=== PATIENT | female | born 1975 ===

== ENCOUNTER 2020-07-22 14:41 | Emergency (ER) | payer MEDICARE, BC, SELFPAY ==
[2020-07-22 15:07] VITALS: BP 190/125; PULSE 107; RESP 18; TEMP 37; O2SAT 96; BMI 33.3
[2020-07-22 16:02] VITALS: BP 188/126; PULSE 108; RESP 16
--- NOTE | 2020-07-22 16:24 | ECG_ITS ---
Test Reason : HYPERTENTION Blood Pressure : / mmHG Vent. Rate : 092 BPM Atrial Rate : 092 BPM P-R Int : 160 ms QRS Dur : 070 ms QT Int : 386 ms P-R-T Axes : 046 054 064 degrees QTc Int : 477 ms Normal sinus rhythm Moderate voltage criteria for LVH, may be normal variant Nonspecific T wave abnormality Prolonged QT Abnormal ECG No previous ECGs available Referred By: eJferson Issa Electronically Signed By:ALAN DEVINE MD
[2020-07-22 16:38] VITALS: BP 189/121; PULSE 93; RESP 16; O2SAT 96
[2020-07-22 16:39] VITALS: BP 189/121; PULSE 99
[2020-07-22] MEDS: Labetalol HCL 100 MG/20 ML VIAL 20 MG IVPUSH (16:39)
[2020-07-22 16:42] LABS: MANUAL DIFF FLAG NO
[2020-07-22 16:47] LABS: Basophils Percent Auto 0.3 % (0-2); Hematocrit 39.3 % (37-47); Hemoglobin 13.1 g/dl (12.0-16.0); Imm Gran Abs Auto 0.01 X10*3/uL (0.00-0.03); Imm Gran Pct Auto 0.2 % (0.0-0.4); Lymphocytes Absolute Auto 1.7 X10*3/uL (1.2-4.9); Lymphocytes Percent Auto 27.3 % (20-40); Mean Corpuscular HGB Conc 33.3 g/dl (31.0-35.0); Mean Corpuscular Hemoglobin 29.2 pg (27.0-33.0); Mean Corpuscular Volume 87.5 fL (80-98); Mean Platelet Volume 9.8 fL (9.4-12.3); Monocytes Absolute Auto 0.7 X10*3/uL (0.1-1.2); Monocytes Percent Auto 10.7 % (2-11); Neutrophils Absolute Auto 3.7 X10*3/uL (2.0-8.3); Neutrophils Percent Auto 61.5 % (45-73); Platelet Count 267 X10*3/uL (160-400); Red Blood Count 4.49 X10*6/uL (4.20-5.50); Red Cell Distribution Width 12.8 % (11.0-16.0); White Blood Count 6.1 X10*3/uL (4.8-10.8)
[2020-07-22 17:08] LABS: Anion Gap 14 (12-20); Blood Urea Nitrogen 13 mg/dL (9-16); Calcium 8.5 mg/dL (8.4-10.2); Carbon Dioxide 24 mmol/L (22-29); Chloride 103 mmol/L (96-108); Creatinine Clr Calc Pharmacy 68.1; Estimated Glomerular Filt Rate > 60; Glucose Random 114 mg/dL (60-115); Sodium 137 mmol/L (135-145)
--- NOTE | 2020-07-22 17:13 | ED.GENADULT ---
HPI - General Adult General Chief complaint: General Medical Stated complaint: high blood pressure Time Seen by Provider: 07/22/20 16:23 Source: patient Mode of arrival: ambulatory Limitations: language barrier History of Present Illness HPI narrative: Patient has history of hypertension on losartan 50 mg daily usual blood pressure is 1 40s/80s since yesterday noticed blood pressure on the high side last night was 204/134 on arrival is 217/139 patient complaining of heaviness in the head no nausea no vomiting also patient complaining of chest pain which is going on for a long time almost a month. Patient denies any nausea vomiting diarrhea no abdominal pain no urinary complaints Related Data Allergies Allergy/AdvReac Type Severity Reaction Status Date / Time hydrocortisone Allergy Unknown UNKNOWN Unverified 05/06/20 18:52 [From CORTIZONE-10] Review of Systems Review of Systems: REVIEW OF SYSTEMS: Pertinent positives and negatives are stated above in the history. GEN: no fevers, chills, fatigue HEENT: no nasal congestion, sore throat, ear pain NEURO: ++headache, dizziness, focal weakness PULM: no cough, shortness of breath CV: no chest pain, palpitations, LE edema ABD: no abdominal pain, nausea, vomiting, diarrhea : no dysuria, urgency, frequency SKIN: no rash ROS otherwise negative x 10 [facility] Social History Social History Alcohol intake: never Smoked in Last 30 Days: No Use of substances other than those prescribed or required for medical reasons: No Advance Directives: No Advance Directives Information Provided: No Physical Exam Vital Signs: Vital Signs: Last Vital Signs Temp 98.6 F 07/22/20 15:07 Pulse 88 07/22/20 17:21 Resp 16 07/22/20 16:38 BP 150/97 H 07/22/20 17:21 Pulse Ox 96 07/22/20 16:38 Body Mass Index 33.3 Appearance: Alert. Oriented X3. No acute distress. Eyes: Pupils equal, round and reactive to light. ENT: Pharynx normal. Neck: Normal inspection. Neck supple. CVS: Normal heart rate and rhythm. Pulses normal. Respiratory: No respiratory distress. Breath sounds normal. Abdomen: Soft and nontender. No mass palpable bowel sounds are normal Skin: Skin warm and dry. Normal skin color. Normal skin turgor. Extremities: No lower extremity edema. Good range of movement Neuro: Oriented X 3. No motor deficit. No sensory deficit. Medical Decision Making MDM Narrative Medical decision making narrative: Patient with hypertension on losartan 50 mg uncontrolled lately responded to IV labetalol 20 mg now blood pressure is 150/90, patient feeling better now, labs were normal will increase the dose of losartan to 100 mg daily for control of BP Lab Data Lab results reviewed: Yes I reviewed the patient's lab results. Result diagrams: 07/22/20 16:36 07/22/20 16:36 Labs: Lab Results 07/22/20 07/22/20 07/22/20 Range/Units 16:36 16:36 16:36 WBC 6.1 (4.8-10.8) X10*3/uL RBC 4.49 (4.20-5.50) X10*6/uL Hgb 13.1 (12.0-16.0) g/dl Hct 39.3 (37-47) % MCV 87.5 (80-98) fL MCH 29.2 (27.0-33.0) pg MCHC 33.3 (31.0-35.0) g/dl RDW 12.8 (11.0-16.0) % Plt Count 267 (160-400) X10*3/uL MPV 9.8 (9.4-12.3) fL Immature Gran % (Auto) 0.2 (0.0-0.4) % Neut % (Auto) 61.5 (45-73) % Lymph % (Auto) 27.3 (20-40) % [place] % (Auto) 10.7 (2-11) % Eos % (Auto) 0.0 (0-4) % Baso % (Auto) 0.3 (0-2) % Lymph # (Auto) 1.7 (1.2-4.9) X10*3/uL [place] # (Auto) 0.7 (0.1-1.2) X10*3/uL Eos # (Auto) 0.0 (0.0-0.4) X10*3/uL Baso # (Auto) 0.0 (0.0-0.2) X10*3/uL Abs Immat Gran (auto) 0.01 (0.00-0.03) X10*3/uL Absolute Neuts (auto) 3.7 (2.0-8.3) X10*3/uL Absolute Nucleated RBC 0.000 (0.0-0.012) X10*3/uL Nucleated RBC % (auto) 0.0 (0.0-0.2) /100WBC Sodium 137 (135-145) mmol/L Potassium 4.0 (3.3-5.1) mmol/l Chloride 103 (96-108) mmol/L Carbon Dioxide 24 (22-29) mmol/L Anion Gap 14 (12-20) BUN 13 (9-16) mg/dL Creatinine 0.95 (0.5-1.4) mg/dL Estim Creat Clear Calc 68.1 Estimated GFR > 60 Random Glucose 114 (60-115) mg/dL Calcium 8.5 (8.4-10.2) mg/dL Troponin I High Sens 12.5 (<3.5-17.0) ng/L ECG Data Attestation: I personally reviewed and interpreted this ECG as follows: Interpretation: Normal sinus rhythm with ventricular rate of [address] T wave changes no acute ischemia Discharge Plan Discharge Clinical Impression: Hypertension Qualifiers: Hypertension type: essential hypertension Qualified Code(s): I10 - Essential (primary) hypertension Patient Disposition: Home, Self-Care Instructions: Hypertension (ED) Additional Instructions: Increased dose of losartan to 100 mg daily, check blood pressure daily before taking the medicine it should be less than 140/90 and follow up with PCP Interventions: ED Discharge Assessment Last Done: 07/22/20 19:45 Discharge Date/Time: 07/22/20 19:46 Print Language: Citizen Of [place]
[2020-07-22 17:15] LABS: Troponin-I High Sensitivity 12.5 ng/L (<3.5-17.0)
[2020-07-22 17:21] VITALS: BP 150/97; PULSE 88
== END 2020-07-22 19:46 | disposition home or self-care (01) ==
PROVIDERS: Emergency Provider Internal Medicine
DX: I10 Essential (primary) hypertension (principal); Z79.899 Other long term (current) drug therapy
CPT/HCPCS: 36415; 80048; 84484; 85025; 93005; 96374; 99284

== ENCOUNTER → 2020-07-27 11:09 | Outpatient (BNVA) | payer MEDICARE, BC, SELFPAY | PROVIDERS: PCP Internal Medicine; Visit Provider Urology | DX: Z76.89 Persons encountering health services in other specified circumstances (principal) | CPT/HCPCS: 99202 ==

== ENCOUNTER 2020-07-29 09:46 | Emergency (ER) | payer BC, MEDICARE, SELFPAY ==
[2020-07-29 10:01] VITALS: BP 156/96; PULSE 118; RESP 18; TEMP 36.7; O2SAT 95; BMI 34.3
--- NOTE | 2020-07-29 10:08 | ED.NAVMDI ---
HPI - Nausea/Vomiting/Diarrhea General Chief complaint: Nausea/Vomiting/Diarrhea Stated complaint: Nausea, vomiting Time Seen by Provider: 07/29/20 10:03 Source: patient Mode of arrival: ambulatory History of Present Illness HPI Narrative: 44-year-old female with a past medical history of hypertension c/o nausea, vomiting, fever T-max 100.2?, myalgias and mild chest tightness since . Also reports loss of taste/smell, recent travel to [place] and [place], and hematuria. Denies cough, shortness of breath, LE edema, history of clots, abdominal pain, dysuria MD elicited complaint: nausea, vomiting and abdominal pain Related Data Home Medications Medication Instructions Recorded Confirmed albuterol sulfate 90 mcg/actuation INHALATION 07/27/20 aerosol inhaler aspirin 81 mg chewable tablet 1 tab PO DAILY 07/27/20 losartan 100 mg tablet 100 mg PO DAILY 07/27/20 losartan 50 mg tablet 50 mg PO DAILY 07/27/20 omeprazole 20 mg capsule,delayed 20 mg PO DAILY 07/27/20 release pravastatin 40 mg tablet 40 mg PO DAILY 07/27/20 trazodone 100 mg tablet 100 mg PO BEDTIME 07/27/20 trazodone 50 mg tablet mg PO 07/27/20 Previous Rx's Medication Instructions Recorded albuterol sulfate 2 puff INHALATION Q4-6H PRN #6.7 g 07/29/20 azithromycin 250 mg PO DAILY 4 Days #4 tab 07/29/20 Allergies Allergy/AdvReac Type Severity Reaction Status Date / Time hydrocortisone Allergy Unknown UNKNOWN Verified 07/29/20 10:03 [From CORTIZONE-10] Review of Systems Review of Systems: Constitutional: No Weight loss, + Fever, No Chills, No Night Sweats, No Fatigue, + Malaise ENT/Mouth: No Hearing loss, No Ear Pain, No Nasal Congestion Cardiovascular: + Chest Pain, No SOB, No Dyspnea on Exertion, No Orthopnea, No Edema, No Palpitations Respiratory: No Cough, No Sputum Gastrointestinal: + Nausea, + Vomiting, No Diarrhea, No Constipation, No Abdominal pain Genitourinary: No Dysuria, No Urinary Frequency, + Hematuria Musculoskeletal: No joint pain, + Myalgias, No Joint Swelling Skin: No Skin Lesions, No rash Yes all other systems are reviewed and are negative PMFSH Past Medical History Attestation statement: The following information was validated with the patient. Social History Social History Alcohol intake: never Smoking Status: Never smoker Use of substances other than those prescribed or required for medical reasons: No Advance Directives: No Advance Directives Information Provided: Yes Physical Exam Vital Signs: Vital Signs: Last Vital Signs Temp 98.9 F 07/29/20 15:54 Pulse 93 07/29/20 15:54 Resp 18 07/29/20 15:54 BP 154/89 H 07/29/20 15:54 Pulse Ox 95 07/29/20 15:54 Body Mass Index 34.3 Const: General: cooperative and healthy appearing Orientation/consciousness: patient oriented x3 Limitations: no limitations HENMT: Head: Yes normal to inspection Ears: hearing grossly normal bilaterally General nose exam: Normal external nose present Face and sinus: Yes normal facial exam Eyes: General: appearance normal, both eyes and all related structures EOM: EOMs intact bilaterally Neck: Neck: Yes normal visual inspection and Yes no meningeal signs Resp: Effort & Inspection: normal respiratory effort Auscultation: clear to auscultation bilaterally, no rales, no rhonchi and no wheezes Cardio: Rate: regular rate Heart sounds: S1 normal heart sound present and S2 normal heart sound present GI: Inspection: Yes normal to inspection Palpation (GI): Soft to palpation, nontender, no guarding and not rigid Skin: Rashes: no rashes Wounds: no wounds Neuro: General: patient oriented x3 and no meningeal signs Gait exam (Neuro): Normal gait present Extrem: Other: No LE edema or calf tenderness General: Yes normal to inspection Course Course Course Narrative: -leukopenic 4.6, ferritin, LDH, CRP mildly elevated. AST/ALT mildly elevated -d-dimer negative -troponin elevated at 16.8> chronically elevated, will obtain 3hr repeat -COVID negative, CXR showing a few linear opacities of atelectasis in each lung, no evidence of pneumonia or CHF > will obtain chest CT -1635--repeat troponin equivocal, chest CT showing bilateral patchy regions of interstitial lung disease suspicious for COVID-19 > will give 1st doses of Azithro the ED and amblate pt with pusle ox prior to d/c -patient maintained saturations 95% or greater on room air with exercise test. Worrisome signs and symptoms and strict return precautions discussed with patient. She verbalized understanding feel safe for discharge home MDM - Nausea/Vomiting/Diarrhea MDM Narrative Medical decision making narrative: 44-year-old female with a PMHx of hypertension c/o nausea, vomiting, fever T-max 100.2?, myalgias and mild chest tightness since . Also reports loss of taste/smell, recent travel to [place] and [place], and hematuria. On exam tachycardic, sating 95% on RA, in no respiratory distress, lungs CTA, abdomen soft/nontender, no LE edema. Concern for viral syndrome/COVID-19 v gastroenteritis vs PE with travel/COVID risk factors vs dehydration. Low concern for ACS, appendicitis/diverticulitis. Rule UTI Plan: EKG, labs, UA, CXR, COVID19, IVF, Reassess Lab Data Result diagrams: 07/29/20 11:37 07/29/20 11:37 Labs: Lab Results 07/29/20 07/29/20 07/29/20 Range/Units 11:37 11:37 11:37 WBC 4.6 L (4.8-10.8) X10*3/uL RBC 4.69 (4.20-5.50) X10*6/uL Hgb 13.5 (12.0-16.0) g/dl Hct 40.4 (37-47) % MCV 86.1 (80-98) fL MCH 28.8 (27.0-33.0) pg MCHC 33.4 (31.0-35.0) g/dl RDW 12.8 (11.0-16.0) % Plt Count 227 (160-400) X10*3/uL MPV 10.2 (9.4-12.3) fL Immature Gran % (Auto) 0.2 (0.0-0.4) % Neut % (Auto) 64.9 (45-73) % Lymph % (Auto) 30.1 (20-40) % [place] % (Auto) 4.8 (2-11) % Eos % (Auto) 0.0 (0-4) % Baso % (Auto) 0.0 (0-2) % Lymph # (Auto) 1.4 (1.2-4.9) X10*3/uL [place] # (Auto) 0.2 (0.1-1.2) X10*3/uL Eos # (Auto) 0.0 (0.0-0.4) X10*3/uL Baso # (Auto) 0.0 (0.0-0.2) X10*3/uL Abs Immat Gran (auto) 0.01 (0.00-0.03) X10*3/uL Absolute Neuts (auto) 3.0 (2.0-8.3) X10*3/uL Absolute Nucleated RBC 0.000 (0.0-0.012) X10*3/uL Nucleated RBC % (auto) 0.0 (0.0-0.2) /100WBC PT 12.8 (10.8-13.0) SEC INR 1.1 (0.9-1.1) APTT 29.6 (24.1-38.0) SEC D-Dimer < 200 NG/ML Sodium (135-145) mmol/L Potassium (3.3-5.1) mmol/l Chloride (96-108) mmol/L Carbon Dioxide (22-29) mmol/L Anion Gap (12-20) BUN (9-16) mg/dL Creatinine (0.5-1.4) mg/dL Estim Creat Clear Calc Estimated GFR Random Glucose (60-115) mg/dL Calcium (8.4-10.2) mg/dL Magnesium (1.6-2.6) mg/dL Ferritin (10-250) ng/mL Total Bilirubin (0.0-1.0) mg/dL Direct Bilirubin (0.0-0.5) mg/dL AST (5-31) U/L ALT (0-31) U/L Alkaline Phosphatase (39-117) U/L Lactate Dehydrogenase (122-220) U/L Troponin I High Sens 16.8 (<3.5-17.0) ng/L C-Reactive Protein (< or = 0.50) mg/dL Total Protein (6.5-8.0) g/dL Albumin (3.5-5.0) g/dL Lipase (8-78) U/L Procalcitonin ng/mL Urine Color Urine Appearance Urine pH (5.0-8.0) Ur Specific [place] (1.005-1.025) Urine Protein (NEG-TRACE) MG/DL Urine Glucose (UA) (NEG) MG/DL Urine Ketones (NEG) MG/DL Urine Blood (NEG) Urine Nitrite (NEG) Ur Leukocyte Esterase (NEG) Urine RBC (0) /HPF Urine WBC (0-4) /HPF Ur Squamous Epith Cells /LPF Urine Bacteria /LPF COVID-19 (RADHA) (Negative) COVID-19 Clin Com 07/29/20 07/29/20 07/29/20 Range/Units 11:37 11:37 11:42 WBC (4.8-10.8) X10*3/uL RBC (4.20-5.50) X10*6/uL Hgb (12.0-16.0) g/dl Hct (37-47) % MCV (80-98) fL MCH (27.0-33.0) pg MCHC (31.0-35.0) g/dl RDW (11.0-16.0) % Plt Count (160-400) X10*3/uL MPV (9.4-12.3) fL Immature Gran % (Auto) (0.0-0.4) % Neut % (Auto) (45-73) % Lymph % (Auto) (20-40) % [place] % (Auto) (2-11) % Eos % (Auto) (0-4) % Baso % (Auto) (0-2) % Lymph # (Auto) (1.2-4.9) X10*3/uL [place] # (Auto) (0.1-1.2) X10*3/uL Eos # (Auto) (0.0-0.4) X10*3/uL Baso # (Auto) (0.0-0.2) X10*3/uL Abs Immat Gran (auto) (0.00-0.03) X10*3/uL Absolute Neuts (auto) (2.0-8.3) X10*3/uL Absolute Nucleated RBC (0.0-0.012) X10*3/uL Nucleated RBC % (auto) (0.0-0.2) /100WBC PT (10.8-13.0) SEC INR (0.9-1.1) APTT (24.1-38.0) SEC D-Dimer NG/ML Sodium 137 (135-145) mmol/L Potassium 3.8 (3.3-5.1) mmol/l Chloride 103 (96-108) mmol/L Carbon Dioxide 23 (22-29) mmol/L Anion Gap 15 (12-20) BUN 10 (9-16) mg/dL Creatinine 1.10 (0.5-1.4) mg/dL Estim Creat Clear Calc 57.2 Estimated GFR 53 Random Glucose 144 H (60-115) mg/dL Calcium 8.7 (8.4-10.2) mg/dL Magnesium 1.7 (1.6-2.6) mg/dL Ferritin 542 H (10-250) ng/mL Total Bilirubin 0.2 (0.0-1.0) mg/dL Direct Bilirubin 0.2 (0.0-0.5) mg/dL AST 41 H (5-31) U/L ALT 51 H (0-31) U/L Alkaline Phosphatase 76 (39-117) U/L Lactate Dehydrogenase 247 H (122-220) U/L Troponin I High Sens (<3.5-17.0) ng/L C-Reactive Protein 2.54 H (< or = 0.50) mg/dL Total Protein 7.4 (6.5-8.0) g/dL Albumin 3.9 (3.5-5.0) g/dL Lipase 30 (8-78) U/L Procalcitonin 0.10 ng/mL Urine Color Urine Appearance Urine pH (5.0-8.0) Ur Specific [place] (1.005-1.025) Urine Protein (NEG-TRACE) MG/DL Urine Glucose (UA) (NEG) MG/DL Urine Ketones (NEG) MG/DL Urine Blood (NEG) Urine Nitrite (NEG) Ur Leukocyte Esterase (NEG) Urine RBC (0) /HPF Urine WBC (0-4) /HPF Ur Squamous Epith Cells /LPF Urine Bacteria /LPF COVID-19 (RADHA) Negative (Negative) COVID-19 Clin Com See Note 07/29/20 07/29/20 Range/Units 14:24 14:27 WBC (4.8-10.8) X10*3/uL RBC (4.20-5.50) X10*6/uL Hgb (12.0-16.0) g/dl Hct (37-47) % MCV (80-98) fL MCH (27.0-33.0) pg MCHC (31.0-35.0) g/dl RDW (11.0-16.0) % Plt Count (160-400) X10*3/uL MPV (9.4-12.3) fL Immature Gran % (Auto) (0.0-0.4) % Neut % (Auto) (45-73) % Lymph % (Auto) (20-40) % [place] % (Auto) (2-11) % Eos % (Auto) (0-4) % Baso % (Auto) (0-2) % Lymph # (Auto) (1.2-4.9) X10*3/uL [place] # (Auto) (0.1-1.2) X10*3/uL Eos # (Auto) (0.0-0.4) X10*3/uL Baso # (Auto) (0.0-0.2) X10*3/uL Abs Immat Gran (auto) (0.00-0.03) X10*3/uL Absolute Neuts (auto) (2.0-8.3) X10*3/uL Absolute Nucleated RBC (0.0-0.012) X10*3/uL Nucleated RBC % (auto) (0.0-0.2) /100WBC PT (10.8-13.0) SEC INR (0.9-1.1) APTT (24.1-38.0) SEC D-Dimer NG/ML Sodium (135-145) mmol/L Potassium (3.3-5.1) mmol/l Chloride (96-108) mmol/L Carbon Dioxide (22-29) mmol/L Anion Gap (12-20) BUN (9-16) mg/dL Creatinine (0.5-1.4) mg/dL Estim Creat Clear Calc Estimated GFR Random Glucose (60-115) mg/dL Calcium (8.4-10.2) mg/dL Magnesium (1.6-2.6) mg/dL Ferritin (10-250) ng/mL Total Bilirubin (0.0-1.0) mg/dL Direct Bilirubin (0.0-0.5) mg/dL AST (5-31) U/L ALT (0-31) U/L Alkaline Phosphatase (39-117) U/L Lactate Dehydrogenase (122-220) U/L Troponin I High Sens 16.4 (<3.5-17.0) ng/L C-Reactive Protein (< or = 0.50) mg/dL Total Protein (6.5-8.0) g/dL Albumin (3.5-5.0) g/dL Lipase (8-78) U/L Procalcitonin ng/mL Urine Color YELLOW Urine Appearance CLEAR Urine pH 6.5 (5.0-8.0) Ur Specific [place] 1.015 (1.005-1.025) Urine Protein 2+ H (NEG-TRACE) MG/DL Urine Glucose (UA) NEG (NEG) MG/DL Urine Ketones NEG (NEG) MG/DL Urine Blood 3+ H (NEG) Urine Nitrite NEG (NEG) Ur Leukocyte Esterase NEG (NEG) Urine RBC 5-9 H (0) /HPF Urine WBC 0 (0-4) /HPF Ur Squamous Epith Cells 1+ /LPF Urine Bacteria 1+ /LPF COVID-19 (RADHA) (Negative) COVID-19 Clin Com Discharge Plan Discharge Clinical Impression: COVID-19, Viral pneumonia Patient Disposition: Home, Self-Care Instructions: COVID-19 (Coronavirus Disease 2019) (ED) Additional Instructions: Your blood work and CT scan are concerning for COVID-19. Azithromycin as antibiotic, take as prescribed. In addition use albuterol inhaler at home as needed for shortness of breath. Self isolate for 14 days. If symptoms persist or worsen, you develop constant chest pain, constant shortness of breath, or fever unresolved by Tylenol at home return to the ED At this time you will be okay for discharge. Please plan for self quarantine for up to 14 days. Do not expose yourself to others. You may not go to work. I Please continue to follow cold instructions and wash your hands frequently. You may take Tylenol as directed on the bottle for pain or fever. CDC Guidelines for home isolation: - Stay away from others - WEAR A MASK if you are sick AND STAY HOME - Cover your mouth and nose with a tissue when you cough or sneeze. Dispose of tissues in a lined trash can and wash your hands immediately with soap and water for at least 20 seconds. If soap and water are not available, clean hands with alcohol-based hand communications department chairperson that contains at least 60% alcohol. - Clean your hands often with soap and water for at least 20 seconds - Avoid touching your eyes, nose and mouth with unwashed hands - Do not share dishes, drinking glasses, cups, eating utensils, towels, or bedding with other people in your home. After using these items, wash them thoroughly with soap and water or put in the cardiovascular surgical tech. - Clean high-touch surfaces in your isolation area ( sick room and bathroom) every day; let a caregiver clean and disinfect high-touch surfaces in other areas of the home. Clean the area or item with soap and water or another detergent if it is dirty. Then, use a household disinfectant. - Limit contact with pets and animals: If you must care for a pet, wash your hands before and after interacting with them) Teran an?lisis de blessing y tomograf?a computarizada son preocupantes para COVID-19. Azitromicina arti antibi?josue, lam seg?n lo prescrito. Adem?s, use el inhalador de albuterol en casa seg?n sea necesario para la dificultad para respirar. Autoaislar genoveva 14 d?as. Si los s?ntomas persisten o empeoran, presenta dolor en el pecho ronaldo, dificultad para respirar ronaldo o fiebre que no se resuelve con Tylenol en casa, regrese al servicio de urgencias En asia momento estar? kishore para el debby. Planifique la auto cuarentena por hasta 14 d?as. No se exponga a los dem?s. Puede que no vaya a trabajar. yo Contin?e siguiendo las instrucciones en fr?o y l?vese las liliana con frecuencia. Puede lam Tylenol arti se indica en el frasco para el dolor o la fiebre. [place] de los CDC para el aislamiento en el hogar: - Mantente alejado de los dem?s - USE MARITZA M?SCARA si est? enfermo Y QUEDE EN CASA - C?brase la boca y la nariz con un pa?uelo cuando tosa o estornude. Deseche los pa?uelos desechables en un bote de basura forrado y l?vese las liliana inmediatamente con agua y jab?n genoveva al menos 20 segundos. Si no dispone de agua y jab?n, l?vese las liliana con un desinfectante para liliana a base de alcohol que contenga al menos un 60% de alcohol. - L?vese las liliana con frecuencia con agua y jab?n genoveva al menos 20 segundos - Evite tocarse los ojos, la nariz y la boca con las liliana sin jefe - No comparta platos, vasos, tazas, cubiertos, toallas o ropa de cama con otras personas en teran hogar. Despu?s de usar estos art?culos, l?velos kishore con agua y jab?n o p?ngalos en el [place]. - Limpie las superficies de alto contacto en teran ?trisha de aislamiento ( habitaci?n de enfermo y ba?o) todos los d?as; deje que un cuidador limpie y desinfecte las superficies de alto contacto en otras ?reas de la casa. Limpie el ?trisha o el art?culo con agua y jab?n u otro detergente si est? sucio. Luego, use un desinfectante dom?stico. - Limite el contacto con mascotas y animales: si debe cuidar a maritza mascota, l?vese las liliana antes y despu?s de interactuar con ellos) Prescriptions: New azithromycin 250 mg tablet 250 mg PO DAILY 4 Days Qty: 4 RF: 0 albuterol sulfate 90 mcg/actuation HFA aerosol inhaler 2 puff inhalation Q4-6H PRN (Reason: shortness of breath or wheezing) Qty: 6.7 RF: 0 No Action losartan 100 mg tablet 100 mg PO DAILY RF: 0 omeprazole 20 mg capsule,delayed release(DR/EC) 20 mg PO DAILY RF: 0 albuterol sulfate 90 mcg/actuation HFA aerosol inhaler inhalation RF: 0 pravastatin 40 mg tablet 40 mg PO DAILY RF: 0 losartan 50 mg tablet 50 mg PO DAILY RF: 0 trazodone 100 mg tablet 100 mg PO BEDTIME RF: 0 aspirin 81 mg tablet,chewable 1 tab PO DAILY RF: 0 trazodone 50 mg tablet PO RF: 0 Referrals: Physician,Unknown [Primary Care Provider] - 2 days (call) Print Language: [place]
--- NOTE | 2020-07-29 10:28 | XR_ITS ---
EXAMINATION: XR CHEST CLINICAL INFORMATION: Chest pain COMPARISON: None TECHNIQUE: Frontal view of the chest was obtained. FINDINGS: Lungs are well expanded. There are a few thin linear opacities of atelectasis in each lung. No evidence of pulmonary edema, consolidation or pleural effusion. No pneumothorax. Cardiomediastinal silhouette has normal size and contour. The visualized bones, and upper abdomen, are unremarkable. XR/XR chest 1V IMPRESSION: * There are a few linear opacities of atelectasis in each lung. * No radiographic evidence of pneumonia or congestive heart failure.
--- NOTE | 2020-07-29 10:35 | PC.NURSE ---
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 Pt moved to room 3 in ED
[2020-07-29 11:11] VITALS: BP 149/106; PULSE 105; RESP 18; O2SAT 96
[2020-07-29] MEDS: 0.9 % Sodium Chloride 1,000 ML 999 ML IVCONT (11:46)
[2020-07-29] MEDS: ondansetron HCL 4 MG/2 ML VIAL IVPUSH (11:47)
[2020-07-29 11:50] VITALS: PULSE 103
[2020-07-29 12:00] VITALS: BP 144/88; PULSE 99; RESP 16; TEMP 36.7; O2SAT 97
[2020-07-29 12:06] LABS: Hematocrit 40.4 % (37-47); Hemoglobin 13.5 g/dl (12.0-16.0); Imm Gran Abs Auto 0.01 X10*3/uL (0.00-0.03); Imm Gran Pct Auto 0.2 % (0.0-0.4); Lymphocytes Absolute Auto 1.4 X10*3/uL (1.2-4.9); Lymphocytes Percent Auto 30.1 % (20-40); MANUAL DIFF FLAG NO; Mean Corpuscular HGB Conc 33.4 g/dl (31.0-35.0); Mean Corpuscular Hemoglobin 28.8 pg (27.0-33.0); Mean Corpuscular Volume 86.1 fL (80-98); Mean Platelet Volume 10.2 fL (9.4-12.3); Monocytes Absolute Auto 0.2 X10*3/uL (0.1-1.2); Monocytes Percent Auto 4.8 % (2-11); Neutrophils Percent Auto 64.9 % (45-73); Platelet Count 227 X10*3/uL (160-400); Red Blood Count 4.69 X10*6/uL (4.20-5.50); Red Cell Distribution Width 12.8 % (11.0-16.0); White Blood Count 4.6 X10*3/uL (4.8-10.8)
[2020-07-29 12:09] LABS: INTERNATIONAL NORM RATIO 1.1 (0.9-1.1); Prothrombin Time 12.8 SEC (10.8-13.0)
[2020-07-29 12:12] LABS: Partial Thromboplastin Time 29.6 SEC (24.1-38.0)
[2020-07-29 12:16] LABS: D Dimer < 200 NG/ML
[2020-07-29 12:19] LABS: COVID-19 Test Negative (Negative); IDNOW Serial# 9DD0AD1C
[2020-07-29 12:36] LABS: Alanine Aminotransferase 51 U/L (0-31); Albumin Level 3.9 g/dL (3.5-5.0); Alkaline Phosphatase 76 U/L (39-117); Anion Gap 15 (12-20); Aspartate Amino Transferase 41 U/L (5-31); Bilirubin Direct 0.2 mg/dL (0.0-0.5); Bilirubin Total 0.2 mg/dL (0.0-1.0); Blood Urea Nitrogen 10 mg/dL (9-16); C Reactive Protein 2.54 mg/dL (< or = 0.50); Calcium 8.7 mg/dL (8.4-10.2); Carbon Dioxide 23 mmol/L (22-29); Chloride 103 mmol/L (96-108); Creatinine Clr Calc Pharmacy 57.2; Estimated Glomerular Filt Rate 53; Glucose Random 144 mg/dL (60-115); Lactate Dehydrogenase 247 U/L (122-220); Lipase 30 U/L (8-78); Magnesium 1.7 mg/dL (1.6-2.6); Potassium 3.8 mmol/l (3.3-5.1); Sodium 137 mmol/L (135-145); Total Protein 7.4 g/dL (6.5-8.0)
[2020-07-29 12:40] LABS: Troponin-I High Sensitivity 16.8 ng/L (<3.5-17.0)
[2020-07-29 13:16] VITALS: BP 149/95; PULSE 102; RESP 16; TEMP 37; O2SAT 96
[2020-07-29 13:35] LABS: Ferritin 542 ng/mL (10-250)
--- NOTE | 2020-07-29 14:04 | CT_ITS ---
EXAMINATION: CT CHEST WITHOUT CONTRAST CLINICAL INFORMATION: Atelectasis versus pneumonia versus Covid. COMPARISON: Chest x-ray of same day TECHNIQUE: Multidetector volumetric CT imaging of the chest was done. Axial MIP volume rendering provided. Sagittal and coronal reformatted images were obtained. This CT examination was performed using dose optimization techniques as appropriate, variously including the following: *Automated exposure control *Adjustment of mA and/or kV according to patient size (this includes techniques or standardized protocols for targeted exams where dose is matched to indication/reason for exam; i.e. extremities or head) *Use of iterative reconstruction technique DLP: 2-3 mGy-cm FINDINGS: LUNGS: Central airways are patent. Calcified granuloma seen within the left upper lobe. There is bronchial wall thickening seen bilaterally without evidence of bronchiectasis. No emphysematous changes appreciated. There is some dependent bibasilar parenchymal disease left greater than right which may be related to dependent atelectasis however pneumonia cannot be excluded. There are regions of patchy groundglass opacity seen scattered bilaterally some of which is in a peripheral pattern involving the right upper lobe, the right lower lobe, left upper lobe, lingula, and left lower lobe. There are regions of most confluent disease is seen within the lingula and left lower lobe. MEDIASTINUM: Heart normal size. No thoracic aortic aneurysm. No pericardial effusion. No mediastinal or hilar lymphadenopathy. PLEURA: No pleural effusion. AXILLA: No lymphadenopathy. UPPER ABDOMEN: There is fatty infiltration of the liver. Status post cholecystectomy. OSSEOUS STRUCTURES: Unremarkable. CT/CT chest wo con IMPRESSION: More confluent airspace disease seen within the lingula and left lower lobe consistent with pneumonitis. There are bilateral patchy regions of peripheral interstitial lung disease. Appearance is suspicious for Covid 19.
[2020-07-29 14:42] LABS: Glucose Urine UA NEG (NEG); Leukocyte Esterase Urine NEG (NEG); Nitrite Urine NEG (NEG); PH 6.5 (5.0-8.0); Specific Gravity - Urine 1.015 (1.005-1.025); Urine Blood 3+ (NEG); Urine Ketones NEG (NEG); Urine Protein 2+ MG/DL (NEG-TRACE)
[2020-07-29 14:57] LABS: Appearance Urine CLEAR; Color Urine YELLOW
[2020-07-29 15:12] LABS: Bacteria Urine 1+ /LPF; Squamous Epithelial Cell Urine 1+ /LPF; WBC Urine 0 /HPF (0-4)
[2020-07-29 15:23] LABS: Troponin-I High Sensitivity 16.4 ng/L (<3.5-17.0)
[2020-07-29] MEDS: Azithromycin 500 MG TABLET PO (15:53)
[2020-07-29 15:54] VITALS: BP 154/89; PULSE 93; RESP 18; TEMP 37.2; O2SAT 95
--- NOTE | 2020-07-29 16:03 | PC.NURSE ---
PT ABLE TO STAND AND AMBULATE ABOUT ROOM W/ PULSE OXIMETER ON, SPO2 REMAINS >95%, PT OFFERED NO COMPLAINTS, PROVIDER AWARE.
== END 2020-07-29 16:18 | disposition home or self-care (01) ==
PROVIDERS: Physician Assistant; Emergency Provider Emergency Medicine
DX: J18.9 Pneumonia, unspecified organism (principal); Z20.828 Contact with and (suspected) exposure to other viral communicable diseases; I10 Essential (primary) hypertension
CPT/HCPCS: 36415; 71045; 71250; 80048; 80076; 81001; 82728; 83615; 83690; 83735; 84145; 84484; 85025; 85379; 85610; 85730; 86140; 87635; 99284; J2405

== ENCOUNTER 2020-08-31 12:18 | Outpatient (REF) | payer BC, SELFPAY ==
--- NOTE | 2020-08-31 12:22 | US_ITS ---
EXAMINATION: US RETROPERITONEAL LIMITED (RENAL ONLY) CLINICAL INFORMATION: Renal stones. COMPARISON: KUB 10/03/2017 TECHNIQUE: Real-time imaging of the kidneys. FINDINGS: RIGHT KIDNEY: 12.7 x 4.9 x 4.9 cm (SAG x AP x TRV). The kidney is normal in size, contour, and echogenicity. Renal cortical thickness is normal. No focal parenchymal lesions or hydronephrosis. Right midpole renal stone measuring 0.4 cm. LEFT KIDNEY: 7.8 x 3.8 x 4.3 cm (SAG x AP x TRV). Asymmetric left renal atrophy. Renal cortical thinning. No calculi or focal parenchymal lesions. No hydronephrosis. US/US renal BI IMPRESSION: 1. Right midpole 0.4 cm renal stone. No right-sided hydronephrosis. 2. Asymmetric left renal atrophy and cortical thinning.
[2020-08-31 13:44] LABS: Urine Cytology See Pathology rpt
== END 2020-08-31 12:19 | disposition home or self-care (01) ==
LOC: HO.US 12:18
PROVIDERS: PCP Internal Medicine; Visit Provider Urology
DX: N20.0 Calculus of kidney (principal); R31.0 Gross hematuria
CPT/HCPCS: 76775; 88112

== ENCOUNTER → 2020-09-24 10:50 | Outpatient (BNVA) | payer BC, SELFPAY | PROVIDERS: Visit Provider Urology | DX: N39.0 Urinary tract infection, site not specified (principal); N20.0 Calculus of kidney; N26.1 Atrophy of kidney (terminal) | CPT/HCPCS: 99212 ==

== ENCOUNTER → 2021-02-04 09:27 | Outpatient (REF) | payer MEDICARE, SELFPAY ==
--- NOTE | 2021-02-04 09:30 | CA_ITS ---
Acquisition Time: 2021-02-04 09:38:12 Total Exercise Time: 00:02:15 Test Indications: chest pain Medications: Protocol: JILLIAN Max HR: 155 BPM 89% of Pred: 173 BPM Max BP: 156/090 mmHG Max Work Load: 4.6 METS Exercise stress test with exercise 2 min 15 sec of Jillian protocol, with 1/10 mid chest pressure at baseline which increased to 4/10 with exercise, with mild to moderate sob and request to stop exercise, with isolated PACs, with normotensive response to exercise, without EKG changes meeting criteria for ischemia. In recovery her chest discomfort and shortness of breath resolved. Test reviewed with Dr Banuelos. Call placed to Dr Nieves office and left message regarding results and recommendation for Pharmacological nuclear stress test to further evaluate for ischemia. Referred By: Michoacano Hilton Overread By: RAFA MCKINNEY
== END ==
LOC: HO.CARD 09:27
PROVIDERS: Visit Provider Internal Medicine
DX: R07.9 Chest pain, unspecified (principal)
CPT/HCPCS: 93017

== ENCOUNTER 2021-03-25 07:29 | Outpatient (REF) | payer MEDICARE, SELFPAY ==
--- NOTE | ~2021-03-25 | US_ITS ---
EXAMINATION: US RETROPERITONEAL LIMITED (RENAL ONLY) CLINICAL INFORMATION: Calculus of kidney. COMPARISON: Renal ultrasound 08/31/2020. KUB 10/03/2017 and 09/14/2016. TECHNIQUE: Real-time imaging of the kidneys. FINDINGS: RIGHT KIDNEY: 11.3 x 6.3 x 5.8 cm (SAG x AP x TRV). The kidney is normal in size, contour, and echogenicity. Renal cortical thickness is normal. There is a 6 x 5 x 8 mm stone in the midpole. No focal parenchymal lesions or hydronephrosis. LEFT KIDNEY: 7.7 x 4.7 x 4.2 cm (SAG x AP x TRV). The left kidney is difficult to visualize. The kidney is normal in size, contour, and echogenicity. Left kidney is smaller than the right. There is left renal cortical thinning. There is central cystic area in the upper pole questionable for hydronephrosis versus peripelvic cysts. US/US renal BI IMPRESSION: Right renal stone. Limited visualization of the left kidney. Small left kidney with left renal cortical thinning. Cystic area seen in the central upper pole of the left kidney questionable for calyceal dilatation versus peripelvic cysts.
== END 2021-03-25 07:30 | disposition home or self-care (01) ==
LOC: HO.US 07:29
PROVIDERS: Visit Provider Urology
DX: N20.0 Calculus of kidney (principal)
CPT/HCPCS: 76775

== ENCOUNTER → 2021-05-03 15:33 | Outpatient (BNVA) | payer MEDICARE, SELFPAY | PROVIDERS: PCP Internal Medicine; Visit Provider Urology | DX: N20.0 Calculus of kidney (principal); N26.1 Atrophy of kidney (terminal) | CPT/HCPCS: Q3014 ==

== ENCOUNTER 2021-07-06 06:14 | Day surgery (SDC) | payer MEDICARE, SELFPAY ==
[2021-06-15 15:46] VITALS: BMI 29.2
--- NOTE | 2021-07-05 12:02 | P.CONAN_ITS ---
Documented by User: Bere Willis NP 07/05/21 12:02 HPI - Anesthesia Eval Consult details Narrative: 45yo F for Right Lithotripsy ESW PMFSH Active Problems Active Problems: All Active Problems (Updated 06/15/21 @ 15:05 by Alise Macdonald RN) Gross hematuria (Acute) COVID-19 (Acute) Recurrent UTI (urinary tract infection) (Acute) Left renal atrophy (Acute) Nephrolithiasis (Acute) Diabetes mellitus (Acute) Past Medical History Medical History (Updated 06/15/21 @ 15:05 by Alise Macdonald, RN) Depression Diabetes Elevated cholesterol Fibromyalgia GERD (gastroesophageal reflux disease) HTN (hypertension) Kidney stones Medullary sponge kidney GREG (obstructive sleep apnea) Surgical History Surgical History (Updated 06/15/21 @ 15:01 by Alise Macdonald RN) History of lithotripsy Hx of cholecystectomy Hx of hysterectomy Social History Social History Are you a primary healthcare architect to a significant other at home: No Do you presently have visiting nurse or other home services: No Alcohol intake: never Patient Tobacco Use Status: Former Tobacco user Quit Date: > 20 yrs ago Tobacco use type: Cigarette Have you been hit, kicked, punched, or otherwise hurt by someone within the past year? If so, by whom?: No Are you DNR?: No Advance Directives: No Advance Directives Information Provided: No Advance Directives on File: No Recently lost weight without trying: No Eating poorly because of decreased appetite: No Nutrition Risks: No Nutritional Risk Patient : No FDLMP: Hysterectomy Meds Allergies Allergy/AdvReac Type Severity Reaction Status Date / Time hydrocortisone Allergy Unknown UNKNOWN Verified 05/03/21 15:35 [From CORTIZONE-10] Home Medications Medication Instructions Recorded Confirmed Last Taken Type aspirin 81 mg chewable tablet 1 tab PO DAILY 07/27/20 06/15/21 Unknown History losartan 100 mg tablet 100 mg PO DAILY 07/27/20 06/15/21 Unknown History omeprazole 20 mg capsule,delayed 20 mg PO DAILY 07/27/20 06/15/21 Unknown History release pravastatin 40 mg tablet 40 mg PO DAILY 07/27/20 06/15/21 Unknown History trazodone 100 mg tablet 100 mg PO BEDTIME 07/27/20 06/15/21 Unknown History clonazepam 0.5 mg tablet 0.5 mg PO TID PRN 05/03/21 06/15/21 Unknown History duloxetine 60 mg capsule,delayed 60 mg PO BID 05/03/21 06/15/21 Unknown History release empagliflozin 25 mg tablet 25 mg PO DAILY 05/03/21 06/15/21 Unknown History (Jardiance) haloperidol 5 mg tablet 2.5 mg PO TID 05/03/21 06/15/21 Unknown History metformin 500 mg tablet,extended 1 tab PO QPM 06/15/21 06/15/21 Unknown History release 24 hr Exam Exam Date and Time: July 05, 2021 1202 Height,Weight and Vital Signs: Height 5 ft 2 in Weight 72.575 kg Narrative Narrative: Exercise stress 01/2021 Exercise stress test with exercise 2 min 15 sec of Devyn protocol, with 1/10 mid ?chest pressure at baseline which increased to 4/10 with exercise, with mild to ?moderate sob and request to stop exercise, with isolated PACs, with ?normotensive response to exercise, without EKG changes meeting criteria for ?ischemia. In recovery her chest discomfort and shortness of breath resolved. ?Test reviewed with Dr Banuelos. Assessment and Plan Assessment Anesthesia Assessment: Chart Reviewed Documented by User: Priscilla Olivo MD 07/06/21 07:11 [facility] Past Medical History Medical History (Updated 06/15/21 @ 15:05 by Alies Macdonald, RN) Depression Diabetes Elevated cholesterol Fibromyalgia GERD (gastroesophageal reflux disease) HTN (hypertension) Kidney stones Medullary sponge kidney GREG (obstructive sleep apnea) Family History Family history of problems with anesthesia: No Surgical History Surgical History (Updated 06/15/21 @ 15:01 by Alise Macdonald, RN) History of lithotripsy Hx of cholecystectomy Hx of hysterectomy History of Problems with Anesthesia: No Social History Social History Are you a primary healthcare architect to a significant other at home: No Do you presently have visiting nurse or other home services: No Alcohol intake: never Patient Tobacco Use Status: Former Tobacco user Quit Date: > 20 yrs ago Tobacco use type: Cigarette Have you been hit, kicked, punched, or otherwise hurt by someone within the past year? If so, by whom?: No Are you DNR?: No Advance Directives: No Advance Directives Information Provided: No Advance Directives on File: No Recently lost weight without trying: No Eating poorly because of decreased appetite: No Nutrition Risks: No Nutritional Risk Patient : No FDLMP: Hysterectomy Meds Allergies Allergy/AdvReac Type Severity Reaction Status Date / Time hydrocortisone Allergy Unknown UNKNOWN Verified 05/03/21 15:35 [From CORTIZONE-10] Home Medications Medication Instructions Recorded Confirmed Last Taken Type aspirin 81 mg chewable tablet 1 tab PO DAILY 07/27/20 06/15/21 Unknown History losartan 100 mg tablet 100 mg PO DAILY 07/27/20 06/15/21 Unknown History omeprazole 20 mg capsule,delayed 20 mg PO DAILY 07/27/20 06/15/21 Unknown History release pravastatin 40 mg tablet 40 mg PO DAILY 07/27/20 06/15/21 Unknown History trazodone 100 mg tablet 100 mg PO BEDTIME 07/27/20 06/15/21 Unknown History clonazepam 0.5 mg tablet 0.5 mg PO TID PRN 05/03/21 06/15/21 Unknown History duloxetine 60 mg capsule,delayed 60 mg PO BID 05/03/21 06/15/21 Unknown History release empagliflozin 25 mg tablet 25 mg PO DAILY 05/03/21 06/15/21 Unknown History (Jardiance) haloperidol 5 mg tablet 2.5 mg PO TID 05/03/21 06/15/21 Unknown History metformin 500 mg tablet,extended 1 tab PO QPM 06/15/21 06/15/21 Unknown History release 24 hr Exam Airway Mallampati Class: II TM Dist: >3cm Neck ROM: Full Heart: rrr Lungs: cta Assessment and Plan Assessment Anesthesia Assessment: Anesthesia Plan Discussed and Chart Reviewed Final Anesthetic Review Family History of Problems with Anesthesia: No History of Problems with Anesthesia: No NPO: Yes ASA Class: II Final Preanesthetic Review: No Changes in Pt Med Stat, Meds/Allgs Chart Reviewed and Consent Obtained/Reviewed Patient Risk: Intermediate Procedure Risk: Intermediate Anesthetic Plan Anesthetic Plan: MAC: Disposition: Standard PACU
[2021-07-06] VITALS (22 sets, daily range): BP systolic 150–229; BP diastolic 92–164; PULSE 66–135; RESP 14–23; TEMP 36.8; O2SAT 92–98
--- NOTE | ~2021-07-06 | XR_ITS ---
EXAMINATION: XR ABDOMEN KUB CLINICAL INDICATION: Nephrolithiasis COMPARISON: Renal ultrasound from 03/25/2021 TECHNIQUE: AP view of the abdomen. FINDINGS: Lung bases are normal. Bowel gas pattern is normal. The kidneys are partially obscured by overlying bowel gas and fecal material. Small renal stones might be obscured by the fecal material. Question presence of a 0.3 cm stone in the lateral upper pole of the right kidney. There are no large renal calculi. Cholecystectomy clips are present in the right upper quadrant. A single surgical clip is present in the left lower pelvis. Osseous structures are unremarkable. XR/XR KUB IMPRESSION: Possible small, 0.3 cm stone at the upper pole of the right kidney.
[2021-07-06 06:53] LABS: Glucose, Whole Blood 142 mg/dL (60-115)
[2021-07-06] MEDS: Lactated Ringers 1,000 ML 100 ML IVCONT (07:05)
[2021-07-06] MEDS: Acetaminophen 325 MG TABLET 650 MG PO (07:06)
--- NOTE | 2021-07-06 08:22 | MHC.SHP ---
Pre-Procedural Eval Section A Date of Service: 07/06/21 Section B Chief Complaint: calculus of kidney Details of Present Illness: Right renal stone - recurrent Relevant Family History (Specify if Yes): No Relevant Social History: None Present Medications: see Short Stay Collaborative assessment Medical History: Significant History History of Previous Operations: Relevant previous surgery/procedure and date(s) Allergies: Allergies Allergy/AdvReac Type Severity Reaction Status Date / Time hydrocortisone Allergy Unknown UNKNOWN Verified 05/03/21 15:35 [From CORTIZONE-10] Review of Systems Sugical H&P ROS: Negative: Constitution, Cardiovascular, Respiratory, Neurological, Psychiatric, Hem-Onc, Allergic/Immunologic, Gastrointestinal, Genitourinary, Musculoskeletal, Integumentary, Endocrine and Eyes/Ears/Nose/Throat Exam Surgical H&P Exam: Normal: HEENT, Normal: Heart, Normal: Lungs, Normal: Extremities, Normal: Abdomen, Normal: Skin and Normal: Neurological Plan Diagnosis/Plan: Unchanged (Right ESWL) I have reviewed the history and physical and performed a pertinent physical examination on my patient. No changes have occurred unless specified.
--- NOTE | 2021-07-06 08:33 | W.PM.OPN ---
Operative Note Operative Note Date of Service: 07/06/21 Narrative: PreOperative Diagnosis: Right Renal stones Post Operative Diagnosis: Right Renal stones Procedure: Right ESWL Surgeon: Dr Adrian Hanson Anesthesia: mac/sedation Indications for procedure: The patient understands ESWL may be a staged procedure and subsequent intervention may be required based on imaging after ESWL. They also understand there is a risk of bleeding to the kidney, infection, damage to adjacent organs, and stone migration following the procedure. - right 6 mm mid pole stones Procedure: After informed consent was verified the patient was brought to the operating room and placed in a supine position. Anesthesia was performed per protocol. Safety pause time-out was performed. Imaging was displayed in the room and laterality confirmed. ESWL was performed. The 1st 500 shocks were performed at 60 hertz. These were performed with increasing power. Once maximum power was reached the rate was increased to 180 hertz. A total of 2500 shocks were given. Targetted imaging with ultrasound/fluoroscopy showed stone smudging suggestive of disintegration. The patient tolerated the procedure well and was transferred to the recovery area upon completion. Post procedure imaging will be organized. There was no evidence for flank discoloration.
[2021-07-06] MEDS: Metoprolol Tartrate 5 MG/5 ML VIAL IVPUSH (09:12)
[2021-07-06] MEDS: Losartan Potassium 50 MG TABLET PO (12:37)
== END 2021-07-06 13:30 | disposition home or self-care (01) ==
PROVIDERS: PCP Internal Medicine; Visit Provider Urology
PROC: (CPT 50590; principal; 2021-07-06 08:10)
DX: N20.0 Calculus of kidney (principal); Z87.442 Personal history of urinary calculi; N26.1 Atrophy of kidney (terminal); Q61.5 Medullary cystic kidney; G47.33 Obstructive sleep apnea (adult) (pediatric); M79.7 Fibromyalgia; I10 Essential (primary) hypertension; E11.9 Type 2 diabetes mellitus without complications; Z88.8 Allergy status to other drugs, medicaments and biological substances; Z90.49 Acquired absence of other specified parts of digestive tract; Z87.891 Personal history of nicotine dependence; Z79.84 Long term (current) use of oral hypoglycemic drugs; Z79.82 Long term (current) use of aspirin; Z79.899 Other long term (current) drug therapy
CPT/HCPCS: 50590; 74018; 82947; J1100; J2250; J2405; J3010

== ENCOUNTER 2021-07-22 07:46 | Outpatient (REF) | payer MEDICARE, SELFPAY ==
--- NOTE | ~2021-07-22 | US_ITS ---
EXAMINATION: US RETROPERITONEAL LIMITED (RENAL ONLY) CLINICAL INFORMATION: Calculus of kidney. COMPARISON: KUB 07/06/2021 and 10/03/2017. Renal ultrasound 03/25/2021 and 08/31/2020. TECHNIQUE: Real-time imaging of the kidneys. FINDINGS: RIGHT KIDNEY: 13.4 x 4.9 x 5.6 cm (SAG x AP x TRV). The kidney is normal in size, contour, and echogenicity. Renal cortical thickness is normal. No focal parenchymal lesions or hydronephrosis. There is an echogenic stone in the midpole measuring 0.67 x 0.54 x 0.58 cm without caliectasis. LEFT KIDNEY: 7.6 x 2.8 x 5.5 cm (SAG x AP x TRV). The kidney is small in size, irregular in appearance and not echogenic. Renal cortical thickness is normal. No calculi or focal parenchymal lesions. No hydronephrosis. US/US renal BI IMPRESSION: Echogenic stone midpole right kidney without caliectasis or hydronephrosis. Small and irregular appearing left kidney. No echogenic stones or hydronephrosis.
== END 2021-07-22 07:47 | disposition home or self-care (01) ==
LOC: HO.US 07:46
PROVIDERS: Visit Provider Urology
DX: N20.0 Calculus of kidney (principal)
CPT/HCPCS: 76775

== ENCOUNTER → 2021-07-27 09:10 | Outpatient (BNVA) | payer MEDICARE, SELFPAY | PROVIDERS: PCP Internal Medicine; Visit Provider Urology | DX: N20.0 Calculus of kidney (principal) | CPT/HCPCS: 99212; Q3014 ==

== ENCOUNTER 2022-01-05 14:34 | Outpatient (REF) | payer MEDICARE, SELFPAY ==
--- NOTE | ~2022-01-05 | US_ITS ---
EXAMINATION: US RETROPERITONEAL LIMITED (RENAL ONLY) CLINICAL INFORMATION: Calculus of kidney. COMPARISON: Renal ultrasound 07/22/2021. TECHNIQUE: Real-time imaging of the kidneys. FINDINGS: RIGHT KIDNEY: 12.5 x 4.6 x 5.5 cm (SAG x AP x TRV). The kidney is normal in size, contour, and echogenicity. Renal cortical thickness is normal. No focal parenchymal lesions. 4 mm and 3 mm upper pole calculi. 3 mm right mid renal calculus. There is slight fullness of the right renal pelvis but no calyceal dilation. LEFT KIDNEY: 8.2 x 3.5 x 3.8 cm (SAG x AP x TRV). The kidney is normal in size, contour, and echogenicity. No hydronephrosis. There is left renal cortical thinning. There is a 1.4 x 1 1.4 cm left upper pole renal parapelvic cyst. 4 mm left mid renal calculus. US/US renal BI IMPRESSION: Bilateral nonobstructing renal calculi. The left kidney is atrophic with diffuse renal cortical thinning, similar to prior studies.
== END 2022-01-05 14:35 | disposition home or self-care (01) ==
LOC: HO.HMGCX 14:34
PROVIDERS: Visit Provider Urology
DX: N20.0 Calculus of kidney (principal)
CPT/HCPCS: 76775

== ENCOUNTER → 2022-01-25 12:13 | Outpatient (BNVA) | payer MEDICARE, SELFPAY | PROVIDERS: PCP Internal Medicine; Visit Provider Urology | DX: N20.0 Calculus of kidney (principal); N26.1 Atrophy of kidney (terminal) | CPT/HCPCS: Q3014 ==

== ENCOUNTER 2022-04-05 09:57 | Outpatient (REF) | payer MEDICARE, SELFPAY ==
--- NOTE | ~2022-04-05 | MM_ITS ---
EXAMINATION: MM SCREENING DIGITAL BREAST TOMOSYNTHESIS, BILATERAL CLINICAL INFORMATION: Screening. Asymptomatic. The lifetime risk of breast cancer based on the Tyrer-Cuzick Model is 9%. COMPARISON: Mammography: 10/15/2019; outside mammography 05/03/2017, 04/30/2017, 04/27/2016 ([facility]) TECHNIQUE: Digital breast tomosynthesis is performed in both the craniocaudal and mediolateral oblique views along with computer-aided detection (CAD). Synthesized 2D images are generated from the tomosynthesis. FINDINGS: There are scattered areas of fibroglandular density (ACR BI-RADS breast composition Category b). There are no significant masses, abnormal calcifications, or other abnormalities. There are scattered randomly distributed round calcifications in both breasts similar to prior study. Intramammary node posterior upper outer left breast again noted as incidental finding. The axilla and skin contours are unremarkable. MM/MM tomosynthesis screening BI IMPRESSION: No mammographic evidence of malignancy. ASSESSMENT: BI-RADS 2: Benign RECOMMENDATION: Routine annual mammography screening. This patient's information was entered into a reminder system with a target due date for their next mammogram.
== END 2022-04-05 09:58 | disposition home or self-care (01) ==
LOC: HO.MAMMO 09:57
PROVIDERS: PCP Internal Medicine; Visit Provider Internal Medicine
DX: Z12.31 Encounter for screening mammogram for malignant neoplasm of breast (principal)
CPT/HCPCS: 77063; 77067

== ENCOUNTER 2022-04-17 14:33 | Outpatient (REF) | payer MEDICARE, SELFPAY ==
[2022-04-17 16:26] LABS: Anion Gap 15 (12-20); Blood Urea Nitrogen 24 mg/dL (9-16); Carbon Dioxide 27 mmol/L (22-29); Chloride 106 mmol/L (96-108); Estimated Glomerular Filt Rate 38; Glucose Random 131 mg/dL (60-115); Potassium 4.3 mmol/L (3.3-5.1); Sodium 144 mmol/L (135-145)
[2022-04-17 17:02] LABS: Appearance Urine Cloudy; Color Urine Dark Yellow; Glucose Urine UA Negative (Negative); Leukocyte Esterase Urine Trace (Negative); Nitrite Urine Negative (Negative); PH 5.5 (5.0-8.0); Urine Blood Large (3+) (Negative); Urine Ketones Trace mg/dL (Negative); Urine Protein 300 (3+) mg/dL (Neg-Trace)
[2022-04-17 17:46] LABS: Bacteria Urine 2+ (None Seen); Granular Casts Urine Present; UACC Culture Trigger YES
[2022-04-17 17:52] LABS: Creatinine Urine 224.49 mg/dL
[2022-04-17 18:06] LABS: Protein/Creatinine Ratio, Ur 1.47 (<0.2); Total Protein Urine Random 329 mg/dL (<12)
[2022-04-20 11:21] LABS: Prot Elec - Albumin 4.2 g/dL (3.8-4.8); Prot Elec - Alpha1 0.4 g/dL (0.2-0.3); Prot Elec - Alpha2 0.8 g/dL (0.5-0.9); Prot Elec - Beta 1 0.4 g/dL (0.4-0.6); Prot Elec - Beta 2 0.5 g/dL (0.2-0.5); Prot Elec - Gamma 1.3 g/dL (0.8-1.7); Prot Elec - Total Protein 7.5 g/dL (6.1-8.1)
== END 2022-04-17 14:34 | disposition home or self-care (01) ==
LOC: HO.LAB 14:33
PROVIDERS: PCP Internal Medicine; Visit Provider Internal Medicine Hypertension Specialist
DX: R80.9 Proteinuria, unspecified (principal); N20.0 Calculus of kidney; E11.22 Type 2 diabetes mellitus with diabetic chronic kidney disease; N18.9 Chronic kidney disease, unspecified
CPT/HCPCS: 36415; 80048; 81001; 81003; 84156; 84165; 87086

== ENCOUNTER 2022-04-19 11:40 | Outpatient (REF) | payer MEDICARE, SELFPAY ==
[2022-04-19 12:46] LABS: Creatinine, mg/dL 61.94
[2022-04-19 12:48] LABS: Creatinine, mg/dL 62.46
[2022-04-19 13:00] LABS: Sodium 24 Hr Urine 176.6 mmol/Day (40-220); Total Volume 24 Hour Urine 1650 mL
[2022-04-19 13:14] LABS: Uric Acid, 24 Hr Urine 521.4 mg/Day (250-750); Uric Acid, mg/dL 31.6 mg/dL
[2022-04-20 17:52] LABS: Calcium, 24 Hr Urine 84 mg/24 h; Calcium/Creatinine Ratio 82 mg/g creat (30-275); Creatinine 24Hr Urine 1.02 g/24 h (0.50-2.15)
[2022-04-25 14:02] LABS: 24hr Urine Total Volume 1650 mL; Citric Acid, 24hr Urine 13 mg/24 h (100-1300); Citric Acid/Creat Ratio 24U 12 mg/g creat (180-1070); Creatinine, 24U 1.02 g/24 h (0.50-2.15)
[2022-04-26 00:47] LABS: Oxalic Acid 24 Urine 29.7 mg/24 h (3.6-38.0)
== END 2022-04-19 11:41 | disposition home or self-care (01) ==
LOC: HO.LNP 11:40
PROVIDERS: Visit Provider Internal Medicine Hypertension Specialist
DX: N18.9 Chronic kidney disease, unspecified (principal); N20.0 Calculus of kidney
CPT/HCPCS: 82340; 82507; 83945; 84300; 84560

== ENCOUNTER 2022-05-23 12:51 | Emergency (ER) | payer MEDICARE, SELFPAY ==
[2022-05-23] VITALS (7 sets, daily range): BP systolic 175–221; BP diastolic 86–144; PULSE 61–89; RESP 14–18; TEMP 36.1–36.6; O2SAT 97–99; BMI 26.5
--- NOTE | 2022-05-23 | ECG_ITS ---
Test Reason : HYPERTENTION Blood Pressure : / mmHG Vent. Rate : 060 BPM Atrial Rate : 060 BPM P-R Int : 136 ms QRS Dur : 074 ms QT Int : 442 ms P-R-T Axes : -05 044 103 degrees QTc Int : 442 ms Normal sinus rhythm Minimal voltage criteria for LVH, may be normal variant ( Sokolow-Mitchell ) Nonspecific T wave abnormality Abnormal ECG When compared with ECG of 22-JUL-2020 16:54, Vent. rate has decreased BY 32 BPM Inverted T waves have replaced nonspecific T wave abnormality in Lateral leads Referred By: Generic ED Physician Electronically Signed By:SUZIE URBAN
--- NOTE | ~2022-05-23 | CT_ITS ---
EXAMINATION: CT HEAD WITHOUT CONTRAST CLINICAL INFORMATION: Headaches. COMPARISON: None. TECHNIQUE: Contiguous axial imaging was performed from the skullbase to vertex without intravenous administration of contrast. This CT examination was performed using dose optimization techniques as appropriate, variously including the following: *Automated exposure control *Adjustment of mA and/or kV according to patient size (this includes techniques or standardized protocols for targeted exams where dose is matched to indication/reason for exam; i.e. extremities or head) *Use of iterative reconstruction technique DLP: 557 mGy-cm. FINDINGS: There is no evidence of acute intracranial hemorrhage or territorial infarction. No abnormal mass effect or midline shift is seen. Gandhi to white matter differentiation is well preserved. No extra-axial fluid collections are identified. The ventricles are normal in size. A 9 mm low-density focus in the left thalamus is suspected to represent a chronic lacunar infarct. The osseous structures and soft tissues are normal. The mastoid air cells and visualized portions of the paranasal sinuses are well aerated. CT/CT head/brain wo IV con IMPRESSION: No acute intracranial pathology. Without prior imaging for comparison, a 9 mm low-density focus in the left thalamus is indicative for an age-indeterminate infarct, though this is suspected to represent a chronic lacunar infarct.
--- NOTE | 2022-05-23 14:37 | ED.HA ---
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 No new supplements. Has not been sick with anything. She denies OTC medications. MD elicited complaint: headache (HTN >200s) Pertinent past history: hypertension Onset (ago): day(s) (4) Onset description: gradually Location: diffuse Severity: moderate Quality & Timing: throbbing Exacerbating factors: none Relieving factors: nothing Context: occurred at rest Associated symptoms: other (chest tightness) Treatments prior to arrival: none Related Data Home Medications Medication Instructions Recorded Confirmed aspirin 81 mg chewable tablet 1 tab PO DAILY 07/27/20 06/15/21 losartan 100 mg tablet 100 mg PO DAILY 07/27/20 06/15/21 omeprazole 20 mg capsule,delayed 20 mg PO DAILY 07/27/20 06/15/21 release pravastatin 40 mg tablet 40 mg PO DAILY 07/27/20 06/15/21 trazodone 100 mg tablet 100 mg PO BEDTIME 07/27/20 06/15/21 clonazepam 0.5 mg tablet 0.5 mg PO TID PRN Anxiety 05/03/21 06/15/21 duloxetine 60 mg capsule,delayed 60 mg PO BID 05/03/21 06/15/21 release empagliflozin 25 mg tablet 25 mg PO DAILY 05/03/21 06/15/21 (Jardiance) haloperidol 5 mg tablet 2.5 mg PO TID 05/03/21 06/15/21 metformin 500 mg tablet,extended 1 tab PO QPM 06/15/21 06/15/21 release 24 hr alcohol swabs (Alcohol Prep Pads) pad topical DAILY 07/27/21 atorvastatin 40 mg tablet 40 mg PO DAILY 07/27/21 blood sugar diagnostic (Accu-Chek #10 ea 07/27/21 Tamara Plus test strips) buspirone 7.5 mg tablet 7.5 mg PO BID 07/27/21 oxcarbazepine 150 mg tablet 150 mg PO BID 07/27/21 Previous Rx's Medication Instructions Recorded albuterol sulfate 90 mcg/actuation 2 puff inhalation Q4-6H PRN 07/29/20 aerosol inhaler shortness of breath or wheezing #6.7 grams azithromycin 250 mg tablet 250 mg PO DAILY 4 days #4 tabs 07/29/20 naproxen 500 mg tablet 500 mg PO BID PRN pain 7 days #14 07/06/21 tabs tamsulosin 0.4 mg capsule 0.4 mg PO BEDTIME 14 days #14 caps 07/06/21 tramadol 50 mg tablet 50 mg PO Q6H PRN pain (scale score 07/06/21 4-6) #14 tabs allopurinol 100 mg tablet 100 mg PO DAILY 90 days #90 tabs 01/25/22 pyridoxine (vitamin B6) 100 mg 100 mg PO DAILY 90 days #90 tabs 01/25/22 tablet Allergies Allergy/AdvReac Type Severity Reaction Status Date / Time hydrocortisone Allergy Unknown UNKNOWN Verified 01/25/22 12:26 [From CORTIZONE-10] Review of Systems Review of Systems: Constitutional : No Fever, No Chills, No Fatigue ENT/Mouth : No sore throat, No Rhinorrhea Eyes: No Eye Pain, No Swelling, No Redness Cardiovascular : pos Chest Pain, No SOB, No Dyspnea on Exertion Respiratory : No Cough, No Sputum Gastrointestinal : No Nausea, No Vomiting, No Diarrhea, No abdominal Pain Genitourinary : No Dysuria, No Urinary Frequency, No Hematuria, Musculoskeletal : No joint pain, No Myalgias, No Joint Swelling Skin : No Skin Lesions, No rash Neuro : No Weakness, No Numbness, No Dizziness, positive Headache Psych : No Anxiety/Panic, No Depression Heme/Lymph: No Bruising, No Bleeding,No Lymphadenopathy Endocrine : No Polyuria, No Polydipsia All other systems reviewed and are negative PMFSH Past Medical History Attestation statement: The following information was validated with the patient. Medical History Depression Diabetes Elevated cholesterol Fibromyalgia GERD (gastroesophageal reflux disease) HTN (hypertension) Kidney stones Medullary sponge kidney GREG (obstructive sleep apnea) Surgical History History of lithotripsy Hx of cholecystectomy Hx of hysterectomy Social History Social History Are you a primary medicare contact specialist to a significant other at home: No Do you presently have visiting nurse or other home services: No Alcohol intake: never Patient Tobacco Use Status: Former Tobacco user Quit Date: > 20 yrs ago Tobacco use type: Cigarette Advance Directives: No Physical Exam Vital Signs: Vital Signs: Last Vital Signs Temp 97.7 F 05/23/22 15:58 Pulse 61 05/23/22 15:58 Resp 16 05/23/22 15:58 BP 197/96 H 05/23/22 15:58 Pulse Ox 99 05/23/22 15:58 O2 Del Method 05/23/22 15:58 BMI result Body Mass Index 26.5 Appearance: Alert. Oriented X3. No acute distress. laughing no distress Eyes: Pupils equal, round and reactive to light. ENT: Pharynx normal. Neck: Normal inspection. Neck supple. CVS: Normal heart rate and rhythm. Pulses normal. Respiratory: No respiratory distress. Breath sounds normal. Abdomen: Soft and non-tender. Skin: Skin warm and dry. Normal skin color. Normal skin turgor. Extremities: No lower extremity edema. No calf ttp Neuro: Oriented X 3. No motor deficit. No sensory deficit. Course Course Course Narrative: good response to labetalol will add 5mg amlodipine, plan to check troponin x 2, repeat EKG if improved and BP lower would DC home with amlodpine 10mg repeat labetalol signed out to Dr. Hinton MDM - Headache MDM Narrative Medical decision making narrative: 46 yo female with hx HTN on losartan only, DM, depression, HLD, GERD, arthritis here with 4 days of high blood pressure and chest pain at this time will need troponin, EKG has changes likely related to LVH, no neuro deficits but has headache mild doubt SAH - CT head for IPH ordered. IV labetalol - doubt cocaine. Dispo per results and findings. Lab Data Result diagrams: 05/23/22 15:12 05/23/22 15:12 Labs: Lab Results 05/23/22 05/23/22 05/23/22 Range/Units 15:12 15:12 15:12 WBC 8.2 (4.8-10.8) X10*3/uL RBC 4.43 (4.20-5.50) X10*6/uL Hgb 13.2 (12.0-16.0) g/dl Hct 37.9 (37.0-47.0) % MCV 85.6 (80.0-98.0) fL MCH 29.8 (27.0-33.0) pg MCHC 34.8 (31.0-35.0) g/dl RDW 12.4 (11.0-16.0) % Plt Count 304 (160-400) X10*3/uL MPV 10.0 (9.4-12.3) fL Immature Gran % (Auto) 0.2 (0.0-0.4) % Neut % (Auto) 58.0 (45-73) % Lymph % (Auto) 35.4 (20-40) % [place] % (Auto) 6.0 (2-11) % Eos % (Auto) 0.2 (0-4) % Baso % (Auto) 0.2 (0-2) % Lymph # (Auto) 2.9 (1.2-4.9) X10*3/uL [place] # (Auto) 0.5 (0.1-1.2) X10*3/uL Eos # (Auto) 0.0 (0.0-0.4) X10*3/uL Baso # (Auto) 0.0 (0.0-0.2) X10*3/uL Abs Immat Gran (auto) 0.02 (0.00-0.03) X10*3/uL Absolute Neuts (auto) 4.8 (2.0-8.3) x10*3/uL Absolute Nucleated RBC 0.000 (0.0-0.012) X10*3/uL Nucleated RBC % (auto) 0.0 (0.0-0.2) /100WBC PT 11.3 (10.0-13.1) SEC INR 1.0 (0.9-1.1) Sodium 140 (135-145) mmol/L Potassium 4.3 (3.3-5.1) mmol/L Chloride 105 (96-108) mmol/L Carbon Dioxide 23 (22-29) mmol/L Anion Gap 16 (12-20) BUN 24 H (9-16) mg/dL Creatinine 1.02 (0.5-1.4) mg/dL Estim Creat Clear Calc 55.3 Estimated GFR 58 Random Glucose 109 (60-115) mg/dL Calcium 9.1 D (8.4-10.2) mg/dL Total Bilirubin 0.4 (0.0-1.0) mg/dL Direct Bilirubin < 0.2 (0.0-0.5) mg/dL AST 14 D (5-31) U/L ALT 10 (0-31) U/L Alkaline Phosphatase 78 (39-117) U/L Troponin I High Sens (<3.5-17.0) ng/L Total Protein 7.2 (6.5-8.0) g/dL Albumin 4.0 (3.5-5.0) g/dL 05/23/22 Range/Units 15:12 WBC (4.8-10.8) X10*3/uL RBC (4.20-5.50) X10*6/uL Hgb (12.0-16.0) g/dl Hct (37.0-47.0) % MCV (80.0-98.0) fL MCH (27.0-33.0) pg MCHC (31.0-35.0) g/dl RDW (11.0-16.0) % Plt Count (160-400) X10*3/uL MPV (9.4-12.3) fL Immature Gran % (Auto) (0.0-0.4) % Neut % (Auto) (45-73) % Lymph % (Auto) (20-40) % [place] % (Auto) (2-11) % Eos % (Auto) (0-4) % Baso % (Auto) (0-2) % Lymph # (Auto) (1.2-4.9) X10*3/uL [place] # (Auto) (0.1-1.2) X10*3/uL Eos # (Auto) (0.0-0.4) X10*3/uL Baso # (Auto) (0.0-0.2) X10*3/uL Abs Immat Gran (auto) (0.00-0.03) X10*3/uL Absolute Neuts (auto) (2.0-8.3) x10*3/uL Absolute Nucleated RBC (0.0-0.012) X10*3/uL Nucleated RBC % (auto) (0.0-0.2) /100WBC PT (10.0-13.1) SEC INR (0.9-1.1) Sodium (135-145) mmol/L Potassium (3.3-5.1) mmol/L Chloride (96-108) mmol/L Carbon Dioxide (22-29) mmol/L Anion Gap (12-20) BUN (9-16) mg/dL Creatinine (0.5-1.4) mg/dL Estim Creat Clear Calc Estimated GFR Random Glucose (60-115) mg/dL Calcium (8.4-10.2) mg/dL Total Bilirubin (0.0-1.0) mg/dL Direct Bilirubin (0.0-0.5) mg/dL AST (5-31) U/L ALT (0-31) U/L Alkaline Phosphatase (39-117) U/L Troponin I High Sens 5.9 (<3.5-17.0) ng/L Total Protein (6.5-8.0) g/dL Albumin (3.5-5.0) g/dL ECG Data Attestation: I personally reviewed and interpreted this ECG as follows: ECG interpretation date: 05/23/22 ECG interpretation time: 15:04 Interpretation: Rate: 60 Rhythm: NSR [place]: normal, LVH Normal P waves. Normal ANABELA. Normal QRS complex. ST T wave : no CRYSTAL, inverted t waves in aVL, V5, V6 - likely strain from LVH qTC: normal prior studies: t waves changed from 2019 The study has been interpreted contemporaneously by me. . Discharge Plan Discharge Clinical Impression: Uncontrolled hypertension Acute headache Qualifiers: Headache type: unspecified Intractability: not intractable Qualified Code(s): R51.9 - Headache, unspecified Patient Disposition: Still a Patient Prescriptions: No Action azithromycin 250 mg tablet 250 mg PO DAILY 4 Days Qty: 4 0RF albuterol sulfate 90 mcg/actuation HFA aerosol inhaler 2 puff inhalation Q4-6H PRN (Reason: shortness of breath or wheezing) Qty: 6.7 0RF metformin 500 mg tablet extended release 24 hr 1 tab PO QPM tramadol 50 mg tablet 50 mg PO Q6H PRN (Reason: pain (scale score 4-6)) Qty: 14 0RF tamsulosin 0.4 mg capsule 0.4 mg PO BEDTIME 14 Days Qty: 14 0RF naproxen 500 mg tablet 500 mg PO BID PRN (Reason: pain) 7 Days Qty: 14 0RF losartan 100 mg tablet 100 mg PO DAILY omeprazole 20 mg capsule,delayed release(DR/EC) 20 mg PO DAILY pravastatin 40 mg tablet 40 mg PO DAILY trazodone 100 mg tablet 100 mg PO BEDTIME aspirin 81 mg tablet,chewable 1 tab PO DAILY haloperidol 5 mg tablet 2.5 mg PO TID clonazepam 0.5 mg tablet 0.5 mg PO TID PRN (Reason: Anxiety) Jardiance 25 mg tablet 25 mg PO DAILY duloxetine 60 mg capsule,delayed release(DR/EC) 60 mg PO BID buspirone 7.5 mg tablet 7.5 mg PO BID oxcarbazepine 150 mg tablet 150 mg PO BID (DME) Accu-Chek Tamara Plus test strp Strip See Rx Instructions subcut DAILY Qty: 10 Rx Instructions: As directed atorvastatin 40 mg tablet 40 mg PO DAILY alcohol swabs [Alcohol Prep Pads] Pads, Medicated topical DAILY allopurinol 100 mg tablet 100 mg PO DAILY 90 Days Qty: 90 3RF pyridoxine (vitamin B6) 100 mg tablet 100 mg PO DAILY 90 Days Qty: 90 3RF
[2022-05-23] MEDS: Labetalol HCL 100 MG/20 ML VIAL 10 MG IVPUSH ×2 (15:07→16:26)
[2022-05-23 15:18] LABS: MANUAL DIFF FLAG NO
[2022-05-23 15:21] LABS: Basophils Percent Auto 0.2 % (0-2); Eosinophils Percent Auto 0.2 % (0-4); Hematocrit 37.9 % (37.0-47.0); Hemoglobin 13.2 g/dl (12.0-16.0); Imm Gran Abs Auto 0.02 X10*3/uL (0.00-0.03); Imm Gran Pct Auto 0.2 % (0.0-0.4); Lymphocytes Absolute Auto 2.9 X10*3/uL (1.2-4.9); Lymphocytes Percent Auto 35.4 % (20-40); Mean Corpuscular HGB Conc 34.8 g/dl (31.0-35.0); Mean Corpuscular Hemoglobin 29.8 pg (27.0-33.0); Mean Corpuscular Volume 85.6 fL (80.0-98.0); Monocytes Absolute Auto 0.5 X10*3/uL (0.1-1.2); Neutrophils Absolute Auto 4.8 x10*3/uL (2.0-8.3); Platelet Count 304 X10*3/uL (160-400); Red Blood Count 4.43 X10*6/uL (4.20-5.50); Red Cell Distribution Width 12.4 % (11.0-16.0); White Blood Count 8.2 X10*3/uL (4.8-10.8)
[2022-05-23 15:29] LABS: Prothrombin Time 11.3 SEC (10.0-13.1)
[2022-05-23 15:39] LABS: Alanine Aminotransferase 10 U/L (0-31); Alkaline Phosphatase 78 U/L (39-117); Anion Gap 16 (12-20); Aspartate Amino Transferase 14 U/L (5-31); Bilirubin Direct < 0.2 mg/dL (0.0-0.5); Bilirubin Total 0.4 mg/dL (0.0-1.0); Blood Urea Nitrogen 24 mg/dL (9-16); Calcium 9.1 mg/dL (8.4-10.2); Carbon Dioxide 23 mmol/L (22-29); Chloride 105 mmol/L (96-108); Creatinine Clr Calc Pharmacy 55.3; Estimated Glomerular Filt Rate 58; Glucose Random 109 mg/dL (60-115); Potassium 4.3 mmol/L (3.3-5.1); Sodium 140 mmol/L (135-145); Total Protein 7.2 g/dL (6.5-8.0)
[2022-05-23 15:49] LABS: Troponin-I High Sensitivity 5.9 ng/L (<3.5-17.0)
[2022-05-23] MEDS: amLODIPine Besylate 5 MG TABLET PO (15:54)
[2022-05-23 16:29] LABS: COVID-19 Test Negative (Negative); IDNOW Serial# 16C4AD1C
[2022-05-23 16:31] LABS: Troponin-I High Sensitivity 5.8 ng/L (<3.5-17.0)
== END 2022-05-23 18:51 | disposition home or self-care (01) ==
PROVIDERS: Emergency Medicine; Emergency Provider Emergency Medicine Emergency Medical Services; PCP Internal Medicine
DX: R51.9 Headache, unspecified (principal); I95.9 Hypotension, unspecified; R07.89 Other chest pain; E11.9 Type 2 diabetes mellitus without complications; I10 Essential (primary) hypertension; Z20.822 Contact with and (suspected) exposure to COVID-19; Z79.899 Other long term (current) drug therapy
CPT/HCPCS: 36415; 70450; 80048; 80076; 84484; 85025; 85610; 87635; 93005; 96374; 96376; 99284

== ENCOUNTER → 2022-06-05 11:52 | Outpatient (BNVA) | payer MEDICARE, SELFPAY | PROVIDERS: PCP Internal Medicine; Referring Provider Internal Medicine; Visit Provider Nurse Practitioner Family | DX: Z01.818 Encounter for other preprocedural examination (principal); K21.9 Gastro-esophageal reflux disease without esophagitis; K59.00 Constipation, unspecified; K59.04 Chronic idiopathic constipation | CPT/HCPCS: 99202 ==

== ENCOUNTER → 2022-08-07 12:14 | Outpatient (BNVA) | payer MEDICARE, SELFPAY | PROVIDERS: PCP Internal Medicine; Referring Provider Internal Medicine; Visit Provider Nurse Practitioner Family | DX: K59.04 Chronic idiopathic constipation (principal); K21.9 Gastro-esophageal reflux disease without esophagitis | CPT/HCPCS: 99212 ==

== ENCOUNTER 2022-11-13 07:48 | Outpatient (REF) | payer MEDICARE, SELFPAY ==
--- NOTE | ~2022-11-13 | US_ITS ---
EXAMINATION: US RETROPERITONEAL LIMITED (RENAL ONLY) CLINICAL INFORMATION: Calculus of kidney. COMPARISON: Ultrasound retroperitoneal limited (renal only) 01/05/2022 and 07/22/2021. X-ray abdomen KUB 07/06/2021 and 10/03/2017. TECHNIQUE: Real-time imaging of the kidneys. FINDINGS: RIGHT KIDNEY: 11.3 x 5.9 x 5.0 cm (SAG x AP x TRV). The kidney is normal in size, contour, and echogenicity. Renal cortical thickness is normal. No focal parenchymal lesions or hydronephrosis. There is an echogenic stone in upper/midpole measuring 0.5 x 0.5 x 0.6 cm. LEFT KIDNEY: 7.9 x 3.5 x 4.9 cm (SAG x AP x TRV). The kidney is normal in size and echogenicity. Renal cortical thickness is normal. No calculi or focal parenchymal lesions. No hydronephrosis. US/US renal BI IMPRESSION: 1. Nonobstructive echogenic stone upper/midpole right kidney. 2. The left kidney is unremarkable.
== END 2022-11-13 07:49 | disposition home or self-care (01) ==
LOC: HO.US 07:48
PROVIDERS: PCP Internal Medicine; Visit Provider Urology
DX: N20.0 Calculus of kidney (principal)
CPT/HCPCS: 76775

== ENCOUNTER 2022-11-13 10:30 | Day surgery (SDC) | payer MEDICARE, SELFPAY ==
[2022-11-13 10:40] VITALS: BMI 27.1
[2022-11-13] MEDS: Lactated Ringers 1,000 ML 50 ML IVCONT (11:01)
[2022-11-13 11:03] VITALS: BP 155/98; PULSE 71; RESP 18; TEMP 36.7; O2SAT 100
[2022-11-13 11:03] LABS: Glucose, Whole Blood 116 mg/dL (60-115)
--- NOTE | 2022-11-13 11:34 | MHC.SHP ---
Pre-Procedural Eval Section A Date of Service: 11/13/22 The patient is an INPATIENT: No The History & Physical has been completed within 30 days and I have reviewed it.: No Section B Chief Complaint: colon cancer screening, constipation Details of Present Illness: screening, chronic constipation Relevant Family History (Specify if Yes): No Relevant Social History: Tobacco Use ( former smoker) Present Medications: see Short Stay Collaborative assessment Medical History: Significant History (Chronic idiopathic constipation Depression Diabetes Elevated cholesterol Fibromyalgia GERD (gastroesophageal reflux disease) HTN (hypertension) Kidney stones Medullary sponge kidney GREG (obstructive sleep apnea)) History of Previous Operations: Relevant previous surgery/procedure and date(s) (History of lithotripsy Hx of cholecystectomy Hx of hysterectomy) Allergies: Allergies Allergy/AdvReac Type Severity Reaction Status Date / Time hydrocortisone Allergy Unknown UNKNOWN Verified 11/13/22 10:41 [From CORTIZONE-10] Review of Systems Sugical H&P ROS: Negative: Constitution, Cardiovascular and Respiratory and Yes, Specify: Gastrointestinal (constipation) Exam Surgical H&P Exam: Normal: Heart, Normal: Lungs, Normal: Extremities and Normal: Abdomen Plan Diagnosis/Plan: Unchanged I have reviewed the history and physical and performed a pertinent physical examination on my patient. No changes have occurred unless specified. Time Spent With Patient Time: Total time managing care of this patient today ____ minutes.
--- NOTE | 2022-11-13 11:46 | HO.ANESPROP2 ---
[facility] Active Problems Active Problems: All Active Problems (Updated 06/05/22 @ 12:28 by Brittany Doe, [facility]) Gross hematuria (Acute) COVID-19 (Acute) Recurrent UTI (urinary tract infection) (Acute) Left renal atrophy (Acute) Nephrolithiasis (Acute) Diabetes mellitus (Acute) Chronic idiopathic constipation (Acute) Past Medical History Medical History Chronic idiopathic constipation Depression Diabetes Elevated cholesterol Fibromyalgia GERD (gastroesophageal reflux disease) HTN (hypertension) Kidney stones Medullary sponge kidney GREG (obstructive sleep apnea) Family History Family history of problems with anesthesia: No Surgical History Surgical History History of lithotripsy Hx of cholecystectomy Hx of hysterectomy History of Problems with Anesthesia: No Social History Social History Are you a primary managed care coordinator to a significant other at home: No Do you presently have visiting nurse or other home services: No Alcohol intake: never Patient Tobacco Use Status: Former Tobacco user Quit Date: > 20 yrs ago Tobacco use type: Cigarette Are you DNR?: No Advance Directives: No Advance Directives Information Provided: Yes Nutrition Risks: No Nutritional Risk Meds Allergies Allergy/AdvReac Type Severity Reaction Status Date / Time hydrocortisone Allergy Unknown UNKNOWN Verified 11/13/22 10:41 [From CORTIZONE-10] Active Medications: Current Medications Lactated Ringer's (Lr) 1,000 mls @ 50 mls/hr IVCONT .Q20H [facility] Last Admin: 11/13/22 11:01 Dose: 50 mls/hr Home Medications Medication Instructions Recorded Confirmed Last Taken Type aspirin 81 mg chewable tablet 1 tab PO DAILY 07/27/20 11/08/22 Unknown History losartan 100 mg tablet 100 mg PO DAILY 07/27/20 11/08/22 Unknown History omeprazole 20 mg capsule,delayed 20 mg PO DAILY 07/27/20 11/08/22 07/06/21 History release trazodone 100 mg tablet 100 mg PO BEDTIME 07/27/20 11/08/22 Unknown History clonazepam 0.5 mg tablet 0.5 mg PO TID PRN Anxiety 05/03/21 11/08/22 Unknown History duloxetine 60 mg capsule,delayed 60 mg PO BID 05/03/21 06/15/21 07/06/21 History release haloperidol 5 mg tablet 2.5 mg PO TID 05/03/21 11/08/22 Unknown History metformin 500 mg tablet,extended 1 tab PO QPM 06/15/21 06/15/21 Unknown History release 24 hr alcohol swabs (Alcohol Prep Pads) pad topical DAILY 07/27/21 Unknown History atorvastatin 40 mg tablet 40 mg PO DAILY 07/27/21 11/08/22 Unknown History blood sugar diagnostic (Accu-Chek #10 ea 07/27/21 Unknown History Tamara Plus test strips) buspirone 7.5 mg tablet 7.5 mg PO BID 07/27/21 Unknown History amlodipine 10 mg tablet 10 mg PO DAILY 06/05/22 11/08/22 Unknown History chlorthalidone 25 mg tablet 25 mg PO DAILY 06/05/22 11/08/22 Unknown History empagliflozin 10 mg tablet 1 tab PO QAM 11/08/22 11/08/22 Unknown History (Jardiance) indapamide 1.25 mg tablet 1.25 mg PO QAM 11/08/22 11/08/22 Unknown History Exam Exam Date and Time: November 13, 2022 1146 Height,Weight and Vital Signs: Height 5 ft Weight 63.049 kg Last Vital Signs Temp 98.1 F 11/13/22 11:03 Pulse 71 11/13/22 11:03 Resp 18 11/13/22 11:03 BP 155/98 H 11/13/22 11:03 Pulse Ox 100 11/13/22 11:03 O2 Del Method Room Air 11/13/22 11:03 Pertinent Lab Results Pertinent Lab Results: Laboratory Tests 11/13/22 10:59 POC Glucose 116 H Airway Mallampati Class: III TM Dist: >3cm Neck ROM: Full Heart: RRR Lungs: CTA Assessment and Plan Final Anesthetic Review Family History of Problems with Anesthesia: No History of Problems with Anesthesia: No NPO: Yes ASA Class: III Final Preanesthetic Review: Meds/Allgs Chart Reviewed, Consent Obtained/Reviewed and Anes Risks/Benef Reviewed Patient Risk: Low Procedure Risk: Low Anesthetic Plan Anesthetic Plan: MAC: Disposition: Standard PACU
--- NOTE | 2022-11-13 12:29 | PM.OP ---
Brief Operative Note Date of Service: 11/13/22 Pre-op diagnosis: colon cancer screening, chronic constipation Post-op diagnosis: other ( COLON POLYPS, DIVERTICULOSIS, HEMORRHOIDS) Procedure: COLONOSCOPY TILL CECUM WITH BIOPSIES Surgeon: Mati Mercer MD Anesthesia: MAC Was an Length Control Tester used for this Procedure?: Yes Length Control Tester: Fermín Herrera Estimated blood loss (mL): 1 Pathology: other (A) Polyp Cecum B) Polyp Transverse Colon) Condition: stable Disposition: PACU
--- NOTE | 2022-11-13 12:30 | P.OP_ITS ---
Operative Note Operative Note Date of Service: 11/13/22 Narrative: COLONOSCOPY TILL CECUM WITH BIOPSIES Indication:? Colon cancer screening Endoscopist:? Mati Mercer MD Anesthesia Provider:?Dr Mari Anesthesia type:?MAC Consent: Indications for the procedure and potential complications of bleeding, perforation, reaction to medications and missed diagnosis were discussed with the patient and informed consent was obtained. Instrument: Olympus PCF H 190 L variable stiffness pediatric colonoscope Monitoring: Vital signs and clinical assessment, intermittent blood pressure monitoring, continuous EKG monitoring, Pulse oximetry and Carbon Dioxide monitoring were done throughout the procedure. Please see anesthesia flowsheet. Colon withdrawl time was 18 minutes. Procedure: The patient was placed in the left lateral decubitis position and pre-procedure medications were administered. After a digital rectal examination of the ano-rectum, the video colonoscope was inserted into the rectum and advanced through the colon to the cecum. The colonoscope was slowly withdrawn in a retrograde panoramic fashion and the colon mucosa was carefully examined including a retroflexed view of the rectum. Findings and interventions are described below. Procedure Difficulty: Colon was tortuous and there was luminal narrowing in the sigmoid colon due to severe diverticulosis. no maneuvers were required Findings: Terminal Ileum: Not evaluated Cecum: A 2-3 mm diminutive appearing polyp in the cecum - removed with a cold biopsy Ascending Colon: scattered moderate diverticulosis throughout the colon Transverse Colon: A 4-5 mm diminutive appearing polyp - removed with a cold biopsy. scattered moderate diverticulosis throughout the colon Descending Colon: moderate diverticulosis Sigmoid Colon: severe diverticulosis with luminal narrowing Rectum: Normal Ano-rectum: Small internal hemorrhoids Colon preparation: Good Impression and Post Procedure Diagnosis: Colonoscopy Findings: Two diminutive appearing polyps removed Moderate to severe diverticulosis seen in the entire colon Small hemorrhoids on retroflexed exam. Plan: Await pathology results Patient has an appointment on 11/27/22 in the [facility] with Brittany Doe FNP- [facility] . Repeat Colonoscopy interval based on path results - in 5 years if polyps are adenomatous and 10 years if polyps are hyperplastic. Colon polyps and diverticulosis handouts were given in the discharge area
[2022-11-13 13:16] VITALS: BP 107/64; PULSE 81; RESP 16; TEMP 36.1; O2SAT 97
[2022-11-13 13:31] VITALS: BP 149/81; PULSE 62; RESP 16; TEMP 36.5; O2SAT 97
--- NOTE | 2022-11-13 13:45 | HO.POSTANES ---
Post Anesthesia Evaluation Post Anesthesia Evaluation Vital Signs: Vital Signs Temp Pulse Resp BP Pulse Ox O2 Del Method 11/13/22 13:31 97.7 F 62 16 149/81 H 97 Room Air 11/13/22 13:16 97 F 81 16 107/64 97 Room Air 11/13/22 11:03 98.1 F 71 18 155/98 H 100 Room Air Anesthesia: Monitored Mental Status: Awake Pain Control: Satisfactory Nausea/Vomiting: None Hydration: Adequate Anesthesia-Related Issues: No Anes. Related Issues
== END 2022-11-13 15:03 | disposition home or self-care (01) ==
PROVIDERS: PCP Internal Medicine; Visit Provider Internal Medicine Gastroenterology
PROC: 0DJD8ZZ Inspection of Lower Intestinal Tract, Via Natural or Artificial Opening Endoscopic (ICD-10-PCS; CPT 45378; principal; 2022-11-13 11:50)
DX: Z12.11 Encounter for screening for malignant neoplasm of colon (principal); K59.04 Chronic idiopathic constipation; K63.5 Polyp of colon; K57.30 Diverticulosis of large intestine without perforation or abscess without bleeding; K64.8 Other hemorrhoids; K21.9 Gastro-esophageal reflux disease without esophagitis; I10 Essential (primary) hypertension; G47.33 Obstructive sleep apnea (adult) (pediatric); F32.A Depression, unspecified; Q61.5 Medullary cystic kidney; E11.9 Type 2 diabetes mellitus without complications; Z90.49 Acquired absence of other specified parts of digestive tract; Z87.442 Personal history of urinary calculi; Z88.8 Allergy status to other drugs, medicaments and biological substances; Z79.84 Long term (current) use of oral hypoglycemic drugs; Z79.899 Other long term (current) drug therapy; Z79.82 Long term (current) use of aspirin; Z87.891 Personal history of nicotine dependence
CPT/HCPCS: 45380; 82947; 88305

== ENCOUNTER → 2022-11-24 09:48 | Outpatient (BNVA) | payer MEDICARE, SELFPAY | PROVIDERS: PCP Internal Medicine; Visit Provider Nurse Practitioner Family | DX: K59.04 Chronic idiopathic constipation (principal); K57.90 Diverticulosis of intestine, part unspecified, without perforation or abscess without bleeding; K21.9 Gastro-esophageal reflux disease without esophagitis; Z98.890 Other specified postprocedural states | CPT/HCPCS: 99212 ==

== ENCOUNTER 2023-01-26 13:36 | Outpatient (REF) | payer MEDICARE, SELFPAY ==
[2023-01-26 17:02] LABS: Urine Cytology See Pathology rpt
== END 2023-01-26 13:37 | disposition home or self-care (01) ==
LOC: HO.LAB 13:36
PROVIDERS: PCP Internal Medicine; Visit Provider Urology
DX: N20.0 Calculus of kidney (principal); R31.0 Gross hematuria
CPT/HCPCS: 51798; 88112; 99212

== ENCOUNTER 2023-03-26 09:55 | Outpatient (AMB) | payer MEDICARE, SELFPAY ==
--- NOTE | 2023-03-26 10:07 | A.OFFVIS_ITS ---
Intake Vital Signs 03/26/23 10:12 Height 5 ft Weight 154 lb 2 oz BMI 30.1 BP 196/97 H Blood Pressure Location Lt brachial Position Sitting Pulse 69 Intake Visit Reasons: follow up 4 months Intake Note: Marylu presents in office as a est.patient for 4month f/u for [facility]. PT CC: pt reports having constipation pt denies any other GI Issues Shipping And Receiving Operator Required: Yes Shipping And Receiving Operator Language: Maltese Accompanied by: Self / Same As Patient Allergies hydrocortisone [From CORTIZONE-10] Allergy (Unknown, Verified 03/26/23 10:12) UNKNOWN HPI follow up 4 months HPI Details LAST VISIT Chronic idiopathic constipation Patient have been constipated for very long time. Patient states that Senokot and Colace not helping her. Will start her on Linzess 145 mcg. Patient will call us if this not going to be effective. Patient of acid encouraged to increase fluid intake and activity to promote better bowel motility. Diverticulosis Moderate diverticulosis throughout the colon seen. Patient was encouraged to increase fiber in her diet. List of food high in fiber given to patient. Patient can also [id number] fiber supplements GERD (gastroesophageal reflux disease) Discussed with patient avoiding dietary triggers only 10 seconds. Then upright for minimal 3 hours after meals discussed with patient. Will start patient on pantoprazole 40 mg half an hour before breakfast. Patient will call us if this not going to be effective. Status post colonoscopy To polyps found hyperplastic changes. Colonoscopy will need to be repeated in 10 years, sooner if clinically necessary. I will see patient in 4 months, sooner on as needed basis. Patient is agreeable to this plan and verbalizes understanding of instructions. She was given the opportunity to ask questions and all questions answered. ? Thank you for allowing me to participate in her care Plan Medications New linaclotide (Linzess) 145 mcg PO DAILY 30 caps 2RF pantoprazole take one tablet half an hour before breakfast 40 mg PO DAILY 30 tabs 2RF K21.9 Discontinued docusate sodium Discontinued Reason: Doctor's Order 100 mg PO BEDTIME 90 caps 3RF K59.00 sennosides Discontinued Reason: Doctor's Order 17.2 mg (2 x 8.6 mg) PO BEDTIME 180 tabs 3RF constipation K59.00 TODAY'S VISIT Patient is here today for follow-up. Patient states that she started taking Linzess and is moving her bowels little better, she continues to feel constipated. Patient states that pharmacy gave her omeprazole 20 mg instead of pantoprazole. Patient states that she does not feel like it helps. Tried changing some of the that she is eating to help with symptoms. Patient reports dyspepsia without dysphagia or odynophagia. Patient denies any abdominal pain or discomfort. Patient denies melena, hematochezia, unintentional weight loss or ribbon like stools. Patient denies any other GI concerning symptoms. FOR[facility]LY [facility] Medical History Chronic idiopathic constipation Depression Diabetes Elevated cholesterol Fibromyalgia GERD (gastroesophageal reflux disease) HTN (hypertension) Kidney stones Medullary sponge kidney GREG (obstructive sleep apnea) Surgical History History of lithotripsy Hx of cholecystectomy Hx of colonoscopy Hx of hysterectomy Social History Are you a primary care management specialist to a significant other at home: No Do you presently have visiting nurse or other home services: No Alcohol intake: never Patient Tobacco Use Status: Former Tobacco user Quit Date: > 20 yrs ago Tobacco use type: Cigarette Review of Systems Const Denies weight gain and Denies weight loss ENT Reports no additional complaints, Denies dysphagia and Denies odynophagia Card Reports no additional complaints Resp Reports no additional complaints GI Denies abdominal pain, Denies belching, Denies melena, Denies bloating, Denies change in bowel habits, Reports constipation, Denies dysphagia, Denies excessive flatus, Denies dyspepsia, Denies heartburn, Denies diarrhea, Denies loose stools, Denies nausea, Denies odynophagia and Denies vomiting Reports no additional complaints Musc Reports no additional complaints Neuro Reports no additional complaints Psych Reports no additional complaints Endo Reports no additional complaints Physical Exam Vital Signs: Last Vital Signs Pulse 69 03/26/23 10:12 BP 196/97 H 03/26/23 10:12 BMI result Body Mass Index 30.1 Const General: healthy appearing, no acute distress and well developed Nutritional Appearance: obese Orientation/consciousness: patient oriented x3 HEENT Head: Yes normal to inspection, Yes normocephalic and Yes atraumatic Face and sinus: Yes normal facial exam Mouth: Normal oral and palatal mucosa present Throat: Yes posterior oropharynx normal, Yes tonsils normal and Yes uvula midline Eyes General: appearance normal, both eyes and all related structures Neck Neck: Yes normal visual inspection, Yes full ROM and Yes trachea midline Thyroid: Thyroid normal Resp Effort & Inspection: normal respiratory effort, able to speak in complete sentences, no tracheal deviation and symmetric chest movement Auscultation: clear to auscultation bilaterally Cardio Rate: regular rate Heart sounds: S1 normal heart sound present and S2 normal heart sound present GI Inspection: Yes normal to inspection, No distended and Yes obesity Palpation (GI): Soft to palpation, not firm, nontender and No hepatosplenomegaly present Auscultation: normal bowel sounds General: Yes no CVA tenderness Back/Spine/Pelvis Back: no CVA tenderness Skin General skin exam: elasticity normal, turgor normal and dry skin Neuro General: patient oriented x3 Psych Appearance: grossly normal Mental Status: mental status grossly normal Speech and movement: Normal speech and movement present Affect: normal affect Assessment & Plan Assessment & Plan (1) Chronic idiopathic constipation: Code(s): K59.04 - Chronic idiopathic constipation Plan: Will increase Linzess 290 mcg daily. Patient was encouraged to increase fluid intake and activity to promote better bowel motility. (2) Diverticulosis: Code(s): K57.90 - Diverticulosis of intestine, part unspecified, without perforation or abscess without bleeding Plan: High-fiber dilate encouraged (3) GERD (gastroesophageal reflux disease): Code(s): K21.9 - Gastro-esophageal reflux disease without esophagitis Qualifiers: Esophagitis presence: esophagitis presence not specified Qualified Code(s): K21.9 - Gastro-esophageal reflux disease without esophagitis Plan: Will order pantoprazole. Patient will stop taking omeprazole as is not helping. Discussed with patient avoiding dietary triggers and late night snacking. Staying upright for minimum 3 hours after meals discussed with patient. Patient will follow-up with the office in 3 months, sooner on as needed basis. Patient is agreeable to this plan and verbalizes understanding of instructions and she was given the opportunity to ask questions and all questions answered. Thank you for allowing me to participate in her care Medications: New linaclotide (Linzess) 290 mcg PO QAM 30 caps 4RF K59.00 - Constipation, unspecified Refilled pantoprazole take one tablet half an hour before breakfast 40 mg PO DAILY 30 tabs 2RF K21.9 - Gastro-esophageal reflux disease without esophagitis Discontinued linaclotide (Linzess) Discontinued Reason: Doctor's Order 145 mcg PO DAILY 30 caps 2RF Coding Level of Care Code Est Pt Level 3 (12080) Diagnoses Chronic idiopathic constipation K59.04 Diverticulosis K57.90 GERD (gastroesophageal reflux disease) K21.9 Esophagitis presence: esophagitis presence not specified Time Spent (min) 30 Comment 20 minutes spent with patient and additional 10 minutes spent reviewing her records
[2023-03-26 10:12] VITALS: BP 196/97; PULSE 69; BMI 30.1
== END 2023-03-26 10:27 | disposition home or self-care (01) ==
PROVIDERS: Visit Provider Nurse Practitioner Family
DX: K59.04 Chronic idiopathic constipation (principal); K57.90 Diverticulosis of intestine, part unspecified, without perforation or abscess without bleeding; K21.9 Gastro-esophageal reflux disease without esophagitis
CPT/HCPCS: 99213

== ENCOUNTER → 2023-03-26 09:55 | Outpatient (BNVA) | payer MEDICARE, SELFPAY | PROVIDERS: Visit Provider Nurse Practitioner Family | DX: K59.04 Chronic idiopathic constipation (principal); K57.90 Diverticulosis of intestine, part unspecified, without perforation or abscess without bleeding; K21.9 Gastro-esophageal reflux disease without esophagitis | CPT/HCPCS: 99212 ==

== ENCOUNTER 2023-04-26 09:28 | Outpatient (REF) | payer MEDICARE, SELFPAY | END 2023-04-26 09:29 | disposition home or self-care (01) | LOC: HO.MAMMO 09:28 | PROVIDERS: PCP Internal Medicine; Visit Provider Internal Medicine | DX: Z12.31 Encounter for screening mammogram for malignant neoplasm of breast (principal) | CPT/HCPCS: 77063; 77067 ==

== ENCOUNTER → 2023-04-26 10:00 | Outpatient (BNV) | payer MEDICARE, SELFPAY | PROVIDERS: PCP Internal Medicine; Visit Provider Radiology Diagnostic Radiology | DX: Z12.31 Encounter for screening mammogram for malignant neoplasm of breast (principal) | CPT/HCPCS: 77063; 77067 ==

== ENCOUNTER 2023-04-27 10:19 | Outpatient (REF) | payer MEDICARE, SELFPAY ==
[2023-04-27 14:48] LABS: MANUAL DIFF FLAG NO
[2023-04-27 14:57] LABS: Basophils Percent Auto 0.3 % (0-2); Eosinophils Percent Auto 0.2 % (0-4); Hematocrit 38.6 % (37.0-47.0); Hemoglobin 12.7 g/dl (12.0-16.0); Imm Gran Abs Auto 0.02 X10*3/uL (0.00-0.03); Imm Gran Pct Auto 0.2 % (0.0-0.4); Lymphocytes Absolute Auto 2.5 X10*3/uL (1.2-4.9); Lymphocytes Percent Auto 28.5 % (20-40); Mean Corpuscular HGB Conc 32.9 g/dl (31.0-35.0); Mean Corpuscular Volume 88.1 fL (80.0-98.0); Mean Platelet Volume 10.5 fL (9.4-12.3); Monocytes Absolute Auto 0.5 X10*3/uL (0.1-1.2); Neutrophils Absolute Auto 5.7 x10*3/uL (2.0-8.3); Neutrophils Percent Auto 64.8 % (45-73); Platelet Count 345 X10*3/uL (160-400); Red Blood Count 4.38 X10*6/uL (4.20-5.50); Red Cell Distribution Width 12.6 % (11.0-16.0); White Blood Count 8.8 X10*3/uL (4.8-10.8)
[2023-04-27 15:01] LABS: Estimated Average Glucose 117 mg/dL; Hemoglobin A1C 130.3854 umol/L; Hemoglobin A1c % 5.7 % (<6.0)
[2023-04-27 15:13] LABS: Alanine Aminotransferase 13 U/L (0-31); Alkaline Phosphatase 87 U/L (39-117); Anion Gap 12 (12-20); Aspartate Amino Transferase 14 U/L (5-31); Bilirubin Total 0.7 mg/dL (0.0-1.0); Blood Urea Nitrogen 18 mg/dL (9-16); Calcium 9.8 mg/dL (8.4-10.2); Carbon Dioxide 25 mmol/L (22-29); Chloride 107 mmol/L (96-108); Cholesterol 140 mg/dL (<200); Estimated Glomerular Filt Rate 40; Glucose Fasting 126 mg/dL (60-99); HDL Cholesterol 35 mg/dL (>40); LDL Cholesterol Calculated 70 mg/dL (<100); Potassium 3.7 mmol/L (3.3-5.1); Sodium 140 mmol/L (135-145); Total Protein 7.6 g/dL (6.5-8.0); Triglycerides 179 mg/dL (<150)
[2023-04-27 15:38] LABS: Creatinine Urine 155.45 mg/dL
[2023-04-27 16:17] LABS: Microalbum/Creatinine Ratio Ur 1137.3 ug/mg cr (<30)
[2023-04-28 09:14] LABS: ~Hepatitis C Antibody Nonreactive (Nonreactive)
== END 2023-04-27 10:20 | disposition home or self-care (01) ==
LOC: HO.CHCLDS 10:19
PROVIDERS: Visit Provider Internal Medicine
DX: E11.9 Type 2 diabetes mellitus without complications (principal); I10 Essential (primary) hypertension
CPT/HCPCS: 36415; 80053; 80061; 82043; 82570; 83036; 85025; 86803

== ENCOUNTER 2024-01-31 09:55 | Outpatient (REF) | payer MEDICARE, SELFPAY ==
--- NOTE | ~2024-01-31 | US_ITS ---
EXAMINATION: US RETROPERITONEAL LIMITED (RENAL ONLY) CLINICAL INFORMATION: Calculus of kidney. COMPARISON: Renal ultrasound 11/13/2022 and 01/05/2022. X-ray abdomen KUB 07/06/2021. TECHNIQUE: Real-time imaging of the kidneys. FINDINGS: RIGHT KIDNEY: 11.6 x 5.3 x 5.0 cm (SAG x AP x TRV). The kidney is normal in size, contour, and echogenicity. Renal cortical thickness is normal. There is a 5 mm upper to mid renal echogenic focus seen consistent with a nonobstructing calculus. No focal parenchymal lesions or hydronephrosis. LEFT KIDNEY: 7.4 x 2.7 x 2.7 cm (SAG x AP x TRV). The kidney is small with some cortical thinning. There is some probable renal scarring although not optimally visualized. No renal calculi or hydronephrosis. US/US renal BI IMPRESSION: 1. Small left kidney with cortical thinning and scarring. 2. Nonobstructing 5 mm right renal calculus.
== END 2024-01-31 09:56 | disposition home or self-care (01) ==
LOC: HO.US 09:55
PROVIDERS: PCP Internal Medicine; Visit Provider Urology
DX: N20.0 Calculus of kidney (principal)
CPT/HCPCS: 76775

== ENCOUNTER → 2024-02-04 08:39 | Outpatient (REF) | payer MEDICARE, SELFPAY ==
--- NOTE | 2024-02-04 08:42 | CA_ITS ---
Transthoracic Echocardiogram Patient (Last, First, Middle): Marylu Liu, Gender: Female Date of : 1975 Age: 48 Procedure Date: 02/04/2024 Procedure Type: Transthoracic Echocardiogram Location: OP Height: 154.94 cm Weight: 76.66 kg BSA: 1.76 m2 Heart Rate: bpm BP: 140 / 90 mmHg Stock Checkerer: YVONNE Referring MD: Michoacano Kincaid MD Symptoms: I10 HTN Z82.49 FAM HX CMP Study Quality: Fair/Contrast ECG Rhythm: Sinus Conclusions: - The left ventricular systolic function is moderately decreased. The visually estimated ejection fraction is between 35-40%. - Evidence suggests grade II (moderate) diastolic dysfunction. - No obvious valvular pathology seen on this study. Findings Procedure Information Contrast agent, definity, is being given per protocol without apparent complications. Left Ventricle Normal left ventricular cavity size. There is mildly increased left ventricular wall thickness. The left ventricular systolic function is moderately decreased. The visually estimated ejection fraction is between 35 40%. There is moderate global hypokinesis. Evidence suggests grade II (moderate) diastolic dysfunction. Right Ventricle Normal right ventricular cavity size. Atria Both atria are normal in size. Aortic Valve There is a normal trileaflet aortic valve. There is no aortic valve stenosis. Trace to mild aortic regurgitation. Mitral Valve The mitral valve appears normal. There is mild mitral valve regurgitation. There is no mitral valve stenosis. Pulmonic Valve The pulmonic valve is likely normal. Tricuspid Valve Normal tricuspid valve structure. There is trace tricuspid valve regurgitation. Borderline RVSP. Great Vessels The asc aorta is normal in size. Venous The inferior vena cava is normal in size and collapses greater than 50% with inspiration. Prior Study Comparison No prior study available for comparison. Recommendations, Care & Conclusions No obvious valvular pathology seen on this study. Measurements 2D Linear Measurements IVSd: 1.09 0.6-0.9/0.6-1.0 cm LVIDd: 4.94 3.9-5.3/4.2-5.9 cm LVIDd Index: 2.81 2.4-3.2/2.2-3.1 cm/m2 LVIDs: 3.95 2.0-3.6 cm LVPWd: 1.26 0.7-1.1 cm Ao Root: 3.70 2.1-3.5 cm LA Diam: 4.00 2.7-3.8/3.0-4.0 cm LAIDs Index: 2.27 1.5-2.3 cm/m2 LV Mass: 277.54 67-162/88-224 g LV Mass Index: 157.69 43-95/49-115 g/m2 LVOT Diam: 2.20 3.0+(-)1.3 cm 2D Systolic Function EF 4C: 40.10 >55% EF 2C: 40.70 >55% EF BiP: 41.40 >55% Mitral Valve MV Pk E: 0.88 MV PK A: 0.81 MV Decel Time: 232.00 E/A: 1.10 E'Lateral: 6.31 E'Medial: 4.57 E/E' Med: 19.30 E/E' Lat: 14.00 PHT: 68.00 MVA PHT: 3.24 Decel Craig: 3.79 MR Vol - PW Dopp: 35.56 MR VTI: 2.54 MR ERO: 14.00 MR Alias Rhett: 0.30 MR RAD: 0.70 Aortic Valve AoV Pk Rhett: 1.09 AoV Mn Rhett: 0.70 AoV VTI: 0.19 AoV Pk Grad: 5.00 Aov Mn Grad: 2.00 TESSA Cont.VTI: 3.03 AI Pk Rhtet: 4.15 AI Craig: 2.48 LVOT LVOT Pk Rhett: 0.81 LVOT Mn Rhett: 0.50 LVOT VTI: 0.15 LVOT Pk Grad: 3.00 LVOT Mn Grad: 1.00 LVOT Diam: 2.20 LVOT Area: 3.80 Diastolic Function MV Pk E: 0.88 MV Pk A: 0.81 E/A: 1.10 E'Medial: 4.57 E/E' Med: 19.30 E' Laterial: 6.31 E/E' Lat: 14.00 Right Ventricle TAPSE (mm): 17.10 TVS' Rhett: 10.80 Tricuspid Valve TR Pk Rhett: 2.91 TR Pk Grad: 34.00 RA Press: 3.00 RVSP: 37.00 Great Vessels Aorta Ao Root-2D: 3.70 2.0-3.7 cm Ao Asc: 3.60 2.1-3.4 cm Ao Arch: 2.40 Updated in Other Vendor System with Status of Final Emanuel Banuelos MD electronically signed on 02/04/2024 12:48:28 PM with status of Final
== END ==
LOC: HO.CARD 08:39
PROVIDERS: PCP Internal Medicine; Visit Provider Internal Medicine
DX: I10 Essential (primary) hypertension (principal); Z82.49 Family history of ischemic heart disease and other diseases of the circulatory system
CPT/HCPCS: 93306; Q9957

== ENCOUNTER → 2024-02-04 08:42 | Outpatient (BNV) | payer MEDICARE, SELFPAY | PROVIDERS: PCP Internal Medicine; Visit Provider Internal Medicine | DX: I34.0 Nonrheumatic mitral (valve) insufficiency (principal); I35.1 Nonrheumatic aortic (valve) insufficiency; Z82.49 Family history of ischemic heart disease and other diseases of the circulatory system; R93.1 Abnormal findings on diagnostic imaging of heart and coronary circulation | CPT/HCPCS: 93306 ==

== ENCOUNTER 2024-04-03 11:15 | Outpatient (AMB) | payer MEDICARE, MEDICAID, SELFPAY ==
--- NOTE | 2024-04-03 11:27 | A.OFFVIS_ITS ---
Intake Visit Reasons: 1Y Follow Up-Ultrasound(set) Intake Note: Patient is present for Ultrasound follow up Aircraft Launch And Recovery Technician Required: Yes Aircraft Launch And Recovery Technician Language: Japanese Allergies hydrocortisone [From CORTIZONE-10] Allergy (Unknown, Verified 04/03/24 11:28) UNKNOWN Medication List - Last Reconciled 04/03/24 by Adrian Hanson MD albuterol sulfate 90 mcg/actuation 2 puffs inhalation Q4-6H PRN alcohol swabs (Alcohol Prep Pads) pad topical DAILY allopurinol 100 mg PO DAILY 90 days amlodipine 10 mg PO DAILY aripiprazole 10 mg PO DAILY aspirin 1 tab PO DAILY atorvastatin 40 mg PO DAILY blood sugar diagnostic (Accu-Chek Tamara Plus test strips) As directed buspirone 7.5 mg PO BID clonazepam 0.5 mg PO TID PRN duloxetine 60 mg PO BID empagliflozin (Jardiance) 1 tab PO QAM haloperidol 2.5 mg PO TID indapamide 1.25 mg PO QAM linaclotide (Linzess) 290 mcg PO QAM losartan 100 mg PO DAILY metformin ER 1 tab PO QPM pantoprazole 40 mg PO DAILY pyridoxine (vitamin B6) 50 mg PO DAILY 90 days trazodone 100 mg PO BEDTIME HPI Comments Details: Marylu very pleasant Japanese-speaking female. She is seen for the following urologic conditions - recurring UTI - left atrophic kidney - nephrolithiasis Japanese translation provided in office by qualified male spanish interpreter/translator Stable on imaging Encourage vitamin B6 Encourage fluid intake Yearly follow-up imaging with nurse-practitioner Recurring UTI with nephrolithiasis Currently in surveillance Imaging reviewed today - 09/09 renal ultrasound, 4 mm right renal stone, left atrophic kidney - 04/09 renal ultrasound 6 mm right renal stone - persistent on July imaging after ESWL - 02/08 renal ultrasound 4 mm bilateral stones - 01/09 renal ultrasound 4 mm right stone - 02/10 renal ultrasound 4 mm right stent Background of frequent UTIs is child Stone intervention - 2017 ESWL, ESWL 2020 She is aware that her left kidney is atrophic and only functions at 15% Follow-up imaging [facility] Medical History Chronic idiopathic constipation Depression Diabetes Elevated cholesterol Fibromyalgia GERD (gastroesophageal reflux disease) HTN (hypertension) Kidney stones Medullary sponge kidney GREG (obstructive sleep apnea) Surgical History History of lithotripsy Hx of cholecystectomy Hx of colonoscopy Hx of hysterectomy Social History Are you a primary medicare coordinator to a significant other at home: No Do you presently have visiting nurse or other home services: No Alcohol intake: never Patient Tobacco Use Status: Former Tobacco user Tobacco use type: Cigarette Review of Systems Const Denies chills and Denies fever(s) Card Reports no additional complaints and Denies syncope Resp Denies cough GI Denies abdominal pain and Denies heartburn Reports as per HPI and Denies change in libido Neuro Denies syncope Psych Denies change in libido Endo Denies change in libido Physical Exam Const General: cooperative, healthy appearing, comfortable and no acute distress Orientation/consciousness: patient oriented x3 HEENT Face and sinus: Yes normal facial exam Mouth: moist mucous membranes Neck Neck: Yes normal visual inspection, Yes full ROM and Yes trachea midline Chest Chest palpation & inspection: normal inspection of the chest Resp Effort & Inspection: normal respiratory effort, able to speak in complete sentences and no respiratory distress GI Inspection: Yes normal to inspection Back/Spine/Pelvis Cervical Spine: normal cervical lordosis Thoracic/Lumbar Spine: thoracic and lumbar spine normal to inspection Skin General skin exam: no rashes or lesions noted Neuro General: patient oriented x3, gait normal, tone normal and moves all extremities Extrem General: Yes normal to inspection and Yes capillary refill normal Assessment & Plan Assessment & Plan (1) Nephrolithiasis: Code(s): N20.0 - Calculus of kidney Category: Medical Plan Twelve month follow-up Orders: Orders US renal BI 12 Months N20.0 - Calculus of kidney Medications: Refilled pyridoxine (vitamin B6) 50 mg PO DAILY 90 days 90 tabs 3RF N20.0 - Calculus of kidney Patient Instructions: Imaging studies, laboratory and physical exam results were discussed and reviewed in detail. No major barriers to patient understanding were identified. An opportunity to ask questions regarding the treatment plan was provided. All questions were answered. The patient expressed understanding and agreement with the above treatment plan. The patient is aware they should contact our office by phone for worsening of their current condition or the appearance of new urologic symptoms. Compliance is encouraged with any medications and followup testing that is ordered. It is a privilege to participate in the urologic care of your patient. If you have any questions or concerns regarding treatment for the above conditions, or other urologic issues, please do not hesitate to contact me. The office telephone contact is [phone]. This note is constructed using voice recognition software. While every effort has been made to ensure accuracy helmet hat brim cutter errors may have been included. Yours sincerely, Dr Adrian Hanson MD, [facility] - Urology Providers of Expert, Compassionate Care for the Genitourinary System Coding Level of Care Code Est Pt Level 4 (00582) Diagnoses Nephrolithiasis N20.0
== END 2024-04-03 11:45 | disposition home or self-care (01) ==
LOC: HO.HUSH 11:15
PROVIDERS: PCP Internal Medicine; Visit Provider Urology
DX: N20.0 Calculus of kidney (principal)
CPT/HCPCS: 99214

== ENCOUNTER → 2024-04-03 11:15 | Outpatient (BNVA) | payer MEDICARE, MEDICAID, SELFPAY | PROVIDERS: PCP Internal Medicine; Visit Provider Urology | DX: N20.0 Calculus of kidney (principal); N26.1 Atrophy of kidney (terminal) | CPT/HCPCS: 99212 ==

== ENCOUNTER 2024-04-09 11:31 | Outpatient (REF) | payer MEDICARE, MEDICAID, SELFPAY ==
[2024-04-09 14:15] LABS: Appearance Urine Clear; Color Urine Yellow; Glucose Urine UA >=1000 mg/dL (Negative); Leukocyte Esterase Urine Negative (Negative); Nitrite Urine Negative (Negative); PH 5.5 (5.0-9.0); UMIC TRIGGER UA YES; Urine Blood Large (3+) (Negative); Urine Ketones Negative (Negative); Urine Protein 300 (3+) mg/dL (Neg-Trace)
[2024-04-09 14:21] LABS: Bacteria Urine Trace (None Seen); RBC Urine >20 /HPF (0-2); WBC Urine 0-5 /HPF (0-5)
[2024-04-09 14:40] LABS: Alanine Aminotransferase 14 U/L (0-31); Alkaline Phosphatase 106 U/L (39-117); Aspartate Amino Transferase 13 U/L (5-31); Bilirubin Direct 0.1 mg/dL (0.0-0.5); Bilirubin Total 0.4 mg/dL (0.0-1.0); Cholesterol 205 mg/dL (<200); HDL Cholesterol 38 mg/dL (>40); LDL Cholesterol Calculated 124 mg/dL (<100); Triglycerides 216 mg/dL (<150)
== END 2024-04-09 11:32 | disposition home or self-care (01) ==
LOC: HO.CHCLDS 11:31
PROVIDERS: Visit Provider Internal Medicine
DX: E78.2 Mixed hyperlipidemia (principal); I10 Essential (primary) hypertension
CPT/HCPCS: 36415; 80061; 80076; 81001

== ENCOUNTER 2024-05-02 10:36 | Outpatient (REF) | payer MEDICARE, MEDICAID, SELFPAY ==
--- NOTE | ~2024-05-02 | MM_ITS ---
EXAMINATION: MM SCREENING DIGITAL BREAST TOMOSYNTHESIS, BILATERAL CLINICAL INFORMATION: Screening. Asymptomatic. COMPARISON: Mammography: Comparison is made with available priors TECHNIQUE: Digital breast mammography with tomosynthesis is performed in both the craniocaudal and mediolateral oblique views along with computer-aided detection (CAD). FINDINGS: The breasts are heterogeneously dense, which may obscure small masses (ACR BI-RADS breast composition Category c). There are no significant masses, abnormal calcifications, or other abnormalities. MM/MM tomosynthesis screening BI IMPRESSION: No mammographic evidence of malignancy. ASSESSMENT: BI-RADS BI-RADS 1 - Negative RECOMMENDATION: Routine annual mammography screening. 1 year F/U This examination should not preclude the clinical evaluation of a suspicious palpable abnormality. This patient's information was entered into a reminder system with a target due date for their next mammogram. Electronically signed by: Aissatou Vega DO 05/15/2024 08:07 PM EDT
== END 2024-05-02 10:37 | disposition home or self-care (01) ==
LOC: HO.MAMMO 10:36
PROVIDERS: PCP Internal Medicine; Visit Provider Internal Medicine
DX: Z12.31 Encounter for screening mammogram for malignant neoplasm of breast (principal)
CPT/HCPCS: 77063; 77067

== ENCOUNTER → 2024-05-02 11:00 | Outpatient (BNV) | payer MEDICARE, MEDICAID, SELFPAY | PROVIDERS: PCP Internal Medicine; Visit Provider Internal Medicine | DX: Z12.31 Encounter for screening mammogram for malignant neoplasm of breast (principal) | CPT/HCPCS: 77063; 77067 ==

== ENCOUNTER 2024-06-13 10:59 | Emergency (ER) | payer MEDICARE, MEDICAID, SELFPAY ==
--- NOTE | ~2024-06-13 | XR_ITS ---
EXAMINATION: XR CHEST CLINICAL INFORMATION: Dizziness COMPARISON: July 29, 2020 TECHNIQUE: 2 views of the chest were obtained. FINDINGS: No significant abnormality is noted involving the heart, lungs, mediastinum, bony thorax or soft tissues. XR/XR chest 2V IMPRESSION: Unremarkable examination. Electronically signed by: Jak Cheatham MD 06/13/2024 12:37 PM EDT
--- NOTE | 2024-06-13 11:08 | ED_ITS ---
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 Patient states that she was at the [facility] for a PCP appointment when she was noted to have an elevated blood pressure. Patient states that she did not take her medicine this morning because she had this appointment. Patient denies any dizziness, lightheadedness, abdominal pain, nausea, vomiting, fever, chills, blurry vision, double vision, loss of vision, chest pain, difficulty breathing, shortness of breath, back pain, night sweats, pain with urination, increased urinary frequency, increased urinary urgency, blood in her urine or stool, syncope or a near syncopal episode, recent trauma or falls, bowel incontinence, bladder incontinence, or any other complaints at this time. Relieving factors: none Exacerbating factors: none Associated symptoms: denies other symptoms Treatments prior to arrival: none Related Data Home Medications ?Medication ?Instructions ?Recorded ?Confirmed aspirin 81 mg chewable tablet 1 tab PO DAILY 07/27/20 04/03/24 losartan 100 mg tablet 100 mg PO DAILY 07/27/20 04/03/24 trazodone 100 mg tablet 100 mg PO BEDTIME 07/27/20 04/03/24 clonazepam 0.5 mg tablet 0.5 mg PO TID PRN Anxiety 05/03/21 04/03/24 duloxetine 60 mg capsule,delayed 60 mg PO BID 05/03/21 04/03/24 release haloperidol 5 mg tablet 2.5 mg PO TID 05/03/21 04/03/24 metformin 500 mg tablet,extended 1 tab PO QPM 06/15/21 04/03/24 release 24 hr alcohol swabs (Alcohol Prep Pads) pad topical DAILY 07/27/21 04/03/24 atorvastatin 40 mg tablet 40 mg PO DAILY 07/27/21 04/03/24 blood sugar diagnostic (Accu-Chek #10 ea 07/27/21 04/03/24 Tamara Plus test strips) buspirone 7.5 mg tablet 7.5 mg PO BID 07/27/21 04/03/24 amlodipine 10 mg tablet 10 mg PO DAILY 06/05/22 04/03/24 empagliflozin 10 mg tablet 1 tab PO QAM 11/08/22 04/03/24 (Jardiance) indapamide 1.25 mg tablet 1.25 mg PO QAM 11/08/22 04/03/24 aripiprazole 10 mg tablet 10 mg PO DAILY 01/26/23 04/03/24 Previous Rx's ?Medication ?Instructions ?Recorded albuterol sulfate 90 mcg/actuation 2 puff inhalation Q4-6H PRN 07/29/20 aerosol inhaler shortness of breath or wheezing #6.7 grams allopurinol 100 mg tablet 100 mg PO DAILY 90 days #90 tabs 01/25/22 linaclotide 290 mcg capsule 290 mcg PO QAM #30 caps 03/26/23 (Linzess) pantoprazole 40 mg tablet,delayed 40 mg PO DAILY #30 tabs 03/26/23 release pyridoxine (vitamin B6) 50 mg 50 mg PO DAILY 90 days #90 tabs 04/03/24 tablet Allergies Allergy/AdvReac Type Severity Reaction Status Date / Time hydrocortisone Allergy Unknown UNKNOWN Verified 06/13/24 11:22 [From CORTIZONE-10] Review of Systems 2 Constitutional: Constitutional: Reports no additional constitutional complaints, Denies chills, Denies fever(s) and Denies night sweats Eyes: Eyes: Reports no additional eye complaints, Denies blurry vision, Denies change in vision, Denies diplopia, Denies eye discharge, Denies loss of vision and Denies eye pain ENT: Denies dizziness Cardiovascular: Cardiovascular: Reports no additional cardiovascular complaints, Denies chest pain, Denies lightheadedness, Denies Loss of Consciousness and Denies dyspnea Respiratory: Respiratory: Reports no additional respiratory complaints and Denies dyspnea Gastrointestinal: Gastrointestinal: Reports no additional gastrointestinal complaints, Denies abdominal pain, Denies melena, Denies hematochezia, Denies change in bowel habits and Denies change in stool character Genitourinary: Genitourinary: Denies hematuria, Denies urinary frequency, Denies dysuria, Denies urinary incontinence, Denies urinary hesitancy and Denies urinary urgency Musculoskeletal: Musculoskeletal: Reports no additional musculoskeletal complaints, Denies numbness and Denies tingling Neurologic: Denies dizziness, Denies loss of vision, Denies numbness and Denies tingling Psychiatric: Psychiatric: Reports no additional psychiatric complaints Endocrine: Endocrine: Reports no additional endocrine complaints Hematologic/Lymphatic: Hematologic/Lymphatic: Reports no additional hematologic/lymphatic complaints Allergic/Immunologic: Allergic/Immunologic: Reports no additional allergic/immunologic complaints PMFSH Past Medical History Attestation statement: The following information was validated with the patient. Source: old records reviewed and nursing notes reviewed Medical History Chronic idiopathic constipation GREG (obstructive sleep apnea) GERD (gastroesophageal reflux disease) Diabetes Kidney stones Medullary sponge kidney Elevated cholesterol HTN (hypertension) Fibromyalgia Depression Surgical History Hx of colonoscopy Hx of hysterectomy Hx of cholecystectomy History of lithotripsy Social History Social History Are you a primary manager of care to a significant other at home: No Do you presently have visiting nurse or other home services: No Alcohol intake: never Patient Tobacco Use Status: Former Tobacco user Tobacco use type: Cigarette Smoked in Last 30 Days: No Use of substances other than those prescribed or required for medical reasons: No Advance Directives: No Advance Directives Information Provided: Yes Do you have a plan to hurt others: No Plan Patient : No Physical Exam ED Vital Signs: Vital Signs - 24 hr 06/13/24 11:20 06/13/24 11:27 06/13/24 12:33 Temperature 97.7 F 98.2 F Pulse Rate 67 76 Respiratory Rate 18 18 Blood Pressure 234/103 H 234/103 H 185/87 H Pulse Oximetry 96 98 Oxygen Delivery Method Room Air Room Air 06/13/24 12:36 Temperature 98.1 F Pulse Rate 72 Respiratory Rate 16 Blood Pressure 178/91 H Pulse Oximetry 98 Oxygen Delivery Method Room Air BMI result Body Mass Index 28.7 Const General: cooperative, no acute distress, alert and awake Nutritional Appearance: well nourished Orientation/consciousness: patient oriented x3 Limitations: no limitations HENMT Head: Yes normal to inspection and Yes atraumatic Ears: hearing grossly normal bilaterally and external ears normal General nose exam: Normal external nose present, no nasal discharge noted and no epistaxis Face and sinus: Yes normal facial exam, No abrasion and No laceration Mouth: Normal oral and palatal mucosa present, no drooling and no muffled voice Eyes General: appearance normal, both eyes and all related structures Periorbital: periorbital findings normal Eyelids: Yes eyelids normal Conjunctivae: conjunctivae normal Pupils: Equal, round and reactive pupils present EOM: EOMs intact bilaterally Neck Neck: Yes normal visual inspection, Yes full ROM and Yes no lymphadenopathy Chest Chest palpation & inspection: normal inspection of the chest Resp Effort & Inspection: normal respiratory effort and able to speak in complete sentences GI Inspection: Yes normal to inspection Neuro General: patient oriented x3 and moves all extremities Cranial nerves: Yes Equal, round and reactive pupils present Cognition (Neuro): normal cognition Extrem General: Yes normal to inspection, Yes full ROM and Yes capillary refill normal Psych Appearance: grossly normal Mental Status: mental status grossly normal Affect: normal affect Attitude: cooperative Thought process: Normal thought process present Thought content: Normal thought content present Insight: Good insight present (Psych) Medications Administered Discontinued Medications Generic Name Dose Route Start Last Admin Trade Name Freq PRN Reason Stop Dose Admin Hydralazine HCl 50 mg 06/13/24 11:17 06/13/24 11:27 Hydralazine Hcl 50 Mg Tablet PO 06/13/24 11:18 50 mg ONCE ONE Administration Protocol Medical Decision Making Medical Decision Making [facility] Narrative: Patient is a 48 year old assigned female at with a history of HTN presenting to the emergency department today with an elevated blood pressure in the setting of not taking her blood pressure medication. Patient's physical exam was unremarkable. Patient's blood work was unremarkable. Patient's EKG was unremarkable. Patient's chest x-ray showed no acute process. I explained my physical exam findings as well as all test results to the patient and the patient's family at the bed side. I answered all questions asked by the patient and the patient's family at the bed side. Patient was given her prescribed dose of 50mg of Hydralazine while in the department which appropriately lowered her blood pressure. I stressed the importance of the patient taking her medication as directed (either prescribed or as the over the counter packaging recommends). I stressed the importance of the patient following up with her primary care provider. I stressed the importance of the patient returning to the emergency department immediately if her symptoms were to worsen or if she were to develop any dizziness, shortness of breath, difficulty breathing, chest pain, blurry vision, loss of vision, nausea, vomiting, abdominal pain, fever, chills, back pain, or any other complaints. Patient and the patient's family at the bed side verbalized agreement and understanding with this treatment plan and discharge. Differential Diagnosis Differential Diagnoses: The differential diagnosis associated with the presentation includes HTN Asymptomatic HTN Medication non compliance Admission/Observation Consideration of admission/observation: Escalation of care including admission/observation considered Patient would have been admitted to the hospital had her work up had any findings where hospital admission was appropriate and her clinical presentation warranted hospital admission. Lab Data [facility] Lab Attestation statement: I reviewed the patient's lab results. My interpretation of these results are in the [facility] Rationale portion of this note. 06/13/24 11:31 06/13/24 11:31 Labs: Lab Results 06/13/24 Range/Units 11:31 WBC 7.0 (4.8-10.8) X10*3/uL RBC 5.16 (4.20-5.50) X10*6/uL Hgb 15.3 D (12.0-16.0) g/dl Hct 44.8 (37.0-47.0) % MCV 86.8 (80.0-98.0) fL MCH 29.7 (27.0-33.0) pg MCHC 34.2 (31.0-35.0) g/dl RDW 13.4 (11.0-16.0) % Plt Count 297 (160-400) X10*3/uL MPV 9.8 (9.4-12.3) fL Immature Gran % (Auto) 0.3 (0.0-0.4) % Neut % (Auto) 70.6 (45-73) % Lymph % (Auto) 23.2 (20-40) % [place] % (Auto) 5.4 (2-11) % Eos % (Auto) 0.1 (0-4) % Baso % (Auto) 0.4 (0-2) % Lymph # (Auto) 1.6 (1.2-4.9) X10*3/uL [place] # (Auto) 0.4 (0.1-1.2) X10*3/uL Eos # (Auto) 0.0 (0.0-0.4) X10*3/uL Baso # (Auto) 0.0 (0.0-0.2) X10*3/uL Abs Immat Gran (auto) 0.02 (0.00-0.03) X10*3/uL Absolute Neuts (auto) 5.0 (2.0-8.3) x10*3/uL Absolute Nucleated RBC 0.000 (0.0-0.012) X10*3/uL Nucleated RBC % (auto) 0.0 (0.0-0.2) /100WBC Sodium 142 (135-145) mmol/L Potassium 4.0 (3.3-5.1) mmol/L Chloride 109 H (96-108) mmol/L Carbon Dioxide 24 (22-29) mmol/L Anion Gap 13 (12-20) BUN 26 H (9-16) mg/dL Creatinine 1.85 H (0.5-1.4) mg/dL Estim Creat Clear Calc 30.9 Estimated GFR 29 Random Glucose 124 H (60-115) mg/dL Calcium 10.3 H (8.4-10.2) mg/dL Magnesium 2.2 (1.6-2.6) mg/dL Total Bilirubin 0.4 (0.0-1.0) mg/dL AST 20 (5-31) U/L ALT 16 (0-31) U/L Alkaline Phosphatase 73 (39-117) U/L Troponin I High Sens 11.8 (<3.5-17.0) ng/L Total Protein 7.7 (6.5-8.0) g/dL Albumin 4.2 (3.5-5.0) g/dL Independent Interpretation I performed an independent interpretation of an: EKG and Plain X-Ray Interpretation: My interpretation is in agreement with the radiologist's impression of this imaging study. L EXAMINATION: XR CHEST CLINICAL INFORMATION: Dizziness COMPARISON: July 29, 2020 TECHNIQUE: 2 views of the chest were obtained. FINDINGS: No significant abnormality is noted involving the heart, lungs, mediastinum, bony thorax or soft tissues. XR/XR chest 2V IMPRESSION: Unremarkable examination. Electronically signed by: Jak Cheatham MD 06/13/2024 12:37 PM EDT RP Dictated By: Jak Cheatham MD Signed By: Electronically signed by Jak Cheatham MD 06/13/24 1237 Vent. Rate: 064 BPM Atrial Rate: 064 BPM P-R Int: 138 ms QRS Dur: 072 ms QT Int: 450 ms P-R-T Axes: 007 032 066 degrees QTc Int: 464 ms Normal sinus rhythm Minimal voltage criteria for LVH, may be normal variant (Sokolow-Mitchell) Nonspecific T wave abnormality Prolonged QT When compared with ECG of 23-MAY-2022 14:09, No significant change was found DD/ 1105 Radiology Impression Discussion of test interpretation with radiology: I have reviewed the radiologist's reading. Independent Historian Clinical information obtained from an independent historian. History obtained from or confirmed by: Other (patient's family at the bed side provided additional history and confirmed the history provided by the patient.) Chronic Conditions Patient?s care impacted by: Hypertension Discharge Plan Discharge Clinical Impression: HTN (hypertension) Patient Disposition: Home, Self-Care Instructions: Chronic Hypertension (DC) Additional Instructions: Your work up today was reassuring. Your blood pressure medication needs to be adjusted by your primary care provider. Follow up with your primary care provider. Return to the emergency department immediately if your symptoms worsen or if you develop any dizziness, shortness of breath, difficulty breathing, chest pain, blurry vision, loss of vision, nausea, vomiting, abdominal pain, fever, chills, back pain, or any other complaints. 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 Dsouza medicaci?n para la tensi?n arterial debe ser ajustada por dsouza m?dico de cabecera. Chery un seguimiento con dsouza m?dico de cabecera. Acuda inmediatamente al servicio de urgencias si ayse s?ntomas empeoran o si presenta mareos, falta de aire, dificultad para respirar, dolor tor?cico, visi?n borrosa, p?rdida de visi?n, n?useas, v?mitos, dolor abdominal, fiebre, escalofr?os, dolor de espalda o cualquier otra molestia. Prescriptions: No Action albuterol sulfate 90 mcg/actuation HFA aerosol inhaler 2 puff inhalation Q4-6H PRN (Reason: shortness of breath or wheezing) Qty: 6.7 0RF metformin 500 mg tablet extended release 24 hr 1 tab PO QPM indapamide 1.25 mg Tablet 1.25 mg PO QAM Jardiance 10 mg tablet 1 tab PO QAM losartan 100 mg tablet 100 mg PO DAILY trazodone 100 mg tablet 100 mg PO BEDTIME aspirin 81 mg tablet,chewable 1 tab PO DAILY haloperidol 5 mg tablet 2.5 mg PO TID clonazepam 0.5 mg tablet 0.5 mg PO TID PRN (Reason: Anxiety) duloxetine 60 mg capsule,delayed release(DR/EC) 60 mg PO BID amlodipine 10 mg tablet 10 mg PO DAILY buspirone 7.5 mg tablet 7.5 mg PO BID (DME) Accu-Chek Tamara Plus test strp Strip See Rx Instructions subcut DAILY Qty: 10 Rx Instructions: As directed atorvastatin 40 mg tablet 40 mg PO DAILY alcohol swabs [Alcohol Prep Pads] Pads, Medicated topical DAILY allopurinol 100 mg tablet 100 mg PO DAILY 90 Days Qty: 90 3RF aripiprazole 10 mg tablet 10 mg PO DAILY pyridoxine (vitamin B6) 50 mg tablet 50 mg PO DAILY 90 Days Qty: 90 3RF pantoprazole 40 mg tablet,delayed release (DR/EC) 40 mg PO DAILY Qty: 30 2RF Rx Instructions: take one tablet half an hour before breakfast Linzess 290 mcg capsule 290 mcg PO QAM Qty: 30 4RF Referrals: Michoacano Shirley MD [Primary Care Provider] - Print Language: Ukrainian
--- NOTE | 2024-06-13 11:10 | ECG_ITS ---
Test Reason : HTN Blood Pressure : / mmHG Vent. Rate : 064 BPM Atrial Rate : 064 BPM P-R Int : 138 ms QRS Dur : 072 ms QT Int : 450 ms P-R-T Axes : 007 032 066 degrees QTc Int : 464 ms Normal sinus rhythm Minimal voltage criteria for LVH, may be normal variant ( Sokolow-Mitchell ) Nonspecific T wave abnormality Prolonged QT Abnormal ECG When compared with ECG of 23-MAY-2022 14:09, No significant change was found Referred By: Patricia Casey Electronically Signed By:Nigel Rosado
[2024-06-13 11:20] VITALS: BP 216/122; BP 234/103; PULSE 67; RESP 18; TEMP 36.5; O2SAT 96; BMI 28.7
[2024-06-13 11:27] VITALS: BP 234/103
[2024-06-13] MEDS: hydrALAZINE HCl 50 MG TABLET PO (11:27)
[2024-06-13 11:36] LABS: MANUAL DIFF FLAG NO
[2024-06-13 11:46] LABS: Basophils Percent Auto 0.4 % (0-2); Eosinophils Percent Auto 0.1 % (0-4); Hematocrit 44.8 % (37.0-47.0); Hemoglobin 15.3 g/dl (12.0-16.0); Imm Gran Abs Auto 0.02 X10*3/uL (0.00-0.03); Imm Gran Pct Auto 0.3 % (0.0-0.4); Lymphocytes Absolute Auto 1.6 X10*3/uL (1.2-4.9); Lymphocytes Percent Auto 23.2 % (20-40); Mean Corpuscular HGB Conc 34.2 g/dl (31.0-35.0); Mean Corpuscular Hemoglobin 29.7 pg (27.0-33.0); Mean Corpuscular Volume 86.8 fL (80.0-98.0); Mean Platelet Volume 9.8 fL (9.4-12.3); Monocytes Absolute Auto 0.4 X10*3/uL (0.1-1.2); Monocytes Percent Auto 5.4 % (2-11); Neutrophils Percent Auto 70.6 % (45-73); Platelet Count 297 X10*3/uL (160-400); Red Blood Count 5.16 X10*6/uL (4.20-5.50); Red Cell Distribution Width 13.4 % (11.0-16.0)
[2024-06-13 11:53] LABS: Alanine Aminotransferase 16 U/L (0-31); Albumin Level 4.2 g/dL (3.5-5.0); Alkaline Phosphatase 73 U/L (39-117); Anion Gap 13 (12-20); Aspartate Amino Transferase 20 U/L (5-31); Bilirubin Total 0.4 mg/dL (0.0-1.0); Blood Urea Nitrogen 26 mg/dL (9-16); Calcium 10.3 mg/dL (8.4-10.2); Carbon Dioxide 24 mmol/L (22-29); Chloride 109 mmol/L (96-108); Creatinine Clr Calc Pharmacy 30.9; Estimated Glomerular Filt Rate 29; Glucose Random 124 mg/dL (60-115); Magnesium 2.2 mg/dL (1.6-2.6); Sodium 142 mmol/L (135-145); Total Protein 7.7 g/dL (6.5-8.0)
[2024-06-13 12:00] LABS: Troponin-I High Sensitivity 11.8 ng/L (<3.5-17.0)
[2024-06-13 12:33] VITALS: BP 185/87; PULSE 76; RESP 18; TEMP 36.8; O2SAT 98
--- NOTE | 2024-06-13 12:34 | PC.NURSE ---
patient a&ox3, weather algorithm scientist applied, ekg performed, pt hypertensive- stated she didnt take her medication today, this nurse educated the patient about taking her daily meds even if she has an appointment.
[2024-06-13 12:36] VITALS: BP 178/91; PULSE 72; RESP 16; TEMP 36.7; O2SAT 98
[2024-06-13 13:08] VITALS: BP 178/91; PULSE 66; RESP 18; TEMP 36.7; O2SAT 96
== END 2024-06-13 13:19 | disposition home or self-care (01) ==
PROVIDERS: Physician Assistant Medical; Emergency Provider Emergency Medicine Emergency Medical Services; PCP Internal Medicine
DX: R42 Dizziness and giddiness (principal); I10 Essential (primary) hypertension; R94.31 Abnormal electrocardiogram [ECG] [EKG]; Z91.148 Patient's other noncompliance with medication regimen for other reason; Z79.899 Other long term (current) drug therapy
CPT/HCPCS: 36415; 71046; 80053; 83735; 84484; 85025; 93005; 99283; 99284

== ENCOUNTER → 2024-06-13 11:10 | Outpatient (BNV) | payer MEDICARE, MEDICAID, SELFPAY | PROVIDERS: Emergency Provider Emergency Medicine Emergency Medical Services; PCP Internal Medicine; Visit Provider Internal Medicine Cardiovascular Disease | DX: R94.31 Abnormal electrocardiogram [ECG] [EKG] (principal) | CPT/HCPCS: 93010 ==

== ENCOUNTER 2024-07-15 11:54 | Outpatient (REF) | payer MEDICARE, MEDICAID, SELFPAY ==
[2024-07-15 15:07] LABS: Anion Gap 11 (12-20); Blood Urea Nitrogen 21 mg/dL (9-16); Calcium 9.4 mg/dL (8.4-10.2); Carbon Dioxide 23 mmol/L (22-29); Chloride 104 mmol/L (96-108); Estimated Glomerular Filt Rate 35; Potassium 3.9 mmol/L (3.3-5.1); Sodium 134 mmol/L (135-145)
== END 2024-07-15 11:55 | disposition home or self-care (01) ==
LOC: HO.CHCLDS 11:54
PROVIDERS: PCP Internal Medicine; Visit Provider Internal Medicine Nephrology
DX: N18.31 Chronic kidney disease, stage 3a (principal); R80.9 Proteinuria, unspecified
CPT/HCPCS: 36415; 80051; 82310; 82565; 84520

== ENCOUNTER 2024-07-21 09:07 | Outpatient (AMB) | payer MEDICARE, MEDICAID, SELFPAY ==
[2024-07-21 09:08] VITALS: BP 136/82; PULSE 89; BMI 28.8
--- NOTE | 2024-07-21 09:08 | A.OFFVIS_ITS ---
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 Intake Note: New patient dx CHF with low EF feeling good Engineer Fishing Vessel Required: Yes Engineer Fishing Vessel Name: [facility] [place] Allergies hydrocortisone [From CORTIZONE-10] Allergy (Unknown, Verified 06/13/24 11:22) UNKNOWN Medication List - Last Reviewed 07/21/24 by JANESSA Hensley alcohol swabs (Alcohol Prep Pads) pad topical DAILY allopurinol 100 mg PO DAILY 90 days aripiprazole 15 mg PO DAILY aspirin 1 tab PO DAILY atorvastatin 40 mg PO DAILY blood sugar diagnostic (Accu-Chek Tamara Plus test strips) As directed duloxetine 40 mg PO DAILY empagliflozin (Jardiance) 1 tab PO QAM hydralazine 50 mg PO TID hydralazine 100 mg PO TID losartan 100 mg PO DAILY omeprazole 20 mg PO DAILY trazodone 100 mg PO BEDTIME HPI Comments Details: Thank you for referring Marylu in cardiology consultation today for newly detected cardiomyopathy process in January by echocardiogram. History was obtained with help of a certified site promotion agent in the room. She subsequently presented emergency room in June with significantly elevated blood pressure and subsequently was referred here for further evaluation and management plan. She had a stress test in 2020 which was abnormal with chest pain or shortness of breath with low level of exercise and with recommended vasodilating myocardial perfusion imaging although this was never completed as per my knowledge. Patient says currently takes all her medications at home. She does not necessarily measure blood pressures at home. She is on multiple different medications to manage her blood pressure. She has exertional shortness of breath and chest pressure walking short distances. Denies any clear orthopnea, PND, leg edema. Denies any prolonged palpitation irregular heartbeat. No lightheadedness, syncope. NYHA class 2 symptoms. COUNTS INCLUDE 234 BEDS AT THE [facility] Medical History Chronic idiopathic constipation GREG (obstructive sleep apnea) GERD (gastroesophageal reflux disease) Diabetes Kidney stones Medullary sponge kidney Elevated cholesterol HTN (hypertension) Fibromyalgia Depression Surgical History Hx of colonoscopy Hx of hysterectomy Hx of cholecystectomy History of lithotripsy Social History Are you a primary managed care provider to a significant other at home: No Do you presently have visiting nurse or other home services: No Alcohol intake: never Patient Tobacco Use Status: Former Tobacco user Tobacco use type: Cigarette Review of Systems Const Denies chills, Denies daytime sleepiness, Denies fatigue, Denies fever(s), Denies frequent falls, Denies poor appetite, Denies snoring, Denies stops breathing during sleep, Denies weakness, Denies weight gain and Denies weight loss Eyes Denies loss of vision ENT Denies dizziness and Denies hearing loss Card Denies chest pain, Denies claudication, Denies leg edema, Denies lightheadedness, Denies palpitations, Denies dyspnea, Denies dyspnea on exertion and Denies orthopnea Resp Denies cough, Denies excessive phlegm production, Denies dyspnea, Denies dyspnea on exertion, Denies snoring and Denies wheezing GI Denies abdominal pain, Denies hematochezia, Denies change in bowel habits, Denies nausea and Denies vomiting Denies urinary frequency and Denies dysuria Musc Denies arthralgias, Denies muscle weakness, Denies numbness and Denies other (frequent falls) Skin/Breast Denies nail changes and Denies rash Neuro Denies Abnormal speech present, Denies dizziness, Denies frequent falls, Denies loss of vision, Denies memory loss, Denies numbness and Denies weakness Psych Denies depression and Denies memory loss Endo Denies fatigue and Denies palpitations [place]/Lymph Reports easy bruising and Reports other (anemia) Aller/Immun Denies wheezing Physical Exam Vital Signs: Last Vital Signs Pulse 89 07/21/24 09:08 BP 136/82 07/21/24 09:08 BMI result Body Mass Index 28.8 Const General: cooperative, comfortable, no acute distress, alert, awake and Physically active Nutritional Appearance: overweight Orientation/consciousness: patient oriented x3 Limitations: no limitations HEENT Head: Yes normocephalic and Yes atraumatic Neck Neck: Yes trachea midline, Yes supple and Yes no JVD Resp Effort & Inspection: normal respiratory effort Auscultation: clear to auscultation bilaterally Cardio Jugular venous distension: no JVD Palpation: normal PMI Rate: regular rate Rhythm: regular rhythm Heart sounds: S1 normal heart sound present, S2 normal heart sound present, no click, no gallops, no murmurs and no rubs GI Auscultation: normal bowel sounds Skin General skin exam: no rashes or lesions noted Neuro General: patient oriented x3 and no focal motor deficits Speech: No Abnormal speech present Extrem General: Yes no clubbing, cyanosis or edema Psych Appearance: grossly normal Assessment & Plan Assessment & Plan (1) Cardiomyopathy: Code(s): I42.9 - Cardiomyopathy, unspecified Category: Medical Plan: Patient with detected cardiomyopathy process in January. Referred here after recent ED presentation for hypertensive urgency. Currently taking medication blood pressure is better controlled on current medications. She is on losartan, amlodipine and hydralazine as well as indapamide. Clinically appears to be euvolemic and well compensated. She does have NYHA class 2 symptoms of shortness of breath and chest pressure. Given her risk factors, obstructive coronary artery disease needs to be ruled out. She had a abnormal stress test few years ago. She also has atrophic left kidney for unclear reason question renal artery stenosis being followed by Nephrology. She is not on best guideline based medical therapy for cardiomyopathy process and symptoms. I would switch her losartan to Entresto 97-103 mg b.i.d. with follow-up renal function 1 weeks time. Will also add Coreg 3.125 mg b.i.d. to her regimen and follow up with EKG next week and further uptitrate medications as tolerated and down titrate amlodipine if the blood pressures over corrected. Strongly suggested to what salt in his diet. Advised to monitor blood pressure at home maintain a log and bring it next week to the office visit. Consider workup for renal artery stenosis. Importance of CPAP therapy and sleep apnea therapy was discussed. Further treatment based on the findings of myocardial perfusion imaging. Will follow up in 1 week for nurse visit in 6 weeks with me. Thank you for allowing me to partake in her care Orders: Orders CA lexiscan stress w monse 1 Week I42.9 - Cardiomyopathy, unspecified Basic Metabolic Panel 1 Week I42.9 - Cardiomyopathy, unspecified Medications: New sacubitril-valsartan 97-103 mg (Entresto) 1 tab PO BID 60 tabs 5RF carvedilol (Coreg) must administer with a meal/food 3.125 mg PO BID 60 tabs 5RF Coding Level of Care Code New Pt Level 4 (91936) Complex EM visit Add On G2211 Diagnoses Cardiomyopathy I42.9
== END 2024-07-21 09:34 | disposition home or self-care (01) ==
PROVIDERS: PCP Internal Medicine; Visit Provider Internal Medicine Cardiovascular Disease
DX: I42.9 Cardiomyopathy, unspecified (principal)
CPT/HCPCS: 99204; G2211

== ENCOUNTER 2024-07-21 09:07 | Outpatient (REF) | payer MEDICARE, MEDICAID, SELFPAY ==
[2024-07-21 11:24] LABS: Anion Gap 14 (12-20); Blood Urea Nitrogen 21 mg/dL (9-16); Calcium 10.2 mg/dL (8.4-10.2); Carbon Dioxide 24 mmol/L (22-29); Chloride 107 mmol/L (96-108); Estimated Glomerular Filt Rate 34; Glucose Random 147 mg/dL (60-115); Potassium 4.2 mmol/L (3.3-5.1); Sodium 141 mmol/L (135-145)
== END 2024-07-21 09:08 | disposition home or self-care (01) ==
LOC: HO.LAB 09:07
PROVIDERS: PCP Internal Medicine; Visit Provider Internal Medicine Cardiovascular Disease
DX: I42.9 Cardiomyopathy, unspecified (principal)
CPT/HCPCS: 36415; 80048; 99202

== ENCOUNTER → 2024-08-08 08:00 | Outpatient (REF) | payer MEDICARE, MEDICAID, SELFPAY ==
--- NOTE | ~2024-08-08 | NM_ITS ---
Lexiscan Myocardial perfusion study Indication: Cardiomyopathy Technique: The patient was brought in for a Lexiscan perfusion study on 08/08/2024 and was injected 0.4 mg of Lexiscan intravenously. Within a minute of this injection 25 mCi of sestamibi was given intravenously. Images were obtained using the SPECT gamma camera interlaced with the gating device. Images were obtained in supine position. Resting perfusion study was performed on 08/11/2024. Patient was administered 25 mCi of sestamibi intravenously at rest. Images were then obtained in supine position. Total DLP 83 mGy-cm. Images were processed with the software and compared side to side in short axis, horizontal long axis and vertical long axis views. Findings: Raw aquisition reviewed. The stress perfusion study showed no significant perfusion abnormality. Both uncorrected and CT attenuation corrected images were reviewed. The gated study shows diminished LV systolic function with calculated LVEF of 34%. LV cavity is normal in size. The gated study shows normal wall thickening and contraction of segments. Resting study shows no significant perfusion defects. Gating at rest reveals normal wall motion with ejection fraction at 40%. The findings are consistent with no clear reversible or fixed perfusion defects. NM/NM monse perf SPECT rest & str Impression: 1. Myocardial perfusion imaging study shows normal myocardial perfusion. 2. Gated LVEF is 34% during stress and 40% during rest. 3. Transient ischemic dilatation not present. EKG component of the test reported separately. Electronically signed by: Emanuel Banuelos MD 08/12/2024 08:58 AM [facility]
--- NOTE | 2024-08-08 08:05 | CA_ITS ---
Acquisition Time: 2024-08-08 11:12:04 Total Exercise Time: 00:02:00 Test Indications: Dyspnea CP Medications: SEE H Protocol: LEXISCAN Max HR: 136 BPM 80% of Pred: 170 BPM Max BP: 144/072 mmHG Max Work Load: 1.0 METS Pharmacologic stress test with Lexiscan, while pt kicks her legs in chair, with reports of dizziness and flushing, without chest discomfort, without any arrythmias, with normotensive response to injection. Nondiagnostic EKG for ischemia. In recovery, pt treated with IVP Aminophylline 75 mg to reverse Lexiscan, after which pt reports feeling back to baseline. Nuclear images pending. Test reviewed with Dr. Banuelos. Referred By: Andrei Phelps Overread By: RAFA MCKINNEY
[2024-08-08 09:01] LABS: Anion Gap 15 (12-20); Blood Urea Nitrogen 29 mg/dL (9-16); Calcium 9.1 mg/dL (8.4-10.2); Carbon Dioxide 23 mmol/L (22-29); Chloride 108 mmol/L (96-108); Estimated Glomerular Filt Rate 24; Glucose Random 140 mg/dL (60-115); Potassium 4.1 mmol/L (3.3-5.1); Sodium 142 mmol/L (135-145)
== END ==
LOC: HO.CARD 08:00
PROVIDERS: PCP Internal Medicine; Visit Provider Internal Medicine Cardiovascular Disease
DX: I12.9 Hypertensive chronic kidney disease with stage 1 through stage 4 chronic kidney disease, or unspecified chronic kidney disease (principal); N18.31 Chronic kidney disease, stage 3a; I42.9 Cardiomyopathy, unspecified
CPT/HCPCS: 36415; 78452; 80048; 93005; 93017; A9500; J0280; J2785

== ENCOUNTER 2024-08-08 08:17 | Outpatient (AMB) | payer MEDICARE, MEDICAID, SELFPAY ==
--- NOTE | 2024-08-08 08:45 | AM.OFFVISNUR ---
Vital Signs 08/08/24 08:47 BP 140/78 H Blood Pressure Location Lt brachial Position Sitting Pulse 68 Intake Visit Reasons: BP/ EKG compare machine Allergies hydrocortisone [From CORTIZONE-10] Allergy (Unknown, Verified 06/13/24 11:22) UNKNOWN Assessment & Plan Assessment & Plan Orders: Orders AMB EKG-In Office Today I42.9 - Cardiomyopathy, unspecified
[2024-08-08 08:47] VITALS: BP 140/78; PULSE 68
== END 2024-08-08 09:21 | disposition home or self-care (01) ==
PROVIDERS: PCP Internal Medicine; Visit Provider Internal Medicine Cardiovascular Disease
DX: I42.8 Other cardiomyopathies (principal)
CPT/HCPCS: 78452; 93010; 93016; 93018

== ENCOUNTER 2024-08-11 12:07 | Outpatient (REF) | payer MEDICARE, MEDICAID, SELFPAY ==
[2024-08-11 12:45] LABS: Anion Gap 11 (12-20); Blood Urea Nitrogen 31 mg/dL (9-16); Calcium 9.4 mg/dL (8.4-10.2); Carbon Dioxide 24 mmol/L (22-29); Chloride 110 mmol/L (96-108); Estimated Glomerular Filt Rate 27; Glucose Random 146 mg/dL (60-115); Potassium 4.7 mmol/L (3.3-5.1); Sodium 140 mmol/L (135-145)
== END 2024-08-11 12:08 | disposition home or self-care (01) ==
LOC: HO.LAB 12:07
PROVIDERS: Internal Medicine Cardiovascular Disease; PCP Internal Medicine; Visit Provider Nurse Practitioner Family
DX: I10 Essential (primary) hypertension (principal); I42.9 Cardiomyopathy, unspecified
CPT/HCPCS: 36415; 80048

== ENCOUNTER 2024-09-15 13:16 | Outpatient (AMB) | payer MEDICARE, MEDICAID, SELFPAY ==
[2024-09-15 13:17] VITALS: BP 148/92; PULSE 66; BMI 26.8
--- NOTE | 2024-09-15 13:17 | MHC.OFFVIS ---
Vital Signs 09/15/24 13:17 Height 5 ft Weight 137 lb 2.04 oz BMI 26.8 BP 148/92 H Blood Pressure Location Lt brachial Position Sitting Pulse 66 Pulse Source Pulse Oximeter Intake Visit Reasons: 6 nwk f/up kayode Border Measurer And Cutter Required: Yes Border Measurer And Cutter Language: Clinical Psychologist Licensed Name: voice roman [id number] Allergies hydrocortisone [From CORTIZONE-10] Allergy (Unknown, Verified 09/15/24 13:19) UNKNOWN Medication List - Last Reconciled 09/15/24 by Marti Kramer, GENO-C alcohol swabs (Alcohol Prep Pads) pad topical DAILY allopurinol 100 mg PO DAILY 90 days aripiprazole 15 mg PO DAILY aspirin 1 tab PO DAILY atorvastatin 40 mg PO DAILY blood sugar diagnostic (Accu-Chek Tamara Plus test strips) As directed carvedilol 12.5 mg PO BID duloxetine 40 mg PO DAILY empagliflozin (Jardiance) 1 tab PO QAM omeprazole 20 mg PO DAILY sacubitril-valsartan 49-51 mg (Entresto) 1 tab PO BID trazodone 100 mg PO BEDTIME HPI HPI 6 nwk f/up kayode: Details: Marylu is a 48 yo female with hypertension, diabetes, hyperlipidemia, sleep apnea with CPAP use, left renal atrophy, follows with Nephrology, newer finding of cardiomyopathy and recently referred to Cardiology. On last visit her medications were adjusted for blood pressure and cardiomyopathy management. She underwent a pharmacological nuclear stress test and now presents for follow-up. Today she reports that she has been doing well since her last visit. She does notice some shortness of breath with activity which is not new. She is not having chest discomfort at rest or with activity. No PND, orthopnea or edema. No palpitations, lightheadedness, presyncope, syncope. Compliant with meds. Has a follow-up with Nephrology in October. [facility] Medical History Chronic idiopathic constipation GREG (obstructive sleep apnea) GERD (gastroesophageal reflux disease) Diabetes Kidney stones Medullary sponge kidney Elevated cholesterol HTN (hypertension) Fibromyalgia Depression Surgical History Hx of colonoscopy Hx of hysterectomy Hx of cholecystectomy History of lithotripsy Social History Are you a primary senior care assistant to a significant other at home: No Do you presently have visiting nurse or other home services: No Alcohol intake: never Patient Tobacco Use Status: Former Tobacco user Tobacco use type: Cigarette Review of Systems Const All systems reviewed & are unremarkable except as noted in HPI and below ENT Denies dizziness Card Denies chest pain, Denies chest pain at rest, Denies chest pain with activity, Denies rapid heart rate, Denies pedal edema, Denies edema, Denies leg edema, Denies lightheadedness, Denies palpitations, Reports dyspnea, Denies dyspnea on exertion and Denies orthopnea Resp Denies cough, Reports dyspnea and Denies dyspnea on exertion GI Denies hematochezia and Denies change in stool character Musc Denies abnormal gait, Denies limited range of motion, Denies muscle cramps, Denies muscle weakness, Denies numbness, Denies radiating pain into limb, Denies stiffness and Denies tingling Neuro Denies abnormal gait, Denies dizziness, Denies numbness and Denies tingling Endo Denies palpitations Physical Exam Vital Signs: Last Vital Signs Pulse 66 09/15/24 13:17 BP 148/92 H 09/15/24 13:17 BMI result Body Mass Index 26.8 Const General: cooperative, healthy appearing, comfortable and no acute distress Orientation/consciousness: patient oriented x3 Neck Neck: Yes normal visual inspection Resp Effort & Inspection: normal respiratory effort Auscultation: clear to auscultation bilaterally, no rales, no rhonchi and no wheezes Cardio Rate: regular rate Rhythm: regular rhythm Heart sounds: S1 normal heart sound present, S2 normal heart sound present, no murmurs and no rubs Neuro General: patient oriented x3 Extrem General: Yes normal to inspection, No no pedal edema and No calf tenderness Psych Appearance: grossly normal Mental Status: mental status grossly normal Speech and movement: Normal speech and movement present Assessment & Plan Assessment & Plan (1) Cardiomyopathy: Code(s): I42.9 - Cardiomyopathy, unspecified Category: Medical Plan: Echocardiogram from 02/04/2024 showed EF 35-40%, grade 2 diastolic dysfunction, mild LVH. She was in the ER in May for hypertension, blood pressure 178/91 and she was treated with hydralazine. She was referred to follow-up with Cardiology and was seen 07/21/[address] Phelps. At that time he adjusted her antihypertensives and started her on Entresto and carvedilol. Follow-up lab work showed an elevation in her kidney function tests. Her Entresto dose was reduced and carvedilol dose increased. Nuclear stress test done 08/08/2024 showed normal myocardial perfusion imaging. Her cardiomyopathy is nonischemic and mostly related to uncontrolled hypertension. He does have sleep apnea but wear CPAP consistently. She has known history atrophy of the left kidney for unclear reason. She may have had renal artery stenosis. She follows with Nephrology and has a follow-up in October. She was unable to recall who her aviation maintenance instructor is. Today she reports that she has been taking all meds as directed. She has some mild shortness of breath with exertion, NYHA class 2. She does not appear fluid overloaded on exam. Blood pressure today is mildly elevated. No med changes made at this time. Continue Entresto and carvedilol. Discussed adding amlodipine but she states that she was taking off of it due to her kidney function. Also mentioned hydralazine and she believes she was on that in the past as well. I will have her check a BMP today to determine current kidney function and then med changes will be determined. Cardiology office visit 3 months, sooner if needed. Will update limited echo prior to that time to reassess EF. (2) HTN (hypertension): Code(s): I10 - Essential (primary) hypertension Category: Medical Plan: As above (3) GREG (obstructive sleep apnea): Code(s): G47.33 - Obstructive sleep apnea (adult) (pediatric) Category: Medical Plan: She reports compliance with CPAP (4) Left renal atrophy: Code(s): N26.1 - Atrophy of kidney (terminal) Category: Medical Plan: Does follow with Nephrology Plan Time spent on chart review, documentation, interview and assessment Orders: Orders CA Echo Limited 11/10/24 I42.9 - Cardiomyopathy, unspecified Coding Level of Care Code Est Pt Level 4 (09696) Complex EM visit Add On G2211 Diagnoses Cardiomyopathy I42.9 HTN (hypertension) I10 GREG (obstructive sleep apnea) G47.33 Left renal atrophy N26.1 Time Spent (min) 28
--- OUTSIDE RECORDS SUMMARY | 2024-09-15 17:59 | XMS_ITS | Encounter Summary ---
Author Organization [employer] Address [address] 7[address] [place] [address] Care Team Providers Care Texture Artist Name Role Phone Michoacano Shirley MD Primary Care Prov ider Reason for Visit * Reason Comments Med Refill Encounter Details Date Type Department Care Team ([facility] Contact Info) Description 08/27/2024 Refill [facility] [address] [place], [place] [phone] Michoacano Shirley MD [address] [place] [address] Mixed hyperlipidemia Social History Tobacco Use Types Packs/Day Years Used Date Smoking Tobacco: Never Passive Smoke Exposure: Never Smokeless Tobacco: Never Alcohol Use Standard Drinks/Week Comments Never 0 (1 standard drink = 0.6 oz pur e alcohol) Depression Answer Date Recorded Patient Health Questionnaire-9 Score 1 04/10/2023 Housing Stability Answer Date Recorded What is your housing situation today? I have lupe gomez 06/06/[address] you li ve. Do you have problems with any of the following? None of the above 06/06/2024 Food Insecurity Answer Date Recorded Within the past 12 months, y ou worried that your food would run out before you got money to buy more: Never True 06/06/2024 Within the past 12 months,th e food you bought just didn't last and you didn't have enough money to get more: Never True Transportation Answer Date Recorded In the past 12 months, has l ack of transportation kept you from medical appts, meetings, work or from getting things needed for daily living? No 06/06/2024 Utilities Answer Date Recorded In the past 12 months, has t he electric, gas, oil or water company threatened to shut off services in your home? No 06/06/2024 Depression Answer Date Recorded Patient Health Questionnaire-2 Score 1 04/10/2023 Internet Access Answer Date Recorded Internet Access Q1 Yes 06/06/2024 Internet Access Q2 Not on file 06/06/2024 Comments Unknown Sex and Gender Information Value Date Recorded Sex Assigned at Female 06/19/2022 10:27 AM EDT Legal Sex Female 10:27 AM EDT Gender Identity Female 06/19/2022 10:27 AM EDT Sexual Orientation Straight 06/19/2022 10 :27 AM EDT documented as of this encounter Plan of Treatment Upcoming Encounters Date Type Department Care Team ([facility] st Contact Info) Description 09/26/2024 11:15 AM EST Nurse Only [facility] & P[facility]S [address] [place] [address] documented as of this encounter Visit Diagnoses Diagnosis Mixed hyperlipidemia documented in this encounter Additional Health Concerns Assessment Noted Time PHQ-9 Depression Total Score: 1 04/10/20 23 10:51 AM EDT documented as of this encounter Care Teams Texture Artist Relationship Specialty Start Date End Date Michoacano Shirley MD [address] [place] [address] PCP - General Internal Medicine 01/09/20 documented as of this encounter
--- OUTSIDE RECORDS SUMMARY | 2024-09-15 17:59 | XMS_ITS | Encounter Summary ---
Author Organization [employer] Address [address] [place] [address] 7 [place] [address] Care Team Providers Care Telecommunication Equipment Repairer Name Role Phone Michoacano Shirley MD Primary Care Prov ider Encounter Details Date Type Department Care Team (Late Contact Info) Description 05/03/2023 Orders Only [facility] MED & PEDS [address] [place] [address] Michoacano Shirley MD [address] [place] [address] Social History Tobacco Use Types Packs/Day Years Used Date Smoking Tobacco: Never Passive Smoke Exposure: Never Smokeless Tobacco: Never Alcohol Use Standard Drinks/Week Comments Never 0 (1 standard drink = 0.6 oz pur e alcohol) Depression Answer Date Recorded Patient Health Questionnaire-9 Score 1 04/10/2023 Depression Answer Date Recorded Patient Health Questionnaire-2 Score 1 04/10/2023 Comments Unknown Sex and Gender Information Value Date Recorded Sex Assigned at Female 06/19/2022 10:27 AM EDT Legal Sex Female 10:27 AM EDT Gender Identity Female 06/19/2022 10:27 AM EDT Sexual Orientation Straight 06/19/2022 10 :27 AM EDT documented as of this encounter Plan of Treatment Upcoming Encounters Date Type Department Care Team (Late Contact Info) Description 09/26/2024 11:15 AM EST Nurse Only [facility] MED & PEDS [address] [place] [address] documented as of this encounter Visit Diagnoses Not on filedocumented in this encounter Additional Health Concerns Assessment Noted Time PHQ-9 Depression Total Score: 1 04/10/20 23 10:51 AM EDT documented as of this encounter Care Teams Telecommunication Equipment Repairer Relationship Specialty Start Date End Date Michoacano Shirley MD [address] [place] [id number] PCP - General Internal Medicine 01/09/20 documented as of this encounter
--- OUTSIDE RECORDS SUMMARY | 2024-09-15 17:59 | XMS_ITS | Encounter Summary ---
Author Organization [facility] [employer] Address [address] 7 [place] [address] Care Team Providers Care Senior Qa Engineer Name Role Phone Michoacano Shirley MD Primary Care Prov ider Reason for Visit * Reason Onset Date Comments Med Refill 09/11/2024 Encounter Details Date Type Department Care Team (Late st Contact Info) Description 09/11/2024 Refill [facility] MEDICINE [address] [place] [address] Michoacano Shirley MD [address] [place] [phone] Social History Tobacco Use Types Packs/Day Years [...] AM EDT documented as of this encounter Miscellaneous Notes * Telephone Encounter - Pamella Monroy LPN - 09/11/2024 3:07 PM EST Last seen 08/01/24. * Telephone Encounter - Sherrell Staton - 09/11/2024 3:00 PM EST TC from pt requesting medication refill. Medications needing refill : omeprazole (PriLOSEC) [address] capsule albuterol (2.5 MG/3ML) 0.083% nebulizer solution To be sent to: [id number] - [address] documented in this encounter Plan of Treatment Upcoming Encounters Date Type Department Care Team (Late st Contact Info) Description 09/26/2024 11:15 AM EST Nurse Only [facility]S [address] [place] [address] documented as of this encounter Visit Diagnoses Not on filedocumented in this encounter Additional Health Concerns Assessment Noted Time PHQ-9 Depression Total Score: 1 04/10/20 10:51 AM EDT documented as of this encounter Care Teams Senior Qa Engineer Relationship Specialty Start Date End Date Michoacano Shirley MD [address] [place], [place] [address] [address] PCP - General Internal Medicine 01/09/20 documented as of this encounter
--- OUTSIDE RECORDS SUMMARY | 2024-09-15 18:00 | XMS_ITS | Encounter Summary ---
Author Organization [employer] Address [address] [facility] 7 [place] [address] Care Team Providers Care Sales Account Executive Name Role Phone Michoacano Shirley MD Primary Care Prov ider Reason for Visit * Reason Onset Date Comments Medication Question 09/11/2024 Encounter Details Date Type Department Care Team ([facility] st Contact Info) Description 09/11/2024 Telephone [facility] MEDICINE [address] [place] [address] Michoacano Shirley MD [address] [place] [phone] Medication Question Social History Tobacco Use Types Packs/Day Years [...] encounter Miscellaneous Notes * Telephone Encounter - Carly Holden RN - 09/11/2024 3:30 PM EST TC to pharmacy to clarify who has been prescribing requested medication. Medication has been being prescribed by Mike Olvera from Nephrology. [place] [id number] to inform her thatshe will need to contact that office to obtain refill. Pt agrees to plan. * Telephone Encounter - Sherrell Staton - 09/11/2024 3:04 PM EST Tc from pt requesting med refill for empagliflozin (Jardiance) 25mg. Med was prescribed before but 10MG. Pt keep stating was 25MG. Any questions [phone] Arabic documented in this encounter Plan of Treatment Upcoming Encounters Date Type Department Care Team (Late st Contact Info) Description 09/26/2024 11:15 AM EST Nurse Only [facility]EDS [address] [place] [phone] documented as of this encounter Visit Diagnoses Not on filedocumented in this encounter Additional Health Concerns Assessment Noted Time PHQ-9 Depression Total Score: 1 04/10/20 10:51 AM EDT documented as of this encounter Care Teams Sales Account Executive Relationship Specialty Start Date End Date Michoacano Shirley MD [address] [place] [address] PCP - General Internal Medicine 01/09/20 documented as of this encounter
--- OUTSIDE RECORDS SUMMARY | 2024-09-15 18:00 | XMS_ITS | Clinical Summary ---
Author Organization [facility] Address [address] [address] Phone Care Team Providers Care Hat Steamer Name Role Phone Michoacano Marin Primary Care Provider [phone] Allergies Active Allergy Reactions Criticality Noted Date Comments Cortisone Other (see comments) 04/13/2022 Medications omeprazole (PriLOSEC) [address] capsule Take 1 capsule by mouth 1 (one) time each day 11/04/2014 Active traZODone (DESYREL) 100 MG tablet Take 100 mg by mouth at bed time 05/14/2017 Active atorvastatin (LIPITOR) 40 MG tablet Take 40 mg by mouth 1 (one) time each day 03/14/2022 Active DULoxetine HCl 20 MG Capsule Delayed Release Sprinkle Take 20 mg by mouth in the morning and 20 mg in the evening. 04/02/2022 Active ARIPiprazole (ABILIFY) 15 MG tablet Take 15 mg by mouth 1 (one) time each day Active hydrALAZINE 100 MG tabletIndicatio ns:Hypertension Take 1 tablet (100 mg total) by mouth in the morning and 1 tablet (100 mg total) in the evening and 1 tablet (100 mg total) before bedtime. 270 tablet 3 05/27/2024 05/27/20 25 Active carvedilol (COREG) 6.25 MG tablet Take 6.25 mg by mouth in the morning and 6.25 mg in the evening. Take with meals. Active sacubitril-vals kaycee (Entresto) 97-103 MG per tablet Take 1 tablet by mouth in the morning and 1 tablet in the evening. Active Empagliflozin (Jardiance) 25 MG tablet Take 25 mg by mouth 1 (one) time each day 90 tablet 5 08/22/2023 08/21/19 Active Problems Problem Noted Date Diagnosed Date Stage 3a chronic kidney disease 04/27/2024 Proteinuria, not otherwise specified 04/27/2024 Nephrolithiasis 05/22/2023 History of total hysterectomy 07/04/2022 Uncomplicated moderate persistent asthma 022 Asthma 04/13/2022 Chronic kidney disease due to hypertension 04/13 Fibromyalgia 04/13/2022 Hydronephrosis 04/13/2022 Osteoarthritis 04/13/2022 Osteopenia 04/13/2022 Obstructive sleep apnea syndrome 09/20/2018 Gastro-esophageal reflux disease without esophag itis 07/10/2018 Hyperlipidemia 07/10/2018 Essential hypertension 07/10/2018 Type 2 diabetes mellitus without complication Benzodiazepine dependence 07/10/2018 Medullary sponge kidney 07/10/2018 Mood disorder 07/10/2018 X-ray evidence of poor mineralization 07/10/2018 Encounters Date Type Department Care Team Description 07/29/2024 3:30 PM EST Office Visit [facility] [address] [address] Pamella Viera ARNP Stage 3a chronic kidney disease (HCC) (Primary Dx); Essential hypertension; Proteinuria, not otherwise specified; Nephrolithiasis from Last 3 Months Immunizations Name Administration Dates Next Due Hepatitis B 07/27/2022,05/04/2022,04/03/2022 Influenza, Quadrivalent, Preservative Free 05/09,09/15/2016 Influenza, Quadrivalent, With Preservative 09/23,07/10/2018,07/24/2017 Pfizer SARS-COV-2 05/31/2021,05/09/2021 Pneumococcal Polysaccharide 01/18/2017 Tdap 01/18/2017 Family History Medical History Relation Comments Cancer Brother Heart disease Brother Stroke Brother Heart disease Father Diabetes Mother Hypertension Mother Stroke Mother Hypertension Sister Kidney disease Sister Relation Status Comments Brother Father Mother Alive Sister Social History Tobacco Use Types Packs/Day Years Used Date Smoking Tobacco: Never Smokeless Tobacco: Never Tobacco Cessation:Counseling Given: No Alcohol Use Standard Drinks/Week Comments No 0 (1 standard drink = 0.6 oz pur e alcohol) Comments Unknown Sex and Gender Information Value Date Recorded Sex Assigned at Not on file Legal Sex Female 4:33 PM EST Gender Identity Not on file Sexual Orientation Not on file Last Filed Vital Signs Vital Sign Reading Time Taken Comments Blood Pressure 140/90 07/29/2024 3:23 PM EST Pulse 81 07/29/2024 3:23 PM EST Temperature - - Respiratory Rate 16 07/23/2017 12:00 PM EST Oxygen Saturation 98% 04/24/2024 9:56 AM EDT Inhaled Oxygen Concentration - - Weight 68.9 kg (152 lb) 07/29/2024 3:23 PM EST Height 149.9 cm (4' 11 ) 05/22/2023 9:56 AM EDT Body Mass Index 30.7 05/22/2023 9:56 AM EDT Plan of Treatment Upcoming Encounters Date Type Department Care Team (Late st Contact Info) Description 10/28/2024 1:15 PM EDT Office Visit [facility] [address] [address] Pamella Viera ARNP [address] [address] Health Maintenance Due Date Last Done Comments Breast Cancer Screening 1973 Hepatitis B Vaccine (1 of 3 - 19+ 3-dose series) 1992 07/27/2022, 05/04/2022, 04/03/2022 Pneumococcal Vaccine: Pediat rics (0 to 5 Years) and At-Risk Patients (6 to 64 Years) (2 of 2 - PCV) 01/18/2018 01/18/2017 Diabetes: Ophthalmology Exam 11/21/2019 Diabetes: Pedal Pulse Checked 11/21/2019 Diabetes: Sensory Foot Exam 11/21/2019 Diabetes: Visual Foot Exam 11/21/2019 Colorectal Cancer Screening: Annual FOBT 2022 Colorectal Cancer Screening: Colonoscopy 2022 Colorectal Cancer Screening: Sigmoidoscopy 2022 Influenza Vaccine (#1) 2024 1, 09/23/2019, 07/10/2018, Additional history exists Diabetes: Hemoglobin A1C 10/30/2024 08/01/2024, 090 03/2023 Insurance [facility] MEDICARE Member Subscriber Plan / Payer (Ef fective 2021-Present) Name:Marylu Carver Relation to Subscriber:Self Name:Marylu Carver Payer ID:[id number] (NAIC) Type:Not on file Address: [place] [phone] [facility] MEDICARE Member Subscriber Plan / Payer (Ef fective 2021-Present) Name:Marylu Carver Relation to Subscriber:Self Name:Marylu Carver Payer ID:[id number] (NAIC) Type:Not on file Address: [place] [phone] Care Teams Hat Steamer Relationship Specialty Start Date End Date Michoacano Marin [address] [place] [address] PCP - General Internal Medicine 03/24/24
--- OUTSIDE RECORDS SUMMARY | 2024-09-15 18:00 | XMS_ITS | Encounter Summary ---
Author Organization [email or web address] [facility] Address [address] [place] [address] Care Team Providers Care Heavy Truck Technician Name Role Phone Michoacano Shirley MD Primary Care Prov ider Encounter Details Date Type Department Care Team (Latest Contact Info) Description 05/08/2019 Abstract [facility] CONVERSIONS Dental, Provider, DDS Social History Tobacco Use Types Packs/Day Years Used Date Smoking Tobacco: Never Assessed Comments Unknown Sex and Gender Information Value [...] Description 09/26/2024 11:15 AM EST Nurse Only [facility] [address] [place] [address] documented as of this encounter Visit Diagnoses Not on filedocumented in this encounter Care Teams Heavy Truck Technician Relationship Specialty Start Date End Date Michoacano Shirley MD [address] [place] [address] PCP - General Internal Medicine 01/09/20 documented as of this encounter
--- OUTSIDE RECORDS SUMMARY | 2024-09-15 18:00 | XMS_ITS | Encounter Summary ---
Author Organization [employer] Address [address] [place] [address] Care Team Providers Care Belt Molder Name Role Phone Michoacano Shirley MD Primary Care Prov ider Reason for Visit * Reason Onset Date Comments Med Refill 10/26/2023 Encounter Details Date Type Department Care Team ([facility] st Contact Info) Description 10/26/2023 Telephone [facility] [address] [place] [address] Michoacano Shirley MD [address] [place] [address] Med Refill Social History Tobacco Use Types Packs/Day Years Used Date Smoking Tobacco: Never Passive Smoke Exposure: Never Smokeless Tobacco: Never Alcohol Use Standard Drinks/Week Comments Never 0 (1 standard drink = 0.6 oz pur e alcohol) Depression Answer Date Recorded Patient Health Questionnaire-9 Score 1 04/10/2023 Housing Stability Answer Date Recorded What is your housing situation today? I have lupe gomez 06/04/[address] you li ve. Do you have problems with any of the following? None of the above 06/04/2023 Food Insecurity Answer Date Recorded Within the past 12 months, y ou worried that your food would run out before you got money to buy more: Never True 06/04/2023 Within the past 12 months,th e food you bought just didn't last and you didn't have enough money to get more: Never True Transportation Answer Date Recorded In the past 12 months, has l ack of transportation kept you from medical appts, meetings, work or from getting things needed for daily living? No 06/04/2023 Utilities Answer Date Recorded In the past 12 months, has t he electric, gas, oil or water company threatened to shut off services in your home? No 06/04/2023 Depression Answer Date Recorded Patient Health Questionnaire-2 Score 1 04/10/2023 Comments Unknown Sex and Gender Information Value Date Recorded Sex Assigned at Female 06/19/2022 10:27 AM EDT Legal Sex Female 10:27 AM EDT Gender Identity Female 06/19/2022 10:27 AM EDT Sexual Orientation Straight 06/19/2022 10 :27 AM EDT documented as of this encounter Miscellaneous Notes * Telephone Encounter - Corrine Javed LPN - 10/26/2023 11:42 AM EST Please review message below * Telephone Encounter - Jaleesa Kim - 10/26/2023 9:31 AM EST TC from pt requesting medication refill. Medications needing refill : Albuterol sulfate 2.5 mg/3 mL (0.083%) solution for nebulization (inactive on nextgen) To be sent to: [id number] - [address] documented in this encounter Plan of Treatment Upcoming Encounters Date Type Department Care Team ([facility] st Contact Info) Description 09/26/2024 11:15 AM EST Nurse Only [facility] [address] [place] [address] documented as of this encounter Visit Diagnoses Not on filedocumented in this encounter Additional Health Concerns Assessment Noted Time PHQ-9 Depression Total Score: 1 04/10/20 23 10:51 AM EDT documented as of this encounter Care Teams Belt Molder Relationship Specialty Start Date End Date Michoacano Shirley MD [address] [place] [address] PCP - General Internal Medicine 01/09/20 documented as of this encounter
--- OUTSIDE RECORDS SUMMARY | 2024-09-15 18:00 | XMS_ITS | Clinical Summary ---
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 021 Active aspirin 81 MG chewable tablet Chew 1 tablet in the morning. 022 Active clonazePAM (KlonoPIN) 0.5 MG tabletIndications :states dose increased by psych Take 1 tablet by mouth in the morning, at noon, and at bedtime. Active glucose blood (Accu-Chek Tamara Plus) test strip Inject 1 each under the skin in the morning. 021 Active haloperidol lactate (Haldol) 5 MG/ML injection inject 0.4 milliliter by intramuscular route every 8 hours as needed Active indapamide (Lozol) 1.25 MG tablet Take 1 tablet by mouth at bed time. Active haloperidol (Haldol) 5 MG tabletIndications :psych Take 5 mg by mouth. Take 1/2 tab BID, 1 tab at bedtime. Active traZODone (Desyrel) 100 MG tabletIndications :psych Take 100 mg by mouth. 1 tab PO at bedtime Active DULoxetine (Cymbalta) [address] capsuleIndication s:psych Take 60 mg by mouth. 1 tab PO BID. Do not crush or chew. Active potassium citrate CR (Urocit-K-10) 10 mEq ER tabletIndications :[facility] [place] Nephrology Take 10 mEq by mouth with breakfast, with lunch, and with evening meal. Do not crush, chew, or split. Active ARIPiprazole (Abilify) 15 MG tablet Take 15 mg by mouth in the morning. Active pantoprazole (ProtoNix) 40 MG EC tablet Active Linzess 145 MCG capsule Take 145 mcg by mouth in the morning. Active traZODone (Desyrel) 150 MG tablet Take 150 mg by mouth if needed at bedtime. Active hydrALAZINE (Apresoline) 50 MG tablet Take 1 tablet (50 mg) by mouth 3 times daily. 90 tablet 3 Active albuterol (2.5 MG/3ML) 0.083% nebulizer solution Take 3 mL (2.5 mg) by nebulization every 4 (four) hours if needed for wheezing. 75 mL 11 024 2024 Active amLODIPine (Norvasc) 10 MG tabletIndications :Primary hypertension Take 1 tablet (10 mg) by mouth Once per day. 90 tablet 3 024 2024 Active losartan (Cozaar) 100 MG tablet TAKE 1 TABLET BY MOUTH EVERY DAY 90 tablet 1 Active spironolactone (Aldactone) 100 MG tablet Take 1 tablet (100 mg) by mouth Once per day. 30 tablet 11 024 2024 Active atorvastatin (Lipitor) 40 MG tabletIndications :Mixed hyperlipidemia TAKE 1 TABLET(40 MG) BY MOUTH IN THE MORNING 90 tablet 025 Active omeprazole (PriLOSEC) [address] capsule TAKE 1 CAPSULE BY MOUTH EVERY DAY BEFORE A MEAL 90 capsule 3 025 Active omeprazole (PriLOSEC) [address] capsule TAKE 1 CAPSULE BY MOUTH EVERY DAY BEFORE A MEAL 90 capsule 3 024 2024 Discontinued(R eorder (will not trigger notification to Pharmacy)) atorvastatin (Lipitor) 40 MG tabletIndications :Mixed hyperlipidemia TAKE 1 TABLET(40 MG) BY MOUTH IN THE MORNING 90 tablet 1 024 2024 Discontinued Active Problems Problem Noted Date Diagnosed Date Stage 3b chronic kidney disease 03/20/2024 Assessment & Plan (03/20/2024 9:14 AM EDT): Followed by nephrology on losartan and SGLT2 Albuminuria 03/20/2024 Assessment & Plan (03/20/2024 9:44 AM EDT): On arb/sglt2, followed by nephrology HFrEF (heart failure with reduced ejection fract ion) 03/20/2024 Assessment & Plan (03/20/2024 9:46 AM EDT): Echocardiogram showed ef 35-40%, will refer to cardiology for evaluation, currently she is asymptomatic Family history of cardiomyopathy 01/02/2024 Assessment & Plan (01/02/2024 10:01 AM EDT): Will send echocardiogram for evaluation Bilateral hip pain 07/30/2023 Assessment & Plan (08/28/2023 1:08 PM EST): Pain improved, xrays not performed, continue home remedies Assessment & Plan (07/30/2023 1:52 PM EST): Patient now complains of left sided pain, on examination, no tenderness on leg raise test, no crepitus on hips were felt. Will order a xray of her hips, told to avoid nsaids, she has enough pain medication previously prescribed, take tylenol as needed, she is not interested in PT Screening for colon cancer 04/10/2023 Overview (04/10/2023): Done on 2022, refers was told next due in 10 years, no results on chart History of total hysterectomy 07/04/2022 Moderate persistent asthma without complication 07/04/2022 Obstructive sleep apnea syndrome 09/20/2018 Benzodiazepine dependence, continuous 07/10/2018 Essential hypertension 07/10/2018 Assessment & Plan (08/01/2024 11:47 AM EST): Followed by cardiology and nephrology, she is on entresto, carvedilol, hydralazine and spironolactone, losartan was stopped, will increase spironolactone, keep low sodium diet, keep bp log, follow up with cardiology Assessment & Plan (04/09/2024 10:03 AM EDT): Controlled, before she was not taking amlodipine, contineu current theray, keep bp <140/90, labs ordered not completed, follow up in 4 months Assessment & Plan (03/20/2024 9:45 AM EDT): Seen by nephrology, hydralazine was increased to 75mg tid, continue losartan 100mg and amlodipine (which she has not been taking) Assessment & Plan (01/02/2024 10:00 AM EDT): Patient has been monitoring it has been ranging below 140/90, saw nephrology recently and was at target, she is on losartan 100mg, amlodipine 10mg and hydralazine 50mg TID, today was above target, she is asymptomatic, most likely due to anxiety, saw psych yesterday and klonopin was restarted as per patient. Continue daily monitoring, keep low sodium diet, bp target <40/90, call back if <80% result above that number. Assessment & Plan (11/21/2023 10:32 AM EDT): Uncontrolled, patient should be on amlodipine 10mg, losartan 100mg, and hydralazine 75mg TID (she was taking only 25mg in the morning). Will discontinue hydralazine 25 and will restart 50mg TID, she will follow up with nephrology on Sunday, I will follow up in 1 month Assessment & Plan (08/28/2023 1:07 PM EST): Uncontrolled, will increase hydralazine to 75mg tid, bp <140/90, follo up with nephrology Assessment & Plan (06/04/2023 10:04 AM EDT): Improved after starting hydralazine, continue with losartan 100mg and amlodipine 10mg, followed by nephrology. Reinforced low sodium diet and exercise as tolerated, will follow up in 1 month Assessment & Plan (05/09/2023 11:49 AM EDT): Not at target, on losartan and amlodipine, will ass hydralazine TID, follow up with nephrology. Assessment & Plan (04/10/2023 2:14 PM EDT): Not at target, she is on losartan 100mg and amlodipine 10mg, chlorthalidone was stopped by nephrology, told to monitor daily, will follow up in 1 month. Gastroesophageal reflux disease without esophagi tis 07/10/2018 Hyperlipidemia 07/10/2018 Medullary sponge kidney 07/10/2018 Mood disorder 07/10/2018 Osteopenia determined by x-ray 07/10/2018 Type 2 diabetes mellitus without complication Assessment & Plan (04/10/2023 2:13 PM EDT): Will change empagliflozin to farxiga, patient refers getting headaches related to medication Encounters Date Type Department Care Team Description 09/11/2024 Telephone [facility] [address] [place] [address] Michoacano Shirley MD Medication Question 09/11/2024 Refill [facility] [address] [place] [address] Michoacano Shirley MD 08/27/2024 Refill [facility] [address] [place] [address] Michoacano Shirley MD Mixed hyperlipidemia 08/08/2024 Orders Only [facility] External Provider, [facility] 08/01/2024 10:45 AM EST Office Visit [facility] [address] [place] [address] Michoacano Shirley MD Essential hypertension (Primary Dx); Type 2 diabetes mellitus without complication, without long-term current use of insulin ([facility]) 08/01/2024 Travel 07/21/2024 Orders Only GENERIC EXTERNAL DATA DEPARTMENT Provider, Generic External Data 07/15/2024 Orders Only GENERIC EXTERNAL DATA DEPARTMENT Provider, Generic External Data 06/16/2024 Telephone [facility] [address] [place] [address] Michoacano Shirley MD from Last 3 Months Immunizations Name Administration Dates Next Due Hep B, adult 07/27/2022,05/04/2022,04/03/2022 Influenza injectable quadriv alent IIV4 with preservative 09/23/2019,07/10/2018,07/24/2017 Influenza injectable quadriv alent preservative free 05/09/2021,09/15/2016 Pfizer Covid-19 Vaccine 12+ 05/31/2021, Pneumococcal Polysaccharide PPSV23 01/18/2017 Tdap 01/18/2017 Zoster, Recombinant 08/01/2024 Social History Tobacco Use Types Packs/Day Years Used Date Smoking Tobacco: Never Passive Smoke Exposure: Never Smokeless Tobacco: Never Tobacco Cessation:Counseling Given: Not Answered Alcohol Use Standard Drinks/Week Comments Never 0 [...] Orientation Straight 06/19/2022 10 :27 AM EDT Last Filed Vital Signs Vital Sign Reading Time Taken Comments Blood Pressure 152/94 08/01/2024 11:00 AM EST Pulse 68 08/01/2024 11:00 AM EST Temperature 36 ??C (96.8 ??F) 08/01/2024 11:00 AM EST Respiratory Rate 16 08/01/2024 11:00 AM EST Oxygen Saturation 98% 06/13/2024 9:50 AM EDT Inhaled Oxygen Concentration - - Weight 63.5 kg (140 lb) 08/01/2024 11:00 AM EST Height 152.4 cm (5') 08/01/2024 11:00 AM EST Body Mass Index 27.34 08/01/2024 11:00 AM EST Plan of Treatment Upcoming Encounters Date Type Department Care Team (Late st Contact Info) Description 09/26/2024 11:15 AM EST Nurse Only [facility] [address] [place] [phone] Health Maintenance Due Date Last Done Comments CT Colonography 1975 Colonoscopy 1973 Colorectal Cancer Screening 1975 FIT DNA/Cologuard 1975 FIT 1975 FOBT 1975 Sigmoidoscopy 1973 Diabetes: Foot Exam 10/22/1983 Eye Exam 10/22/1983 Alcohol/Substance Use Screening 1985 Family Planning (PISQ) 1988 Pneumococcal Vaccine: Pediatrics (0 to 5 Years) and At-Risk Patients (6 to 64 Years) (2 of 2 - PCV) 01/18/2018 01/18/2017 Dental Oral Exam 10/31/2023 05/01/2023, , 11/24/2016, Additional history exists Dental Prophylaxis 10/31/2023 05/01/2023, 0 05/08/2019, 10/02/2018, Additional history exists Depression Screening 04/10/2024 04/10/2023, 04/10/20 23 COVID-19 Vaccine ( season) 2024 05/31/2021, 05/09/2021 Influenza Vaccine (#1) 2024 , 09/23/2019, 07/10/2018, Additional history exists Diabetes: Urine Protein Screening 04/27/2024 04/27/2023, 03/28/2022, 01/28/2021, Additional history exists Dental X-Ray: Bitewings 05/02/2024 05/01/20 23, 12/09/2018, 10/02/2018, Additional history exists Zoster Vaccines (2 of 2) 09/26/2024 08/01/2024 Diabetes: Hemoglobin A1C 01/30/2025 024, 04/27/2023, 09/23/2019 Lipid Panel 04/09/2025 04/09/2024, 09/0 03/2023, 03/28/2022, Additional history exists SDOH Screening 06/06/2025 06/06/2024 Tobacco Screening 06/06/2025 06/06/2024 Dental X-Ray: Full Mouth 05/02/2026 05/01/2023, 020 10/2014 Mammogram 05/02/2026 05/02/2024, 090 02/2023, 04/05/2022, Additional history exists DTaP/Tdap/Td Vaccines (2 - Td or Tdap) 01/18/2027 01/18/2017 RSV Patients and Patients Aged 60 years or older (1 - 1-dose 75+ series) 2048 HIV Screening Completed 09/23/2019 Hepatitis B Vaccines Completed 07/27/2022, 05/04/2022, 04/03/2022 Hepatitis C Screening Completed 04/27/2023, 020 HIB Vaccines Aged Out No longer eligi ble based on patient's age to complete this topic HPV Vaccines Aged Out No longer eligi ble based on patient's age to complete this topic Hepatitis A Vaccines Aged Out No long er eligible based on patient's age to complete this topic IPV Vaccines Aged Out No longer eligi ble based on patient's age to complete this topic Meningococcal Vaccine Aged Out No radha annie eligible based on patient's age to complete this topic RSV under 20 months Aged Out No longe r eligible based on patient's age to complete this topic Rotavirus Vaccines Aged Out No longer eligible based on patient's age to complete this topic Procedures Procedure Name Priority Date/Time Associated Diagnosis Comments NM HEART PERFUSION SPECT STRESS AND REST Routine 08/08/2024 11:22 AM EST POCT GLYCATED HEMOGLOBIN, TOTAL Routine 08/01/2024 11:08 AM EST Type 2 diabetes mellitus without complication, without long-term current use of insulin ([facility]) POCT GLUCOSE Routine 08/01/2024 11:07 AM EST Type 2 diabetes mellitus without complication, without long-term current use of insulin ([facility]) BASIC METABOLIC PANEL Routine 07/21/2024 9:55 AM EST CALCIUM Routine 07/15/2024 11:58 AM EST CREATININE, SERUM Routine 07/15/2024 11: 58 AM EST UREA NITROGEN (BUN) Routine 07/15/2024 1 1:58 AM EST ELECTROLYTE PANEL Routine 07/15/2024 11: 58 AM EST BI MAMMOGRAM SCREENING TOMOSYNTHESIS BILATERAL Routine 05/02/2024 10:40 AM EDT LIPID PANEL, STANDARD Routine 04/09/2024 11:33 AM EDT Mixed hyperlipidemia PROPHYLAXIS - ADULT Routine 05/01/2023 1 :00 PM EDT DIAGNOSTIC - DIAGNOSTIC IMAGING - INTRAORAL - COMPREHENSIVE SERIES OF RADIOGRAPHIC IMAGES Routine 05/01/2023 1:00 PM EDT COMPREHENSIVE ORAL EVALUATION - NEW OR ESTABLISHED PATIENT Routine 05/01/2023 1:00 PM EDT ALBUMIN, RANDOM URINE W/CREATININE Routine 04/27/2023 10:28 AM EDT HEPATITIS C AB W/REFL TO HCV RNA, QN, PCR Routine 04/27/2023 10:26 AM EDT Type 2 diabetes mellitus without complication, without long-term current use of insulin (CMS/HCC) Essential hypertension RONALD HISTORICAL HIV AB/AG Routine 09/23/2019 11:31 AM EST from Last 3 Months or Most Recently Relevant to Health Maintenance Results * NM heart perfusion SPECT stress and rest (08/08/2024 11:22 AM EST) Anatomical Region Laterality Modality Body Nuclear Medicine 08/08/2024 11:2 2 AM EST Narrative 08/12/2024 9:01 AM EST ? [facility] ?[address] ?[place] [address] ?Nuclear Medicine Report ? Signed ? Patient: Marylu Liu ?MR#: [id number] ?? [id number] ? : 1975 ?Acct:[id number] ? Age/Sex: 48 / F ?ADM Date: 08/08/24 ? Loc: HO.CARD ? Attending Dr: Andrei Phelps MD ? Ordering Physician: Andrei Phelps MD ?? Date of Service: 08/08/24 ?? Procedure(s): NM monse perf SPECT rest ?? str ?? Accession Number(s): [id number] ? cc: Michoacano Shirley MD; Andrei Phelps MD ? Lexiscan Myocardial perfusion study ? Indication: ?? Cardiomyopathy ? Technique: ? The patient was brought in for a Lexiscan perfusion study on 08/08/2024 ?? and was injected 0.4 mg of Lexiscan intravenously. Within a minute of ?? this injection 25 mCi of sestamibi was given intravenously. Images were ?? obtained using the SPECT gamma camera interlaced with the gating ?? device. Images were obtained in supine position. ? Resting perfusion study was performed on 08/11/2024. Patient was ?? administered 25 mCi of sestamibi intravenously at rest. Images were ?? then obtained in supine position. Total DLP 83 mGy-cm. ? Images were processed with the software and compared side to side in ?? short axis, horizontal long axis and vertical long axis views. ? Findings: ? Raw aquisition reviewed. ? The stress perfusion study showed ??no significant perfusion ?? abnormality. Both uncorrected and CT attenuation corrected images were ?? reviewed. The gated study shows diminished LV systolic function with ?? calculated LVEF of 34%. LV cavity is normal in size. The gated study ?? shows normal ??wall thickening and contraction of segments. ? Resting study shows no significant perfusion defects. Gating at rest ?? reveals normal wall motion with ejection fraction at 40%. ? The findings are consistent with no clear reversible or fixed perfusion ?? defects. ? NM/NM monse perf SPECT rest ?? str ?? Impression: ? 1. ??Myocardial perfusion imaging study shows normal myocardial ?? perfusion. ?? 2. ??Gated LVEF is 34% during stress and 40% during rest. ?? 3. Transient ischemic dilatation not present. ? EKG component of the test reported separately. ? Electronically signed by: ??Emanuel Banuelos MD ??08/12/2024 08:58 ?? AM [facility] ? Dictated By: ?Emanuel Banuelos MD ? Signed By: ?<Electronically signed by Emanuel Banuelos MD in OV> ?08/12/24 0858 ? DD/ 1122 ? TD/TT: 08/11/24 1400 ? Leather Whitener: ? Procedure Note Wilfrido Gary - 08/12/2024 [place] [address] Nuclear Medicine Report Signed Patient: Ronel Liu#: [id number] : 1975Acct:[id number] Age/Sex: 48 / FADM Date: 08/08/24 Loc: [facility] Attending Dr: Andrei Phelps MD Ordering Physician: Andrei Phelps MD Date of Service: 08/08/24 Procedure(s): NM monse perf SPECT rest str Accession Number(s): [id number] cc: Michoacano Shirley MD; Andrei Phelps MD Lexiscan Myocardial perfusion study Indication: Cardiomyopathy Technique: The patient was brought in for a Lexiscan perfusion study on 08/08/2024 and was injected 0.4 mg of Lexiscan intravenously. Within a minute of this injection 25 mCi of sestamibi was given intravenously. Images were obtained using the SPECT gamma camera interlaced with the gating device. Images were obtained in supine position. Resting perfusion study was performed on 08/11/2024. Patient was administered 25 mCi of sestamibi intravenously at rest. Images were then obtained in supine position. Total DLP 83 mGy-cm. Images were processed with the software and compared side to side in short axis, horizontal long axis and vertical long axis views. Findings: Raw aquisition reviewed. The stress perfusion study showed no significant perfusion abnormality. Both uncorrected and CT attenuation corrected images were reviewed. The gated study shows diminished LV systolic function with calculated LVEF of 34%. LV cavity is normal in size. The gated study shows normal wall thickening and contraction of segments. Resting study shows no significant perfusion defects. Gating at rest reveals normal wall motion with ejection fraction at 40%. The findings are consistent with no clear reversible or fixed perfusion defects. NM/NM monse perf SPECT rest str Impression: 1. Myocardial perfusion imaging study shows normal myocardial perfusion. 2. Gated LVEF is 34% during stress and 40% during rest. 3. Transient ischemic dilatation not present. EKG component of the test reported separately. Electronically signed by: Emanuel Banuelos MD 08/12/2024 08:58 AM EST Dictated By: Emanuel Banuelos MD Signed By: <Electronically signed by Emanuel Banuelos MD inOV> 08/12/24 0858 DD/ 1122 TD/TT: 08/11/24 1400 Leather Whitener: [facility] External Provider IMG NM PROCEDURES Edited Result - Final * POCT HGB A1C (08/01/2024 11:08 AM EST) Hemoglobin A1C 6.0 4.0 - 6.0 % QC Media Lot # [id number] Lot# Expiration Date 8529,[id number] Blood 08/01/2024 11:0 8 AM EST Michoacano Kincaid MD POINT OF CARE TEST ENTER/EDIT ORDERABLES Final Result * POCT Glucose (08/01/2024 11:07 AM EST) Glucose Blood, POC 130 60 - 200 mg/dL QC Media Lot # [id number] Lot# Expiration Date Blood Capillary blood specimen / Unknown 08/01/2024 11:07 AM EST Michoacano Kincaid MD POINT OF CARE TEST ENTER/EDIT ORDERABLES Final Result * (ABNORMAL) Basic Metabolic Panel (07/21/2024 9:55 AM EST) Sodium 141 135 - 145 mmol/L [facility] Potassium 4.2 3.3 - 5.1 mmol/L [facility] Chloride 107 96 - 108 mmol/L [facility] Carbon Dioxide 24 22 - 29 mmol/L [facility] Anion Gap 14 12 - 20 [facility] Urea Nitrogen (BUN) 21(H) 9 - 16 mg/dL [facility] Creatinine, Serum 1.61(H) 0.5 - 1.4 mg/dL [facility] Estimated Glomerular Filt Rate 34 [facility] Comment:Chronic Kidney Disea se: Estimated GFR < 60 mL/min/1.08p8Gnsalg Kidney Disease: Estimated GFR < 15 mL/min/1.73m2 Glucose 147(H) 60 - 115 mg/dL [facility] Calcium 10.2 8.4 - 10.2 mg/dL [facility] 07/21/2024 9:55 AM EST 07/21/2024 9:55 AM EST us Generic External Data Provider LAB BLOOD ORDERAB LES Final Result [facility] [address] [place] [phone] * (ABNORMAL) Creatinine, Serum (07/15/2024 11:58 AM EST) Creatinine, Serum 1.58(H) 0.5 - 1.4 mg/dL [facility] Estimated Glomerular Filt Rate 35 [facility] Comment:Chronic Kidney Disea se: Estimated GFR < 60 mL/min/1.48d7Tnevdx Kidney Disease: Estimated GFR < 15 mL/min/1.73m2 07/15/2024 11:5 8 AM EST 07/15/2024 2:29 PM EST us Generic External Data Provider LAB BLOOD ORDERAB LES Final Result Performing Organization Address City/[facility] Co de Phone Number [facility] [address] [place] [phone] * (ABNORMAL) BUN (Blood Urea Nitrogen) (07/15/2024 11:58 AM EST) Urea Nitrogen (BUN) 21(H) 9 - 16 mg/dL [facility] 07/15/2024 11:5 8 AM EST 07/15/2024 2:29 PM EST Generic External Data Provider LAB BLOOD ORDERAB LES Final Result Performing Organization Address [facility] de Phone Number [facility] [address] [place] [address] [phone] * Calcium (07/15/2024 11:58 AM EST) Calcium 9.4 8.4 - 10.2 mg/dL [facility] 07/15/2024 11:5 8 AM EST 07/15/2024 2:29 PM EST Generic External Data Provider LAB BLOOD ORDERAB LES Final Result Performing Organization Address [facility] de Phone Number [facility] [address] [place] [address] [phone] * (ABNORMAL) Electrolyte Panel (07/15/2024 11:58 AM EST) Sodium 134(L) 135 - 145 mmol/L [facility] Potassium 3.9 3.3 - 5.1 mmol/L [facility] Chloride 104 96 - 108 mmol/L [facility] Carbon Dioxide 23 22 - 29 mmol/L [facility] Anion Gap 11(L) 12 - 20 [facility] 07/15/2024 11:5 8 AM EST 07/15/2024 2:29 PM EST us Generic External Data Provider LAB BLOOD ORDERAB LES Final Result [facility] [address] [place] [phone] * BI Mammogram Screening Tomosynthesis Bilateral (05/02/2024 10:40 AM EDT) Anatomical Region Laterality Modality Breast Bilateral Mammography 05/02/2024 10:4 0 AM EDT Narrative 05/15/2024 8:11 PM EDT ? [facility] ? [address] ?[place] [address] ? Mammography Report ? Signed ? Patient: Marylu Liu ?MR#: [id number] ?? [id number] ? : 1975 ?Acct:[id number] ? Age/Sex: 48 / F ?ADM Date: 05/02/24 ? Loc: HO.MAMMO ? Attending Dr: Michoacano Kincaid MD ? Ordering Physician: Michoacano Shirley MD ?Res ?? ults: 1Negative ? Date of Service: 05/02/24 ?Follow Up: 1 Year From Orig ?? inal Mammogram ? Procedure(s): MM tomosynthesis screening BI ?? Accession Number(s): [id number] ? cc: Michoacano Shirley MD ? EXAMINATION: ?? MM SCREENING DIGITAL BREAST TOMOSYNTHESIS, BILATERAL ? CLINICAL INFORMATION: ? Screening. Asymptomatic. ? COMPARISON: ?? Mammography: Comparison is made with available priors ? TECHNIQUE: ?? Digital breast mammography with tomosynthesis is performed in both the ?? craniocaudal and mediolateral oblique views along with computer-aided ?? detection (CAD). ? FINDINGS: ?? The breasts are heterogeneously dense, which may obscure small masses ?? (ACR BI-RADS breast composition Category c). ? There are no significant masses, abnormal calcifications, or other ?? abnormalities. ? MM/MM tomosynthesis screening BI ?? IMPRESSION: ?? No mammographic evidence of malignancy. ? ASSESSMENT: ? BI-RADS BI-RADS 1 - Negative ? RECOMMENDATION: ?? Routine annual mammography screening. ? 1 year F/U ? This examination should not preclude the clinical evaluation of a ?? suspicious palpable abnormality. ? This patient's information was entered into a reminder system with a ?? target due date for their next mammogram. ? Electronically signed by: ??Aissatou Vega DO ??05/15/2024 08:07 PM EDT ?? RP ? Dictated By: ?Aissatou Vega DO ? Signed By: ?<Electronically signed by Aissatou Vega, DO in OV> ? 05/15/24 2007 ? DD/ 1040 ? TD/TT: 05/02/24 1055 ? Leather Whitener: ? Procedure Note Cookie, Wilfrido - 05/15/2024 [facility] [address] [place], [place] [address] Mammography Report Signed Patient: Jaylan LiuR#: [id number] : 1975Acct:[id number] Age/Sex: 48 / FADM Date: 05/02/24 Loc: HO.MAMMO Attending Dr: Michoacano Kincaid MD Ordering Physician: Michoacano Shirley ults: 1Negative Date of Service: 05/02/24Follow Up: 1 Year From Orig inal Mammogram Procedure(s): MM tomosynthesis screening BI Accession Number(s): [id number] cc: Michoacano Shirley MD EXAMINATION: MM SCREENING DIGITAL BREAST TOMOSYNTHESIS, BILATERAL CLINICAL INFORMATION: Screening. Asymptomatic. COMPARISON: Mammography: Comparison is made with available priors TECHNIQUE: Digital breast mammography with tomosynthesis is performed in both the craniocaudal and mediolateral oblique views along with computer-aided detection (CAD). FINDINGS: The breasts are heterogeneously dense, which may obscure small masses (ACR BI-RADS breast composition Category c). There are no significant masses, abnormal calcifications, or other abnormalities. MM/MM tomosynthesis screening BI IMPRESSION: No mammographic evidence of malignancy. ASSESSMENT: BI-RADS BI-RADS 1 - Negative RECOMMENDATION: Routine annual mammography screening. 1 year F/U This examination should not preclude the clinical evaluation of a suspicious palpable abnormality. This patient's information was entered into a reminder system with a target due date for their next mammogram. Electronically signed by: Aissatou Vega DO 05/15/2024 08:07 PM EDT Dictated By: Aissatou Vega DO Signed By: <Electronically signed by Aissatou Vega DO in OV> 05/15/242006 DD/ 1040 TD/TT: 05/02/24 1055 Leather Whitener: us Michoacano Kincaid MD IM BI PROCEDURES Edited Result - Final * (ABNORMAL) Lipid Panel, Standard (04/09/2024 11:33 AM EDT) Triglycerides 216(H) <150 mg/dL [facility] Comment:Desirable Triglyceri de: less than 150 mg/dLBorderline High Triglyceride 150-199 mg/dLHigh Triglyceride: 200-499 mg/dLVery High Triglyceride: greater than or equal to 5OO mg/dL Cholesterol 205(H) <200 mg/dL [facility] Comment:Desirable Cholestero l: less than 200 mg/dLBorderline High Cholesterol: 200-239 mg/dLHigh Cholesterol: greater than 239 mg/dL LDL Cholesterol Calculated 124(H) <100 mg/dL [facility] Comment:Desirable LDL: less than 100 mg/dLNear Optimal/Above Optimal LDL: 110- 129 mg/dLBorderline High LDL: 130-159 mg/dLHigh LDL: 160-189 mg/dLVery High LDL: greater than or equal to 190 mg/dL HDL Cholesterol 38(L) >40 mg/dL [facility] Comment:Desirable HDL: great er than 40 mg/dL Note: This HDL assay may give artificially low results in patients with liver disease. Blood Venous blood specimen / Unknown 04/09/2024 11:33 AM EDT 04/09/2024 2:09 PM EDT us Michoacano Kincaid MD LAB BLOOD ORDERABL ES Final Result [facility] [address] [place] [address] [phone] * (ABNORMAL) Albumin, Random Urine W/Creatinine (04/27/2023 10:28 AM EDT) Creatinine, Urine 155.45 mg/dL [facility] Microalbumin Urine 1,768.0 mg/L [facility] Microalbum Creatinine Ratio Ur 1,137.3(H ) <30 ug/mg cr [facility] Comment:Albumin/Creatinine R atio Reference Ranges: Normal: < 30 ug/mg creatinine Microalbuminuria: 30 - 300 ug/mg creatinineClinical Albuminuria: > 300 ug/mg creatinine 04/27/2023 10:2 8 AM EDT 04/27/2023 2:30 PM EDT Michoacano Kincaid MD LAB URINE ORDERABL ES Final Result Performing Organization Address [facility]/ZIP Co de Phone Number [facility] [address] [place] [phone] * Hepatitis C Antibody with Reflex to HCV, RNA, Quantitative, Real-Time PCR (04/27/2023 10:26 AM EDT) Hepatitis C Antibody Nonreactive Nonreactive [facility] Comment:Antibodies to HCV no t detected; does not exclude early acuteHCV infection. Blood Venous blood specimen / Unknown 04/27/2023 10:26 AM EDT 04/27/2023 2:43 PM EDT Michoacano Kincaid MD LAB BLOOD ORDERABL ES Final Result Performing Organization Address [facility] de Phone Number [facility] [address] [place] [phone] * HIV AB/AG (09/23/2019 11:31 AM EST) HIV AG/AB NONREACTIVE [facility] Comment: HIV-1 p24 Ag and/or HIV-1/HIV-2 Ab not detected. ?? A test result that is nonreactive does not exclude the possibility of exposure to or infection with HIV-1 and/or HIV-2. Nonreactive results in this assay for individuals with prior exposure to HIV-1 and/or HIV-2 may be due to antigen and antibody levels that are below the limit of detection of this assay. ?? [employer] Mach[employer] Cleaner HIV Ag/Ab Combo assay result and supplemental assay results should be interpreted in conjunction with the patient's clinical presentation, history and other laboratory results. ??If the results are inconsistent with clinical evidence, additional testing is suggested to confirm the result. 09/23/2019 11:3 1 AM EST Cruz Gillespie MD HISTORICAL/NON ORDERABLE LABS Final Result Performing Organization Address City/[facility]/ZIP Co de Phone Number [facility] [address] from Last 3 Months or Most Recently Relevant to Health Maintenance Insurance [facility] PPO Care Teams Satellite Communications Operator Relationship Specialty Start Date End Date Michoacano Shirley MD [address] [place] [phone] PCP - General Internal Medicine 01/09/20
--- OUTSIDE RECORDS SUMMARY | 2024-09-15 18:00 | XMS_ITS | Encounter Summary ---
Author Organization [facility] Address [address] [facility] [address] [phone] Phone Care Team Providers Care Director Social Name Role Phone Michoacano Marin Primary Care Provider + [phone] Encounter Details Date Type Department Care Team (Late st Contact Info) Description 02/28/2024 Office Communication [facility] [address] [phone] Pamella Viera ARNP [address] [phone] Social History Tobacco Use Types Packs/Day Years Used Date Smoking Tobacco: Never Smokeless Tobacco: Never Alcohol Use Standard Drinks/Week Comments No 0 (1 standard drink = 0.6 oz pur e alcohol) Comments Unknown Sex and Gender Information Value Date Recorded Sex Assigned at Not on file Legal Sex Female 4:33 PM EST Gender Identity Not on file Sexual Orientation Not on file documented as of this encounter Plan of Treatment Upcoming Encounters Date Type Department Care Team (Late st Contact Info) Description 10/28/2024 1:15 PM EDT [facility] [address] [phone] Pamella Viera ARNP [address] [phone] documented as of this encounter Visit Diagnoses Not on filedocumented in this encounter Care Teams Director Social Relationship Specialty Start Date End Date Michoacano Marin [address] [place] [address] PCP - General Internal Medicine 03/24/24 documented as of this encounter
--- OUTSIDE RECORDS SUMMARY | 2024-09-15 18:00 | XMS_ITS | Encounter Summary ---
Author Organization [facility] Address [address] [facility] 7 [place] [address] Care Team Providers Care Flake Cutter Operator Name Role Phone Michoacano Shirley MD Primary Care Prov ider Encounter Details Date Type Department Care Team (Latest Contact Info) Description 10/02/2018 Abstract [facility] CONVERSIONS Dental, Provider, DDS Social History [...] Description 09/26/2024 11:15 AM EST Nurse Only [facility] [address] [place] [address] documented as of this encounter Visit Diagnoses Not on filedocumented in this encounter Care Teams Flake Cutter Operator Relationship Specialty Start Date End Date Michoacano Shirley MD [address] [place] [address] PCP - General Internal Medicine 01/09/20 documented as of this encounter
== END 2024-09-15 14:02 | disposition home or self-care (01) ==
PROVIDERS: PCP Internal Medicine; Visit Provider Nurse Practitioner Family
DX: I42.9 Cardiomyopathy, unspecified (principal); I10 Essential (primary) hypertension; G47.33 Obstructive sleep apnea (adult) (pediatric); N26.1 Atrophy of kidney (terminal)
CPT/HCPCS: 99214; G2211

== ENCOUNTER → 2024-09-15 13:16 | Outpatient (BNVA) | payer MEDICARE, MEDICAID, SELFPAY | PROVIDERS: PCP Internal Medicine; Visit Provider Nurse Practitioner Family | DX: I42.9 Cardiomyopathy, unspecified (principal); I10 Essential (primary) hypertension; G47.33 Obstructive sleep apnea (adult) (pediatric); N26.1 Atrophy of kidney (terminal) | CPT/HCPCS: 99212 ==

== ENCOUNTER 2024-09-26 10:58 | Outpatient (REF) | payer MEDICARE, MEDICAID, SELFPAY ==
--- OUTSIDE RECORDS SUMMARY | 2024-09-26 12:04 | XMS_ITS | Clinical Summary ---
Author Organization [employer] Address [address] [facility] 7t [place] [address] Care Team Providers Care Electrician Deck Name Role Phone Michoacano Shirley MD Primary Care Prov ider Allergies Active Allergy Reactions Criticality Noted Date Comments Cortisone Rash Low 11/16/2015 Medications albuterol 108 (90 Base) MCG/ACT inhaler Inhale 2 puffs every 6 (six) hours. Active aspirin 81 MG chewable tablet Chew 1 tablet in the morning. 022 Active clonazePAM (KlonoPIN) 0.5 MG tabletIndications :states dose increased by psych Take 1 tablet by mouth in the morning, at noon, and at bedtime. Active glucose blood (Accu-Chek Tamara Plus) test strip Inject 1 each under the skin in the morning. Active haloperidol lactate (Haldol) 5 MG/ML injection [...] citrate CR (Urocit-K-10) 10 mEq ER tabletIndications :[facility] Nephrology Take 10 mEq by mouth with [...] eorder (will not trigger notification to Pharmacy)) Active Problems Problem Noted Date Diagnosed Date [...] Type Department Care Team Description 09/11/2024 Telephone [facility] [address] [place] [address] Michoacano Shirley MD Medication Question 09/11/2024 Refill [facility] [address] [place] [address] Michoacano Shirley MD 08/27/2024 Refill [facility] MED [facility] [address] [place] [address] Michoacano Shirley MD Mixed hyperlipidemia 08/08/2024 Orders Only [facility] External Provider, [facility] 08/01/2024 10:45 AM EST Office Visit [facility] [address] [place] [address] Michocaano Shirley MD Essential hypertension (Primary Dx); Type 2 diabetes mellitus without complication, without long-term current use of insulin ([facility]) 08/01/2024 Travel 07/21/2024 Orders Only [facility] EXTERNAL DATA DEPARTMENT Provider, Generic External Data 07/15/2024 Orders Only GENERIC EXTERNAL DATA DEPARTMENT Provider, Generic External Data from Last 3 Months Immunizations Name Administration [...] 08/01/2024 11:00 AM EST Plan of Treatment Health Maintenance Due Date Last Done Comments CT Colonography 1975 Colonoscopy 1973 Colorectal Cancer Screening 1975 FIT DNA/Cologuard 1973 FIT 1975 FOBT 1975 Sigmoidoscopy 1973 Diabetes: Foot Exam 10/22/1983 Eye Exam 10/22/1983 Alcohol/Substance Use Screening 1985 Family Planning (PISQ) 1988 Pneumococcal Vaccine: 50+ Years (2 of 2 - PCV) 01/18/2018 01/18/2017 Dental Oral Exam 10/31/2023 05/01/2023, , 11/24/2016, Additional history exists Dental Prophylaxis 10/31/2023 05/01/2023, 0 05/08/2019, 10/02/2018, Additional history exists Depression Screening 04/10/2024 04/10/2023, 04/10/20 COVID-19 Vaccine ( season) 2024 05/31/2021, 05/09/2021 Influenza Vaccine (#1) 2024 , 09/23/2019, 07/10/2018, Additional history exists Dental X-Ray: Bitewings 05/02/2024 05/01/20 23, 12/09/2018, 10/02/2018, Additional history exists Zoster Vaccines (2 of 2) 09/26/2024 09/26/2024, 1210/2023 Diabetes: Urine Protein Screening 11/22/2024 11/23/2023, 05/22/2023, 04/27/2023, Additional history exists Diabetes: Hemoglobin A1C 01/30/2025 024, 04/27/2023, 09/23/2019 Lipid Panel 04/09/2025 04/09/2024, 03/2023, 03/28/2022, Additional history exists SDOH Screening 06/06/2025 06/06/2024 Tobacco Screening 06/06/2025 06/06/2024 Dental X-Ray: Full Mouth 05/02/2026 05/01/2023, 10/2014 Mammogram 05/02/2026 05/02/2024, 02/2023, 04/05/2022, Additional history exists DTaP/Tdap/Td Vaccines [...] complication, without long-term current use of insulin ([facility]) POCT GLUCOSE Routine 08/01/2024 11:07 AM EST Type 2 diabetes mellitus without complication, without long-term current use of insulin (CMS/HCC) BASIC METABOLIC PANEL Routine 07/21/2024 9:55 AM [...] current use of insulin (CMS/HCC) Essential hypertension [facility] HISTORICAL HIV AB/AG Routine 09/23/2019 11:31 AM EST from Last 3 Months or Most Recently Relevant to Health Maintenance Results * NM heart perfusion SPECT stress and rest (08/08/2024 11:22 AM EST) Anatomical Region Laterality Modality Body Nuclear Medicine 08/08/2024 11:2 2 AM EST Narrative 08/12/2024 9:01 AM EST ? [facility] ?[address] ?[place] [address] ?Nuclear Medicine Report ? Signed ? Patient: Mane Bragg,Marylu ?MR#: [id number] ?? [id number] ? : 1975 ?Acct:[id number] ? Age/Sex: 48 / F ?ADM Date: 08/08/24 ? Loc: HO.CARD ? Attending Dr: Andrei Phelps MD ? Ordering Physician: Andrei Phelps MD ?? Date of Service: 08/08/24 ?? Procedure(s): NM monse perf SPECT rest ?? str ?? Accession Number(s): [id number] ? cc: Michoacano Shirley MD; Andrei Phelps [...] ??Emanuel Banuelos MD ??08/12/2024 08:58 ?? AM EST ? Dictated By: ?Emanuel Banuelos MD ? Signed By: ?<Electronically signed by Emanuel Banuelos MD in OV> ?08/12/24 0858 ? DD/ 1122 ? TD/TT: 08/11/24 1400 ? Metal Tile Lather: ? Procedure Note Donotuseinterpreter, Image - 08/12/2024 [place] [address] Nuclear Medicine Report Signed Patient: Ronel Liu#: [id number] : 1975Acct:[id number] Age/Sex: 48 / FADM Date: 08/08/24 Loc: SYLVIA Attending Dr: Andrei Phelps MD Ordering Physician: Andrei Phelps MD Date of Service: 08/08/24 Procedure(s): NM monse perf SPECT rest str Accession Number(s): [id number] cc: Michoacano Shirley MD; Andrei Phelps MD [...] 08/12/24 0858 DD/ 1122 TD/TT: 08/11/24 1400 Metal Tile Lather: [facility] External Provider IMG NM PROCEDURES Edited Result - Final * POCT HGB A1C (08/01/2024 11:08 AM EST) Hemoglobin A1C 6.0 4.0 - 6.0 % QC Media Lot # [id number] Lot# Expiration Date Blood 08/01/2024 11:0 8 AM EST Michoacano Kincaid MD POINT OF CARE TEST ENTER/EDIT ORDERABLES Final Result * POCT Glucose (08/01/2024 11:07 AM EST) Glucose Blood, POC 130 60 - 200 mg/dL QC Media Lot # [id number] Lot# Expiration Date ,025 Blood Capillary blood specimen / Unknown 08/01/2024 11:07 AM EST Michoacano Kincaid MD POINT OF CARE TEST ENTER/EDIT ORDERABLES Final Result * (ABNORMAL) Basic Metabolic Panel (07/21/2024 9:55 AM EST) Sodium 141 135 - 145 mmol/L [facility] Potassium 4.2 3.3 - 5.1 mmol/L [facility] Chloride 107 96 - 108 mmol/L [facility] Carbon Dioxide 24 22 - 29 mmol/L [facility] Anion Gap 14 12 - 20 [facility] Urea Nitrogen (BUN) 21(H) 9 - 16 mg/dL [facility] Creatinine, Serum 1.61(H) 0.5 - 1.4 mg/dL [facility] Estimated Glomerular Filt Rate 34 [facility] Comment:Chronic Kidney Disea se: Estimated GFR < 60 mL/min/[id number] Kidney Disease: Estimated GFR < 15 mL/min/1.73m2 Glucose 147(H) 60 - 115 mg/dL [facility] Calcium 10.2 8.4 - 10.2 mg/dL [facility] 07/21/2024 9:55 AM EST 07/21/2024 9:55 AM EST Generic External Data Provider LAB BLOOD ORDERAB LES Final Result Performing Organization Address [facility] de Phone Number [facility] [address] [place] [phone] * (ABNORMAL) Creatinine, Serum (07/15/2024 11:58 AM EST) Creatinine, Serum 1.58(H) 0.5 - 1.4 mg/dL [facility] Estimated Glomerular Filt Rate 35 [facility] Comment:Chronic Kidney Disea se: Estimated GFR < 60 mL/min/1.50s5Vcazxq Kidney Disease: Estimated GFR < 15 mL/min/1.73m2 07/15/2024 11:5 8 AM EST 07/15/2024 2:29 PM EST us Generic External Data Provider LAB BLOOD ORDERAB LES Final Result Performing Organization Address [facility] Co de Phone Number [facility] [address] [place] [phone] * (ABNORMAL) BUN (Blood Urea Nitrogen) (07/15/2024 11:58 AM EST) Urea Nitrogen (BUN) 21(H) 9 - 16 mg/dL [facility] 07/15/2024 11:5 8 AM EST 07/15/2024 2:29 PM EST us Generic External Data Provider LAB BLOOD ORDERAB LES Final Result Performing Organization Address [facility] Co de Phone Number [facility] [address] [place] [phone] * Calcium (07/15/2024 11:58 AM EST) Calcium 9.4 8.4 - 10.2 mg/dL [facility] 07/15/2024 11:5 8 AM EST 07/15/2024 2:29 PM EST Generic External Data Provider LAB BLOOD ORDERAB LES Final Result Performing Organization Address [facility] Phone Number [facility] [address] [place] [phone] * (ABNORMAL) Electrolyte Panel (07/15/2024 11:58 AM EST) Sodium 134(L) 135 - 145 mmol/L [facility] Potassium 3.9 3.3 - 5.1 mmol/L [facility] Chloride 104 96 - 108 mmol/L [facility] Carbon Dioxide 23 22 - 29 mmol/L [facility] Anion Gap 11(L) 12 - 20 [facility] 07/15/2024 11:5 8 AM EST 07/15/2024 2:29 PM EST Generic External Data Provider LAB BLOOD ORDERAB LES Final Result Performing Organization Address [facility]/ZIP Co de Phone Number [facility] [address] [place] [phone] * BI Mammogram Screening Tomosynthesis Bilateral (05/02/2024 10:40 AM EDT) Anatomical Region Laterality Modality Breast Bilateral Mammography 05/02/2024 10:4 0 AM EDT Narrative 05/15/2024 8:11 PM EDT ? [facility] ? [address] ?[place] [address] ? Mammography Report ? Signed ? Patient: Marylu Liu ?MR#: [id number] ?? [id number] ? : 1975 ?Acct:[id number] ? Age/Sex: 48 / F ?ADM Date: 05/02/24 ? Loc: HO.MAMMO ? Attending Dr: Michoacano Kincaid MD ? Ordering Physician: Michoacano Shirley MD ?Res ?? ults: 1Negative ? Date of Service: 05/02/24 ?Follow Up: 1 Year From Orig ?? inal Mammogram ? Procedure(s): MM tomosynthesis screening BI ?? Accession Number(s): [id number] ? cc: Michoacano Shirley MD ? EXAMINATION: [...] ??Aissatou Vega DO ??05/15/2024 08:07 PM EDT ? Dictated By: ?Aissatou Vega DO ? Signed By: ?<Electronically signed by Aissatou Vega, DO in OV> ? 05/15/24 2007 ? DD/ 1040 ? TD/TT: 05/02/24 1055 ? Metal Tile Lather: ? Procedure Note Cookie, Image - 05/15/2024 [facility] [address] [place] [address] Mammography Report Signed Patient: Jaylan LiuJenelle#: [id number] : 1975Acct:[id number] Age/Sex: 48 / FADM Date: 05/02/24 Loc: MAMMO Attending Dr: Michoacano Kincaid MD Ordering Physician: Michoacano Shirley ults: 1Negative Date of Service: 05/02/24Follow Up: 1 Year From Orig inal Mammogram Procedure(s): MM tomosynthesis screening BI Accession Number(s): [id number] cc: Michoacano Shirley MD EXAMINATION: MM SCREENING [...] Aissatou Vega DO 05/15/2024 08:07 PM EDT RP Dictated By: Aissatou Vega DO Signed By: <Electronically signed by Aissatou Vega DO in OV> 05/15/242006 DD/ 1040 TD/TT: 05/02/24 1055 Metal Tile Lather: Michoacano Kincaid MD IM BI PROCEDURES Edited Result - Final * (ABNORMAL) Lipid Panel, Standard (04/09/2024 11:33 AM EDT) Triglycerides 216(H) <150 mg/dL [facility] Comment:Desirable Triglyceri de: less than 150 mg/dLBorderline High Triglyceride 150-199 mg/dLHigh Triglyceride: 200-499 mg/dLVery High Triglyceride: greater than or equal to 5OO mg/dL Cholesterol 205(H) <200 mg/dL [facility] Comment:Desirable Cholestero l: less than 200 mg/dLBorderline High Cholesterol: 200-239 mg/dLHigh Cholesterol: greater than 239 mg/dL LDL Cholesterol Calculated 124(H) <100 mg/dL [facility] Comment:Desirable LDL: less than 100 mg/dLNear Optimal/Above Optimal LDL: 110- 129 mg/dLBorderline High LDL: 130-159 mg/dLHigh LDL: 160-189 mg/dLVery High LDL: greater than or equal to 190 mg/dL HDL Cholesterol 38(L) >40 mg/dL [facility] Comment:Desirable HDL: great er than 40 mg/dL Note: This HDL assay may give artificially low results in patients with liver disease. Blood Venous blood specimen / Unknown 04/09/2024 11:33 AM EDT 04/09/2024 2:09 PM EDT Michoacano Kincaid MD LAB BLOOD ORDERABL ES Final Result Performing Organization Address [facility] Co de Phone Number [facility] [address] [place] [address] [phone] * (ABNORMAL) Albumin, Random Urine W/Creatinine (04/27/2023 10:28 AM EDT) Creatinine, Urine 155.45 mg/dL [facility] Microalbumin Urine 1,768.0 mg/L [facility] Microalbum Creatinine Ratio Ur 1,137.3(H ) <30 ug/mg cr [facility] Comment:Albumin/Creatinine R atio Reference Ranges: Normal: < 30 ug/mg creatinine Microalbuminuria: 30 - 300 ug/mg creatinineClinical Albuminuria: > 300 ug/mg creatinine 04/27/2023 10:2 8 AM EDT 04/27/2023 2:30 PM EDT Michoacano Kincaid MD LAB URINE ORDERABL ES Final Result Performing Organization Address [facility] Co de Phone Number [facility] [address] [place] [phone] * Hepatitis C Antibody with Reflex to HCV, RNA, Quantitative, Real-Time PCR (04/27/2023 10:26 AM EDT) Hepatitis C Antibody Nonreactive Nonreactive [facility] Comment:Antibodies to HCV no t detected; does not exclude early acuteHCV infection. Blood Venous blood specimen / Unknown 04/27/2023 10:26 AM EDT 04/27/2023 2:43 PM EDT Michoacano Kincaid MD LAB BLOOD ORDERABL ES Final Result Performing Organization Address City/[facility]/ZIP Co de Phone Number [facility] [address] [place] [phone] * HIV AB/AG (09/23/2019 11:31 AM EST) [facility] HIV AG/AB NONREACTIVE NR [facility] [...] detection of this assay. ?? The [employer] Signal Supervisor HIV Ag/Ab Combo assay result and supplemental assay results should be interpreted in conjunction with the patient's clinical presentation, history and other laboratory results. ??If the results are inconsistent with clinical evidence, additional testing is suggested to confirm the result. 09/23/2019 11:3 1 AM EST Cruz Provider HISTORICAL/NON ORDERABLE LABS Final Result Performing Organization Address City/[facility]/ZIP Co de Phone Number [facility] [address] from Last 3 Months or Most Recently Relevant to Health Maintenance Insurance [facility] PPO Care Teams Electrician Deck Relationship Specialty Start Date End Date Michoacano Shirley MD [address] [place] [phone] PCP - General Internal Medicine 01/09/20
--- OUTSIDE RECORDS SUMMARY | 2024-09-26 12:04 | XMS_ITS | Encounter Summary ---
Author Organization [employer] Address [address] [facility] 7 [place] [address] Care Team Providers Care Split Leather Department Supervisor Name Role Phone Michoacano Shirley MD Primary Care Prov ider Encounter Details Date Type Department Care Team (Late st Contact Info) Description 05/03/2023 Orders Only [facility] [address] [place], [place] [phone] Michoacano Shirley MD [address] [place] [address] Social History Tobacco Use Types Packs/Day Years [...] as of this encounter Plan of Treatment Not on file documented as of this encounter Visit Diagnoses Not on filedocumented in this encounter Additional Health Concerns Assessment Noted Time PHQ-9 Depression Total Score: 1 04/10/20 23 10:51 AM EDT documented as of this encounter Care Teams Split Leather Department Supervisor Relationship Specialty Start Date End Date Michoacano Shirley MD [address] [place] [phone] PCP - General Internal Medicine 01/09/20 documented as of this encounter
--- OUTSIDE RECORDS SUMMARY | 2024-09-26 12:04 | XMS_ITS | Encounter Summary ---
Author Organization [employer] Address 75 [facility] 7 [place] [address] Care Team Providers Care Heating And Air Conditioning Mechanic Name Role Phone Michoacano Shirley MD Primary Care Prov ider Reason for Visit * Reason Onset Date Comments Med Refill 09/11/2024 Encounter Details Date Type Department Care Team (Late st Contact Info) Description 09/11/2024 Refill [facility] MEDICINE [address] [place] [address] Michoacano Shirley MD [address] [place] [phone] Social History Tobacco Use Types Packs/Day Years [...] 0.083% nebulizer solution To be sent to: [id number] documented in this encounter Plan of Treatment Not on file documented as of this encounter Visit Diagnoses Not on filedocumented in this encounter Additional Health Concerns Assessment Noted Time PHQ-9 Depression Total Score: 1 04/10/20 23 10:51 AM EDT documented as of this encounter Care Teams Heating And Air Conditioning Mechanic Relationship Specialty Start Date End Date Michoacano Shirley MD [address] [place] [address] PCP - General Internal Medicine 01/09/20 documented as of this encounter
--- OUTSIDE RECORDS SUMMARY | 2024-09-26 12:04 | XMS_ITS | Encounter Summary ---
Author Organization [employer] Address [address] [facility] 7t [place] [address] Care Team Providers Care Bedspread Folder Name Role Phone Michoacano Shirley MD Primary Care Prov ider Reason for Visit * Reason Comments Med Refill Encounter Details Date Type Department Care Team ([facility] Contact Info) Description 08/27/2024 Refill [facility]S 505 [place], [place] [phone] Michoacano Shirley MD [address] [place] [address] Mixed hyperlipidemia Social History Tobacco Use Types [...] documented as of this encounter Care Teams Bedspread Folder Relationship Specialty Start Date End Date Michoacano Shirley MD [address] [place] [address] PCP - General Internal Medicine 01/09/20 documented as of this encounter
--- OUTSIDE RECORDS SUMMARY | 2024-09-26 12:04 | XMS_ITS | Encounter Summary ---
Author Organization [employer] [facility] Address [address] [place] [address] 7 [place] [address] Care Team Providers Care Manager Lvn Name Role Phone Michoacano Shirley MD Primary Care Prov ider Encounter Details Date Type Department Care Team (Latest Contact Info) Description 05/08/2019 Abstract [facility] CONVERSIONS Dental, Provider, DDS Social History [...] on filedocumented in this encounter Care Teams Manager Lvn Relationship Specialty Start Date End Date Michoacano Shirley MD [address] [place] [address] PCP - General Internal Medicine 01/09/20 documented as of this encounter
--- OUTSIDE RECORDS SUMMARY | 2024-09-26 12:04 | XMS_ITS | Encounter Summary ---
Author Organization [facility] Address [address] [facility] [place] [address] [address] Phone Care Team Providers Care Simulation Software Engineer Name Role Phone Michoacano Marin Primary Care Provider + [phone] Encounter Details Date Type Department Care Team (Late st Contact Info) Description 02/28/2024 Office Communication [facility] [address] [phone] Pamella Viera ARNP [address] [phone] Social History Tobacco Use Types Packs/Day Years [...] Visit [facility] [address] [phone] Pamella Viera ARNP [address] [phone] documented as of this encounter Visit Diagnoses Not on filedocumented in this encounter Care Teams Simulation Software Engineer Relationship Specialty Start Date End Date Michoacano Marin [address] [place] [address] PCP - General Internal Medicine 03/24/24 documented as of this encounter
--- OUTSIDE RECORDS SUMMARY | 2024-09-26 12:04 | XMS_ITS | Encounter Summary ---
Author Organization [employer] [facility] Address [address] [place] [address] 7 [place] [address] Care Team Providers Care Audio Technician Name Role Phone Michoacano Shirley MD Primary Care Prov ider Encounter Details Date Type Department Care Team (Latest Contact Info) Description 10/02/2018 Abstract [facility] CONVERSIONS Dental, Provider, DDS Social [...] on filedocumented in this encounter Care Teams Audio Technician Relationship Specialty Start Date End Date Michoacano Shirley MD [address] [place] [address] PCP - General Internal Medicine 01/09/20 documented as of this encounter
--- OUTSIDE RECORDS SUMMARY | 2024-09-26 12:04 | XMS_ITS | Clinical Summary ---
Author Organization [facility] Address [address] [phone] Phone Care Team Providers Care Senior Data Integration Developer Name Role Phone Michoacano Marin Primary Care Provider Allergies Active Allergy Reactions Criticality Noted Date [...] total) before bedtime. 270 tablet 3 05/27/2024 Active carvedilol (COREG) 6.25 MG tablet Take 6.25 mg by mouth in the morning and 6.25 mg in the evening. Take with meals. Active sacubitril-vals kaycee (Entresto) 97-103 MG per tablet Take 1 tablet by mouth in the morning and 1 tablet in the evening. Active Active Problems Problem Noted Date Diagnosed Date [...] Office Visit [facility] [address] [place] [phone] Pamella Viera ARNP Stage 3a chronic kidney [...] Office Visit [facility] [address] [phone] Pamella Viera ARNP [address] [phone] Health Maintenance Due Date Last Done Comments [...] Screening: Sigmoidoscopy 2022 Influenza Vaccine (#1) 2024 , 09/23/2019, 07/10/2018, Additional history exists Diabetes: Hemoglobin A1C 10/30/2024 08/01/2024, 0903/2023 Insurance [facility] MEDICARE [facility] MEDIC[facility] Member Subscriber Plan / Payer (Ef fective 2021-Present) Name:Marylu Carver Relation to Subscriber:Self Name:Marylu Carver Payer ID:[id number] (NAIC) Type:Not on file Address: [place] [phone] Care Teams Senior Data Integration Developer Relationship Specialty Start Date End Date Michoacano Marin: [phone] [address] [place] [address] PCP - General Internal Medicine 03/24/24
--- OUTSIDE RECORDS SUMMARY | 2024-09-26 12:04 | XMS_ITS | Encounter Summary ---
Author Organization [employer] Address 75 [facility] 7 [place] [address] Care Team Providers Care Senior Technical Analyst Name Role Phone Michoacano Shirley MD Primary Care Prov ider Reason for Visit * Reason Onset Date Comments Med Refill 10/26/2023 Encounter Details Date Type Department Care Team ([facility] st Contact Info) Description 10/26/2023 Telephone [facility] PEDS [address] [place] [address] Michoacano Shirley MD [address] [place] [address] Med Refill Social History Tobacco Use Types [...] (inactive on nextgen) To be sent to: [facility] #[id number] - [address] documented in this encounter Plan of Treatment Not on file documented as of this encounter Visit Diagnoses Not on filedocumented in this encounter Additional Health Concerns Assessment Noted Time PHQ-9 Depression Total Score: 1 04/10/20 23 10:51 AM EDT documented as of this encounter Care Teams Senior Technical Analyst Relationship Specialty Start Date End Date Michoacano Shirley MD [address] [place] [address] PCP - General Internal Medicine 01/09/20 documented as of this encounter
--- OUTSIDE RECORDS SUMMARY | 2024-09-26 12:04 | XMS_ITS | Encounter Summary ---
Author Organization [employer] Address 75 [facility] 7 [place] [address] Care Team Providers Care Lug Breaker And Wire Puller Name Role Phone Michoacano Shirley MD Primary Care Prov ider Reason for Visit * Reason Onset Date Comments Medication Question 09/11/2024 Encounter Details Date Type Department Care Team ([facility] st Contact Info) Description 09/11/2024 Telephone [facility] MEDICINE [address] [place] [address] Michoacano Shirley MD [address] [place] [phone] Medication Question Social History Tobacco Use Types [...] Olvera from Nephrology[place] [id number] to inform her thatshe will need to contact that office to obtain refill. Pt agrees to plan. * Telephone Encounter - Sherrell Staton - 09/11/2024 3:04 PM EST Tc from pt requesting med refill for empagliflozin (Jardiance) 25mg. Med was prescribed before but 10MG. Pt keep stating was 25MG. Any questions [phone] [place] documented in this encounter Plan of Treatment Not on file documented as of this encounter Visit Diagnoses Not on filedocumented in this encounter Additional Health Concerns Assessment Noted Time PHQ-9 Depression Total Score: 1 04/10/20 23 10:51 AM EDT documented as of this encounter Care Teams Lug Breaker And Wire Puller Relationship Specialty Start Date End Date Michoacano Shirley MD [address] [place] [address] PCP - General Internal Medicine 01/09/20 documented as of this encounter
[2024-09-26 14:49] LABS: Anion Gap 12 (12-20); Blood Urea Nitrogen 28 mg/dL (9-16); Calcium 9.4 mg/dL (8.4-10.2); Carbon Dioxide 25 mmol/L (22-29); Chloride 109 mmol/L (96-108); Estimated Glomerular Filt Rate 31; Glucose Random 122 mg/dL (60-115); Potassium 3.6 mmol/L (3.3-5.1); Sodium 142 mmol/L (135-145)
== END 2024-09-26 10:59 | disposition home or self-care (01) ==
LOC: HO.CHCLDS 10:58
PROVIDERS: Visit Provider Nurse Practitioner Family
DX: N17.9 Acute kidney failure, unspecified (principal)
CPT/HCPCS: 36415; 80048

== ENCOUNTER → 2024-11-10 12:45 | Outpatient (REF) | payer MEDICARE, MEDICAID, SELFPAY ==
--- NOTE | 2024-11-10 12:48 | CA_ITS ---
Transthoracic Echocardiogram Limited Patient (Last, First, Middle): Marylu Liu, Gender: Female Date of : 1975 Age: 49 Procedure Date: 11/10/2024 Procedure Type: Transthoracic Echocardiogram Limited Location: OP Height: 154.94 cm Weight: 61.69 kg BSA: 1.60 m2 Heart Rate: bpm BP: 116 / 60 mmHg Newspaper Distributor Supervisor: NORA Referring MD: Marti Kramer PIPED POCKET MACHINE OPERATOR-C Form Press Operator: Andrei Phelps MD Symptoms: I42.9 - Cardiomyopathy, unspecified Study Quality: Adequate ECG Rhythm: Sinus Conclusions: - Low normal LV ejection fraction 50-55% with moderate LVH with impaired relaxation filling pattern Findings Left Ventricle Normal left ventricular cavity size. There is moderately increased left ventricular wall thickness. The left ventricular systolic function is low normal. The visually estimated ejection fraction is between 50-55%. Spectral Doppler is indicative of an impaired relaxation filling pattern. E/E prime ratio is between 8 and 15 consistent with indeterminate filling pressures. Prior Study Comparison Changes noted compared to prior study. LV systolic function has improved Measurements 2D Linear Measurements IVSd: 1.43 0.6-0.9/0.6-1.0 cm LVIDd: 2.75 3.9-5.3/4.2-5.9 cm LVIDd Index: 1.72 2.4-3.2/2.2-3.1 cm/m2 LVIDs: 2.10 2.0-3.6 cm 2D Systolic Function EF 4C: 48.10 >55% EF 2C: 49.00 >55% EF BiP: 50.10 >55% Mitral Valve MV Pk E: 0.67 MV PK A: 0.85 MV Decel Time: 236.00 E/A: 0.80 E'Lateral: 5.55 E'Medial: 4.46 E/E' Med: 15.10 E/E' Lat: 12.10 PHT: 69.00 MVA PHT: 3.19 Decel [place]: 2.85 Diastolic Function MV Pk E: 0.67 MV Pk A: 0.85 E/A: 0.80 E'Medial: 4.46 E/E' Med: 15.10 E' Laterial: 5.55 E/E' Lat: 12.10 Right Ventricle TAPSE (mm): 19.00 Updated in Other Vendor System with Status of Final Andrei Phelps MD electronically signed on 11/11/2024 3:47:13 PM with status of Final
== END ==
LOC: HO.CARD 12:45
PROVIDERS: PCP Internal Medicine; Visit Provider Nurse Practitioner Family
DX: I42.9 Cardiomyopathy, unspecified (principal)
CPT/HCPCS: 93308

== ENCOUNTER → 2024-11-10 12:48 | Outpatient (BNV) | payer MEDICARE, MEDICAID, SELFPAY | PROVIDERS: PCP Internal Medicine; Visit Provider Internal Medicine Cardiovascular Disease | DX: I42.8 Other cardiomyopathies (principal) | CPT/HCPCS: 93308; 93321 ==

== ENCOUNTER 2024-11-27 14:25 | Outpatient (AMB) | payer MEDICARE, MEDICAID, SELFPAY ==
[2024-11-27 14:44] VITALS: BP 140/86; PULSE 67; BMI 27.1
--- NOTE | 2024-11-27 14:44 | A.OFFVIS_ITS ---
Vital Signs 11/27/24 14:44 Height 5 ft Weight 138 lb 14.259 oz BMI 27.1 BP 140/86 H Blood Pressure Location Lt brachial Position Sitting Pulse 67 Intake Visit Reasons: 3 mth f/up Intake Note: 3 month follow-up after echo feeling good Principal Strategist Required: Yes Principal Strategist Services: Principal Strategist Present Principal Strategist Name: fernando cabral Allergies hydrocortisone [From CORTIZONE-10] Allergy (Unknown, Verified 09/15/24 13:19) UNKNOWN Medication List - Last Reconciled 11/27/24 by Andrei Phelps MD alcohol swabs (Alcohol Prep Pads) pad topical DAILY allopurinol 100 mg PO DAILY 90 days aripiprazole 15 mg PO DAILY aspirin 1 tab PO DAILY atorvastatin 40 mg PO DAILY blood sugar diagnostic (Accu-Chek Tamara Plus test strips) As directed carvedilol 12.5 mg PO BID duloxetine 40 mg PO DAILY empagliflozin (Jardiance) 10 mg PO QAM hydralazine 25 mg PO BID omeprazole 20 mg PO DAILY trazodone 100 mg PO BEDTIME HPI Comments Details: Marylu comes for follow-up. History was obtained with help of lever tender over the telephone. Patient says she has been taking all her medications. She has no clear cardiac symptoms. Denies any prolonged palpitation. No worsening shortness of breath, orthopnea, PND. No lightheadedness, syncope. Watches the salt in his diet. Her creatinine stabilized and has improved slightly. She is currently off Entresto therapy most likely to renal insufficiency. Most recent echocardiogram shows improved LV ejection fraction to 50-55% PFSH Medical History Chronic idiopathic constipation GREG (obstructive sleep apnea) GERD (gastroesophageal reflux disease) Diabetes Kidney stones Medullary sponge kidney Elevated cholesterol HTN (hypertension) Fibromyalgia Depression Surgical History Hx of colonoscopy Hx of hysterectomy Hx of cholecystectomy History of lithotripsy Social History Are you a primary pet care technician to a significant other at home: No Do you presently have visiting nurse or other home services: No Alcohol intake: never Patient Tobacco Use Status: Former Tobacco user Tobacco use type: Cigarette Review of Systems Const Denies chills, Denies fatigue, Denies fever(s), Denies frequent falls, Denies weakness, Denies weight gain and Denies weight loss ENT Denies dizziness Card Denies chest pain, Denies leg edema, Denies lightheadedness, Denies palpitations, Denies dyspnea, Denies dyspnea on exertion, Denies orthopnea and Denies other (loss of consciousness) Resp Denies cough, Denies dyspnea and Denies dyspnea on exertion GI Denies hematochezia and Denies change in stool character Musc Denies abnormal gait, Denies muscle weakness, Denies numbness, Denies radiating pain into limb and Denies tingling Neuro Denies abnormal gait, Denies dizziness, Denies frequent falls, Denies numbness, Denies tingling and Denies weakness Endo Denies fatigue and Denies palpitations Physical Exam Vital Signs: Last Vital Signs Pulse 67 11/27/24 14:44 BP 140/86 H 11/27/24 14:44 BMI result Body Mass Index 27.1 Const General: cooperative, healthy appearing, comfortable and no acute distress Orientation/consciousness: patient oriented x3 Neck Neck: Yes normal visual inspection Resp Effort & Inspection: normal respiratory effort Auscultation: clear to auscultation bilaterally, no rales, no rhonchi and no wheezes Cardio Rate: regular rate Rhythm: regular rhythm Heart sounds: S1 normal heart sound present, S2 normal heart sound present, no murmurs and no rubs Neuro General: patient oriented x3 Extrem General: Yes normal to inspection, No no pedal edema and No calf tenderness Psych Appearance: grossly normal Mental Status: mental status grossly normal Speech and movement: Normal speech and movement present Assessment & Plan Assessment & Plan (1) Cardiomyopathy: Code(s): I42.9 - Cardiomyopathy, unspecified Category: Medical Plan: Nonischemic cardiomyopathy most likely related to hypertension. LV ejection fraction enriquez improved to now low normal LV ejection fraction. Continue aggressive medical therapy. Continue neurohormonal modulation with carvedilol. Continue maximize hydralazine, will increase to 50 mg b.i.d. for better blood pressure control. Target goal blood pressure less than 130/84. Advise low-salt diet. Importance of compliance with medication was discussed. She understands and agrees. Signs and symptoms of heart failure were discussed advised to call me with any new worsening signs or symptoms of heart failure. Continue Jardiance therapy. Will follow up in the clinic in 6 months time after an echocardiogram. Thank you for allowing me to partake in her care Medications: New hydralazine 50 mg PO BID 60 tabs 5RF Discontinued hydralazine new - for BP Discontinued Reason: Doctor's Order 25 mg PO BID 60 tabs 3RF Coding Level of Care Code Est Pt Level 4 (99580) Complex EM visit Add On G2211 Diagnoses Cardiomyopathy I42.9
--- OUTSIDE RECORDS SUMMARY | 2024-11-27 17:10 | XMS_ITS | Encounter Summary ---
Author Organization [employer] [facility] Address 75 [facility] 7 [place] [address] Care Team Providers Care Cardiothoracic Physiotherapist Name Role Phone Michoacano Shirley MD Primary Care Prov ider Encounter Details Date Type Department Care Team (Latest Contact Info) Description 10/02/[address] [facility] CONVERSIONS Dental, Provider, DDS Social History [...] Care Team (Late st Contact Info) Description 02/12/2025 2:15 PM EDT Telemedicine [facility] PEDS [address] [place] [address] Michoacano Shirley MD [address] [place] [address] documented as of this encounter Visit Diagnoses Not on filedocumented in this encounter Care Teams Cardiothoracic Physiotherapist Relationship Specialty Start Date End Date Michoacano Shirley MD [address] [place] [address] PCP - General Internal Medicine 01/09/20 documented as of this encounter
--- OUTSIDE RECORDS SUMMARY | 2024-11-27 17:10 | XMS_ITS | Encounter Summary ---
Author Organization [facility] Address [address] [phone] Phone Care Team Providers Care Assembler Dry Cell And Battery Name Role Phone Michoacano Marin Primary Care Provider Encounter Details Date Type Department Care Team (Late st Contact Info) Description 10/28/2024 [facility] [address] [phone] Pamella Viera ARNP [address] [phone] Social History Tobacco Use Types Packs/Day Years [...] Care Team (Late st Contact Info) Description 04/30/2025 1:15 PM EDT [facility] [address] [phone] Pamella Viera ARNP [address] [phone] documented as of this encounter Visit Diagnoses Not on filedocumented in this encounter Care Teams Assembler Dry Cell And Battery Relationship Specialty Start Date End Date Michoacano Marin [address] [place] [address] PCP - General Internal Medicine 03/24/24 documented as of this encounter
--- OUTSIDE RECORDS SUMMARY | 2024-11-27 17:10 | XMS_ITS | Clinical Summary ---
Author Organization [facility] Address [address] [phone] Phone Care Team Providers Care Lead Sales Consultant Name Role Phone Michoacano Marin Primary Care Provider [phone] Allergies Active Allergy Reactions Criticality Noted Date [...] by mouth 1 (one) time each day in the morning Active Cholecalciferol (Vitamin D3) 50 MCG (1999) tabletIndicatio ns:Vitamin D deficiency, not otherwise specified,Stage 3a chronic kidney disease (HCC) Take 2,000 Units by mouth 1 (one) time each day 30 tablet 11 10/29/2024 Active Active Problems Problem Noted Date Diagnosed Date Secondary hyperparathyroidism of renal origin Vitamin D deficiency, not otherwise specified Stage 3a chronic kidney disease 04/27/2024 Proteinuria, [...] Encounters Date Type Department Care Team Description 10/28/2024 1:15 PM EDT Office Visit [facility] [address] [phone] Pamella Viera ARNP Stage 3a chronic kidney disease (HCC) (Primary Dx); Essential hypertension; Proteinuria, not otherwise specified; Nephrolithiasis; Secondary hyperparathyroidism of renal origin (HCC); Vitamin D deficiency, not otherwise specified 10/28/2024 Orders Only [facility] [address] [phone] Pamella Viera ARNP 10/28/2024 Office Communication [facility] [address] [phone] Pamella Viera ARNP from Last 3 Months Immunizations Immunization Administration Dates Next Due Hepatitis B 07/27/2022,05/04/2022,04/03/2022 [...] Sign Reading Time Taken Comments Blood Pressure 118/78 10/28/2024 1:10 PM EDT Pulse 68 10/28/2024 1:10 PM EDT Temperature - - Respiratory Rate 16 07/23/2017 12:00 PM EST Oxygen Saturation 98% 04/24/2024 9:56 AM EDT Inhaled Oxygen Concentration - - Weight 61.2 kg (135 lb) 10/28/2024 1:10 PM EDT Height 149.9 cm (4' 11 ) 05/22/2023 9:56 AM EDT Body Mass Index 27.27 05/22/2023 9:56 AM EDT Plan of Treatment Upcoming Encounters Date Type Department Care Team (Late st Contact Info) Description 04/30/2025 1:15 PM EDT Office Visit [facility] [address] [phone] Pamella Viera ARNP [address] [phone] Health Maintenance Due Date Last Done Comments Breast Cancer Screening 1975 Hepatitis B Vaccine (1 of 3 - 19+ 3-dose series) 1992 07/27/2022, 05/04/2022, 04/03/2022 Pneumococcal Vaccine: Peds ( 0 to 5 Years) and At-Risk Patients (6 to 49 Years) (2 of 2 - PCV) 01/18/2018 01/18/2017 Diabetes: Ophthalmology Exam 11/21/2019 Diabetes: Pedal Pulse Checked 11/21/2019 Diabetes: Sensory Foot Exam 11/21/2019 Diabetes: Visual Foot Exam 11/21/2019 Colorectal Cancer Screening: Annual FOBT 2022 Colorectal Cancer Screening: Colonoscopy 2022 Colorectal Cancer Screening: Sigmoidoscopy 2022 Diabetes: Hemoglobin A1C 10/30/2024 08/01/2024, 03/2023 Influenza Vaccine (Season Ended) 2025 05/09/2021, 09/23/2019, 07/10/2018, Additional history exists Procedures Procedure Name Priority Date/Time Associated Diagnosis Comments PTH, INTACT Routine 10/28/2024 1:55 PM EDT VITAMIN D 25 HYDROXY Routine 10/28/2024 1:55 PM EDT URINE ALBUMIN / CREATININE RATIO Routine 10/28/2024 1:55 PM EDT PROTEIN / CREATININE RATIO, URINE Routine 10/28/2024 1:55 PM EDT RENAL FUNCTION PANEL Routine 10/28/2024 1:55 PM EDT EXT RESULT ENTRY Routine 2024 from Last 3 Months Results * (ABNORMAL) Protein, Total, Random Urine w/Creatinine (Protein/Creat Ratio) (10/28/2024 1:55 PM EDT) Creatinine, Ur 172.0 Not Estab. mg/dL [facility] Protein, Ur 159.8 Not Estab. mg/dL [facility] Urine Protein/Creati nine Ratio 929(H) 0 - 200 mg/g creat [facility] 10/28/2024 1:55 PM EDT 10/28/2024 Pamella Viera [facility] LAB URINE ORDERABLES Final Result Performing Organization Address City/[facility]/ZIP Co de Phone Number [facility] [address] [place] [address] * (ABNORMAL) Urine Albumin / Creatinine Ratio (10/28/2024 1:55 PM EDT) Albumin, Urine 934.8 Not Estab. ug/mL [facility] Comment: Results confirmed on dilution. Albumin/Creatin ine Ratio 543(H) 0 - 29 mg/g creat [facility] Comment: ? Normal: ?0 - ??29 ? Moderately increased: 30 - 300 ? Severely increased: ? >300 10/28/2024 1:55 PM EDT 10/28/2024 Pamella Viera [facility] LAB URINE ORDERABLES Final Result Performing Organization Address City/[facility]/ZIP Co de Phone Number [facility] [place] [address] [place] [address] * (ABNORMAL) Vitamin D 25 Hydroxy (10/28/2024 1:55 PM EDT) Vitamin D, 25-OH, Total 13.0(L) 30.0 - 100.0 ng/mL [facility] Comment: Vitamin D deficiency has been defined by the [place] and an Endocrine Society practice guideline as a level of serum 25-OH vitamin D less than 20 ng/mL (1,2). The Endocrine Society went on to further define vitamin D insufficiency as a level between 21 and 29 ng/mL (2). 1. IOM ([place] of [place]). 2010. Dietary reference ?? intakes for calcium and D. [place]: The ?? National [employer] Press. 2. Mariza MF, Nestor SUMMERS, Yogi HESS, et al. ?? Evaluation, treatment, and prevention of vitamin D ?? deficiency: an Endocrine Society clinical practice ?? guideline. JCEM. 2010; 96(7):1911-30. 10/28/2024 1:55 PM EDT 10/28/2024 Pamella [facility] LAB BLOOD ORDERABLES Final Result Performing Organization Address City/[facility]/ZIP Co de Phone Number [facility] [address] [place] [address] * PTH, Intact (10/28/2024 1:55 PM EDT) PTH 54 15 - 65 pg/mL [facility] 10/28/2024 1:55 PM EDT 10/28/2024 [facility] BLOOD ORDERABLES Final Result Performing Organization Address City/[facility]/ZIP Co de Phone Number [facility] [place] [address] [place] [address] * (ABNORMAL) Renal Function Panel (10/28/2024 1:55 PM EDT) Glucose 131(H) 70 - 99 mg/dL [facility] BUN 29(H) 6 - 24 mg/dL [facility] Creatinine 1.93(H) 0.57 - 1.00 mg/dL [facility] eGFR CKD-EPI CR 2020 31(L) >59 mL/min/1.7 3 [facility] BUN/Creatinine Ratio 15 9 - 23 [facility] Sodium 143 134 - 144 mmol/L [facility] Potassium 4.6 3.5 - 5.2 mmol/L [facility] Chloride 105 96 - 106 mmol/L [facility] Bicarbonate (CO2) 21 20 - 29 mmol/L [facility] Calcium 9.6 8.7 - 10.2 mg/dL [facility] Albumin 4.3 3.8 - 4.9 g/dL [facility] Phosphorus 3.6 3.0 - 4.3 mg/dL [facility] 10/28/2024 1:55 PM EDT 10/28/2024 Pamella COLEY LAB BLOOD ORDERABLES Final Result [facility] [address] [place] [address] * (ABNORMAL) EXT RESULT ENTRY (2024) Sodium 142 137 - 147 Potassium 3.6 3.4 - 5.5 Carbon Dioxide 25 mmol/L BUN 28(A) 4 - 21 mg/dL Creatinine 1.74(A) 0.50 - 1.10 mg/dL Calcium 9.4 8.7 - 10.7 mg/dL eGFR Non-Afr Bulgarian 31 2024 Historical Provider LAB BLOOD ORDERABLES Megan l Result from Last 3 Months Insurance [facility] Medicare [facility] Medicare Care Teams Lead Sales Consultant Relationship Specialty Start Date End Date Michoacano Marin: [phone] [address] [place] [phone] PCP - General Internal Medicine 03/24/24
--- OUTSIDE RECORDS SUMMARY | 2024-11-27 17:10 | XMS_ITS | Encounter Summary ---
Author Organization [employer] Address [address] [facility] 7 [place] [address] Care Team Providers Care Gas Producer Name Role Phone Michoacano Shirley MD Primary Care Prov ider Reason for Visit * Reason Onset Date Comments Med Refill 10/26/2023 Encounter Details Date Type Department Care Team ([facility] st Contact Info) Description 10/26/2023 Telephone [facility] MED & PEDS [address] [place] [address] Michoacano Shirley MD [address] [place] [address] Med Refill Social History Tobacco Use Types [...] (inactive on nextgen) To be sent to: [id number] - [address] documented in this encounter Plan of Treatment Upcoming Encounters Date Type Department Care Team ([facility] st Contact Info) Description 02/12/2025 2:15 PM EDT Telemedicine [facility] MED & PEDS [address] [place] [address] Michoacano Shirley MD [address] [place] [address] documented as of this encounter Visit Diagnoses Not on filedocumented in this encounter Additional Health Concerns Assessment Noted Time PHQ-9 Depression Total Score: 1 04/10/20 23 10:51 AM EDT documented as of this encounter Care Teams Gas Producer Relationship Specialty Start Date End Date Michoacano Shirley MD [address] [place] [address] PCP - General Internal Medicine 01/09/20 documented as of this encounter
--- OUTSIDE RECORDS SUMMARY | 2024-11-27 17:10 | XMS_ITS | Clinical Summary ---
Author Organization [employer] Address 75 [facility] 7t [place] [address] Care Team Providers Care Educational/Development Assistant Name Role Phone Michoacano Shirley MD Primary [...] citrate CR (Urocit-K-10) 10 mEq ER tabletIndications :[facility] Take 10 mEq by mouth with [...] 3 times daily. 90 tablet 3 Active amLODIPine (Norvasc) 10 MG tabletIndications :Primary hypertension Take 1 tablet (10 mg) by mouth Once per day. 90 tablet 3 024 2024 Active losartan (Cozaar) 100 MG tablet TAKE 1 TABLET BY MOUTH EVERY DAY 90 tablet 1 Active spironolactone (Aldactone) 100 MG tablet Take 1 tablet (100 mg) by mouth Once per day. 30 tablet 11 024 2024 Active omeprazole (PriLOSEC) [address] capsule TAKE 1 CAPSULE BY MOUTH EVERY DAY BEFORE A MEAL 90 capsule 3 Active albuterol (2.5 MG/3ML) 0.083% nebulizer solutionIndicatio ns:Mild intermittent asthma without complication Take 3 mL (2.5 mg) by nebulization every 4 (four) hours if needed for wheezing. 75 mL 025 2025 Active atorvastatin (Lipitor) 40 MG tabletIndications :Mixed hyperlipidemia TAKE 1 TABLET(40 MG) BY MOUTH IN THE MORNING 90 tablet Active albuterol (2.5 MG/3ML) 0.083% nebulizer solution Take 3 mL (2.5 mg) by nebulization every 4 (four) hours if needed for wheezing. 75 mL 11 024 2024 Discontinued(R eorder (will not trigger notification to Pharmacy)) atorvastatin (Lipitor) 40 MG tabletIndications :Mixed hyperlipidemia TAKE 1 TABLET(40 MG) BY MOUTH IN THE MORNING 90 tablet 025 2024 Discontinued omeprazole (PriLOSEC) [address] capsule TAKE 1 CAPSULE BY MOUTH EVERY DAY BEFORE A MEAL 90 capsule 3 025 2024 Discontinued(R eorder (will not trigger notification [...] 07/10/2018 Essential hypertension 07/10/2018 Assessment & Plan (11/20/2024 11:28 AM EDT): Patient following nephrology, she took her blood pressure but has not taken her medications yet, told to keep a low sodium diet, keep bp log, follow up in 3 months Assessment & Plan (08/01/2024 11:47 AM EST): [...] diabetes mellitus without complication Assessment & Plan (11/20/2024 11:28 AM EDT): On SGLT2, with albuminuria, continue low carb/no sugar diet, follow up in 3 months Assessment & Plan (04/10/2023 2:13 PM EDT): Will change empagliflozin to farxiga, patient refers getting headaches related to medication Encounters Date Type Department Care Team Description 11/21/2024 Refill [facility] MED & PEDS [address] [place] [address] Millicent Dubois MD Mixed hyperlipidemia 11/12/2024 3:00 PM EDT Telemedicine [facility] CHC MED & PEDS [address] [place] [address] Michoacano Shirley MD Mild intermittent asthma without complication (Primary Dx); Essential hypertension; Type 2 diabetes mellitus without complication, without long-term current use of insulin ([facility]) 11/12/2024 Travel 09/11/2024 Telephone [facility] MEDICINE [address] [place], [place] [phone] Michoacano Shirley MD Medication Question 09/11/2024 Refill [facility] [address] [place], [place] [phone] Michoacano Shirley MD from Last 3 Months [...] Sign Reading Time Taken Comments Blood Pressure 149/89 11/12/2024 3:22 PM EDT Pulse 68 08/01/2024 11:00 AM EST Temperature [...] Upcoming Encounters Date Type Department Care Team ([facility] st Contact Info) Description 02/12/2025 2:15 PM EDT Telemedicine [facility] MED & PEDS [address] [place] [address] Michoacano Shirley MD [address] [place] [address] Health Maintenance Due Date Last Done Comments [...] 05/01/20 23, 12/09/2018, 10/02/2018, Additional history exists Diabetes: Hemoglobin A1C 01/30/2025 024, 04/27/2023, 09/23/2019 Lipid Panel 04/09/2025 04/09/2024, 090 03/2023, 03/28/2022, Additional history exists SDOH Screening 06/06/2025 06/06/2024 Tobacco Screening 06/06/2025 06/06/2024 Diabetes: Urine Protein Screening 10/28/2025 10/28/2024, 11/23/2023, 05/22/2023, Additional history exists Dental X-Ray: Full Mouth 05/02/2026 05/01/2023, 020 10/2014 Mammogram 05/02/2026 05/02/2024, 090 02/2023, 04/05/2022, Additional history exists DTaP/Tdap/Td Vaccines (2 - Td or Tdap) 01/18/2027 01/18/2017 RSV Patients and Patients Aged 60 years or older (1 - 1-dose 75+ series) 2048 HIV Screening Completed 09/23/2019 Hepatitis B Vaccines Completed 07/27/2022, 05/04/2022, 04/03/2022 Hepatitis C Screening Completed 04/27/2023, 020 Zoster Vaccines Completed 09/26/2024, 08/01/2024 HIB Vaccines Aged Out No longer eligi [...] Procedure Name Priority Date/Time Associated Diagnosis Comments POCT GLYCATED HEMOGLOBIN, TOTAL Routine 08/01/2024 11:08 AM EST Type 2 diabetes mellitus without complication, without long-term current use of insulin (CMS/HCC) BI MAMMOGRAM SCREENING TOMOSYNTHESIS BILATERAL Routine 05/02/2024 10:40 AM EDT LIPID PANEL, STANDARD Routine 04/09/2024 11:33 AM EDT Mixed hyperlipidemia PROPHYLAXIS - ADULT Routine 05/01/2023 1 :00 PM EDT INTRAORAL - COMPLETE SERIES OF RADIOGRAPHIC IMAGES Routine 05/01/2023 1:00 [...] Recently Relevant to Health Maintenance Results * POCT HGB A1C (08/01/2024 11:08 AM EST) Pathologist [facility] Hemoglobin A1C 6.0 4.0 - 6.0 % QC Media Lot # [id number] Lot# Expiration Date [id number] Blood 08/01/2024 11:0 8 AM EST Michoacano Kincaid MD POINT OF CARE TEST ENTER/EDIT ORDERABLES Final Result * BI Mammogram Screening Tomosynthesis Bilateral (05/02/2024 10:40 AM EDT) Anatomical Region Laterality Modality Breast Bilateral Mammography 05/02/2024 10:4 0 AM EDT Narrative 05/15/2024 8:11 PM EDT ? [facility] [place] ? [address] ?[place] [address] ? Mammography Report ? Signed ? Patient: Marylu Liu ?MR#: [id number] ?? [id number] ? : 1975 ?Acct:[id number] ? Age/Sex: 48 / F ?ADM Date: 05/02/24 ? Loc: HO.MAMMO ? Attending Dr: Michoacano Kincaid MD ? Ordering Physician: Michoacano Shirley MD ?Res ?? ults: 1Negative ? Date of Service: 05/02/24 ?Follow Up: 1 Year From Orig ?? inal Mammogram ? Procedure(s): MM tomosynthesis screening BI ?? Accession Number(s): [id number] ? cc: Michoacano Shirley MD ? EXAMINATION: [...] ? Signed By: ?<Electronically signed by Aissatou Vega DO in OV> ? 05/15/24 2007 ? DD/ 1040 ? TD/TT: 05/02/24 1055 ? Needle Punch Operator: ? Procedure Note Cookie, Image - 05/15/2024 [facility] [address] [place] [address] [place] [address] Mammography Report Signed Patient: Ronel Liu#: [id number] : 1975Acct:[id number] Age/Sex: 48 / FADM Date: 05/02/24 Loc: HO.MAMMO Attending Dr: Michoacano Kincaid MD Ordering Physician: Michoacano Shirley ults: 1Negative Date of Service: 05/02/24Follow Up: 1 Year From Orig inal Mammogram Procedure(s): MM tomosynthesis screening BI Accession Number(s): [id number] cc: Michoacano Shirley MD EXAMINATION: MM SCREENING [...] OV> 05/15/242006 DD/ 1040 TD/TT: 05/02/24 1055 Needle Punch Operator: Michoacano Kincaid MD [facility] PROCEDURES Edited Result - Final * (ABNORMAL) Lipid Panel, Standard (04/09/2024 11:33 AM EDT) Triglycerides 216(H) <150 mg/dL [facility] Comment:Desirable Triglyceri de: less than 150 mg/dLBorderline High Triglyceride 150-199 mg/dLHigh Triglyceride: 200-499 mg/dLVery High Triglyceride: greater than or equal to 5OO mg/dL Cholesterol 205(H) <200 mg/dL [facility] Comment:Desirable Cholestero l: less than 200 mg/dLBorderline High Cholesterol: 200-239 mg/dLHigh Cholesterol: greater than 239 mg/dL LDL Cholesterol Calculated 124(H) <100 mg/dL [facility] Comment:Desirable LDL: less than 100 mg/dLNear Optimal/Above Optimal LDL: 110- 129 mg/dLBorderline High LDL: 130-159 mg/dLHigh LDL: 160-189 mg/dLVery High LDL: greater than or equal to 190 mg/dL HDL Cholesterol 38(L) >40 mg/dL [facility] Comment:Desirable HDL: great er than 40 mg/dL Note: This HDL assay may give artificially low results in patients with liver disease. Blood Venous blood specimen / Unknown 04/09/2024 11:33 AM EDT 04/09/2024 2:09 PM EDT Michoacano Kincaid MD LAB BLOOD ORDERABL ES Final Result Performing Organization Address [facility] Co de Phone Number [facility] [address] [place] [phone] * (ABNORMAL) Albumin, Random Urine W/Creatinine (04/27/2023 10:28 AM EDT) Creatinine, Urine 155.45 mg/dL [facility] Microalbumin Urine 1,768.0 mg/L H [facility] Microalbum Creatinine Ratio Ur 1,137.3(H ) <30 ug/mg cr [facility] Comment:Albumin/Creatinine R atio Reference Ranges: Normal: < 30 ug/mg creatinine Microalbuminuria: 30 - 300 ug/mg creatinineClinical Albuminuria: > 300 ug/mg creatinine 04/27/2023 10:2 8 AM EDT 04/27/2023 2:30 PM EDT Michoacano Kincaid MD LAB URINE ORDERABL ES Final Result Performing Organization Address [facility] Co de Phone Number [facility] [address] [place] [phone] * Hepatitis C Antibody with Reflex to HCV, RNA, Quantitative, Real-Time PCR (04/27/2023 10:26 AM EDT) Hepatitis C Antibody Nonreactive Nonreactive [facility] Comment:Antibodies to HCV no t detected; does not exclude early acuteHCV infection. Blood Venous blood specimen / Unknown 04/27/2023 10:26 AM EDT 04/27/2023 2:43 PM EDT Michoacano Kincaid MD LAB BLOOD ORDERABL ES Final Result [facility] [address] [place] [phone] * HIV AB/AG (09/23/2019 11:31 AM [...] detection of this assay. ?? The [employer] Package Worker HIV Ag/Ab Combo assay result and supplemental assay results should be interpreted in conjunction with the patient's clinical presentation, history and other laboratory results. ??If the results are inconsistent with clinical evidence, additional testing is suggested to confirm the result. 09/23/2019 11:3 1 AM EST Historical Provider HISTORICAL/NON ORDERABLE LABS Final Result [facility] [address] from Last 3 Months or Most Recently Relevant to Health Maintenance Insurance [facility] PPO Care Teams Educational/Development Assistant Relationship Specialty Start Date End Date Michoacano Shirley MD [address] [place] [phone] PCP - General Internal Medicine 01/09/20
--- OUTSIDE RECORDS SUMMARY | 2024-11-27 17:10 | XMS_ITS | Encounter Summary ---
Author Organization [employer] Address [address] [place] [address] [address] Care Team Providers Care Management Aide Name Role Phone Michoacano Shirley MD Primary Care Prov ider Encounter Details Date Type Department Care Team (Late Contact Info) Description 05/03/2023 Orders Only [facility] MED & PEDS [address] [place] [address] Michoacano Shirley MD [address] [place] [address] Social History Tobacco Use Types Packs/Day Years [...] Department Care Team (Late Contact Info) Description 02/12/2025 2:15 PM EDT Telemedicine [facility] MED & PEDS [address] [place] [address] Michoacano Shirley MD [address] [place] [address] documented as of this encounter Visit Diagnoses Not on filedocumented in this encounter Additional Health Concerns Assessment Noted Time PHQ-9 Depression Total Score: 1 04/10/20 23 10:51 AM EDT documented as of this encounter Care Teams Management Aide Relationship Specialty Start Date End Date Michoacano Shirley MD [address] [place] [phone] PCP - General Internal Medicine 01/09/20 documented as of this encounter
--- OUTSIDE RECORDS SUMMARY | 2024-11-27 17:10 | XMS_ITS | Encounter Summary ---
Author Organization [facility] Address [address] [facility] 7 [place] [address] Care Team Providers Care Vehicle Refinisher Name Role Phone Michoacano Shirley MD Primary Care Prov ider Encounter Details Date Type Department Care Team (Latest Contact Info) Description 05/08/2019 Abstract [facility] CONVERSIONS Dental, Provider, DDS Social History Tobacco [...] Info) Description 02/12/2025 2:15 PM EDT Telemedicine [facility] CHC MED & PEDS [address] [place] [address] Michoacano Shirley MD [address] [place] [address] documented as of this encounter Visit Diagnoses Not on filedocumented in this encounter Care Teams Vehicle Refinisher Relationship Specialty Start Date End Date Michoacano Shirley MD [address] [place] [address] PCP - General Internal Medicine 01/09/20 documented as of this encounter
--- OUTSIDE RECORDS SUMMARY | 2024-11-27 17:10 | XMS_ITS | Encounter Summary ---
Author Organization [employer] Address [address] [facility] [address] [place] [address] Care Team Providers Care Note Keeper Name Role Phone Michoacano Shirley MD Primary Care Prov ider Reason for Visit * Reason Comments Med Refill Encounter Details Date Type Department Care Team ([facility] Contact Info) Description 11/21/2024 Refill [facility] MED & PEDS [address] [place], [place] [phone] Millicent Dubois MD [address] [place] [address] Mixed hyperlipidemia Social History Tobacco Use Types [...] Info) Description 02/12/2025 2:15 PM EDT Telemedicine [facility] MED & PEDS [address] [place] [address] Michoacano Shirley MD [address] [place] [address] documented as of this encounter Visit Diagnoses Diagnosis Mixed hyperlipidemia documented in this encounter Additional Health Concerns Assessment Noted Time PHQ-9 Depression Total Score: 1 04/10/20 23 10:51 AM EDT documented as of this encounter Care Teams Note Keeper Relationship Specialty Start Date End Date Michoacano Shirley MD [address] [place] [address] PCP - General Internal Medicine 01/09/20 documented as of this encounter
--- OUTSIDE RECORDS SUMMARY | 2024-11-27 17:10 | XMS_ITS | Encounter Summary ---
Author Organization [facility] Address [address] [facility] [address] [address] Phone Care Team Providers Care Grader Operator Name Role Phone Michoacano Marin Primary Care Provider + [phone] Encounter Details Date Type Department Care Team (Late st Contact Info) Description 02/28/2024 Office Communication [facility] [address] [phone] Pamella Viera ARNP [address] [phone] Social History Tobacco Use Types Packs/Day Years [...] Visit [facility] [address] [address] Pamella Viera ARNP [address] [phone] documented as of this encounter Visit Diagnoses Not on filedocumented in this encounter Care Teams Grader Operator Relationship Specialty Start Date End Date Michoacano Marin [address] [place] [address] PCP - General Internal Medicine 03/24/24 documented as of this encounter
== END 2024-11-27 15:01 | disposition home or self-care (01) ==
LOC: HO.HCS 14:25
PROVIDERS: PCP Internal Medicine; Visit Provider Internal Medicine Cardiovascular Disease
DX: I42.9 Cardiomyopathy, unspecified (principal)
CPT/HCPCS: 99214; G2211

== ENCOUNTER → 2024-11-27 14:25 | Outpatient (BNVA) | payer MEDICARE, MEDICAID, SELFPAY | PROVIDERS: PCP Internal Medicine; Visit Provider Internal Medicine Cardiovascular Disease | DX: I42.9 Cardiomyopathy, unspecified (principal) | CPT/HCPCS: 99212 ==

== ENCOUNTER 2025-03-24 14:39 | Outpatient (REF) | payer MEDICARE, MEDICAID, SELFPAY ==
--- NOTE | ~2025-03-24 | US_ITS ---
EXAMINATION: US KIDNEY BILATERAL HISTORY: N20.0 - Calculus of kidney TECHNIQUE: Real-time grayscale ultrasound imaging of the kidneys was performed and images were reviewed. COMPARISON: Comparison is made with the prior examination dated 01/31/2024. FINDINGS: Right kidney: The right kidney measures 11.2 x 5.0 x 5.0 cm. Renal parenchymal echotexture and thickness are normal. There are no masses. There are punctate echogenic foci at the upper pole suspicious for tiny calculi. There is mild fullness of the renal pelvis without hydronephrosis. Left Kidney: The left kidney measures 7.6 x 3.3 x 3.2 cm. Renal parenchymal echotexture and thickness are normal. There are no masses. There is no hydronephrosis or renal calculi. US/US renal BI IMPRESSION: 1. Probable punctate right upper pole renal calculi. No hydronephrosis. 2. Atrophic left kidney. Electronically signed by: Fermín Kapadia MD 03/24/2025 03:20 PM EDT
--- OUTSIDE RECORDS SUMMARY | 2025-03-24 15:14 | XMS_ITS | Encounter Summary ---
Author Organization [facility] Address [address] [facility] [address] [address] Phone Care Team Providers Care Rig Mechanic Name Role Phone Michoacano Marin Primary Care Provider + [phone] Encounter Details Date Type Department Care Team (Late st Contact Info) Description 02/28/2024 Office Communication [facility] [address] [phone] Pamella Viera ARNP [address] [phone] Social History Tobacco Use Types Packs/Day Years [...] Visit [facility] [address] [phone] Pamella Viera ARNP [address] [phone] documented as of this encounter Visit Diagnoses Not on filedocumented in this encounter Care Teams Rig Mechanic Relationship Specialty Start Date End Date Michoacano Marni [address] [place] [address] PCP - General Internal Medicine 03/24/24 documented as of this encounter
--- OUTSIDE RECORDS SUMMARY | 2025-03-24 15:14 | XMS_ITS | Encounter Summary ---
Author Organization [employer] Address 75 [facility] 7 [place] [address] Care Team Providers Care Application Integration Engineer Name Role Phone Michoacano Shirley MD Primary Care Prov ider Encounter Details Date Type Department Care Team ([facility] st Contact Info) Description 05/03/2023 Orders Only [facility] [address] [place] [address] Michoacano Shirley MD [address] [place] [address] Social History Tobacco Use Types Packs/Day Years [...] documented as of this encounter Care Teams Application Integration Engineer Relationship Specialty Start Date End Date Michoacano Shirley MD [address] [place] [address] PCP - General Internal Medicine 01/09/20 documented as of this encounter
== END 2025-03-24 14:40 | disposition home or self-care (01) ==
LOC: HO.US 14:39
PROVIDERS: PCP Internal Medicine; Visit Provider Urology
DX: N20.0 Calculus of kidney (principal)
CPT/HCPCS: 76775

== ENCOUNTER → 2025-03-24 14:42 | Outpatient (BNV) | payer MEDICARE, MEDICAID, SELFPAY | PROVIDERS: PCP Internal Medicine; Visit Provider Radiology Diagnostic Radiology | DX: N26.1 Atrophy of kidney (terminal) (principal) | CPT/HCPCS: 76775 ==

== ENCOUNTER 2025-04-21 13:06 | Outpatient (REF) | payer MEDICARE, MEDICAID, SELFPAY | END 2025-04-21 13:07 | disposition home or self-care (01) | LOC: HO.LAB 13:06 | PROVIDERS: PCP Internal Medicine; Visit Provider Nurse Practitioner Family | DX: R31.29 Other microscopic hematuria (principal); N39.0 Urinary tract infection, site not specified; N26.1 Atrophy of kidney (terminal); R80.9 Proteinuria, unspecified; N20.0 Calculus of kidney; I10 Essential (primary) hypertension; Z87.891 Personal history of nicotine dependence; Z79.899 Other long term (current) drug therapy | CPT/HCPCS: 81003; 88112; 99212 ==

== ENCOUNTER 2025-04-21 13:06 | Outpatient (AMB) | payer MEDICARE, MEDICAID, SELFPAY ==
--- NOTE | 2025-04-21 13:11 | MHC.OFFVIS ---
Intake Visit Reasons: 1 yr follow up with US Intake Note: Patient is present for 1Y/US Urology Medication:NONE Antibiotic Allergy:NONE Blood Thinner:ASPIRIN Application Development Project Manager Required: No Application Development Project Manager Name: Chi Zuluaga Allergies hydrocortisone (From CORTIZONE-10) Allergy (Unknown, Verified 04/21/25 13:37) UNKNOWN Medication List - Last Reconciled 04/21/25 by SEBASTIEN Daugherty- alcohol swabs (Alcohol Prep Pads) pad topical DAILY allopurinol 100 mg PO DAILY 90 days aripiprazole 30 mg PO DAILY aspirin 1 tab PO DAILY atorvastatin 40 mg PO DAILY blood sugar diagnostic (Accu-Chek Tamara Plus test strips) As directed carvedilol 12.5 mg PO BID duloxetine 40 mg PO DAILY empagliflozin (Jardiance) 25 mg PO QAM hydralazine 50 mg PO BID omeprazole 20 mg PO DAILY trazodone 100 mg PO BEDTIME HPI Comments Details: Marylu very pleasant 49-year-old Colombian-speaking female patient of Dr. Tania Kincaid. She has a past medical history of chronic idiopathic constipation, obstructive sleep apnea, GERD, diabetes, nephrolithiasis, medullary sponge kidney, hypercholesteremia, hypertension, depression, and fibromyalgia. She presents to the office today for follow-up of her recurrent urinary tract infections, left atrophic kidney, and nephrolithiasis. In discussion with the patient today she reports to be doing and feeling well. She denies having had any bothersome urinary issues or concerns since her last office visit here approximately 1 year ago. Recent renal imaging results were reviewed 04/13 bilateral kidneys without hydronephrosis. Right kidney with punctate echogenic foci at the upper pole suspicious for tiny calculi. Left kidney with no nephrolithiasis. Atrophic left kidney. She reports compliance with adequate hydration. She denies having had any UTIs and or UTI like symptoms. In office urinalysis results were reviewed with the patient today 2+ protein 3+ microscopic hematuria. She discusses her longstanding history of kidney issues and also follows up with hatchery manager. When asked she denies urinary urgency, urinary frequency, incontinence, nocturia, visible/gross hematuria, dysuria, foul smelling urine, changes to urinary stream, flank pain, fever, and or chills. She is happy with her current voiding parameters. All questions were answered. She otherwise offers no other issues or concerns at this time. PREVIOUS OFFICE NOTE: She is seen for the following urologic conditions - recurring UTI - left atrophic kidney - nephrolithiasis Colombian translation provided in office by qualified male industrial relations commissioner Stable on imaging Encourage vitamin B6 Encourage fluid intake Yearly follow-up imaging with nurse-practitioner Recurring UTI with nephrolithiasis Currently in surveillance Imaging reviewed today - 09/09 renal ultrasound, 4 mm right renal stone, left atrophic kidney - 04/09 renal ultrasound 6 mm right renal stone - persistent on July imaging after ESWL - 02/08 renal ultrasound 4 mm bilateral stones - 01/09 renal ultrasound 4 mm right stone - 02/10 renal ultrasound 4 mm right stent Background of frequent UTIs is child Stone intervention - 2017 ESWL, ESWL 2020 She is aware that her left kidney is atrophic and only functions at 15% Follow-up imaging PFS Medical History Chronic idiopathic constipation GREG (obstructive sleep apnea) GERD (gastroesophageal reflux disease) Diabetes Kidney stones Medullary sponge kidney Elevated cholesterol HTN (hypertension) Fibromyalgia Depression Surgical History Hx of colonoscopy Hx of hysterectomy Hx of cholecystectomy History of lithotripsy Social History Are you a primary pharmacy care coordinator to a significant other at home: No Do you presently have visiting nurse or other home services: No Alcohol intake: never Patient Tobacco Use Status: Former Tobacco user Tobacco use type: Cigarette Review of Systems Const All systems reviewed & are unremarkable except as noted in HPI and below Physical Exam Const General: cooperative, healthy appearing, comfortable, no acute distress, well developed, alert and awake Orientation/consciousness: patient oriented x3 Limitations: language barrier HEENT Head: Yes normal to inspection, Yes normocephalic and Yes atraumatic Ears: hearing grossly normal bilaterally Eyes General: appearance normal, both eyes and all related structures Neck Neck: Yes normal visual inspection and Yes trachea midline Chest Chest palpation & inspection: normal inspection of the chest Resp Effort & Inspection: normal respiratory effort and able to speak in complete sentences Cardio Rate: regular rate GI Inspection: Yes normal to inspection General: Yes no CVA tenderness Back/Spine/Pelvis Back: no CVA tenderness Skin General skin exam: no rashes or lesions noted Neuro General: patient oriented x3 Extrem General: Yes normal to inspection Psych Appearance: grossly normal and well kempt Mental Status: mental status grossly normal Speech and movement: Normal speech and movement present and Clear speech present Affect: normal affect Attitude: cooperative Thought process: Normal thought process present Thought content: Normal thought content present Insight: Fair insight present (Psych) Judgement: Fair judgement present (Psych) Results AMB Urinalysis, Automated UA Leukoctes 0 Destiny/uL Last Edit by KARLO Carmichael on 04/21/25 13:23 UA Nitrite Negative Last Edit by Julia Sevilla [facility] on 04/21/25 13:23 UA Urobilinogen 0.2 mg/dL Last Edit by Julia Sevilla [facility] on 04/21/25 13:23 UA Protein 100 mg/dL Last Edit by Julia Sevilla [facility] on 04/21/25 13:23 UA pH 6.0 Last Edit by Julia Sevilla [facility] on 04/21/25 13:23 UA Blood 200 Barron/uL Last Edit by Julia Sevilla [facility] on 04/21/25 13:23 UA Specific Ponce 1.025 Last Edit by Julia Sevilla [facility] on 04/21/25 13:23 UA Ketone Negative Last [facility] 04/21/25 13:23 UA Bilirubin 0 mg/dL Last Edit by Julia Sevilla [facility] on 04/21/25 13:23 UA Glucose 0 mg/dL Last Edit by Julia Sevilla [facility] on 04/21/25 13:23 Results Reviewed Results Reviewed: Date of Service: 03/24/25 Procedure(s): US renal BI FINDINGS: Right kidney: The right kidney measures 11.2 x 5.0 x 5.0 cm. Renal parenchymal echotexture and thickness are normal. There are no masses. There are punctate echogenic foci at the upper pole suspicious for tiny calculi. There is mild fullness of the renal pelvis without hydronephrosis. Left Kidney: The left kidney measures 7.6 x 3.3 x 3.2 cm. Renal parenchymal echotexture and thickness are normal. There are no masses. There is no hydronephrosis or renal calculi. IMPRESSION: 1. Probable punctate right upper pole renal calculi. No hydronephrosis. 2. Atrophic left kidney. Assessment & Plan Assessment & Plan (1) Microscopic hematuria: Code(s): R31.29 - Other microscopic hematuria Category: Medical (2) Recurrent UTI (urinary tract infection): Code(s): N39.0 - Urinary tract infection, site not specified Category: Medical (3) Nephrolithiasis: Code(s): N20.0 - Calculus of kidney Category: Medical (4) Left renal atrophy: Code(s): N26.1 - Atrophy of kidney (terminal) Category: Medical (5) Proteinuria: Code(s): R80.9 - Proteinuria, unspecified Category: Medical Plan In office urinalysis results reviewed with the patient today; as noted above; will send for urine cytology. Recent renal imaging results reviewed with the patient today; as noted above. She currently denies any bothersome urinary issues or concerns. She reports be happy with current voiding parameters. We discussed the importance of continuing with adequate hydration relation to nephrolithiasis Continue adding 1 oz of lemon juice to water daily. All questions were answered. Continue to follow-up with nephrology as planned; we discussed proteinuria. Will continue with surveillance monitoring. Will obtain renal ultrasound in 1 year. Follow-up in 1 year with imaging to be completed prior; or sooner with any issues, concerns, and or questions. Orders: Orders AMB Urinalysis Automated Today Z13.9 - Encounter for screening, unspecified Urine Cytology Today R31.29 - Other microscopic hematuria US renal BI 1 Year N20.0 - Calculus of kidney Patient Instructions: The patient had an opportunity to ask questions regarding the treatment plan. All questions were answered. Physical exam, labs, and imaging were discussed and reviewed in detail. As well as risks, benefits, and discussion of treatment choices. No major barriers to understanding were identified. The patient expressed understanding and agreement with the above treatment plan. The patient was made aware they should contact our office by phone for worsening of their current condition, the appearance of new symptoms, or with any questions or concerns. Compliance is encouraged with any medications and follow up testing that is ordered. It is a privilege to be allowed the opportunity to participate in? your urological care.? Again, if you have any questions or concerns If you have any questions or concerns please do not hesitate to contact me. The office is [phone]. This note is constructed using voice recognition software. While every effort has been made to ensure accuracy carbon electrodes supervisor errors may have been included. Yours sincerely, SEBASTIEN Daugherty-YAMILETH Coding Level of Care Code Est Pt Level 3 (34401) Diagnoses Microscopic hematuria R31.29 Recurrent UTI (urinary tract infection) N39.0 Nephrolithiasis N20.0 Left renal atrophy N26.1 Proteinuria R80.9
--- OUTSIDE RECORDS SUMMARY | 2025-04-21 14:27 | XMS_ITS | Encounter Summary ---
Author Organization [employer] Address [address] [place] [address] Care Team Providers Care Structural Steel Equipment Erector Name Role Phone Michoacano Shirley MD Primary Care Prov ider Encounter Details Date Type Department Care Team (Latest Contact Info) Description 10/02/2018 Abstract [facility] CONVERSIONS Dental, Provider, DDS Social History [...] on filedocumented in this encounter Care Teams Structural Steel Equipment Erector Relationship Specialty Start Date End Date Michoacano Shirley MD [address] [place] [address] PCP - General Internal Medicine 01/09/20 documented as of this encounter
--- OUTSIDE RECORDS SUMMARY | 2025-04-21 14:27 | XMS_ITS | Clinical Summary ---
Author Organization [facility] Address [address] [phone] Phone Care Team Providers Care Taper Printed Circuit Layout Name Role Phone Michoacano Marin Primary Care [...] and 1 tablet in the evening. Active Cholecalciferol (Vitamin D3) 50 MCG (1999 [place]) tabletIndicatio ns:Vitamin D deficiency, not otherwise specified,Stage 3a chronic kidney disease (HCC) Take 2,000 Units by mouth 1 (one) time each day 30 tablet 11 10/29/2024 Active Empagliflozin (Jardiance) 25 MG tablet Take 25 mg by mouth 1 (one) time each day in the morning 30 tablet 5 02/23/2025 Active Active Problems Problem Noted Date Diagnosed [...] Encounters Date Type Department Care Team Description 03/20/2025 Orders Only [facility] [address] [phone] Pamella Viera ARNP Stage 3a chronic kidney disease (HCC); Essential hypertension; Proteinuria, not otherwise specified; Nephrolithiasis; Secondary hyperparathyroidism of renal origin (HCC); Vitamin D deficiency, not otherwise specified 02/18/2025 Refill [facility] [address] [phone] Tricia Matos [place] from Last 3 Months Immunizations Immunization Administration [...] Visit [facility] [address] [phone] Pamella Viera ARNP [address] [phone] Health Maintenance Due Date Last Done Comments Breast Cancer Screening 1975 Hepatitis B Vaccine (1 of 3 - 19+ 3-dose series) 1992 07/27/2022, 05/04/2022, 04/03/2022 Pneumococcal Vaccine: 50+ Ye ars (2 of 2 - PCV) 01/18/2018 01/18/2017 Diabetes: Ophthalmology Exam 11/21/2019 Diabetes: Pedal Pulse Checked 11/21/2019 Diabetes: Sensory Foot Exam 11/21/2019 Diabetes: Visual Foot Exam 11/21/2019 Colorectal Cancer Screening: Annual FOBT 2022 Colorectal Cancer Screening: Colonoscopy 2022 Colorectal Cancer Screening: Sigmoidoscopy 2022 Diabetes: Hemoglobin A1C 10/30/2024 08/01/2024, 09/0 03/2023 Influenza Vaccine (#1) 2025 , 09/23/2019, 07/10/2018, Additional history exists Pneumococcal Vaccine: Peds ( 0 to 5 Years) and At-Risk Patients (6 to 49 Years) Discontinued 01/18/2017 Insurance Medicare [facility] Medicare Care Teams Taper Printed Circuit Layout Relationship Specialty Start Date End Date Michoacano Marin [address] [place] [id number] PCP - General Internal Medicine 03/24/24
--- OUTSIDE RECORDS SUMMARY | 2025-04-21 14:27 | XMS_ITS | Clinical Summary ---
Author Organization [employer] Address [address] [facility] [address] [place] [address] Care Team Providers Care Crusher Tender Name Role Phone Michoacano Shirley MD Primary Care Prov ider Allergies Active Allergy Reactions Criticality Noted Date Comments Cortisone Rash Low 11/16/2015 Medications albuterol 108 (90 Base) MCG/ACT inhaler Inhale 2 puffs every 6 (six) hours. 10/12/19 21 Active aspirin 81 MG chewable tablet Chew 1 tablet in the morning. 05/25/20 22 Active clonazePAM (KlonoPIN) 0.5 MG tabletIndications: states dose increased by psych Take 1 tablet by mouth in the morning, at noon, and at bedtime. Active glucose blood (Accu-Chek Tamara Plus) test strip Inject 1 each under the skin in the morning. 01/28/20 21 Active haloperidol lactate (Haldol) 5 MG/ML injection inject 0.4 milliliter by intramuscular route every 8 hours as needed Active indapamide (Lozol) 1.25 MG tablet Take 1 tablet by mouth at bed time. Active haloperidol (Haldol) 5 MG tabletIndications: psych Take 5 mg by mouth. Take 1/2 tab BID, 1 tab at bedtime. Active traZODone (Desyrel) 100 MG tabletIndications: psych Take 100 mg by mouth. 1 tab PO at bedtime Active DULoxetine (Cymbalta) [address] capsuleIndications :psych Take 60 mg by mouth. 1 tab PO BID. Do not crush or chew. Active potassium citrate CR (Urocit-K-10) 10 mEq ER tabletIndications: [facility] Nephrology Take 10 mEq by mouth with breakfast, with lunch, and with evening meal. Do not crush, chew, or split. Active ARIPiprazole (Abilify) 15 MG tablet Take 15 mg by mouth in the morning. 04/11/20 Active pantoprazole (ProtoNix) 40 MG EC tablet 03/26/20 Active Linzess 145 MCG capsule Take 145 mcg by mouth in the morning. 11/25/19 Active traZODone (Desyrel) 150 MG tablet Take 150 mg by mouth if needed at bedtime. 04/11/20 Active hydrALAZINE (Apresoline) 50 MG tablet Take 1 tablet (50 mg) by mouth 3 times daily. 90 tablet 3 11/21/19 Active amLODIPine (Norvasc) 10 MG tabletIndications: Primary hypertension Take 1 tablet (10 mg) by mouth Once per day. 90 tablet 3 03/20/20 24 Active spironolactone (Aldactone) 100 MG tablet Take 1 tablet (100 mg) by mouth Once per day. 30 tablet 11 08/01/20 24 025 Active omeprazole (PriLOSEC) [address] capsule TAKE 1 CAPSULE BY MOUTH EVERY DAY BEFORE A MEAL 90 capsule 3 11/13/19 Active albuterol (2.5 MG/3ML) 0.083% nebulizer solutionIndication s:Mild intermittent asthma without complication Take 3 mL (2.5 mg) by nebulization every 4 (four) hours if needed for wheezing. 75 mL 11 11/13/19 25 026 Active losartan (Cozaar) 50 MG tablet Take 1 tablet (50 mg) by mouth Once per day. 30 tablet 02/13/20 25 026 Active dapagliflozin (Farxiga) 10 MG Take 10 mg by mouth Once per day. Active atorvastatin (Lipitor) 40 MG tabletIndications: Mixed hyperlipidemia TAKE 1 TABLET(40 MG) BY MOUTH IN THE MORNING 90 tablet 1 02/26/20 25 Active Active Problems Problem Noted Date Diagnosed [...] complication 07/04/2022 Obstructive sleep apnea syndrome 09/20/2018 Essential hypertension 07/10/2018 Assessment & Plan (02/12/2025 4:55 PM EDT): Controlled, will add losartan for renal protection, continue farxiga, hydralazine, follow up nephrology and cardiology Assessment & Plan (11/20/2024 11:28 AM EDT): [...] patient refers getting headaches related to medication Resolved Problems Problem Noted Date Diagnosed Date Resolved Date Benzodiazepine dependence, continuous 07/10/2018 02/12/2025 Encounters Date Type Department Care Team Description 03/24/2025 Orders Only [facility] External Provider, [facility] 02/25/2025 Refill [facility] [address] [place] [address] Michoacano Shirley MD Mixed hyperlipidemia 02/12/2025 2:15 PM EDT Telemedicine [facility] [address] [place] [address] Michoacano Shirley MD Essential hypertension (Primary Dx); Dietary counseling; Exercise counseling; HFrEF (heart failure with reduced ejection fraction) ([facility]); Stage 3b chronic kidney disease ([facility]) 02/12/2025 Travel from Last 3 Months Immunizations Immunization Administration Dates Next Due Hep B, adult [...] Answer Date Recorded Patient Health Questionnaire-9 Score 10 02/12/2025 Patient Health Questionnaire-9 Score 10 02/12/2025 Last PHQ-9: Questionnaire Data Not on file 0 02/12/2025 Housing Stability Answer Date Recorded What is [...] Answer Date Recorded Patient Health Questionnaire-2 Score 2 02/12/2025 Internet Access Answer Date Recorded Internet Access [...] Sign Reading Time Taken Comments Blood Pressure 135/80 02/12/2025 1:58 PM EDT Pulse 68 08/01/2024 11:00 AM EST Temperature 36 C (96.8 F) 08/01/2024 11:00 AM EST Respiratory Rate 16 08/01/2024 11:00 AM EST Oxygen Saturation 98% 06/13/2024 9:50 AM EDT Inhaled Oxygen Concentration - - Weight 63.5 kg (140 lb) 08/01/2024 11:00 AM EST Height 152.4 cm (5') 08/01/2024 11:00 AM EST Body Mass Index 27.34 08/01/2024 11:00 AM EST Plan of Treatment Health Maintenance Due Date Last Done Comments CT Colonography 1973 FIT DNA/Cologuard 1975 FIT 1975 FOBT 1975 Sigmoidoscopy 1975 Disability Screening 1975 Diabetes: Foot Exam 10/22/1983 Eye Exam 10/22/1983 Family Planning (PISQ) 1988 Pneumococcal Vaccine: 50+ Years (2 of 2 - PCV) 01/18/2018 01/18/2017 Dental Oral Exam 10/31/2023 05/01/2023, , 11/24/2016, Additional history exists Dental Prophylaxis 10/31/2023 05/01/2023, 0 05/08/2019, 10/02/2018, Additional history exists COVID-19 Vaccine ( season) 2024 05/31/2021, 05/09/2021 Dental X-Ray: Bitewings 05/02/2024 05/01/20 23, 12/09/2018, 10/02/2018, Additional history exists Diabetes: Hemoglobin A1C 01/30/2025 024, 04/27/2023, 09/23/2019 Lipid Panel 04/09/2025 04/09/2024, 09/0 03/2023, 03/28/2022, Additional history exists Influenza Vaccine (#1) 2025 , 09/23/2019, 07/10/2018, Additional history exists SDOH Screening 06/06/2025 06/06/2024 Tobacco Screening 06/06/2025 06/06/2024 Depression Monitoring 08/14/2025 02/12/2025, 025 Diabetes: Urine Protein Screening 10/28/2025 10/28/2024, 11/23/2023, 05/22/2023, Additional history exists Alcohol/Substance Use Screening 02/12/2026 02/12/2025 Dental X-Ray: Full Mouth 05/02/2026 05/01/2023, 10/2014 Mammogram 05/02/2026 05/02/2024, 090 02/2023, 04/05/2022, Additional history exists DTaP/Tdap/Td Vaccines (2 - Td or Tdap) 01/18/2027 01/18/2017 Colonoscopy 11/13/2032 11/13/2022 Colorectal Cancer Screening 11/13/2032 RSV Patients and Patients Aged 60 years [...] patient's age to complete this topic Meningococcal B Vaccine Aged Out No l onger eligible based on patient's age to complete [...] Procedure Name Priority Date/Time Associated Diagnosis Comments US RENAL COMPLETE Routine 03/24/2025 2:5 3 PM EDT POCT GLYCATED HEMOGLOBIN, TOTAL Routine 08/01/2024 11:08 [...] current use of insulin (CMS/HCC) Essential hypertension HM COLONOSCOPY Routine 11/13/2022 ZZZ HISTORICAL HIV AB/AG Routine 09/23/2019 11:31 AM EST from Last 3 Months or Most Recently Relevant to Health Maintenance Results * US Renal Complete (03/24/2025 2:53 PM EDT) Anatomical Region Laterality Modality Kidney Ultrasound 03/24/2025 2:53 PM EDT Narrative 03/24/2025 3:23 PM EDT [address] [address] Ultrasound Report Signed Patient: Marylu Liu MR#: [id number] : 1975 Acct:[id number] Age/Sex: 49 / F ADM Date: 03/24/25 Loc: HO.US Attending Dr: Adrian Hanson MD Ordering Physician: Adrian Hanson MD Date of Service: 03/24/25 Procedure(s): US renal BI Accession Number(s): [id number] cc: Adrian Hanson MD; Michoacano Shirley MD EXAMINATION: US KIDNEY BILATERAL HISTORY: N20.0 - Calculus of kidney TECHNIQUE: Real-time grayscale ultrasound imaging of the kidneys was performed and images were reviewed. COMPARISON: Comparison is made with the prior examination dated 01/31/2024. FINDINGS: Right kidney: The right kidney measures 11.2 x 5.0 x 5.0 cm. Renal parenchymal echotexture and thickness are normal. There are no masses. There are punctate echogenic foci at the upper pole suspicious for tiny calculi. There is mild fullness of the renal pelvis without hydronephrosis. Left Kidney: The left kidney measures 7.6 x 3.3 x 3.2 cm. Renal parenchymal echotexture and thickness are normal. There are no masses. There is no hydronephrosis or renal calculi. US/US renal BI IMPRESSION: 1. Probable punctate right upper pole renal calculi. No hydronephrosis. 2. Atrophic left kidney. Electronically signed by: Fermín Kapadia MD 03/24/2025 03:20 PM EDT RP Dictated By: Fermín Kapadia MD Signed By: <Electronically signed by Fermín Kapadia MD in OV> 03/24/25 1520 DD/ 1453 TD/TT: 03/24/25 1509 Head Waiter/Waitress Banquet: Procedure Note Donotuseinterpreter, Image - 03/24/2025 [place] [address] Ultrasound Report Signed Patient: Ronel Liu#: [id number] : 1975Acct:[id number] Age/Sex: 49 / FADM Date: 03/24/25 Loc: HO.US Attending Dr: Adrian Hanson MD Ordering Physician: Adrian Hanson MD Date of Service: 03/24/25 Procedure(s): US renal BI Accession Number(s): [id number] cc: Adrian Hanson MD; Michoacano Shirley MD EXAMINATION: US KIDNEY BILATERAL HISTORY: N20.0 - Calculus of kidney TECHNIQUE: Real-time grayscale ultrasound imaging of the kidneys was performed and images were reviewed. COMPARISON: Comparison is made with the prior examination dated 01/31/2024. FINDINGS: Right kidney: The right kidney measures 11.2 x 5.0 x 5.0 cm. Renal parenchymal echotexture and thickness are normal. There are no masses. There are punctate echogenic foci at the upper pole suspicious for tiny calculi. There is mild fullness of the renal pelvis without hydronephrosis. Left Kidney: The left kidney measures 7.6 x 3.3 x 3.2 cm. Renal parenchymal echotexture and thickness are normal. There are no masses. There is no hydronephrosis or renal calculi. US/US renal BI IMPRESSION: 1. Probable punctate right upper pole renal calculi. No hydronephrosis. 2. Atrophic left kidney. Electronically signed by: Fermín Kapadia MD 03/24/2025 03:20 PM EDT Dictated By: Fermín Kapadia MD Signed By: <Electronically signed by Fermín Kapadia MD in OV> 03/24/25 1520 DD/ 1453 TD/TT: 03/24/25 1509 Head Waiter/Waitress Banquet: [facility] External Provider IMG US PROCEDURES Edited Result - Final * POCT HGB A1C (08/01/2024 11:08 AM EST) Hemoglobin A1C 6.0 4.0 - 6.0 % QC Media Lot # [id number] Lot# Expiration Date ,524 Blood 08/01/2024 11:0 8 AM EST Michoacano Kincaid MD POINT OF CARE TEST ENTER/EDIT ORDERABLES Final Result * BI Mammogram Screening Tomosynthesis Bilateral (05/02/2024 10:40 AM EDT) Anatomical Region Laterality Modality Breast Bilateral Mammography 05/02/2024 10:4 0 AM EDT Narrative 05/15/2024 8:11 PM EDT [facility] [address] [place] [address] Mammography Report Signed Patient: Marylu Liu MR#: [id number] : 1975 Acct:[id number] Age/Sex: 48 / F ADM Date: 05/02/24 Loc: HO.MAMMO Attending Dr: Michoacano Kincaid MD Ordering Physician: Michoacano Shirley MD Res ults: 1Negative Date of Service: 05/02/24 Follow Up: 1 Year From Orig inal Mammogram Procedure(s): MM tomosynthesis screening BI Accession Number(s): [id number] cc: Michoacano Shirley MD EXAMINATION: MM SCREENING [...] OV> 05/15/242006 DD/ 1040 TD/TT: 05/02/24 1055 Head Waiter/Waitress Banquet: Procedure Note Donotuseinterpreter, Image - 05/15/2024 [facility] [address] [place] [address] Mammography Report Signed Patient: Ronel Liu#: [id number] : 1975Acct:[id number] Age/Sex: 48 / FADM Date: 05/02/24 Loc: HO.MAMMO Attending Dr: Michoacano Kincaid MD Ordering Physician: Michoacaon Shirley ults: 1Negative Date of Service: 05/02/24Follow Up: 1 Year From Orig inal Mammogram Procedure(s): MM tomosynthesis screening BI Accession Number(s): [id number] cc: Michoacano Shirley MD EXAMINATION: MM SCREENING [...] OV> 05/15/242006 DD/ 1040 TD/TT: 05/02/24 1055 Head Waiter/Waitress Banquet: Michoacano Kincaid MD [facility] BI PROCEDURES Edited Result - Final * (ABNORMAL) Lipid Panel, Standard (04/09/2024 11:33 AM EDT) Triglycerides 216(H) <150 mg/dL [facility] Comment:Desirable Triglyceri de: less than 150 mg/dLBorderline High Triglyceride 150-199 mg/dLHigh Triglyceride: 200-499 mg/dLVery High Triglyceride: greater than or equal to 5OO mg/dL Cholesterol 205(H) <200 mg/dL [facility] Comment:Desirable Cholestero l: less than 200 mg/dLBorderline High Cholesterol: 200-239 mg/dLHigh Cholesterol: greater than 239 mg/dL LDL Cholesterol Calculated 124(H) <100 mg/dL [facility] Comment:Desirable LDL: less than 100 mg/dLNear Optimal/Above Optimal LDL: 110- 129 mg/dLBorderline High LDL: 130-159 mg/dLHigh LDL: 160-189 mg/dLVery High LDL: greater than or equal to 190 mg/dL HDL Cholesterol 38(L) >40 mg/dL [facility] Comment:Desirable HDL: great er than 40 mg/dL Note: This HDL assay may give artificially low results in patients with liver disease. Blood Venous blood specimen / Unknown 04/09/2024 11:33 AM EDT 04/09/2024 2:09 PM EDT us Michoacano Kincaid MD LAB BLOOD ORDERABL ES Final Result [facility] [address] [place] [address] [phone] * (ABNORMAL) Albumin, Random Urine W/Creatinine (04/27/2023 10:28 AM EDT) Creatinine, Urine 155.45 mg/dL [facility] Microalbumin Urine 1,768.0 mg/L [facility] Microalbum Creatinine Ratio Ur 1,137.3(H ) <30 ug/mg cr [facility] Comment:Albumin/Creatinine R atio Reference Ranges: Normal: < 30 ug/mg creatinine Microalbuminuria: 30 - 300 ug/mg creatinineClinical Albuminuria: > 300 ug/mg creatinine 04/27/2023 10:2 8 AM EDT 04/27/2023 2:30 PM EDT Michoacano Kincaid MD LAB URINE ORDERABL ES Final Result Performing Organization Address [facility]/ZIP Co de Phone Number [facility] [address] [place] [address] [phone] * Hepatitis C Antibody with Reflex to HCV, RNA, Quantitative, Real-Time PCR (04/27/2023 10:26 AM EDT) Pathologist [facility] [place] Hepatitis C Antibody Nonreactive Nonreactive [facility] Comment:Antibodies to HCV no t detected; does not exclude early acuteHCV infection. Blood Venous blood specimen / Unknown 04/27/2023 10:26 AM EDT 04/27/2023 2:43 PM EDT Michoacano Kincaid MD LAB BLOOD ORDERABL ES Final Result Performing Organization Address City/[facility]/ZIP Co de Phone Number [facility] [address] [place] [address] [phone] * Hm Colonoscopy (11/13/2022) [facility] Colonoscopy Normal Normal Narrative Zuri Agee - 11/13/2022 Recommended 10 year follow up Cruz Gillespie MD HEALTH MAINTENANCE Final Result * HIV AB/AG (09/23/2019 11:31 AM EST) Pathologist [facility] HIV AG/AB NONREACTIVE [facility] Comment: HIV-1 p24 Ag and/or HIV-1/HIV-2 Ab not detected. A test result that is nonreactive does not exclude the possibility of exposure to or infection with HIV-1 and/or HIV-2. Nonreactive results in this assay for individuals with prior exposure to HIV-1 and/or HIV-2 may be due to antigen and antibody levels that are below the limit of detection of this assay. The [employer] Tester HIV Ag/Ab Combo assay result and supplemental assay results should be interpreted in conjunction with the patient's clinical presentation, history and other laboratory results. If the results are inconsistent with clinical evidence, additional testing is suggested to confirm the result. 09/23/2019 11:3 1 AM EST us Historical Provider HISTORICAL/NON ORDERABLE LABS Final Result [facility] [address] from Last 3 Months or Most Recently Relevant to Health Maintenance Insurance [facility] MEDICARE REPLACEMENT Care Teams Crusher Tender Relationship Specialty Start Date End Date MarinMichoacano Figueroa MD [address] [place] [phone] PCP - General Internal Medicine 01/09/20
--- OUTSIDE RECORDS SUMMARY | 2025-04-21 14:27 | XMS_ITS | Encounter Summary ---
Author Organization [employer] Address [address] [place] [address] Care Team Providers Care Order Tracer Name Role Phone Mcihoacano Shirley MD Primary Care Prov ider Encounter Details Date Type Department Care Team (Latest Contact Info) Description 05/08/2019 Abstract [facility] Dental, Provider, DDS Social History Tobacco [...] on filedocumented in this encounter Care Teams Order Tracer Relationship Specialty Start Date End Date Michoacano Shirley MD [address] [place] [address] PCP - General Internal Medicine 01/09/20 documented as of this encounter
--- OUTSIDE RECORDS SUMMARY | 2025-04-21 14:27 | XMS_ITS | Encounter Summary ---
Author Organization [employer] Address [address] [facility] 7 [place] [address] Care Team Providers Care Loan Supervisor Name Role Phone Michoacano Shirley MD Primary Care Prov ider Reason for Visit * Reason Onset Date Comments Med Refill 10/26/2023 Encounter Details Date Type Department Care Team ([facility] st Contact Info) Description 10/26/2023 Telephone [facility] [address] [place], [place] [phone] Michoacano Shirley MD [address] [place] [address] Med Refill Social History Tobacco Use Types [...] (inactive on nextgen) To be sent to: [id number] - [address] documented in this encounter Plan of Treatment Not on file documented as of this encounter Visit Diagnoses Not on filedocumented in this encounter Additional Health Concerns Assessment Noted Time PHQ-9 Depression Total Score: 1 04/10/20 23 10:51 AM EDT documented as of this encounter Care Teams Loan Supervisor Relationship Specialty Start Date End Date Michoacano Shirley MD [address] [place] [phone] PCP - General Internal Medicine 01/09/20 documented as of this encounter
--- OUTSIDE RECORDS SUMMARY | 2025-04-21 14:27 | XMS_ITS | Encounter Summary ---
Author Organization [employer] Address [address] [facility] 7 [place] [address] Care Team Providers Care Procurement Services Manager Name Role Phone Michoacano Shirley MD Primary Care Prov ider Encounter Details Date Type Department Care Team ([facility] st Contact Info) Description 05/03/2023 Orders Only [facility] [address] [place] [address] Michoacano Shirley MD [address] [place] [address] Social History Tobacco Use Types Packs/Day Years [...] documented as of this encounter Care Teams Procurement Services Manager Relationship Specialty Start Date End Date Michoacano Shirley MD [address] [place] [address] PCP - General Internal Medicine 01/09/20 documented as of this encounter
--- OUTSIDE RECORDS SUMMARY | 2025-04-21 14:27 | XMS_ITS | Encounter Summary ---
Author Organization [facility] Address [address] [facility] [address] [phone] Phone Care Team Providers Care Enroller Name Role Phone Michoacano Marin Primary Care Provider [phone] Encounter Details Date Type Department Care Team (Late st Contact Info) Description 02/28/2024 Office Communication [facility] [address] [phone] Pamella Viera ARNP [address] [phone] Social History Tobacco Use Types Packs/Day Years [...] Visit [facility] [address] [phone] Pamella Viera ARNP [address] [phone] documented as of this encounter Visit Diagnoses Not on filedocumented in this encounter Care Teams Enroller Relationship Specialty Start Date End Date Michoacano Marin [address] [place] [address] PCP - General Internal Medicine 03/24/24 documented as of this encounter
== END 2025-04-21 13:41 | disposition home or self-care (01) ==
LOC: HO.HUSH 13:06
PROVIDERS: PCP Internal Medicine; Visit Provider Nurse Practitioner Family
DX: R31.29 Other microscopic hematuria (principal); N39.0 Urinary tract infection, site not specified; N20.0 Calculus of kidney; N26.1 Atrophy of kidney (terminal); R80.9 Proteinuria, unspecified; Z13.9 Encounter for screening, unspecified
CPT/HCPCS: 99213

== ENCOUNTER 2025-04-27 10:51 | Outpatient (REF) | payer MEDICARE, MEDICAID, SELFPAY ==
--- OUTSIDE RECORDS SUMMARY | 2025-04-27 13:14 | XMS_ITS | Encounter Summary ---
Author Organization [employer] Address [address] [facility] [place] [address] Care Team Providers Care Tool Storage Attendant Name Role Phone Michoacano Shirley MD Primary Care Prov ider Encounter Details Date Type Department Care Team (Late st Contact Info) Description 04/21/2025 Orders Only GENERIC EXTERNAL DATA DEPARTMENT Provider, Generic External Data Social History Tobacco Use Types Packs/Day Years [...] is your housing situation today? I have lupecarly gomez 06/06/[address] you [...] on file documented as of this encounter Procedures Procedure Name Priority Date/Time Associated Diagnosis Comments CYTOPATH-CELL ENHANCED Routine 04/21/2025 1:24 PM EDT documented in this encounter Results * Cytopath-cell enhanced (04/21/2025 1:24 PM EDT) 04/21/2025 1:24 PM EDT 04/22/2025 9:52 AM EDT Millie [facility] - 04/22/2025 4:17 PM EDT ----- ------- Name: Marylu Liu Age/Sex: 49/F : 1975 Unit#: [id number] Attend Dr: Mehnaz Davis [facility] Re04/21/25 Status: DEP REF Location: [facility] Disch: ----- ------- SPEC : [id number] RECD: 04/22/25 STATUS: BOYD MIXON NUM: [id number] TERESA: 04/21/[address] [facility] [address]: Mehnaz Davis [facility] ENTERED: 04/22/25 SP TYPE: Cytology OTHR DR: Michoacano Shirley MD ORDERED: Cyto-enhanced Diagnosis Urine: Negative for high-grade urothelial carcinoma. Comment: Examination of a monolayer preparation slide shows scattered benign superficial squamous cells with bacteria, few benign urothelial cells, few inflammatory cells, and scattered red blood cells. Clinical History Microscopic hematuria Material Received Urine Gross Description Received is 45 cc of clear yellow fluid from which a ThinPrep slide is prepared. IHC S/NG Disclaimer NOTE: Unless otherwise stated, all tissue is formalin-fixed and paraffin-embedded. Some or all of the immunohistochemical tests reported herein may have been developed and their performance characteristics determined by [facility]. They have not been cleared or approved by the U.S. Food and Drug Administration (FDA). However, the FDA has determined that such clearance or approval is not necessary. This laboratory is certified under the Clinical Laboratory Improvement Amendments of 1988 (CLIA) as qualified to perform high complexity clinical laboratory testing. Copies To: Michoacano Shirley MD [address] [address] Mehnaz Davis [facility] [address] [place] [address] [facility] [address] [place], [place] [phone] [email or web address] CONTINUED ON NEXT PAGE ----- ------- Name: Marylu Liu Age/Sex: 49/F : 1975 Unit#: [id number] Attend Dr: Mehnaz Davis [facility] Re04/21/25 Status: DEP [facility]F [facility] Disch: ----- ------- SPEC : [id number] RECD: 04/22/25 STATUS: BOYD MIXON NUM: [id number] TERESA: 04/21/25-13[address] [facility] [address]: Mehnaz Davis [facility] ENTERED: 04/22/25-1013 SP TYPE: Cytology OTHR DR: Michoacano Shirley MD ORDERED: Cyto-enhanced ----- ------- Signed (signature on file) Alysia New 04/22/25 1617 ----- ------- END OF REPORT us Generic External Data Provider LAB CYTOLOGY PATI RIBERA Final Result [facility] [address] [place] [phone] documented in this encounter Visit Diagnoses Not on filedocumented in this encounter Additional Health Concerns Assessment Noted Time PHQ-9 Depression Total Score: 10 025 1:58 PM EDT documented as of this encounter Care Teams Tool Storage Attendant Relationship Specialty Start Date End Date Michoacano Shirley MD [address] [place] [address] PCP - General Internal Medicine 01/09/20 documented as of this encounter
--- OUTSIDE RECORDS SUMMARY | 2025-04-27 13:14 | XMS_ITS | Clinical Summary ---
Author Organization [employer] Address [address] [facility] [place] [address] Care Team Providers Care Colon Therapist Name Role Phone Michoacano Shirley MD Primary [...] citrate CR (Urocit-K-10) 10 mEq ER tabletIndications: [facility] Nephrology Take 10 mEq by mouth with [...] Encounters Date Type Department Care Team Description 04/21/2025 Orders Only GENERIC EXTERNAL DATA DEPARTMENT Provider, Generic External Data 03/24/2025 Orders Only [facility] External Provider, [facility] 02/25/2025 Refill [facility] [address] [place] [address] Michoacano Shirley MD Mixed hyperlipidemia 02/12/2025 2:15 PM EDT Telemedicine [facility] [address] [place] [address] Michoacano Shirley MD Essential hypertension (Primary Dx); Dietary counseling; Exercise counseling; HFrEF (heart failure with reduced ejection fraction) ([facility]); Stage 3b chronic kidney disease ([facility]) 02/12/2025 Travel from Last 3 Months Immunizations [...] 05/01/2023, 0 05/08/2019, 10/02/2018, Additional history exists Dental X-Ray: Bitewings 05/02/2024 05/01/20 23, 12/09/2018, 10/02/2018, Additional history exists Diabetes: Hemoglobin A1C 01/30/2025 024, 04/27/2023, 09/23/2019 Lipid Panel 04/09/2025 04/09/2024, 09/0 03/2023, 03/28/2022, Additional history exists COVID-19 Vaccine (3 - season) 2025 05/31/2021, 05/09/2021 Influenza Vaccine (#1) 2025 , 09/23/2019, 07/10/2018, [...] CYTOPATH-CELL ENHANCED Routine 04/21/2025 1:24 PM EDT US RENAL COMPLETE Routine 03/24/2025 2:5 3 [...] Recently Relevant to Health Maintenance Results * Cytopath-cell enhanced (04/21/2025 1:24 PM EDT) 04/21/2025 1:24 PM EDT 04/22/2025 9:52 AM EDT [facility] - 04/22/2025 4:17 PM EDT ----- ------- Name: Marylu Liu Age/Sex: 49/F : 1975 Unit#: [id number] Attend Dr: Mehnaz Davis [facility] Re04/21/25 Status: [facility] Disch: ----- ------- SPEC : [id number] RECD: 04/22/25-951 STATUS: BOYD ORAL NUM: [id number] TERESA: 04/21/25-1324 [facility] DR: Mehnaz Davis [facility]- ENTERED: 04/22/25-1014 SP TYPE: Cytology OTHR DR: Michoacano Shirley [...] developed and their performance characteristics determined by [facility]. They have not been cleared or approved by the U.S. Food and Drug Administration (FDA). However, the FDA has determined that such clearance or approval is not necessary. This laboratory is certified under the Clinical Laboratory Improvement Amendments of 1988 (CLIA) as qualified to perform high complexity clinical laboratory testing. Copies To: Michoacano Shirley MD [address] [address] Mehnaz Davis [facility] [address] [place] [address] [address] [place], [place] [phone] [email or web address] CONTINUED ON NEXT PAGE ----- ------- Name: Marylu Liu Age/Sex: 49/F : 1975 Unit#: [id number] Attend Dr: Mehnaz Davis [facility] Re04/21/25 Status: DEP [facility] Disch: ----- ------- SPEC : [id number] RECD: 04/22/25 STATUS: BOYD MIXON NUM: [id number] TERESA: 04/21/25-1323 [facility] DR: Mehnaz Davis [facility] ENTERED: 04/22/25-1014 SP TYPE: Cytology OTHR : Michoacano Shirley MD ORDERED: Cyto-enhanced ----- ------- Signed (signature on file) Alysia Shaq 04/22/25 1617 ----- ------- END OF REPORT us Generic External Data Provider LAB CYTOLOGY DUNIAE BACILIO Final Result Performing Organization Address City/State/[facility] Co de Phone Number [facility] [address] [place] [address] [phone] * US Renal Complete (03/24/2025 2:53 PM EDT) Anatomical Region Laterality Modality Kidney Ultrasound 03/24/2025 2:53 PM EDT Narrative 03/24/2025 3:23 PM EDT [address] [address] Ultrasound Report Signed Patient: Marylu Liu MR#: [id number] : 1975 Acct:[id number] Age/Sex: 49 / F ADM Date: 03/24/25 Loc: . Attending Dr: Adrian Hanson MD Ordering Physician: Adrian Hanson MD Date of Service: 03/24/25 Procedure(s): US renal BI Accession Number(s): [id number] cc: Adrian Hanson MD; Michoacano Shirley MD [...] 03/24/25 1520 DD/ 1453 TD/TT: 03/24/25 1509 Mine Technician: Procedure Note Donotuseinterpreter, Image - 03/24/2025 [place] [address] Ultrasound Report Signed Patient: Ronel Liu#: [id number] : 1975Acct:[id number] Age/Sex: 49 / FADM Date: 03/24/25 Loc: HO.US Attending Dr: Adrian Hanson MD Ordering Physician: Adrian Hanson MD Date of Service: 03/24/25 Procedure(s): US renal BI Accession Number(s): [id number] cc: Adrian Hanson MD; Michoacano Shirley MD [...] 03/24/25 1520 DD/ 1453 TD/TT: 03/24/25 1509 Mine Technician: [facility] External Provider IMG US PROCEDURES Edited [...] AM EDT Narrative 05/15/2024 8:11 PM EDT [facility] [place], [place] [address] Mammography Report Signed Patient: Marylu Liu MR#: [id number] : 1975 Acct:[id number] Age/Sex: 48 / F ADM Date: 05/02/24 Loc: HO.MAMMO Attending Dr: Michoacano Kincaid MD Ordering Physician: Michoacano Shirley MD Res ults: 1Negative Date of Service: 05/02/24 Follow Up: 1 Year From Orig inal Mammogram Procedure(s): MM tomosynthesis screening BI Accession Number(s): [id number] cc: Michoacano Shirley MD EXAMINATION: MM SCREENING [...] OV> 05/15/242006 DD/ 1040 TD/TT: 05/02/24 1055 Mine Technician: Procedure Note Donotuseinterpreter, Image - 05/15/2024 [facility] [address] [place] [address] Mammography Report Signed Patient: Sundar LiuaMR#: [id number] : 1975Acct:[id number] Age/Sex: 48 / FADM Date: 05/02/24 Loc: HO.MAMMO Attending Dr: Michoacano Kincaid MD Ordering Physician: Michoacano Shirley ults: 1Negative Date of Service: 05/02/24Follow Up: 1 Year From Orig ina Mammogram Procedure(s): MM tomosynthesis screening BI Accession Number(s): [id number] cc: Michoacano Shirley MD EXAMINATION: MM SCREENING [...] OV> 05/15/242006 DD/ 1040 TD/TT: 05/02/24 1055 Mine Technician: Michoacano Kincaid MD [facility] PROCEDURES Edited Result - Final * (ABNORMAL) Lipid Panel, Standard (04/09/2024 11:33 AM EDT) Triglycerides 216(H) <150 mg/dL [facility] Comment:Desirable Triglyceri de: less than 150 mg/dLBorderline High Triglyceride 150-199 mg/dLHigh Triglyceride: 200-499 mg/dLVery High Triglyceride: greater than or equal to 5OO mg/dL Cholesterol 205(H) <200 mg/dL [facility] Comment:Desirable Cholestero l: less than 200 mg/dLBorderline High Cholesterol: 200-239 mg/dLHigh Cholesterol: greater than 239 mg/dL LDL Cholesterol Calculated 124(H) <100 mg/dL [facility] Comment:Desirable LDL: less than 100 mg/dLNear Optimal/Above Optimal LDL: 110- 129 mg/dLBorderline High LDL: 130-159 mg/dLHigh LDL: 160-189 mg/dLVery High LDL: greater than or equal to 190 mg/dL HDL Cholesterol 38(L) >40 mg/dL [facility] Comment:Desirable HDL: great er than 40 mg/dL Note: This HDL assay may give artificially low results in patients with liver disease. Blood Venous blood specimen / Unknown 04/09/2024 11:33 AM EDT 04/09/2024 2:09 PM EDT us Michoacano Kincaid MD LAB BLOOD ORDERABL ES Final Result Performing Organization Address [facility] de Phone Number [facility] [address] [place] [phone] * (ABNORMAL) Albumin, Random Urine W/Creatinine (04/27/2023 10:28 AM EDT) Creatinine, Urine 155.45 mg/dL [facility] Microalbumin Urine 1,768.0 mg/L [facility] Microalbum Creatinine Ratio Ur 1,137.3(H ) <30 ug/mg cr [facility] Comment:Albumin/Creatinine R atio Reference Ranges: Normal: < 30 ug/mg creatinine Microalbuminuria: 30 - 300 ug/mg creatinineClinical Albuminuria: > 300 ug/mg creatinine 04/27/2023 10:2 8 AM EDT 04/27/2023 2:30 PM EDT us Michoacano Kincaid MD LAB URINE ORDERABL ES Final Result Performing Organization Address [facility] Co de Phone Number [facility] [address] [place] [phone] * Hepatitis C Antibody with Reflex to HCV, RNA, Quantitative, Real-Time PCR (04/27/2023 10:26 AM EDT) [facility] Hepatitis C Antibody Nonreactive Nonreactive [facility] Comment:Antibodies to HCV no t detected; does not exclude early acuteHCV infection. Blood Venous blood specimen / Unknown 04/27/2023 10:26 AM EDT 04/27/2023 2:43 PM EDT Michoacano Kincaid MD LAB BLOOD ORDERABL ES Final Result Performing Organization Address City/[facility]/ZIP Co de Phone Number [facility] [address] [place] [phone] * Hm Colonoscopy (11/13/2022) [facility] Colonoscopy Normal Normal Narrative Zuri Agee - 11/13/2022 Recommended 10 year follow up Result [facility] Cruz Gillespie MD HEALTH MAINTENANCE Final Result * HIV AB/AG (09/23/2019 11:31 AM EST) [facility] HIV AG/AB NONREACTIVE NR FOUNDATI ON LAB [...] of detection of this assay. The [employer] Machine Operator HIV Ag/Ab Combo assay result and supplemental assay results should be interpreted in conjunction with the patient's clinical presentation, history and other laboratory results. If the results are inconsistent with clinical evidence, additional testing is suggested to confirm the result. 09/23/2019 11:3 1 AM EST Result [facility] Cruz Gillespie MD HISTORICAL/NON ORDERABLE LABS Final Result Performing Organization Address City/[facility]/ZIP Co de Phone Number [facility] [address] [place] [address], from Last 3 Months or Most Recently Relevant to Health Maintenance Insurance [facility] MEDICARE REPLACEMENT Care Teams Colon Therapist Relationship Specialty Start Date End Date Michoacano Shirley MD [address] [place] [phone] PCP - General Internal Medicine 01/09/20
--- OUTSIDE RECORDS SUMMARY | 2025-04-27 13:14 | XMS_ITS | Encounter Summary ---
Author Organization [employer] Address [address] [facility] 7 [place] [address] Care Team Providers Care Urologist Md Name Role Phone Michoacano Shirley MD Primary Care Prov ider Encounter Details Date Type Department Care Team ([facility] st Contact Info) Description 05/03/2023 Orders Only [facility] P[facility]S [address] [place] [address] Michoacano Shirley MD [address] [place] [address] Social History Tobacco Use Types Packs/Day Years [...] documented as of this encounter Care Teams Urologist Md Relationship Specialty Start Date End Date Michoacano Shirley MD [address] [place] [address] PCP - General Internal Medicine 01/09/20 documented as of this encounter
--- OUTSIDE RECORDS SUMMARY | 2025-04-27 13:14 | XMS_ITS | Encounter Summary ---
Author Organization [facility] Address [address] [facility] [address] [phone] Phone Care Team Providers Care Section Hand Helper Name Role Phone Michoacano Marin Primary Care Provider + [phone] Encounter Details Date Type Department Care Team (Late st Contact Info) Description 02/28/2024 Office Communication [facility] [address] [phone] Pamella Viera ARNP [address] [phone] Social History Tobacco Use Types Packs/Day Years [...] Visit [facility] [address] [phone] Pamella Viera ARNP [address] [phone] documented as of this encounter Visit Diagnoses Not on filedocumented in this encounter Care Teams Section Hand Helper Relationship Specialty Start Date End Date Michoacano Marin [address] [place] [address] PCP - General Internal Medicine 03/24/24 documented as of this encounter
--- OUTSIDE RECORDS SUMMARY | 2025-04-27 13:14 | XMS_ITS | Encounter Summary ---
Author Organization [employer] Address [address] [facility] 7 [place] [address] Care Team Providers Care Poultryman Name Role Phone Michoacano Shirley MD Primary Care Prov ider Reason for Visit * Reason Onset Date Comments Med Refill 10/26/2023 Encounter Details Date Type Department Care Team ([facility] st Contact Info) Description 10/26/2023 Telephone [facility] [address] [place], [place] [phone] Michoacano Shirley MD [address] [place] [address] Med Refill Social History Tobacco Use Types [...] (inactive on nextgen) To be sent to: [id number] - [address] documented in this encounter Plan of Treatment Not on file documented as of this encounter Visit Diagnoses Not on filedocumented in this encounter Additional Health Concerns Assessment Noted Time PHQ-9 Depression Total Score: 1 04/10/20 23 10:51 AM EDT documented as of this encounter Care Teams Poultryman Relationship Specialty Start Date End Date Michoacano Shirley MD [address] [place] [phone] PCP - General Internal Medicine 01/09/20 documented as of this encounter
--- OUTSIDE RECORDS SUMMARY | 2025-04-27 13:14 | XMS_ITS | Encounter Summary ---
Author Organization [employer] Address [address] [facility] [address] [place] [address] Care Team Providers Care Clinical Application Consultant Name Role Phone Michoacano Shirley MD Primary Care Prov ider Encounter Details Date Type Department Care Team (Latest Contact Info) Description 10/02/2018 Abstract [facility] CONVERSIONS Dental, Provider, DDS Social [...] on filedocumented in this encounter Care Teams Clinical Application Consultant Relationship Specialty Start Date End Date Michoacano Shirley MD [address] [place] [address] PCP - General Internal Medicine 01/09/20 documented as of this encounter
--- OUTSIDE RECORDS SUMMARY | 2025-04-27 13:14 | XMS_ITS | Clinical Summary ---
Author Organization [facility] Address [address] [phone] Phone Care Team Providers Care Advanced Practice Provider Name Role Phone Michoacano Marin Primary Care [...] Orders Only [facility] [address] [phone] Pamella Viera ARNP Stage 3a chronic kidney disease (HCC); Essential hypertension; Proteinuria, not otherwise specified; Nephrolithiasis; Secondary hyperparathyroidism of renal origin (HCC); Vitamin D deficiency, not otherwise specified 02/18/2025 Refill [facility] P. [address] [phone] Tricia Matos [place] from Last 3 Months [...] Visit [facility] [place] [facility] [address] [phone] Pamella Viera ARNP [address] [phone] Health Maintenance Due Date Last Done Comments [...] to 49 Years) Discontinued 01/18/2017 Insurance Medicare [facility] Medicare Care Teams Advanced Practice Provider Relationship Specialty Start Date End Date Michoacano Marin [address] [place] [phone] PCP - General Internal Medicine 03/24/24
--- OUTSIDE RECORDS SUMMARY | 2025-04-27 13:14 | XMS_ITS | Encounter Summary ---
Author Organization [employer] Address [address] [facility] [address] [place] [address] Care Team Providers Care Training Associate Name Role Phone Michoacano Shirley MD Primary Care Prov ider Encounter Details Date Type Department Care Team (Latest Contact Info) Description 05/08/2019 Abstract [facility] CONVERSIONS Dental, Provider, DDS Social History Tobacco [...] on filedocumented in this encounter Care Teams Training Associate Relationship Specialty Start Date End Date Michoacano Shirley MD [address] [place] [address] PCP - General Internal Medicine 01/09/20 documented as of this encounter
[2025-04-27 15:23] LABS: Hematocrit 37.7 % (37.0-47.0); Hemoglobin 12.7 g/dl (12.0-16.0); Mean Corpuscular HGB Conc 33.7 g/dl (31.0-35.0); Mean Corpuscular Hemoglobin 29.6 pg (27.0-33.0); Mean Corpuscular Volume 87.9 fL (80.0-98.0); NRBC Abs Auto 0.000 X10*3/uL (0.0-0.012); NRBC Pct Auto 0.0 /100WBC (0.0-0.2); Platelet Count 282 X10*3/uL (160-400); Red Blood Count 4.29 X10*6/uL (4.20-5.50); White Blood Count 5.6 X10*3/uL (4.8-10.8)
[2025-04-27 15:53] LABS: Anion Gap 12 (12-20); Blood Urea Nitrogen 29 mg/dL (9-16); Calcium 9.2 mg/dL (8.4-10.2); Carbon Dioxide 28 mmol/L (22-29); Chloride 107 mmol/L (96-108); Estimated Glomerular Filt Rate 36; Potassium 4.8 mmol/L (3.3-5.1); Sodium 142 mmol/L (135-145)
[2025-04-27 16:03] LABS: Parathyroid Hormone Intact 90.5 pg/mL (8.7-77.1)
[2025-04-27 16:11] LABS: Protein/Creatinine Ratio, Ur 1.79 (<0.2); Total Protein Urine Random 178 mg/dL (<12)
[2025-04-27 16:17] LABS: Microalbum/Creatinine Ratio Ur 1129.9 ug/mg cr (<30)
== END 2025-04-27 10:52 | disposition home or self-care (01) ==
LOC: HO.CHCLDS 10:51
PROVIDERS: PCP Internal Medicine; Visit Provider Internal Medicine Nephrology
DX: I12.9 Hypertensive chronic kidney disease with stage 1 through stage 4 chronic kidney disease, or unspecified chronic kidney disease (principal); N18.31 Chronic kidney disease, stage 3a; R80.9 Proteinuria, unspecified; N25.81 Secondary hyperparathyroidism of renal origin; N20.0 Calculus of kidney; E55.9 Vitamin D deficiency, unspecified
CPT/HCPCS: 36415; 80051; 82043; 82310; 82565; 82570; 83970; 84100; 84156; 84520; 85027

== ENCOUNTER 2025-06-11 14:15 | Outpatient (AMB) | payer MEDICARE, MEDICAID, SELFPAY ==
--- NOTE | 2025-06-11 14:37 | MHC.OFFVIS ---
Vital Signs 06/11/25 14:38 Height 5 ft Weight 145 lb 8.081 oz BMI 28.4 BP 134/80 Blood Pressure Location Lt brachial Position Sitting Pulse 80 Intake Visit Reasons: 6m follow up Intake Note: 6 month follow-up feeling good Veneer Drier Tailer Required: Yes Veneer Drier Tailer Services: Veneer Drier Tailer Present Veneer Drier Tailer Name: fernando Bocanegra Allergies hydrocortisone (From CORTIZONE-10) Allergy (Unknown, Verified 04/21/25 13:37) UNKNOWN Medication List - Last Reconciled 06/11/25 by Andrei Phelps MD alcohol swabs (Alcohol Prep Pads) pad topical DAILY allopurinol 100 mg PO DAILY 90 days aripiprazole 30 mg PO DAILY aspirin 1 tab PO DAILY atorvastatin 40 mg PO DAILY blood sugar diagnostic (Accu-Chek Tamara Plus test strips) As directed carvedilol 12.5 mg PO BID duloxetine 40 mg PO DAILY empagliflozin (Jardiance) 25 mg PO QAM hydralazine 50 mg PO BID omeprazole 20 mg PO DAILY trazodone 100 mg PO BEDTIME HPI Comments Details: Marylu comes for follow-up. History was obtained with help of peripheral equipment operator over the telephone. Patient says she gets short of breath with doing her routine activity like see being floor are going up a flight of stairs. She denies any orthopnea, PND, leg edema. Taking all her medications religiously. Blood pressures been generally well controlled. She has overall feeling well. She does not exercise on a routine basis. [facility] Medical History Chronic idiopathic constipation GREG (obstructive sleep apnea) GERD (gastroesophageal reflux disease) Diabetes Kidney stones Medullary sponge kidney Elevated cholesterol HTN (hypertension) Fibromyalgia Depression Surgical History Hx of colonoscopy Hx of hysterectomy Hx of cholecystectomy History of lithotripsy Social History Are you a primary childcare teacher to a significant other at home: No Do you presently have visiting nurse or other home services: No Alcohol intake: never Patient Tobacco Use Status: Former Tobacco user Tobacco use type: Cigarette Review of Systems Const Denies chills, Denies fatigue, Denies fever(s), Denies frequent falls, Denies weakness, Denies weight gain and Denies weight loss ENT Denies dizziness Card Denies chest pain, Denies leg edema, Denies lightheadedness, Denies palpitations, Denies dyspnea, Denies dyspnea on exertion, Denies orthopnea and Denies other (loss of consciousness) Resp Denies cough, Denies dyspnea and Denies dyspnea on exertion GI Denies hematochezia and Denies change in stool character Musc Denies abnormal gait, Denies muscle weakness, Denies numbness, Denies radiating pain into limb and Denies tingling Neuro Denies abnormal gait, Denies dizziness, Denies frequent falls, Denies numbness, Denies tingling and Denies weakness Endo Denies fatigue and Denies palpitations Physical Exam Vital Signs: Last Vital Signs Pulse 80 06/11/25 14:38 BP 134/80 06/11/25 14:38 BMI result Body Mass Index 28.4 Const General: cooperative, healthy appearing, comfortable and no acute distress Orientation/consciousness: patient oriented x3 Neck Neck: Yes normal visual inspection Resp Effort & Inspection: normal respiratory effort Auscultation: clear to auscultation bilaterally, no rales, no rhonchi and no wheezes Cardio Rate: regular rate Rhythm: regular rhythm Heart sounds: S1 normal heart sound present, S2 normal heart sound present, no murmurs and no rubs Neuro General: patient oriented x3 Extrem General: Yes normal to inspection, No no pedal edema and No calf tenderness Psych Appearance: grossly normal Mental Status: mental status grossly normal Speech and movement: Normal speech and movement present Assessment & Plan Assessment & Plan (1) Cardiomyopathy: Code(s): I42.9 - Cardiomyopathy, unspecified Category: Medical Plan: Cardiomyopathy with near normal LV ejection fraction medical therapy and controlling of blood pressure. Continue neurohormonal modulation with carvedilol. Continue vasodilators therapy with hydralazine. Also on Jardiance for sugar control. Importance of medical therapy was discussed. Continue to pursue treatment for sleep apnea. Her exertional shortness of breath appears more likely related to deconditioning then any heart issues at this point time. Encouraged to increase activity level gradually as tolerated. Participate in regular aerobic training. She understands agrees. Avoidance of cardiotoxic agent was discussed. Advised to continue monitor blood pressure at home maintain a log. Goal blood pressure less than 130/84. Low-salt diet was discussed. Signs and symptoms of heart failure were discussed. Follow up in the clinic in 6 months time after an echocardiogram. Thank you for allowing me to partake in her care Orders: Orders CA echo transthoracic complete 6 Months I42.9 - Cardiomyopathy, unspecified Coding Level of Care Code Est Pt Level 4 (59390) Complex EM visit Add On G2211 Diagnoses Cardiomyopathy I42.9
[2025-06-11 14:38] VITALS: BP 134/80; PULSE 80; BMI 28.4
--- OUTSIDE RECORDS SUMMARY | 2025-06-11 18:08 | XMS_ITS | Clinical Summary ---
Author Organization [employer] Address [address] [place] [address] Care Team Providers Care Tailings Dam Pumper Name Role Phone Michoacano Shirley MD Primary [...] citrate CR (Urocit-K-10) 10 mEq ER tabletIndications: [facility] [place] Take 10 mEq [...] 3 times daily. 90 tablet 3 11/21/19 24 Active amLODIPine (Norvasc) 10 MG tabletIndications: Primary [...] Diagnosed Date Stage 3b chronic kidney disease (CMS/HCC) 2023 Assessment & Plan (03/20/2024 9:14 AM EDT): [...] Date Diagnosed Date Resolved Date Benzodiazepine dependence, c ontinuous ([facility]) 07/10/2018 02/12/2025 Encounters Date Type Department Care Team Description 04/27/2025 Orders Only GENERIC EXTERNAL DATA DEPARTMENT Provider, Generic External Data 04/21/2025 Orders Only GENERIC EXTERNAL DATA DEPARTMENT Provider, Generic External Data 03/24/2025 Orders Only [facility] External Provider, [facility] from Last 3 Months Immunizations Immunization Administration [...] 05/01/20 23, 12/09/2018, 10/02/2018, Additional history exists Tobacco Screening 08/28/2024 08/28/2023 Diabetes: Hemoglobin A1C 01/30/2025 024, 04/27/2023, 09/23/2019 Lipid Panel 04/09/2025 04/09/2024, 09/0 03/2023, 03/28/2022, Additional history exists COVID-19 Vaccine ( season) 2025 05/31/2021, 05/09/2021 Influenza Vaccine (#1) 2025 , 09/23/2019, 07/10/2018, Additional history exists SDOH Screening 06/06/2025 06/06/2024 Depression Monitoring 08/14/2025 02/12/2025, 025 Alcohol/Substance Use Screening 02/12/2026 02/12/2025 Diabetes: Urine Protein Screening 04/27/2026 04/27/2025, 04/27/2025, 10/28/2024, Additional history exists Dental X-Ray: Full Mouth 05/02/2026 05/01/2023, 10/2014 [...] Procedure Name Priority Date/Time Associated Diagnosis Comments PROTEIN CREATININE RATIO, URINE Routine 04/27/2025 11:00 AM EDT ALBUMIN, RANDOM URINE W/CREATININE Routine 04/27/2025 11:00 AM EDT PTH, INTACT WITHOUT CALCIUM Routine 04/27/2025 10:57 AM EDT PHOSPHATE ( PHOSPHORUS) Routine 04/27/2025 10:57 AM EDT CALCIUM Routine 04/27/2025 10:57 AM EDT CREATININE, SERUM Routine 04/27/2025 10: 57 AM EDT UREA NITROGEN (BUN) Routine 04/27/2025 1 0:57 AM EDT ELECTROLYTE PANEL Routine 04/27/2025 10: 57 AM EDT CBC Routine 04/27/2025 10:57 AM EDT CYTOPATH-CELL ENHANCED Routine 04/21/2025 1:24 PM EDT [...] ESTABLISHED PATIENT Routine 05/01/2023 1:00 PM EDT HEPATITIS C AB W/REFL TO HCV RNA, QN, PCR Routine 04/27/2023 10:26 AM EDT Type 2 diabetes mellitus without complication, without long-term current use of insulin (CMS/HCC) Essential hypertension HM COLONOSCOPY Routine 11/13/2022 RONALD HISTORICAL HIV AB/AG Routine 09/23/2019 11:31 AM EST from Last 3 Months or Most Recently Relevant to Health Maintenance Results * (ABNORMAL) Protein Creatinine Ratio, Urine (04/27/2025 11:00 AM EDT) Protein, Total, Random Urine 178(H) <12 mg/dL [facility] Protein/Creati nine Ratio, Ur 1.79(H) <0.2 [facility] Comment:The spot urine prote in:creatinine ratio may increase to 0.3during normal . 04/27/2025 11:0 0 AM EDT 04/27/2025 2:55 PM EDT us Generic External Data Provider LAB URINE ORDERAB LES Final Result Performing Organization Address [facility] de Phone Number [facility] [address] [place] [phone] * (ABNORMAL) Albumin, Random Urine W/Creatinine (04/27/2025 11:00 AM EDT) Creatinine, Urine 99.47 mg/dL [facility] Microalbumin Urine 1,124.0 mg/L [facility] Microalbum Creatinine Ratio Ur 1,129.9(H ) <30 ug/mg cr [facility] Comment:Albumin/Creatinine R atio Reference Ranges: Normal: < 30 ug/mg creatinine Microalbuminuria: 30 - 300 ug/mg creatinineClinical Albuminuria: > 300 ug/mg creatinine 04/27/2025 11:0 0 AM EDT 04/27/2025 2:55 PM EDT us Generic External Data Provider LAB URINE ORDERAB LES Final Result Performing Organization Address [facility] [[email or web address]] Co de Phone Number [facility] [address] [place] [phone] * (ABNORMAL) Creatinine, Serum (04/27/2025 10:57 AM EDT) Creatinine, Serum 1.54(H) 0.5 - 1.4 mg/dL [facility] Estimated Glomerular Filt Rate 36 [facility] Comment:Chronic Kidney Disea se: Estimated GFR < 60 mL/min/1.01w8Jidkni Kidney Disease: Estimated GFR < 15 mL/min/1.73m2 04/27/2025 10:5 7 AM EDT 04/27/2025 2:52 PM EDT us Generic External Data Provider LAB BLOOD ORDERAB LES Final Result Performing Organization Address City/State/[facility] [[email or web address]] Co de Phone Number [facility] [address] [place] [address] [phone] * CBC (04/27/2025 10:57 AM EDT) White Blood Count 5.6 4.8 - 10.8 X10*3/uL [facility] Red Blood Count 4.29 4.20 - 5.50 X10*6/uL [facility] Hemoglobin 12.7 12.0 - 16.0 g/dl [facility] Hematocrit 37.7 37.0 - 47.0 % [facility] Mean Corpuscular Volume 87.9 80.0 - 98.0 fL [facility] Mean Corpuscular Hemoglobin 29.6 27.0 - 33.0 pg [facility] Mean Corpuscular HGB Conc 33.7 31.0 - 35.0 g/dl [facility] Red Cell Distribution Width 12.3 11.0 - 16.0 % [facility] Platelet Count 282 160 - 400 X10*3/uL [facility] Mean Platelet Volume 10.3 9.4 - 12.3 fL [facility] NRBC Pct Auto 0.0 0.0 - 0.2 /100WBC [facility] NRBC Abs Auto 0.000 0.0 - 0.012 X10*3/uL [facility] 04/27/2025 10:5 7 AM EDT 04/27/2025 2:52 PM EDT Generic External Data Provider LAB BLOOD ORDERAB LES Final Result Performing Organization Address [facility] [[email or web address]] Co de Phone Number [facility] [address] [place] [address] [phone] * (ABNORMAL) BUN (Blood Urea Nitrogen) (04/27/2025 10:57 AM EDT) Urea Nitrogen (BUN) 29(H) 9 - 16 mg/dL [facility] 04/27/2025 10:5 7 AM EDT 04/27/2025 2:52 PM EDT Generic External Data Provider LAB BLOOD ORDERAB LES Final Result Performing Organization Address [facility] de Phone Number [facility] [address] [place] [address] [phone] * Phosphate (As Phosphorus) (04/27/2025 10:57 AM EDT) Phosphorus 3.4 2.7 - 4.5 mg/dL [facility] 04/27/2025 10:5 7 AM EDT 04/27/2025 2:52 PM EDT Generic External Data Provider LAB BLOOD ORDERAB LES Final Result Performing Organization Address [facility] de Phone Number [facility] [address] [place] [address] [phone] * (ABNORMAL) PTH, Intact Without Calcium (04/27/2025 10:57 AM EDT) Parathyroid Hormone, Intact 90.5(H) 8.7 - 77.1 pg/mL [facility] 04/27/2025 10:5 7 AM EDT 04/27/2025 2:52 PM EDT Generic External Data Provider LAB BLOOD ORDERAB LES Final Result Performing Organization Address [facility] [[email or web address]] Co de Phone Number [facility] [address] [place] [address] [phone] * Calcium (04/27/2025 10:57 AM EDT) Calcium 9.2 8.4 - 10.2 mg/dL [facility] 04/27/2025 10:5 7 AM EDT 04/27/2025 2:52 PM EDT Generic External Data Provider LAB BLOOD ORDERAB LES Final Result Performing Organization Address [facility] Phone Number [facility] [address] [place] [address] [phone] * Electrolyte Panel (04/27/2025 10:57 AM EDT) Sodium 142 135 - 145 mmol/L [facility] Potassium 4.8 3.3 - 5.1 mmol/L [facility] Chloride 107 96 - 108 mmol/L [facility] Carbon Dioxide 28 22 - 29 mmol/L [facility] Anion Gap 12 12 - 20 [facility] 04/27/2025 10:5 7 AM EDT 04/27/2025 2:52 PM EDT Generic External Data Provider LAB BLOOD ORDERAB LES Final Result Performing Organization Address [facility] [[email or web address]] Co de Phone Number [facility] [address] [place] [address] [phone] * Cytopath-cell enhanced (04/21/2025 1:24 PM EDT) 04/21/2025 1:24 PM EDT 04/22/2025 9:52 AM EDT Narrative [facility] - 04/22/2025 4:17 PM EDT ----- ------- Name: Marylu Liu Age/Sex: 49/F : 1975 Unit#: [id number] Attend Dr: Mehnaz Davis [facility] Re04/21/25 Status: DEP REF Location: [facility] Disch: ----- ------- SPEC : [id number] RECD: 04/22/25 STATUS: BOYD MIXON NUM: [id number] TERESA: 04/21/25-[address] [facility] [address]: Mehnaz Davis [facility] ENTERED: 04/22/25-1014 SP TYPE: Cytology OT DR: Michoacano Shirley MD ORDERED: Cyto-enhanced Diagnosis [...] developed and their performance characteristics determined by [facility]. They have not been cleared or approved by the U.S. Food and Drug Administration (FDA). However, the FDA has determined that such clearance or approval is not necessary. This laboratory is certified under the Clinical Laboratory Improvement Amendments of 1988 (CLIA) as qualified to perform high complexity clinical laboratory testing. Copies To: Michoacano Shirley MD [address] [id number] Mehnaz Davis [facility] [address] [place] [address] [place] [address] [email or web address] CONTINUED ON NEXT PAGE ----- ------- Name: Marylu Liu Age/Sex: 49/F : 1975 Unit#: [id number] Attend Dr: Mehnaz Davis [facility] Re04/21/25 Status: DEP REF Location: .LAB Disch: ----- ------- SPEC : [id number] RECD: 04/22/25 STATUS: BOYD MIXON NUM: [id number] TERESA: 04/21/25-[address] [facility] [address]: Mehnaz Davis [facility] ENTERED: 04/22/25-101 SP TYPE: Cytology OTHR : Michoacano Shirley MD ORDERED: Cyto-enhanced ----- ------- Signed (signature on file) Alysia New 04/22/25 1617 ----- ------- END OF REPORT us Generic External Data Provider LAB CYTOLOGY ORDE RABNANCY Final Result Performing Organization Address City/State/[facility] [[email or web address]] Co de Phone Number [facility] [address] [place] [phone] * US Renal Complete (03/24/2025 2:53 PM EDT) Anatomical Region Laterality Modality Kidney Ultrasound 03/24/2025 2:53 PM EDT Narrative 03/24/2025 3:23 PM EDT [address] [address] Ultrasound Report Signed Patient: Marylu Liu MR#: [id number] : 1975 Acct:[id number] Age/Sex: 49 / F ADM Date: 03/24/25 Loc: HO.US Attending Dr: Adrian Hanson MD Ordering Physician: Adrian Hanson MD Date of Service: 03/24/25 Procedure(s): US renal BI Accession Number(s): [id number] cc: Adrian Hanson MD; Michoacano Shirley MD [...] 03/24/25 1520 DD/ 1453 TD/TT: 03/24/25 1509 Launch Engineer: Procedure Note Donotuseinterpreter, Image - 03/24/2025 [place] [address] Ultrasound Report Signed Patient: Ronel Liu#: [id number] : 1975Acct:[id number] Age/Sex: 49 / FADM Date: 03/24/25 Loc: HO.US Attending Dr: Adrian Hanson MD Ordering Physician: Adrian Hanson MD Date of Service: 03/24/25 Procedure(s): US renal BI Accession Number(s): [id number] cc: Adrian Hanson MD; Michoacano Shirley MD [...] 03/24/25 1520 DD/ 1453 TD/TT: 03/24/25 1509 Launch Engineer: [facility] External Provider IMG US PROCEDURES Edited Result - Final * POCT HGB A1C (08/01/2024 11:08 AM EST) Hemoglobin A1C 6.0 4.0 - 6.0 % QC Media Lot # [id number] Lot# Expiration Date 8, Blood 08/01/2024 11:0 8 AM EST Michoacano Kincaid MD POINT OF CARE TEST ENTER/EDIT ORDERABLES Final Result * BI Mammogram Screening Tomosynthesis Bilateral (05/02/2024 10:40 AM EDT) Anatomical Region Laterality Modality Breast Bilateral Mammography 05/02/2024 10:4 0 AM EDT Narrative 05/15/2024 8:11 PM EDT [facility] [address] [place] [address] Mammography Report Signed Patient: Marylu Liu MR#: [id number] : 1975 Acct:[id number] Age/Sex: 48 / F ADM Date: 05/02/24 Loc: HO.MAMMO Attending Dr: Michoacano Kincaid MD Ordering Physician: Michoacano Shirley MD Res ults: 1Negative Date of Service: 05/02/24 Follow Up: 1 Year From Orig inal Mammogram Procedure(s): MM tomosynthesis screening BI Accession Number(s): [id number] cc: Michoacano Shirley MD EXAMINATION: MM SCREENING [...] OV> 05/15/242006 DD/ 1040 TD/TT: 05/02/24 1055 Launch Engineer: Procedure Note Donotuseinterpreter, Image - 05/15/2024 [facility] [address] [place] [address] Dr. Obando, DESIRAE [address] Mammography Report Signed Patient: Sundar LiuaMR#: [id number] : 1975Acct:[id number] Age/Sex: 48 / FADM Date: 05/02/24 Loc: HO.MAMMO Attending Dr: Michoacano Kincaid MD Ordering Physician: Michoacano Shirley ults: 1Negative Date of Service: 05/02/24Follow Up: 1 Year From Orig inal Mammogram Procedure(s): MM tomosynthesis screening BI Accession Number(s): [id number] cc: Michoacano Shirley MD EXAMINATION: MM SCREENING [...] OV> 05/15/242006 DD/ 1040 TD/TT: 05/02/24 1055 Launch Engineer: Michoacano Kincaid MD [facility] PROCEDURES Edited Result - Final * (ABNORMAL) Lipid Panel, Standard (04/09/2024 11:33 AM EDT) Triglycerides 216(H) <150 mg/dL [facility] Comment:Desirable Triglyceri de: less than 150 mg/dLBorderline High Triglyceride 150-199 mg/dLHigh Triglyceride: 200-499 mg/dLVery High Triglyceride: greater than or equal to 5OO mg/dL Cholesterol 205(H) <200 mg/dL [facility] Comment:Desirable Cholestero l: less than 200 mg/dLBorderline High Cholesterol: 200-239 mg/dLHigh Cholesterol: greater than 239 mg/dL LDL Cholesterol Calculated 124(H) <100 mg/dL [facility] Comment:Desirable LDL: less than 100 mg/dLNear Optimal/Above Optimal LDL: 110- 129 mg/dLBorderline High LDL: 130-159 mg/dLHigh LDL: 160-189 mg/dLVery High LDL: greater than or equal to 190 mg/dL HDL Cholesterol 38(L) >40 mg/dL [facility] Comment:Desirable HDL: great er than 40 mg/dL Note: This HDL assay may give artificially low results in patients with liver disease. Blood Venous blood specimen / Unknown 04/09/2024 11:33 AM EDT 04/09/2024 2:09 PM EDT Michoacano Kincaid MD LAB BLOOD ORDERABL ES Final Result Performing Organization Address [facility] [[email or web address]] Co de Phone Number [facility] [address] [place] [phone] * Hepatitis C Antibody with Reflex to HCV, RNA, Quantitative, Real-Time PCR (04/27/2023 10:26 AM EDT) Hepatitis C Antibody Nonreactive Nonreactive [facility] Comment:Antibodies to HCV no t detected; does not exclude early acuteHCV infection. Blood Venous blood specimen / Unknown 04/27/2023 10:26 AM EDT 04/27/2023 2:43 PM EDT Michoacano Kincaid MD LAB BLOOD ORDERABL ES Final Result Performing Organization Address City/[facility]/ZIP Co de Phone Number [facility] [address] [place] [phone] * Hm Colonoscopy (11/13/2022) Colonoscopy Normal Normal Narrative Zuri Agee - 11/13/2022 Recommended 10 year follow up Cruz Provider HEALTH MAINTENANCE Final Result * HIV AB/AG [...] of detection of this assay. [employer] HIV Ag/Ab Combo assay result and supplemental assay results should be interpreted in conjunction with the patient's clinical presentation, history and other laboratory results. If the results are inconsistent with clinical evidence, additional testing is suggested to confirm the result. 09/23/2019 11:3 1 AM EST us Historical Provider HISTORICAL/NON ORDERABLE LABS Final Result [facility] [address] from Last 3 Months or Most Recently Relevant to Health Maintenance Insurance [facility] MEDICARE REPLACEMENT Care Teams Tailings Dam Pumper Relationship Specialty Start Date End Date Michoacano Shirley MD [address] [place] [phone] PCP - General Internal Medicine 01/09/20
--- OUTSIDE RECORDS SUMMARY | 2025-06-11 18:08 | XMS_ITS | Encounter Summary ---
Author Organization [facility] Address [address] [facility] [address] [place] [phone] Phone Care Team Providers Care Fruit Pitter Name Role Phone Michoacano Marin Primary Care Provider Encounter Details Date Type Department Care Team (Late st Contact Info) Description 02/28/2024 Office Communication [facility] [address] [facility] [address] [place] [phone] Pamella Viera ARNP [address] [phone] Social History Tobacco Use Types Packs/Day Years [...] Care Team (Late st Contact Info) Description 07/30/2025 2:00 PM EST Office Visit [facility] [address] [phone] Pamella Viera ARNP [address] [phone] documented as of this encounter Visit Diagnoses Not on filedocumented in this encounter Care Teams Fruit Pitter Relationship Specialty Start Date End Date Michoacano Marin: [phone] [address] [place] [address] PCP - General Internal Medicine 03/24/24 documented as of this encounter
--- OUTSIDE RECORDS SUMMARY | 2025-06-11 18:08 | XMS_ITS | Encounter Summary ---
Author Organization [employer] Address [address] [facility] 7 [place] [address] Care Team Providers Care Manager Inside Name Role Phone Michoacano Shirley MD Primary Care Prov ider Reason for Visit * Reason Onset Date Comments Med Refill 10/26/2023 Encounter Details Date Type Department Care Team ([facility] st Contact Info) Description 10/26/2023 Telephone [facility] [address] [place], [place] [phone] Michoacano Shirley MD [address] [place] [address] Med Refill Social History Tobacco Use Types [...] (inactive on nextgen) To be sent to: [id number] - [address] documented in this encounter Plan of Treatment Not on file documented as of this encounter Visit Diagnoses Not on filedocumented in this encounter Additional Health Concerns Assessment Noted Time PHQ-9 Depression Total Score: 1 04/10/20 23 10:51 AM EDT documented as of this encounter Care Teams Manager Inside Relationship Specialty Start Date End Date Michoacano Shirley MD [address] [place] [phone] PCP - General Internal Medicine 01/09/20 documented as of this encounter
--- OUTSIDE RECORDS SUMMARY | 2025-06-11 18:08 | XMS_ITS | Encounter Summary ---
Author Organization [employer] Address [address] [place] [address] Care Team Providers Care Urban Planner Name Role Phone Michoacano Shirley MD Primary Care Prov ider Encounter Details Date Type Department Care Team (Latest Contact Info) Description 10/02/2018 Abstract [facility] CONVERSIONS Dental, Provider, DDS Social [...] on filedocumented in this encounter Care Teams Urban Planner Relationship Specialty Start Date End Date Michoacano Shirley MD [address] [place] [address] PCP - General Internal Medicine 01/09/20 documented as of this encounter
--- OUTSIDE RECORDS SUMMARY | 2025-06-11 18:08 | XMS_ITS | Encounter Summary ---
Author Organization [employer] Address [address] [place] [address] Care Team Providers Care Biblical Languages Professor Name Role Phone Michoacano Shirley MD Primary Care Prov ider Encounter Details Date Type Department Care Team (Latest Contact Info) Description 05/08/2019 Abstract [facility] CONVERSIONS Dental, Provider, DDS Social [...] on filedocumented in this encounter Care Teams Biblical Languages Professor Relationship Specialty Start Date End Date Michoacano Shirley MD [address] [place] [address] PCP - General Internal Medicine 01/09/20 documented as of this encounter
--- OUTSIDE RECORDS SUMMARY | 2025-06-11 18:08 | XMS_ITS | Encounter Summary ---
Author Organization [employer] Address [address] [facility] 7 [place] [address] Care Team Providers Care Wood Preparation Supervisor Name Role Phone Michoacano Shriley MD Primary Care Prov ider Encounter Details Date Type Department Care Team ([facility] st Contact Info) Description 05/03/2023 Orders Only [facility] [address] [place] [address] Michoacano Shirley MD [address] [place] [address] Social History Tobacco Use Types Packs/Day Years [...] documented as of this encounter Care Teams Wood Preparation Supervisor Relationship Specialty Start Date End Date Michoacano Shirley MD [address] [place] [address] PCP - General Internal Medicine 01/09/20 documented as of this encounter
--- OUTSIDE RECORDS SUMMARY | 2025-06-11 18:08 | XMS_ITS | Clinical Summary ---
Author Organization [facility] Address [address] [facility] [address] [place] [address] Phone Care Team Providers Care Retail Project Merchandiser Name Role Phone Michoacano Marin Primary Care [...] in the evening. Take with meals. Active Empagliflozin (Jardiance) 25 MG tablet Take 25 mg by mouth 1 (one) time each day in the morning 30 tablet 5 02/23/2025 Active losartan (COZAAR) 50 MG tablet Take 50 mg by mouth 1 (one) time each day Active Active Problems Problem Noted Date Diagnosed [...] Encounters Date Type Department Care Team Description 04/30/2025 1:15 PM EDT Office Visit [facility] [address] [address] Pamella Viera ARNP Stage 3a chronic kidney disease (HCC) (Primary Dx); Essential hypertension; Proteinuria, not otherwise specified; Nephrolithiasis; Secondary hyperparathyroidism of renal origin (HCC); Vitamin D deficiency, not otherwise specified 04/27/2025 Orders Only [facility] [address] [address] Pamella Viera ARNP 03/20/2025 Orders Only [facility] [place] [address] [phone] Pamella Viera ARNP Stage 3a chronic kidney disease (HCC); Essential hypertension; Proteinuria, not otherwise specified; Nephrolithiasis; Secondary hyperparathyroidism of renal origin (HCC); Vitamin D deficiency, not otherwise specified from Last 3 Months Immunizations Immunization Administration [...] Sign Reading Time Taken Comments Blood Pressure 144/90 04/30/2025 1:38 PM EDT Pulse 66 04/30/2025 1:14 PM EDT Temperature - - Respiratory Rate 16 07/23/2017 12:00 PM EST Oxygen Saturation 98% 04/24/2024 9:56 AM EDT Inhaled Oxygen Concentration - - Weight 64 kg (141 lb) 04/30/2025 1:14 PM EDT Height 149.9 cm (4' 11 ) 05/22/2023 9:56 AM EDT Body Mass Index 28.48 05/22/2023 9:56 AM EDT Plan of Treatment Upcoming Encounters Date Type Department Care Team (Late st Contact Info) Description 07/30/2025 2:00 PM EST Office Visit [facility] [address] [phone] Pamella Viera ARNP [address] [address] Health Maintenance Due Date Last [...] Patients (6 to 49 Years) Discontinued 01/18/2017 Procedures Procedure Name Priority Date/Time Associated Diagnosis Comments ALBUMIN, URINE, RANDOM Routine 04/27/2025 2:55 PM EDT PROTEIN / CREATININE RATIO, URINE Routine 04/27/2025 2:55 PM EDT Stage 3a chronic kidney disease (HCC) Essential hypertension Proteinuria, not otherwise specified Nephrolithiasis Secondary hyperparathyroidism of renal origin (HCC) Vitamin D deficiency, not otherwise specified PTH, INTACT (HC) Routine 04/27/2025 2:52 PM EDT PHOSPHATE ( PHOSPHORUS) Routine 04/27/2025 2:52 PM EDT CALCIUM Routine 04/27/2025 2:52 PM EDT CREATININE, BLOOD Routine 04/27/2025 2:5 2 PM EDT BUN Routine 04/27/2025 2:52 PM EDT ELECTROLYTE PANEL Routine 04/27/2025 2:5 2 PM EDT CBC Routine 04/27/2025 2:52 PM EDT Stage 3a chronic kidney disease (HCC) Essential hypertension Proteinuria, not otherwise specified Nephrolithiasis Secondary hyperparathyroidism of renal origin (HCC) Vitamin D deficiency, not otherwise specified from Last 3 Months Results * (ABNORMAL) Urine Protein / creatinine ratio (04/27/2025 2:55 PM EDT) Protein Urine Random 178(H) <12 mg/dL See order comments Protein/Creati nine Ratio, Urine 1.79(H) <0.2 See order comments Comment: The spot urine protein:creatinine ratio may increase to 0.3 during normal . Urine specimen (specimen) Urine specimen obtained by clean catch procedure / Unknown 04/27/2025 2:55 PM EDT 04/27/2025 2:55 PM EDT Done. [facility] LAB URINE ORDERABLES Final Result Performing Organization Address [facility] Co de Phone Number [place] See order comments [place] [address] * (ABNORMAL) Albumin, urine, random (04/27/2025 2:55 PM EDT) Creatinine, Urine 99.47 mg/dL Se e order comments Urine Microalbumin 1,124.0 mg/L See order comments Microalbumin/Crea tinine Ratio 1,129.9(H ) <30 ug/mg cr See order comments Comment: Albumin/Creatinine Ratio Reference Ranges: Normal: < 30 ug/mg creatinine Microalbuminuria: 30 - 300 ug/mg creatinine Clinical Albuminuria: > 300 ug/mg creatinine 04/27/2025 2:55 PM EDT 04/27/2025 2:55 PM EDT Done. [facility] LAB URINE ORDERABLES Final Result Performing Organization Address City/[facility] Co de Phone Number [place] See order comments [place] [address] * (ABNORMAL) Creatinine (04/27/2025 2:52 PM EDT) Creatinine Serum 1.54(H) 0.5 - 1.4 mg/dL See order comments eGFR (Calc) 36 See orde r comments Comment: Chronic Kidney Disease: Estimated GFR < 60 mL/min/1.73m2 Severe Kidney Disease: Estimated GFR < 15 mL/min/1.73m2 04/27/2025 2:52 PM EDT 04/27/2025 2:52 PM EDT Done. [facility] LAB BLOOD ORDERABLES Final Result Performing Organization Address [facility]/ZIP Co de Phone Number [place] See order comments [place] [address] * (ABNORMAL) PTH, Intact (04/27/2025 2:52 PM EDT) Parathyroid Hormone, Intact 90.5(H) 8.7 - 77.1 pg/mL See order comments 04/27/2025 2:52 PM EDT 04/27/2025 2:52 PM EDT [facility] LAB HISTORICAL-CONVERSIONS- UNSOLICITED RESULTS Final Result Performing Organization Address [facility] de Phone Number [place] See order comments [place] [address] * CBC (04/27/2025 2:52 PM EDT) WBC 5.6 4.8 - 10.8 X10*3/uL See order comments RBC 4.29 4.20 - 5.50 X10*6/uL See order comments Hgb 12.7 12.0 - 16.0 g/dl See order comments Hematocrit 37.7 37.0 - 47.0 % See order comments MCV 87.9 80.0 - 98.0 fL See order comments MCH 29.6 27.0 - 33.0 pg See order comments MCHC 33.7 31.0 - 35.0 g/dl See order comments RDW 12.3 11.0 - 16.0 % See order comments Platelets 282 160 - 400 X10*3/uL See order comments MPV 10.3 9.4 - 12.3 fL See order comments nRBC Count 0.0 0.0 - 0.2 /100WBC See order comments NRBC Absolute 0.000 0.0 - 0.012 X10*3/uL See order comments Blood specimen (specimen) Venous blood / Unknown 04/27/2025 2:52 PM EDT 04/27/2025 2:52 PM EDT [facility] LAB BLOOD ORDERABLES Final Result Performing Organization Address [facility] de Phone Number [place] See order comments [place] [address] * (ABNORMAL) BUN (04/27/2025 2:52 PM EDT) BUN 29(H) 9 - 16 mg/dL See order comments 04/27/2025 2:52 PM EDT 04/27/2025 2:52 PM EDT [facility] LAB BLOOD ORDERABLES Final Result Performing Organization Address [facility] Phone Number [place] See order comments [place] [address] * Phosphorus (04/27/2025 2:52 PM EDT) Phosphorus, Serum 3.4 2.7 - 4.5 mg/dL See order comments 04/27/2025 2:52 PM EDT 04/27/2025 2:52 PM EDT [facility] LAB BLOOD ORDERABLES Final Result Performing Organization Address [facility] de Phone Number [place] See order comments [place] [address] * Calcium (04/27/2025 2:52 PM EDT) Calcium 9.2 8.4 - 10.2 mg/dL See order comments 04/27/2025 2:52 PM EDT 04/27/2025 2:52 PM EDT [facility] LAB BLOOD ORDERABLES Final Result Performing Organization Address [facility] de Phone Number [facility] See order comments [place] [address] * Electrolyte panel (04/27/2025 2:52 PM EDT) Sodium 142 135 - 145 mmol/L See order comments Potassium 4.8 3.3 - 5.1 mmol/L See order comments Chloride 107 96 - 108 mmol/L See order comments Bicarbonate (CO2) 28 22 - 29 mmol/L See order comments Anion Gap 12 12 - 20 See order comments 04/27/2025 2:52 PM EDT 04/27/2025 2:52 PM EDT Pamella Maximiliano [facility] LAB BLOOD ORDERABLES Final Result [place] See order comments [place] [address] from Last 3 Months Insurance [facility] Medicare [facility] Medicare [facility] [address] [place] [address] Care Teams Retail Project Merchandiser Relationship Specialty Start Date End Date Michoacano Marin [address] [place] [id number] PCP - General Internal Medicine 03/24/24
== END 2025-06-11 15:03 | disposition home or self-care (01) ==
LOC: HO.HCS 14:15
PROVIDERS: PCP Internal Medicine; Visit Provider Internal Medicine Cardiovascular Disease
DX: I42.9 Cardiomyopathy, unspecified (principal)
CPT/HCPCS: 99214; G2211

== ENCOUNTER → 2025-06-11 14:15 | Outpatient (BNVA) | payer MEDICARE, MEDICAID, SELFPAY | PROVIDERS: PCP Internal Medicine; Visit Provider Internal Medicine Cardiovascular Disease | DX: I42.9 Cardiomyopathy, unspecified (principal); I10 Essential (primary) hypertension; Z87.891 Personal history of nicotine dependence; R06.02 Shortness of breath; E11.9 Type 2 diabetes mellitus without complications; Z79.84 Long term (current) use of oral hypoglycemic drugs; E78.5 Hyperlipidemia, unspecified | CPT/HCPCS: 99212 ==

== ENCOUNTER 2025-06-12 15:14 | Outpatient (REF) | payer MEDICARE, MEDICAID, SELFPAY ==
--- NOTE | ~2025-06-12 | MM_ITS ---
EXAMINATION: MM SCREENING DIGITAL BREAST TOMOSYNTHESIS, BILATERAL CLINICAL INFORMATION: Screening. Asymptomatic. COMPARISON: Mammography: Comparison is made with available priors TECHNIQUE: Digital breast mammography with tomosynthesis is performed in both the craniocaudal and mediolateral oblique views along with computer-aided detection (CAD). FINDINGS: The breasts are heterogeneously dense, which may obscure small masses. There are no significant masses, abnormal calcifications, or other abnormalities. MM/MM tomosynthesis screening BI IMPRESSION: No mammographic evidence of malignancy. ASSESSMENT: BI-RADS Category 1: Negative RECOMMENDATION: Routine annual mammography screening. 1 year F/U This examination should not preclude the clinical evaluation of a suspicious palpable abnormality. This patient's information was entered into a reminder system with a target due date for their next mammogram. Electronically signed by: Aissatou Vega DO 06/16/2025 01:22 PM EDT
--- OUTSIDE RECORDS SUMMARY | 2025-06-12 16:49 | XMS_ITS | Clinical Summary ---
Author Organization [facility] Address [address] [facility] [address] [place] [address] Phone Care Team Providers Care Cosmetics Machine Operator Name Role Phone Michoacano Marin Primary [...] Office Visit [facility]] [address] [address] Pamella Viera ARNP Stage 3a chronic kidney disease (HCC) (Primary Dx); Essential hypertension; Proteinuria, not otherwise specified; Nephrolithiasis; Secondary hyperparathyroidism of renal origin (HCC); Vitamin D deficiency, not otherwise specified 04/27/2025 Orders Only [facility]] [address] [address] Pamella Viera ARNP 03/20/2025 Orders Only [facility] [place] [address] [address] Pamella Viera ARNP Stage 3a chronic kidney [...] Visit [facility] [address] [address] Pamella Viera ARNP [address] [address] Health Maintenance Due Date Last [...] 2:55 PM EDT 04/27/2025 2:55 PM EDT [facility] LAB URINE ORDERABLES Final Result Performing Organization Address [facility] Co de Phone Number [place] See order comments [place] [address] * (ABNORMAL) Albumin, urine, random (04/27/2025 2:55 [...] 2:55 PM EDT 04/27/2025 2:55 PM EDT [facility] LAB URINE ORDERABLES Final Result Performing Organization Address City/[facility] Co de Phone Number [place] See order comments [place] [address] * (ABNORMAL) Creatinine (04/27/2025 2:52 PM EDT) Creatinine Serum 1.54(H) 0.5 - 1.4 mg/dL See order comments eGFR (Calc) 36 See orde r comments Comment: Chronic Kidney Disease: Estimated GFR < 60 mL/min/1.73m2 Severe Kidney Disease: Estimated GFR < 15 mL/min/1.73m2 04/27/2025 2:52 PM EDT 04/27/2025 2:52 PM EDT [facility] LAB BLOOD ORDERABLES Final Result Performing Organization Address [facility]/ZIP Co de Phone Number [place] See order comments [place] [address] * (ABNORMAL) PTH, Intact (04/27/2025 2:52 PM EDT) Parathyroid Hormone, Intact 90.5(H) 8.7 - 77.1 pg/mL See order comments 04/27/2025 2:52 PM EDT 04/27/2025 2:52 PM EDT [facility] LAB HISTORICAL-CONVERSIONS- UNSOLICITED RESULTS Final Result Performing Organization Address [facility] de Phone Number [place] See order comments [place] [address] * CBC (04/27/2025 2:52 PM EDT) WBC [...] 2:52 PM EDT 04/27/2025 2:52 PM EDT [facility] LAB BLOOD ORDERABLES Final Result Performing Organization Address [facility] de Phone Number [place] See order comments [place] [address] * (ABNORMAL) BUN (04/27/2025 2:52 PM EDT) BUN 29(H) 9 - 16 mg/dL See order comments 04/27/2025 2:52 PM EDT 04/27/2025 2:52 PM EDT [facility] LAB BLOOD ORDERABLES Final Result Performing Organization Address [facility] Phone Number [place] See order comments [place] [address] * Phosphorus (04/27/2025 2:52 PM EDT) Phosphorus, Serum 3.4 2.7 - 4.5 mg/dL See order comments 04/27/2025 2:52 PM EDT 04/27/2025 2:52 PM EDT [facility] LAB BLOOD ORDERABLES Final Result Performing Organization Address [facility] de Phone Number [place] See order comments [place] [address] * Calcium (04/27/2025 2:52 PM EDT) Calcium 9.2 8.4 - 10.2 mg/dL See order comments 04/27/2025 2:52 PM EDT 04/27/2025 2:52 PM EDT [facility] LAB BLOOD ORDERABLES Final Result Performing Organization Address [facility] de Phone Number [facility] See order comments [place] [address] * Electrolyte panel (04/27/2025 2:52 PM EDT) [...] order comments [place] [address] from Last 3 Months Insurance [facility] Medicare [facility] Medicare [place] [facility] [address] [place] [address] Care Teams Cosmetics Machine Operator Relationship Specialty Start Date End Date Michoacano Marin [address] [place] [address] PCP - General Internal Medicine 03/24/24
--- OUTSIDE RECORDS SUMMARY | 2025-06-12 16:49 | XMS_ITS | Encounter Summary ---
Author Organization [facility] Address [address] [facility] [address] [place] [address] Phone Care Team Providers Care Paper Spooler Name Role Phone Michoacano Marin Primary Care Provider Encounter Details Date Type Department Care Team (Late st Contact Info) Description 02/28/2024 Office Communication [facility] [address] [facility] [address] [place] [phone] Pamella Viera ARNP [address] [phone] Social History Tobacco Use Types Packs/Day Years [...] [facility] [address] [address] Pamella Viera ARNP [address] [phone] documented as of this encounter Visit Diagnoses Not on filedocumented in this encounter Care Teams Paper Spooler Relationship Specialty Start Date End Date Michoacano Marin: [phone] [address] [place] [address] PCP - General Internal Medicine 03/24/24 documented as of this encounter
--- OUTSIDE RECORDS SUMMARY | 2025-06-12 16:49 | XMS_ITS | Encounter Summary ---
Author Organization [employer] Address [address] [facility] 7 [place] [address] Care Team Providers Care Document Restorer Name Role Phone Michoacano Shirley MD Primary Care Prov ider Reason for Visit * Reason Onset Date Comments Med Refill 10/26/2023 Encounter Details Date Type Department Care Team ([facility] st Contact Info) Description 10/26/2023 Telephone [facility] [address] [place], [place] [id number] Michoacano Shirley MD [address] [place] [address] Med Refill Social History Tobacco Use Types [...] (inactive on nextgen) To be sent to: [facility][id number] - [address] documented in this encounter Plan of Treatment Not on file documented as of this encounter Visit Diagnoses Not on filedocumented in this encounter Additional Health Concerns Assessment Noted Time PHQ-9 Depression Total Score: 1 04/10/20 23 10:51 AM EDT documented as of this encounter Care Teams Document Restorer Relationship Specialty Start Date End Date Michoacano Shirley MD [address] [place] [id number] PCP - General Internal Medicine 01/09/20 documented as of this encounter
--- OUTSIDE RECORDS SUMMARY | 2025-06-12 16:49 | XMS_ITS | Encounter Summary ---
Author Organization [employer] Address [address] [place] [address] Care Team Providers Care Medicaid Plan Compliance Director Name Role Phone Michoacano Shirley MD Primary Care Prov ider Encounter Details Date Type Department Care Team (Latest Contact Info) Description 10/02/[address] [facility] CONVERSIONS Dental, Provider, DDS Social History [...] on filedocumented in this encounter Care Teams Medicaid Plan Compliance Director Relationship Specialty Start Date End Date Michoacano Shirley MD [address] [place] [address] PCP - General Internal Medicine 01/09/20 documented as of this encounter
--- OUTSIDE RECORDS SUMMARY | 2025-06-12 16:49 | XMS_ITS | Clinical Summary ---
Author Organization [employer] Address [address] [place] [address] Care Team Providers Care Agronomist Name Role Phone Michoacano Shirley MD Primary [...] citrate CR (Urocit-K-10) 10 mEq ER tabletIndications :[facility] Take 10 mEq by mouth with [...] 3 times daily. 90 tablet 3 Active spironolactone (Aldactone) 100 MG tablet Take [...] if needed for wheezing. 75 mL 11 025 2025 Active losartan (Cozaar) 50 MG tablet Take 1 tablet (50 mg) by mouth Once per day. 30 tablet 11 025 2025 Active dapagliflozin (Farxiga) 10 MG Take 10 mg by mouth Once per day. Active atorvastatin (Lipitor) 40 MG tabletIndications :Mixed hyperlipidemia TAKE 1 TABLET(40 MG) BY MOUTH IN THE MORNING 90 tablet 1 Active amLODIPine (Norvasc) 10 MG tabletIndications :Primary hypertension TAKE 1 TABLET(10 MG) BY MOUTH DAILY 90 tablet 3 Active amLODIPine (Norvasc) 10 MG tabletIndications :Primary hypertension Take 1 tablet (10 mg) by mouth Once per day. 90 tablet 3 024 2024 Discontinued Active Problems Problem Noted Date Diagnosed Date Stage 3b chronic kidney disease ([facility]/HCC) 2023 Assessment & Plan (03/20/2024 9:14 AM [...] Date Resolved Date Benzodiazepine dependence, c ontinuous ([facility]) 07/10/2018 02/12/2025 Encounters Date Type Department Care Team Description 06/12/2025 Refill [facility] [address] [place] [address] Michoacano Shirley MD Primary hypertension 04/27/2025 Orders Only GENERIC EXTERNAL DATA DEPARTMENT Provider, Generic External Data 04/21/2025 Orders Only GENERIC EXTERNAL DATA DEPARTMENT Provider, Generic External Data 03/24/2025 Orders Only [facility] External Provider, [facility] from Last 3 Months Immunizations Immunization Administration [...] complication, without long-term current use of insulin ([facility]) BI MAMMOGRAM SCREENING TOMOSYNTHESIS BILATERAL Routine 05/02/2024 [...] Protein, Total, Random Urine 178(H) <12 mg/dL [facility] Protein/Creati nine Ratio, Ur 1.79(H) <0.2 [facility] Comment:The spot urine prote in:creatinine ratio may increase to 0.3during normal . 04/27/2025 11:0 0 AM EDT 04/27/2025 2:55 PM EDT us Generic External Data Provider LAB URINE ORDERAB LES Final Result [facility] [address] [place] [phone] * (ABNORMAL) Albumin, Random Urine W/Creatinine (04/27/2025 11:00 AM EDT) Creatinine, Urine 99.47 mg/dL [facility] Microalbumin Urine 1,124.0 mg/L [facility] Microalbum Creatinine Ratio Ur 1,129.9(H ) <30 ug/mg cr [facility] Comment:Albumin/Creatinine R atio Reference Ranges: Normal: < 30 ug/mg creatinine Microalbuminuria: 30 - 300 ug/mg creatinineClinical Albuminuria: > 300 ug/mg creatinine 04/27/2025 11:0 0 AM EDT 04/27/2025 2:55 PM EDT us Generic External Data Provider LAB URINE ORDERAB LES Final Result Performing Organization Address [facility] Co de Phone Number [facility] [address] [place] [address] [phone] * (ABNORMAL) Creatinine, Serum (04/27/2025 10:57 AM EDT) Pathologist [facility] Creatinine, Serum 1.54(H) 0.5 - 1.4 mg/dL [facility] Estimated Glomerular Filt Rate 36 [facility] Comment:Chronic Kidney Disea se: Estimated GFR < 60 mL/min/1.48x4Nzxhms Kidney Disease: Estimated GFR < 15 mL/min/1.73m2 04/27/2025 10:5 7 AM EDT 04/27/2025 2:52 PM EDT Generic External Data Provider LAB BLOOD ORDERAB LES Final Result Performing Organization Address [facility] Co de Phone Number [facility] [address] [place] [phone] * CBC (04/27/2025 10:57 AM EDT) White Blood Count 5.6 4.8 - 10.8 X10*3/uL [facility] Red Blood Count 4.29 4.20 - 5.50 X10*6/uL [facility] Hemoglobin 12.7 12.0 - 16.0 g/dl [facility] Hematocrit 37.7 37.0 - 47.0 % [facility] Mean Corpuscular Volume 87.9 80.0 - 98.0 fL [facility] Mean Corpuscular Hemoglobin 29.6 27.0 - 33.0 pg [facility] Mean Corpuscular HGB Conc 33.7 31.0 - 35.0 g/dl [facility] Red Cell Distribution Width 12.3 11.0 - 16.0 % [facility] Platelet Count 282 160 - 400 X10*3/uL [facility] Mean Platelet Volume 10.3 9.4 - 12.3 fL [facility] NRBC Pct Auto 0.0 0.0 - 0.2 /100WBC [facility] NRBC Abs Auto 0.000 0.0 - 0.012 X10*3/uL [facility] 04/27/2025 10:5 7 AM EDT 04/27/2025 2:52 PM EDT Generic External Data Provider LAB BLOOD ORDERAB LES Final Result Performing Organization Address [facility] de Phone Number [facility] [address] [place] [phone] * (ABNORMAL) BUN (Blood Urea Nitrogen) (04/27/2025 10:57 AM EDT) Urea Nitrogen (BUN) 29(H) 9 - 16 mg/dL [facility] 04/27/2025 10:5 7 AM EDT 04/27/2025 2:52 PM EDT Generic External Data Provider LAB BLOOD ORDERAB LES Final Result Performing Organization Address [facility] de Phone Number [facility] [address] [place] [address] [phone] * Phosphate (As Phosphorus) (04/27/2025 10:57 AM EDT) Phosphorus 3.4 2.7 - 4.5 mg/dL [facility] 04/27/2025 10:5 7 AM EDT 04/27/2025 2:52 PM EDT Generic External Data Provider LAB BLOOD ORDERAB LES Final Result Performing Organization Address [facility] de Phone Number [facility] [address] [place] [address] [phone] * (ABNORMAL) PTH, Intact Without Calcium (04/27/2025 10:57 AM EDT) Parathyroid Hormone, Intact 90.5(H) 8.7 - 77.1 pg/mL [facility] 04/27/2025 10:5 7 AM EDT 04/27/2025 2:52 PM EDT us Generic External Data Provider LAB BLOOD ORDERAB LES Final Result Performing Organization Address City/[facility]/ZIP Co de Phone Number [facility] [address] [place] [address] [phone] * Calcium (04/27/2025 10:57 AM EDT) Calcium 9.2 8.4 - 10.2 mg/dL [facility] 04/27/2025 10:5 7 AM EDT 04/27/2025 2:52 PM EDT us Generic External Data Provider LAB BLOOD ORDERAB LES Final Result Performing Organization Address [facility] Co de Phone Number [facility] [address] [place] [address] [phone] * Electrolyte Panel (04/27/2025 10:57 AM EDT) Sodium 142 135 - 145 mmol/L [facility] Potassium 4.8 3.3 - 5.1 mmol/L [facility] Chloride 107 96 - 108 mmol/L [facility] Carbon Dioxide 28 22 - 29 mmol/L [facility] Anion Gap 12 12 - 20 [facility] 04/27/2025 10:5 7 AM EDT 04/27/2025 2:52 PM EDT Generic External Data Provider LAB BLOOD ORDERAB LES Final Result Performing Organization Address [facility] Co de Phone Number [facility] [address] [place] [address] [phone] * Cytopath-cell enhanced (04/21/2025 1:24 PM EDT) 04/21/2025 1:24 PM EDT 04/22/2025 9:52 AM EDT [facility] - 04/22/2025 4:17 PM EDT ----- ------- Name: Mane BensonzquezSundara Age/Sex: 49/F : 1975 Unit#: [id number] Attend Dr: Mehnaz Davis [facility]- Re04/21/25 Status: DEP REF Location: .LAB Disch: ----- ------- SPEC : [id number] RECD: 04/22/25 STATUS: BOYD MIXON NUM: [id number] TERESA: 04/21/25-[address] [facility] DR: Mehnaz Davis [facility]- ENTERED: 04/22/25-1014 SP TYPE: Cytology OTHR [...] developed and their performance characteristics determined by [facility]. They have not been cleared or approved by the U.S. Food and Drug Administration (FDA). However, the FDA has determined that such clearance or approval is not necessary. This laboratory is certified under the Clinical Laboratory Improvement Amendments of 1988 (CLIA) as qualified to perform high complexity clinical laboratory testing. Copies To: Michoacano Shirley MD [address] [address] [facility] [address] [place] [address] Dr. [address] [place], [place] [phone] [email or web address] CONTINUED ON NEXT PAGE ----- ------- Name: Mane BensonzquezMarylu Age/Sex: 49/F : 1975 Unit#: [id number] Attend Dr: Mehnaz DavisPStarr Re04/21/25 Status: [facility] Dis[facility] ----- ------- SPEC : [id number] RECD: 04/22/25 STATUS: BOYD MIXON NUM: [id number] TERESA: 04/21/25-[address] [facility] DR: Mehnaz Davis [facility] ENTERED: 04/22/25-1014 SP TYPE: Cytology OTHR DR: Michoacano Shirley MD ORDERED: Cyto-enhanced ----- ------- Signed (signature on file) Alysia Mendon 04/22/25 1617 ----- ------- END OF REPORT us Generic External Data Provider LAB CYTOLOGY PATI RIBERA Final Result [facility] [address] [place] [address] [phone] * US Renal Complete (03/24/2025 2:53 PM EDT) Anatomical Region Laterality Modality Kidney Ultrasound 03/24/2025 2:53 PM EDT Narrative 03/24/2025 3:23 PM EDT [place] [address] Ultrasound Report Signed Patient: Marylu Liu MR#: [id number] : 1975 Acct:[id number] Age/Sex: 49 / F ADM Date: 03/24/25 Loc: HO.US Attending Dr: Adrian Hanson MD Ordering Physician: Adrian Hanson MD Date of Service: 03/24/25 Procedure(s): US renal BI Accession Number(s): [id number] cc: Adrian Hanson MD; Michoacano Shirley MD [...] 03/24/25 1520 DD/ 1453 TD/TT: 03/24/25 1509 Electric Tape Slitter: Procedure Note Donotuseinterpreter, Image - 03/24/2025 [place] [address] Ultrasound Report Signed Patient: Ronel Liu#: [id number] : 1975Acct:[id number] Age/Sex: 49 / FADM Date: 03/24/25 Loc: HO.US Attending Dr: Adrian Hanson MD Ordering Physician: Adrian Hanson MD Date of Service: 03/24/25 Procedure(s): US renal BI Accession Number(s): [id number] cc: Adrian Hanson MD; Michoacano Shirley MD [...] 03/24/25 1520 DD/ 1453 TD/TT: 03/24/25 1509 Electric Tape Slitter: [facility] External Provider IMG US PROCEDURES Edited Result - Final * POCT HGB A1C (08/01/2024 11:08 AM EST) Hemoglobin A1C 6.0 4.0 - 6.0 % QC Media Lot # [id number] Lot# Expiration Date ,026 Blood 08/01/2024 11:0 8 AM EST Michoacano Kincaid MD POINT OF CARE TEST ENTER/EDIT ORDERABLES Final Result * BI Mammogram Screening Tomosynthesis Bilateral (05/02/2024 10:40 AM EDT) Anatomical Region Laterality Modality Breast Bilateral Mammography 05/02/2024 10:4 0 AM EDT Narrative 05/15/2024 8:11 PM EDT [address] [place] [address] Mammography Report Signed Patient: Marylu Liu MR#: [id number] : 1975 Acct:[id number] Age/Sex: 48 / F ADM Date: 05/02/24 Loc: HO.MAMMO Attending Dr: Michoacano Kincaid MD Ordering Physician: Michoacano Shirley MD Res ults: 1Negative Date of Service: 05/02/24 Follow Up: 1 Year From Orig inal Mammogram Procedure(s): MM tomosynthesis screening BI Accession Number(s): [id number] cc: Michoacano Shirley MD EXAMINATION: MM SCREENING [...] OV> 05/15/242006 DD/ 1040 TD/TT: 05/02/24 1055 Electric Tape Slitter: Procedure Note Donlucianointerpreter, Image - 05/15/[address] [place] [address] [place] [address] Mammography Report Signed Patient: Sundar LiuaMR#: [id number] : 1975Acct:[id number] Age/Sex: 48 / FADM Date: 05/02/24 Loc: HO.MAMMO Attending Dr: Michoacano Kincaid MD Ordering Physician: Michoacano Shirley ults: 1Negative Date of Service: 05/02/24Follow Up: 1 Year From Orig inal Mammogram Procedure(s): MM tomosynthesis screening BI Accession Number(s): [id number] cc: Michoacano Shirley MD EXAMINATION: MM SCREENING [...] OV> 05/15/242006 DD/ 1040 TD/TT: 05/02/24 1055 Electric Tape Slitter: us Michoacano Kincaid MD IM BI PROCEDURES Edited Result - Final * (ABNORMAL) Lipid Panel, Standard (04/09/2024 11:33 AM EDT) Triglycerides 216(H) <150 mg/dL [facility] Comment:Desirable Triglyceri de: less than 150 mg/dLBorderline High Triglyceride 150-199 mg/dLHigh Triglyceride: 200-499 mg/dLVery High Triglyceride: greater than or equal to 5OO mg/dL Cholesterol 205(H) <200 mg/dL [facility] Comment:Desirable Cholestero l: less than 200 mg/dLBorderline High Cholesterol: 200-239 mg/dLHigh Cholesterol: greater than 239 mg/dL LDL Cholesterol Calculated 124(H) <100 mg/dL [facility] Comment:Desirable LDL: less than 100 mg/dLNear Optimal/Above Optimal LDL: 110- 129 mg/dLBorderline High LDL: 130-159 mg/dLHigh LDL: 160-189 mg/dLVery High LDL: greater than or equal to 190 mg/dL HDL Cholesterol 38(L) >40 mg/dL [facility] Comment:Desirable HDL: great er than 40 mg/dL Note: This HDL assay may give artificially low results in patients with liver disease. Blood Venous blood specimen / Unknown 04/09/2024 11:33 AM EDT 04/09/2024 2:09 PM EDT us Michoacano Kincaid MD LAB BLOOD ORDERABL ES Final Result Performing Organization Address [facility] Co de Phone Number [facility] [address] [place] [phone] * Hepatitis C Antibody with Reflex to HCV, RNA, Quantitative, Real-Time PCR (04/27/2023 10:26 AM EDT) Hepatitis C Antibody Nonreactive Nonreactive [facility] Comment:Antibodies to HCV no t detected; does not exclude early acuteHCV infection. Blood Venous blood specimen / Unknown 04/27/2023 10:26 AM EDT 04/27/2023 2:43 PM EDT Michoacano Kincaid MD LAB BLOOD ORDERABL ES Final Result Performing Organization Address [facility] Co de Phone Number [facility] [address] [place] [phone] * Hm Colonoscopy (11/13/2022) Colonoscopy Normal Normal Narrative Zuri Agee - 11/13/2022 Recommended 10 year follow up us Historical Provider HEALTH MAINTENANCE Final Result * HIV [...] of detection of this assay. The Blanco Scale Operator HIV Ag/Ab Combo assay result and supplemental assay results should be interpreted in conjunction with the patient's clinical presentation, history and other laboratory results. If the results are inconsistent with clinical evidence, additional testing is suggested to confirm the result. 09/23/2019 11:3 1 AM EST us Historical Provider HISTORICAL/NON ORDERABLE LABS Final Result Performing Organization Address City/State/[facility] Co de Phone Number [facility] Anywhere [address] from Last 3 Months or Most Recently Relevant to Health Maintenance Insurance [facility] MEDICARE REPLACEMENT Care Teams Agronomist Relationship Specialty Start Date End Date MarinMichoacano Figueroa MD [address] [place] [phone] PCP - General Internal Medicine 01/09/20
--- OUTSIDE RECORDS SUMMARY | 2025-06-12 16:49 | XMS_ITS | Encounter Summary ---
Author Organization [employer] Address [address] [place] [address] Care Team Providers Care Diesel Roller Operator Name Role Phone Michoacano Shirley MD Primary Care Prov ider Encounter Details Date Type Department Care Team (Latest Contact Info) Description 05/08/[address] [facility] CONVERSIONS Dental, Provider, DDS Social [...] on filedocumented in this encounter Care Teams Diesel Roller Operator Relationship Specialty Start Date End Date Michoacano Shirley MD [address] [place] [address] PCP - General Internal Medicine 01/09/20 documented as of this encounter
--- OUTSIDE RECORDS SUMMARY | 2025-06-12 16:49 | XMS_ITS | Encounter Summary ---
Author Organization [email or web address] Address [address] [facility] [address]t [place] [address] Care Team Providers Care Mri Supervisor Name Role Phone Michoacano Shirley MD Primary Care Prov ider Reason for Visit * Reason Comments Med Refill Encounter Details Date Type Department Care Team ([facility] st Contact Info) Description 06/12/2025 Refill [facility] [address] [place], [place] [phone] Michoacano Shirley MD [address] [place] [address] Primary hypertension Social History Tobacco Use Types Packs/Day Years [...] as of this encounter Visit Diagnoses Diagnosis Primary hypertension Unspecified essential hypertension documented in this encounter Additional Health Concerns Assessment Noted Time PHQ-9 Depression Total Score: 10 025 1:58 PM EDT documented as of this encounter Care Teams Mri Supervisor Relationship Specialty Start Date End Date Michoacano Shirley MD [address] [place] [phone] PCP - General Internal Medicine 01/09/20 documented as of this encounter
--- OUTSIDE RECORDS SUMMARY | 2025-06-12 16:49 | XMS_ITS | Encounter Summary ---
Author Organization [employer] Address [address] [facility] 7 [place] [address] Care Team Providers Care Food And Drug Research Scientist Name Role Phone Michoacano Shirley MD Primary Care Prov ider Encounter Details Date Type Department Care Team ([facility] st Contact Info) Description 05/03/2023 Orders Only [facility]S [address] [place] [address] Michoacano Shirley MD [address] [place] [address] Social History Tobacco Use Types Packs/Day Years [...] documented as of this encounter Care Teams Food And Drug Research Scientist Relationship Specialty Start Date End Date Michoacano Shirley MD [address] [place] [address] PCP - General Internal Medicine 01/09/20 documented as of this encounter
== END 2025-06-12 15:15 | disposition home or self-care (01) ==
LOC: HO.MAMMO 15:14
PROVIDERS: PCP Internal Medicine; Visit Provider Internal Medicine
DX: Z12.31 Encounter for screening mammogram for malignant neoplasm of breast (principal)
CPT/HCPCS: 77063; 77067

== ENCOUNTER → 2025-06-12 15:30 | Outpatient (BNV) | payer MEDICARE, MEDICAID, SELFPAY | PROVIDERS: PCP Internal Medicine; Visit Provider Internal Medicine | DX: Z12.31 Encounter for screening mammogram for malignant neoplasm of breast (principal) | CPT/HCPCS: 77063; 77067 ==

== ENCOUNTER 2025-07-27 10:14 | Outpatient (REF) | payer MEDICARE, MEDICAID, SELFPAY ==
[2025-07-27 15:10] LABS: Anion Gap 13 (12-20); Blood Urea Nitrogen 36 mg/dL (9-16); Calcium 9.1 mg/dL (8.4-10.2); Carbon Dioxide 24 mmol/L (22-29); Chloride 109 mmol/L (96-108); Estimated Glomerular Filt Rate 32; Potassium 4.0 mmol/L (3.3-5.1); Sodium 142 mmol/L (135-145)
== END 2025-07-27 10:15 | disposition home or self-care (01) ==
LOC: HO.CHCLDS 10:14
PROVIDERS: PCP Internal Medicine; Visit Provider Internal Medicine Nephrology
DX: I12.9 Hypertensive chronic kidney disease with stage 1 through stage 4 chronic kidney disease, or unspecified chronic kidney disease (principal); N18.31 Chronic kidney disease, stage 3a
CPT/HCPCS: 36415; 80048

== ENCOUNTER 2025-08-03 10:58 | Outpatient (REF) | payer MEDICARE, MEDICAID, SELFPAY ==
[2025-08-03 15:42] LABS: Protein/Creatinine Ratio, Ur 1.66 (<0.2); Total Protein Urine Random 159 mg/dL (<12)
== END 2025-08-03 10:59 | disposition home or self-care (01) ==
LOC: HO.CHCLDS 10:58
PROVIDERS: PCP Internal Medicine Nephrology; Visit Provider Internal Medicine Nephrology
DX: I12.9 Hypertensive chronic kidney disease with stage 1 through stage 4 chronic kidney disease, or unspecified chronic kidney disease (principal); N18.31 Chronic kidney disease, stage 3a; R80.9 Proteinuria, unspecified
CPT/HCPCS: 82570; 84156